=== PATIENT | male | born 1945 | race Caucasian/White ===

== ENCOUNTER → 2023-11-23 | Outpatient (CLI) | payer OTHER, SELFPAY ==
--- OUTSIDE RECORDS SUMMARY | 2023-11-23 06:41 | XMS RPT_ITS | CCD ---
Author Name Unknown Address [address] [place] [address] Organization [facility] Care Team Providers Care [employer] Name Role Phone Ronit Wall Primary Care Provider RONIT WALL Referring Unavailable RONIT WALL Primary Care Unavailable DAVID HARPER Attending Unavailable JUANIS SMALL Admitting Unavailable VACCARIELLO, EVELIN Consulting Unavailable JUANIS SMALL Primary Care Unavailable JUANIS SMALL Attending Unavailable PROVIDER, UNKNOWN Consulting Unavailable PROVIDER, UNKNOWN Consulting Unavailable PROVIDER, UNKNOWN Consulting Unavailable VACCARIELLO, EVELIN Consulting Unavailable RONIT WALL CNP Admitting Unavailable RONIT WALL CNP Primary Care Unavailable RONIT WALL CNP Attending Unavailable PROVIDER, UNKNOWN Consulting Unavailable PROVIDER, UNKNOWN Consulting Unavailable PROVIDER, UNKNOWN Consulting Unavailable RONIT WALL CNP Attending Unavailable VACCARIELLO, EVELIN Consulting Unavailable RONIT WALL CNP Admitting Unavailable RONIT WALL CNP Primary Care Unavailable PROVIDER, UNKNOWN Consulting Unavailable PROVIDER, UNKNOWN Consulting Unavailable PROVIDER, UNKNOWN Consulting Unavailable Allergies Allergy Classification Reported Allergen(s) Allergy Type Date of Onset Reaction(s) Facility (2 sources) atorvastatin; Translations: [ATORVASTATIN] Drug Allergy 05-11-2019 Unknown [facility] (2 sources) Omeprazole; Translations: [OMEPRAZOLE] Drug Allergy 05-11-2019 Unknown [facility] (2 sources) Simvastatin; Translations: [SIMVASTATIN] Drug Allergy 05-11-2019 Unknown [facility] (2 sources) tadalafil; Translations: [TADALAFIL] Drug Allergy 05-11-2019 Unknown [facility] Medications Completed/Discontinued Medications Medication Drug Class(es) Dates Sig (Normalized) Sig (Original) aspirin 81 mg delayed release oral tablet (1 source) Platelet Aggregation Inhibitor, Nonsteroidal Anti-inflammatory Drug take 1 tablet by mouth once daily aspirin, enteric coated (ASPIRIN, ENTERIC COATED) 81 mg EC tablet Take 81 mg by mouth once daily. 0 Active Problems Active Problems Problem Classification Problem Date Documented Da te Episodic/Chronic Aortic; peripheral; and visceral artery aneurysms (1 source) Aneurysm; Translations: [Aneurysm of unspecified site] Onset: 05-15-2019 05-15-2019 Chronic Headache; including migraine (2 sources) Chronic daily headache; Translations: [Chronic daily headache] Onset: 06-30-2023 06-30-2023 Episodic Other and unspecified benign neoplasm (1 source) Neoplasm of meninges; Translations: [Benign neoplasm of meninges, unspecified] Onset: 05-15-2019 05-15-2019 Chronic Other nervous system disorders (2 sources) History of meningioma; Translations: [Personal history of benign neoplasm of the brain] Onset: 06-30-2023 06-30-2023 Episodic Other screening for suspected conditions (not mental disorders or infectious disease) (1 source) Magnetic resonance imaging of brain abnormal; Translations: [Other abnormal findings on diagnostic imaging of central nervous system] 05-15-2019 Episodic Residual codes; unclassified (1 source) Sleep apnea; Translations: [Sleep apnea, unspecified] 05-15-2019 Chronic Past or Other Problems Problem Classification Problem Date Documented Da te Episodic/Chronic Retinal detachments; defects; vascular occlusion; and retinopathy (1 source) Detachment of retina of left eye; Translations: [Serous retinal detachment, left eye] Onset: 05-15-2019 05-15-2019 Episodic Results Test Name Value Interpretation Reference Range Facil ity Vital Signs Date Time Vital Sign Value Performing Clinician Kandice huizar 06-30-2023 09:29-0400 Body height 193 cm David elam MD Work Phone: [facility] 06-30-2023 09:29-0400 Body weight 88 kg David elam MD Work Phone: [facility] Encounters Encounter Date Encounter Type Care Provider Facility Start: 10-29-2023 ambulatory JUANIS SMALL [facility] Start: 06-30-2023 End: 06-30-2023 ambulatory RONIT WALL Facility:[facility] Start: 06-30-2023 End: 06-30-2023 Patient encounter procedure David Harper MD Work Phone: [facility] Neurology Plan of Treatment Date Care Activity Detail Author Start: 07-15-2023 Influenza vaccination INFLUENZA (#1) [facility] Start: 11-14-2022 ADVANCE DIRECTIVE DISCUSSION ADVANCE DIRECTIVE DISCUSSION [facility] Start: 11-14-2022 DEPRESSION ASSESSMENT DEPRESSION ASS ESSMENT [facility] Start: 12-08-2021 COVID-19 VACCINE (2 - Moderna series) COVID-19 VACCINE (2 - Moderna series) [facility] Start: 2008 PNEUMOCOCCAL: 65+ (1 - PCV) PNEUMOCOCCAL: 65+ (1 - PCV) [facility] Start: 1993 SHINGRIX VACCINE (1 of 2) FRANKLIN GRIX VACCINE (1 of 2) [facility] Start: 1988 DIABETES SCREEN DIABETES SCREEN [facility] Start: 1962 Urine microalbumin profile DTAP,TDAP ,TD (1 - Tdap) [facility] Payers Date Payer Category Payer Private Health Insurance [facility] [employer] [id number] 2021-[facility] [phone] [address] [place] [address] PPO [id number] 2021 Unknown [id number] 1945 Unknown [id number] 1945 Unknown [id number] 1945 Unknown [id number] Medicare [id number] Social History Date Type Detail Facility Start: 06-30-2023 Tobacco smoking stat us [facility] Ex-smoker [facility] History of tobacco use Current smoker [facility] Start: 06-30-2023 Tobacco use and exposure Smoke less tobacco non-user [facility] Start: 06-30-2023 Alcohol intake Ex-drinker (finding) [facility] Start: 05-15-2019 End: 06-30-2023 History of Social function [facility] Start: 05-15-2019 End: 06-30-2023 Tobacco use panel [facility] Adult Depression Scr eening Assessment 0 [facility] Start: 1945 Sex Assigned At Not on file [facility] Progress note 06-30-2023 Note Date & Type Note Facility 06-30-2023 Note HNO ID: [id number] Author: David Harper MD Service: ? Author Type: Physician Type: Progress Notes Filed: 06/30/2023 2:28 PM Note Text: Referring Provider: Ronit Wall CNP Date: June 30, 2023 Chief Complaint: Headaches and history of menangioma HISTORY OF PRESENT ILLNESS: Ariana Chacon is a 77 year old male who presents for Headaches. He is a right handed, man. Patient resides at home with just his . 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 He is independent in his personal care. Patient states that he started suffering with migraines in his twenties. His most recent was just last week but he states that with in the past month or two he will have a headache every day. He states that the headache will come and go daily lasting up to six hours daily. His pain is located in the center of his forehead. Prior to last month he would have up to 3 migraines a month. He denies this headache stopping him from doing anything. He states that he will get a dot of blurry vision in the distance which is an aura that he is going to have a migraine in about an hour. I, Tracy Lyn MA, transcribing for David Harper MD. ALLERGIES Allergen Reactions Cialis [Tadalafil] Unknown Lipitor [Atorvastat* Unknown Omeprazole Unknown Zocor [Simvastatin] Unknown PAST MEDICAL HISTORY: PAST MEDICAL HISTORY Diagnosis Date Abnormal brain MRI Amaurosis fugax BPH (benign prostatic hyperplasia) GERD (gastroesophageal reflux disease) Hyperlipidemia Retinal detachment Sleep apnea Type 2 diabetes (HCC) PAST SURGICAL HISTORY Procedure Laterality Date WRIST SURGERY HX Right FAMILY HISTORY Problem Relation Age of Onset Heart Mother Cancer Father SOCIAL HISTORY: Tobacco Use: Quit Alcohol Use: Not Currently Drug Use: Never Employer And Job Title: No employer specified ([employer]) Years Of Education Completed: Not specified Marital Status: MEDICATIONS: Current Outpatient Medications Medication Sig pantoprazole DR (PROTONIX) 40 mg tablet rosuvastatin (CRESTOR) 40 mg tablet Take 40 mg by mouth once daily. aspirin, enteric coated (ASPIRIN, ENTERIC COATED) 81 mg EC tablet Take 81 mg by mouth once daily. multivitamin/iron/folic acid (CENTRUM COMPLETE ORAL) Take by mouth. lansoprazole (PREVACID) 30 mg capsule Take 30 mg by mouth once daily. No current facility-administered medications for this visit. I have personally reviewed the patients past medical history including social, family, surgical, diagnostics, and medications./AB Review of Systems Constitutional: Negative for chills, fever and unexpected weight change. HENT: Negative for congestion, facial swelling, trouble swallowing and voice change. Eyes: Negative for visual disturbance. Respiratory: Negative for shortness of breath. Cardiovascular: Negative for chest pain. Gastrointestinal: Negative for diarrhea, nausea and vomiting. Musculoskeletal: Negative for gait problem and myalgias. Allergic/Immunologic: Negative. Negative for immunocompromised state. Neurological: Positive for headaches. Negative for dizziness, syncope and light-headedness. Psychiatric/Behavioral: Negative. Negative for hallucinations and self-injury. Vitals: Ht 193 cm (6' 4 ) Wt 88 kg (194 lb) BMI 23.61 kg/m? PHYSICAL EXAM:: The physical exam findings are as follows: General General Appearance - Well groomed Orientation: Oriented to time, oriented to place, and oriented to person. Higher Cortical Function: Awake and alert. Language functions are intact. Patient names well and repeats well, spontaneous speech as well as comprehension is normal and fund of knowledge is intact for the patient level of education. Attention span and concentration are normal and as expected for patient's age. Neurologic CRANIAL NERVES: ll - Makes and sustains eye contact. Visual gan are full to confrontation testing. lll, lV, Vl - Pupils are 2 -3 mm in size and reactive. External ocular movements are full and there is no nystagmus. V - Facial sensation to light touch and pin prick, normal. Vll - No facial asymmetry Vlll - Normal hearing. lX - Palatal movements, normal. Xl - Good and equal shoulder shrugs. Xll - Tongue protrusion, midline. Motor Exam Bulk/Size: Normal Strength Exam: Upper Extremity Right Left Deltoid 5 5 Biceps 5 5 Triceps 5 5 Wrist Extensor 5 5 Wrist Flexor 5 5 APB 5 5 FDI 5 5 Lower Extremity Right Left Flexor hip joint 5 5 Extensor hip joint 5 5 Extensor knee joint 5 5 Flexor knee joint 5 5 Dorsi flexor ankle joint 5 5 Plantar flexor ankle joint 5 5 Tone: Normal Abnormal movements: None Sensory: Right Left Light Touch Normal Normal Pin Prick Not checked Not checked Vibration Not checked Not checked Temperature Not checked Not checked Distal/Proximal exam normal Sensory level: None Reflex Right Left (more content not included)... [facility] Instructions 06-30-2023 Patient Instructions Note Date & Type Note Facility 06-30-2023 Instructions Tracy Lyn MA - 06/30/2023 9:54 AM EDT ASSESSMENT/PLAN: Chronic daily headache - ICD9: 784.0, ICD10: R51.9 (primary diagnosis) Most likely caused by muscle tension. 1.) Reviewed MRI which shows no new findings. 2.) You can take an over the counter pain reliever for these type headaches. 3.) Follow up as needed. History of meningioma of the brain - ICD9: V12.41, ICD10: Z86.011 Stable, per recent MRI there has been no change documented in this encounter [facility] History of Present illness Narrative 06-30-2023 David Harper MD - 06/30/2023 9:29 AM EDT Note Date & Type Note Facility 06-30-2023 History of Presen t illness Narrative Referring Provider: Ronit Wall CNP Date: June 30, 2023 Chief Complaint: Headaches and history of menangioma HISTORY OF PRESENT ILLNESS: Ariana Chacon is a 77 year old male who presents for Headaches. He is a right handed, man. Patient resides at home with just his . 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 He is independent in his personal care. Patient states that he started suffering with migraines in his twenties. His most recent was just last week but he states that with in the past month or two he will have a headache every day. He states that the headache will come and go daily lasting up to six hours daily. His pain is located in the center of his forehead. Prior to last month he would have up to 3 migraines a month. He denies this headache stopping him from doing anything. He states that he will get a dot of blurry vision in the distance which is an aura that he is going to have a migraine in about an hour. I, Tracy Lyn MA, transcribing for David Harper MD. ALLERGIES Allergen Reactions Cialis [Tadalafil] Unknown Lipitor [Atorvastat* Unknown Omeprazole Unknown Zocor [Simvastatin] Unknown PAST MEDICAL HISTORY: PAST MEDICAL HISTORY Diagnosis Date Abnormal brain MRI Amaurosis fugax BPH (benign prostatic hyperplasia) GERD (gastroesophageal reflux disease) Hyperlipidemia Retinal detachment Sleep apnea Type 2 diabetes (HCC) PAST SURGICAL HISTORY Procedure Laterality Date WRIST SURGERY HX Right FAMILY HISTORY Problem Relation Age of Onset Heart Mother Cancer Father SOCIAL HISTORY: Tobacco Use: Quit Alcohol Use: Not Currently Drug Use: Never Employer And Job Title: No employer specified ([employer]) Years Of Education Completed: Not specified Marital Status: MEDICATIONS: Current Outpatient Medications Medication Sig pantoprazole DR (PROTONIX) 40 mg tablet rosuvastatin (CRESTOR) 40 mg tablet Take 40 mg by mouth once daily. aspirin, enteric coated (ASPIRIN, ENTERIC COATED) 81 mg EC tablet Take 81 mg by mouth once daily. multivitamin/iron/folic acid (CENTRUM COMPLETE ORAL) Take by mouth. lansoprazole (PREVACID) 30 mg capsule Take 30 mg by mouth once daily. No current facility-administered medications for this visit. I have personally reviewed the patients past medical history including social, family, surgical, diagnostics, and medications./AB Review of Systems Constitutional: Negative for chills, fever and unexpected weight change. HENT: Negative for congestion, facial swelling, trouble swallowing and voice change. Eyes: Negative for visual disturbance. Respiratory: Negative for shortness of breath. Cardiovascular: Negative for chest pain. Gastrointestinal: Negative for diarrhea, nausea and vomiting. Musculoskeletal: Negative for gait problem and myalgias. Allergic/Immunologic: Negative. Negative for immunocompromised state. Neurological: Positive for headaches. Negative for dizziness, syncope and light-headedness. Psychiatric/Behavioral: Negative. Negative for hallucinations and self-injury. Vitals: Ht 193 cm (6' 4 ) Wt 88 kg (194 lb) BMI 23.61 kg/m PHYSICAL EXAM:: The physical exam findings are as follows: General General Appearance - Well groomed Orientation: Oriented to time, oriented to place, and oriented to person. Higher Cortical Function: Awake and alert. Language functions are intact. Patient names well and repeats well, spontaneous speech as well as comprehension is normal and fund of knowledge is intact for the patient level of education. Attention span and concentration are normal and as expected for patient's age. Neurologic CRANIAL NERVES: ll - Makes and sustains eye contact. Visual gan are full to confrontation testing. lll, lV, Vl - Pupils are 2 -3 mm in size and reactive. External ocular movements are full and there is no nystagmus. V - Facial sensation to light touch and pin prick, normal. Vll - No facial asymmetry Vlll - Normal hearing. lX - Palatal movements, normal. Xl - Good and equal shoulder shrugs. Xll - Tongue protrusion, midline. Motor Exam Bulk/Size: Normal Strength Exam: Upper Extremity Right Left Deltoid 5 5 Biceps 5 5 Triceps 5 5 Wrist Extensor 5 5 Wrist Flexor 5 5 APB 5 5 FDI 5 5 Lower Extremity Right Left Flexor hip joint 5 5 Extensor hip joint 5 5 Extensor knee joint 5 5 Flexor knee joint 5 5 Dorsi flexor ankle joint 5 5 Plantar flexor ankle joint 5 5 Tone: Normal Abnormal movements: None Sensory: Right Left Light Touch Normal Normal Pin Prick Not checked Not checked Vibration Not checked Not checked Temperature Not checked Not checked Distal/Proximal exam normal Sensory level: None Reflex Right Left Biceps 2+ 2+ Triceps 2+ 2+ Wrist 2+ 2+ Knee 2+ 2+ Ankle 1+ 1+ Plantar Not checked Not checked Cerebellar Exam: Normal Gait and Stance: Normal, able to stand unassisted Tandem walk: Not checked Romberg's: Not checked The following documents and testing were reviewed and discussed with the patient. CT Head 05/2019- Unremarkable CTA of the head. No visible aneurysms. Left anterior falx lesion consistent with a meningioma. CT Neck 05/2019- Highly vascular lesion in the notch between the left ICA and ECA, differential diagnosis includes an aneurysm or pseudoaneurysm, vascular mass such as a carotid body or other tumor. MRI could further evaluate. No hemodynamically significant stenosis. Right thyroid incidental small nodule, no further imaging is recommended for this lesion. MRI Brain 06/10/2023- There is no evidence of acute intracranial abnormality. 18 mm left parasagittal lesion, consistent with history of meningioma. There has been no change. Partial opacification of the right mastoid. ASSESSMENT/PLAN: Chronic daily headache - ICD9: 784.0, ICD10: R51.9 (primary diagnosis) Most likely caused by muscle tension. 1.) Reviewed MRI which shows no new findings. 2.) You can take an over the counter pain reliever for these type headaches. 3.) Follow up as needed. History of meningioma of the brain - ICD9: V12.41, ICD10: Z86.011 Stable, per recent MRI there has been no change The old record was reviewed and new history from past medical history was obtained and recorded. I have discussed the recommended treatment, alternative treatments and other treatment options in detail. I have discussed the risks, benefits and side effect of the recommended treatment in detail as well. I have attempted to answer all their questions to their satisfaction and understanding of the explanation has been voiced. With approval we will pursue the recommended treatment. I, David Harper, have reviewed and agree with the information in the medical record transcribed by Tracy Lyn MA. David Harper MD documented in this encounter [facility] Evaluation note Note Date & Type Note Facility documented in this encounter [facility] Summary Purpose Family History No Family History Records FoundNo Family History Records FoundNo Family History Records FoundNo Family History Records Found Advance Directives No Advanced Directives Records FoundNo Advanced Directives Records FoundNo Advanced Directives Records FoundNo Advanced Directives Records Found Additional Source Comments (unrecognized sect ion and content) No Status Records FoundNo Status Records FoundNo Status Records FoundNo Status Records Found INFORMATION SOURCE (unrecogn ized section and content) DATE CREATED AUTHOR AUTHOR'S ORGANIZ ATION 09/19/2020 [facility] DATE CREATED AUTHOR AUTHOR'S ORGANIZ ATION 07/01/2023 [facility] DATE CREATED AUTHOR AUTHOR'S ORGANIZ ATION 10/31/2023 [facility] Source Comments (unrecognize d section and content) In the event this informatio n is protected by the Federal Confidentiality of Alcohol and Drug Abuse Patient Records regulations: The Federal rules restrict any use of the information to criminally investigate or prosecute any alcohol or drug abuse patient.[facility] Reason for Visit (unrecogniz ed section and content) Care Teams (unrecognized sec tion and content) FOR RECORDS PERTAINING TO PATIENTS WHO ARE OR HAVE BEEN ENROLLED IN A CHEMICAL DEPENDENCY/SUBSTANCEABUSE PROGRAM, SOME INFORMATION MAY BE OMITTED. This clinical summary was aggregated from multiple sources. Caution should be exercised in using it in the provision of clinical care. This summary normalizes information from multiple sources, and as a consequence, information in this document may materially change the coding, format and clinical context of patient data. In addition, data may be omitted in some cases. CLINICAL DECISIONS SHOULD BE BASED ON THE PRIMARY CLINICAL RECORDS. [facility]. provides no warranty or guarantee of the accuracy or completeness of information in this document.
--- NOTE | 2023-11-23 13:02 | STRESSREP ---
Stress Test Report Pharmacologic myocardial perfusion stress test. 78-year-old male with a history of dyspnea Resting EKG demonstrates sinus bradycardia with a rate of 54 bpm. Resting blood pressure is 130/72 mmHg. 0.4 mg of regadenoson was infused per usual protocol followed by rapid intravenous saline flush injection. Continuous EKG monitoring was performed. The maximum heart rate was 82 bpm which was 58% of max impacted heart rate the maximum workload was 1 metabolic equivalent. At rest there were no ST or T wave changes noted to suggest ischemia and at peak infusion nonspecific ST changes were noted which did not meet the criteria for ischemia. No clinical angina is noted. The final blood pressure was 124/70 mmHg. Myocardial perfusion protocol. 13.9 mCi of technetium 99m sestamibi was injected at rest. 0.4 mg of regadenoson was infused per usual protocol. At peak infusion 44.3 mCi of technetium 99m sestamibi was injected stress images were obtained stress and rest images were reconstructed and compared in the short axis vertical long and horizontal long axis. Gated images were also obtained. Perfusion SPECT analysis: Review of the stress images demonstrate normal uptake of tracer noted in all areas of the myocardium. There is however a defect noted in the basal anteroseptal wall. The resting images similar demonstrated normal uptake of tracer noted in all areas of the myocardium with mild improvement noted in the basal anteroseptal wall suggesting a mild amount of ischemia. Previous infarct in this area cannot be excluded. Gated SPECT analysis: The gated ejection fraction is 72%. Conclusion: Mildly abnormal pharmacologic myocardial perfusion stress test. 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
== END | disposition home or self-care (01) ==
LOC: CVS 06:22
DX: R06.02 Shortness of breath (principal); R42 Dizziness and giddiness
CPT/HCPCS: 78452; 93017; A9500; A4216; J2785

== ENCOUNTER 2023-12-07 11:57 | Observation (INO) | payer OTHER, SELFPAY ==
[2023-12-07] VITALS (8 sets, daily range): BP systolic 117–141; BP diastolic 74–91; PULSE 50–76; RESP 10–18; TEMP 36.4–36.8; O2SAT 95–99; BMI 24.4; BMI 23.4
--- NOTE | 2023-12-07 12:02 | NURSING ---
NO OLD EKGS
--- NOTE | 2023-12-07 13:32 | NURSING ---
NO OLD EKGS
[2023-12-07 13:49] LABS: Absolute Lymphocyte Count 1.88 X10^3/uL (0.83-4.51); Absolute Neutrophil Count 3.2 X10^3/uL (2.0-7.7); Basophil# 0.07 X10^3/uL; Basophil% 1.2 % (0-1); Eosinophil# 0.27 X10^3/uL; Eosinophils% 4.5 % (0-5); Hematocrit 43.4 % (40-54); Hemoglobin 13.9 g/dL (13.0-16.5); Lymphocyte # 1.88 X10^3/ul (0.83-4.51); Lymphocyte % 31.1 % (19-41); Mean Corpuscular Hgb 29.5 pg (27.0-32.0); Mean Corpuscular Volume 92.1 fL (80-94); Mean Platelet Vol. 11.1 fl (6.2-12.0); Monocyte# 0.64 X10^3/uL; Monocyte% 10.6 % (0-10); NRBC Flagged by Analyzer 0 % (0-5); Neutrophil # 3.18 X10^3/uL (2.7-7.7); Neutrophil % 52.4 % (47-70); Platelet Count 182 K/mm3 (150-450); RBC Distribution Width CV 13.6 % (11.6-14.6); RBC Distribution Width SD 46.3 fl (35.1-43.9); Red Blood Count 4.71 M/mm3 (4.6-6.2); White Blood Count 6.1 K/mm3 (4.4-11.0)
--- NOTE | 2023-12-07 13:50 | RAD_ITS ---
STUDY: X-RAY CHEST REASON FOR EXAM: Male, 78 years old. Chest pain. Shortness of breath. TECHNIQUE: Single AP portable view of the chest. COMPARISON: None. FINDINGS: EKG electrodes are seen. There is hyperinflation of the lungs consistent with chronic obstructive lung disease (COPD). Mild increased linear markings at the left lung base suggestive of scarring. Normal size heart. Normal mediastinum and zka. Normal visualized pulmonary arteries. There is atherosclerotic calcification of the aortic arch with tortuosity. Normal visualized thoracic spine. Normal visualized ribs, clavicles, and shoulders. There is no demonstrated abnormality of the visualized soft tissue structures of the upper abdomen. RAD/Chest 1 View (Portable) IMPRESSION: Hyperinflation. Mild increased markings at the lung bases slightly worse on the left side suggestive of scarring. Electronically Signed: Dick Yepez MD at 14:23 EST ,
[2023-12-07] MEDS: Aspirin 81 MG TAB.CHEW 324 MG PO (13:59)
[2023-12-07 14:04] LABS: International Normalized Ratio 1.1; Prothrombin Time (Protime)PT. 14.5 SECONDS (11.7-14.9)
[2023-12-07 14:05] LABS: Partial Thromboplast Time 27.7 Seconds (24.1-36.2)
[2023-12-07 14:08] LABS: Anion Gap 4 (5-15); BUN 21 mg/dL (7-18); BUN/Creat Ratio 19.4 RATIO (10-20); Calcium,Total 9.4 mg/dL (8.5-10.1); Chloride 109 mmol/L (98-107); Creatinine, Serum 1.08 mg/dL (0.70-1.30); EST Glomerular Filtration Rate 70 mL/min (>60); Est Glom Filt Rate - Afr Amer 85 mL/min (>60); Estimated Creatinine Clearance 66.98 ml/min; Glucose 100 mg/dL (74-106); Potassium 4.1 mmol/L (3.5-5.1); Sodium Level 141 mmol/L (136-145); Troponin-I HS (w/2H Reflex) 12 pg/mL (3.0-78.0)
--- NOTE | 2023-12-07 14:17 | EX.ED.DYSGE1 ---
HPI History of Present Illness Chief Complaint: Shortness of Breath Informant: patient and spouse/S.O. Narrative Narrative: 78-year-old male presenting to the emergency department the chief complaint of lightheadedness and dyspnea. Patient states that he typically sees the [place] and [place]. He was there recently mentions some episodes of wooziness/lightheadedness accompanied by some shortness of breath. He states that he had a stress test 23 November here at the hospital. He states that he was told that if he had symptoms to call 911. This morning he developed the symptoms while at rest and notes that they lasted about 30 minutes. He did not have any diaphoresis. No particular chest pain. Patient and his drove to the hospital. Review of his stress test shows an area of potential ischemia. [facility] Medical History Benign tumor BPH (benign prostatic hyperplasia) GERD (gastroesophageal reflux disease) Hyperlipemia Home Medications aspirin 81 mg chewable tablet 81 mg PO DAILY 12/07/23 [History Last Taken Unknown] glucosamine-chondroitin 250 mg-200 mg tablet (Osteo Bi-Flex) 2 tab PO DAILY 12/07/23 [History Last Taken Unknown] pantoprazole 40 mg tablet,delayed release 40 mg PO DAILY 12/07/23 [History Last Taken Unknown] rosuvastatin 20 mg tablet 20 mg PO DAILY 12/07/23 [History Last Taken Unknown] tamsulosin 0.4 mg capsule 0.4 mg PO DAILY 12/07/23 [History Last Taken Unknown] Allergy/AdvReac Type Severity Reaction Status Date / Time No Known Allergies Allergy Verified 12/07/23 11:59 Family History no significant family his Surgical History H/O hernia repair History of mandibular surgery Social History household members: spouse housing: house Smoking Status: Never smoker ROS ROS ED Constitutional Constitutional ED: Denies chills, fever(s) or weight loss Eyes Eyes: Denies change in vision or diplopia ENT ENT ED: Denies ear pain, rhinorrhea or sore throat Cardiovascular Cardiovascular: Reports other Details: Lightheadedness ; Denies chest pain, orthopnea, palpitations or racing heartbeat Respiratory/Chest Respiratory/Chest: Reports dyspnea; Denies cough or orthopnea Gastrointestinal Gastrointestinal: Denies abdominal pain, diarrhea, nausea or vomiting Genitourinary Genitourinary ED: Denies dysuria, hematuria or urinary frequency Musculoskeletal Musculoskeletal: Denies arthralgias or myalgias Integumentary Denies abscess or rash Neurologic Neurologic: Denies headache(s) or weakness Psychiatric Psychiatric: Denies anxiety, depression, suicidal ideation or suicidal thoughts Endocrine Endocrinology: Denies polydipsia, polyphagia or polyuria Allergic/Immunologic Allergic/Immunologic ED: Denies mouth swelling, tongue swelling or urticaria EXAM Physical Exam Const Vital Signs: 12/07/23 11:58 12/07/23 13:16 12/07/23 13:23 Temperature 97.6 F L Temperature Source Temporal Pulse Rate 76 54 L Respiratory Rate 14 10 L Respiratory Effort Short of Breath Respiratory Pattern Normal Blood Pressure 117/88 H Blood Pressure Mean 97 Pulse Ox 99 98 Oxygen Delivery Method Room Air Room Air Room Air 12/07/23 14:01 Temperature Temperature Source Pulse Rate 50 L Respiratory Rate 10 L Respiratory Effort Respiratory Pattern Blood Pressure Blood Pressure Mean Pulse Ox 98 Oxygen Delivery Method Positive well nourished and well developed General Appearance ED: well developed HEENT Reports normocephalic, head/scalp atraumatic and moist mucous membranes Eyes PERRL and EOMs intact bilaterally Neck no lymphadenopathy, supple and no JVD Resp normal respiratory effort and clear to auscultation bilaterally Cardio regular rate and no murmurs Rate: bradycardia GI normal to inspection, nondistended, normoactive bowel sounds and non-tender Palpation: soft Back/Spine no CVA tenderness and normal ROM Extremity normal to inspection General Extremety ED: Negative for edema General Extremity: Negative for edema Neuro oriented x3 and CN's II-XII intact bilaterally Sensorium / Orientation: alert Motor Exam: strength 5/5 throughout Psych mental status grossly normal Mood & Affect: Negative for depressed or tearful Skin no rashes or lesions noted and no wounds MDM MDM MDM Narrative Medical decision making narrative: Basic blood work showed a hemoglobin 13.9. Troponin is 12 creatinine 1.08. He has been in a bradycardic rhythm on the monitor which raises concern for potential bradycardic rhythm that causes his intermittent symptoms. My independent rotation of his chest x-ray is no acute process. I spoke with Dr. Morales from cardiology. Plan will be to admit the patient on telemetry for monitoring of rhythm. He will assess the patient we will continue to cycle enzymes out of concern for possible ACS. History & Record Review Discussion w/independent historian: Patient and Family Additional record(s) reviewed:: Prior outpatient record Lab Data Attestation: I reviewed the patient's lab results. Labs: Laboratory Results - last 24 hr 12/07/23 13:42 WBC 6.1 RBC 4.71 Hgb 13.9 Hct 43.4 MCV 92.1 MCH 29.5 MCHC 32.0 RDW Std Deviation 46.3 H RDW Coeff of Katelin 13.6 Plt Count 182 MPV 11.1 Immature Gran % (Auto) 0.200 Neut % (Auto) 52.4 Lymph % (Auto) 31.1 [place] % (Auto) 10.6 H Eos % (Auto) 4.5 Baso % (Auto) 1.2 H Absolute Neuts (auto) 3.2 Absolute Lymphs (auto) 1.88 Nucleated RBC % 0 PT 14.5 INR 1.1 APTT 27.7 Sodium 141 Potassium 4.1 Chloride 109 H Carbon Dioxide 28.0 Anion Gap 4 L BUN 21 H Creatinine 1.08 Estim Creat Clear Calc 66.98 Est GFR (MDRD) Af Amer 85 Est GFR (MDRD) Non-Af 70 BUN/Creatinine Ratio 19.4 Glucose 100 Calcium 9.4 Troponin I High Sens 12 Radiography Diagnostic Testing: Clinical Impression(s) from Imaging Studies Chest X-Ray 12/07/23 13:50 IMPRESSION: Hyperinflation. Mild increased markings at the lung bases slightly worse on the left side suggestive of scarring. Electronically Signed: Dick Yepez MD at 14:23 EST , EKG Initial EKG: Attestation: I personally reviewed and interpreted this EKG as follows: Comments: Sinus bradycardia with ventricular rate of 55 bpm Management Discussion w/another healthcare provider: Hospitalist and Family Medicine Physician (Dr. Morales (cardiology)) Discharge Plan Dx/Rx/DC Orders Clinical Impression: Episodic lightheadedness, Acute dyspnea Disposition Disposition: Acute Care Hospital [facility] Discharge Date/Time: 12/07/23 15:31
--- NOTE | 2023-12-07 14:21 | PCM.HP.STD ---
HPI - General General Date of Admission: 12/07/23 Date of Service: 12/07/23 Chief Complaint: Episodic lightheadedness with dyspnea HPI Narrative ARIANA SIBLEY, is a 78 M who presented to [facility] ED on 12/07/2023 for with episodic lightheadedness with dyspnea. Patient seen at bedside in the ED, present. Patient was sitting up comfortably in bed, conversing normally, no acute distress. Patient states that beginning about 6 weeks ago, he has had intermittent episodes of episodic lightheadedness with dyspnea at rest. Notes that the symptoms do not seem to correlate with activity. Symptoms seem to start at rest and resolve on their own. Previous episodes seem to resolve within minutes, but today's episode seemed to last for a few hours. [facility] done on 11/23/2023 at [facility] that showed an anterior basilar defect at rest and with stress that partially reversed with rest that was suggestive of mild ischemia. Had not had outpatient follow-up after the stress test to this point. Patient currently denies any chest pain, shortness of breath. Denies any fevers or chills. Denies any other pain or discomfort. No other acute concerns this time. [facility] Medical History Benign tumor BPH (benign prostatic hyperplasia) CPAP (continuous positive airway pressure) dependence GERD (gastroesophageal reflux disease) Hyperlipemia Migraines Non-smoker Sleep apnea Home Medications aspirin 81 mg chewable tablet 81 mg PO DAILY 12/07/23 [History Last Taken Unknown] glucosamine-chondroitin 250 mg-200 mg tablet (Osteo Bi-Flex) 2 tab PO DAILY 12/07/23 [History Last Taken Unknown] pantoprazole 40 mg tablet,delayed release 40 mg PO DAILY 12/07/23 [History Last Taken Unknown] rosuvastatin 20 mg tablet 20 mg PO DAILY 12/07/23 [History Last Taken Unknown] tamsulosin 0.4 mg capsule 0.4 mg PO DAILY 12/07/23 [History Last Taken Unknown] Allergy/AdvReac Type Severity Reaction Status Date / Time No Known Allergies Allergy Verified 12/07/23 11:59 Family History no significant family his Surgical History H/O hernia repair History of mandibular surgery Social History household members: spouse housing: house Smoking Status: Never smoker ROS Constitutional Constitutional: Denies chills, fatigue, fever(s) or weakness Eyes Eyes: Denies change in vision Cardiovascular Cardiovascular: Reports lightheadedness; Denies chest pain, dyspnea on exertion, edema or rapid heart rate Respiratory/Chest Respiratory/Chest: Reports shortness of breath at rest; Denies cough, productive cough, shortness of breath with exertion or wheezing Gastrointestinal Gastrointestinal: Denies abdominal pain Genitourinary Genitourinary: Denies dysuria Musculoskeletal Musculoskeletal: Denies arthralgias or back pain Neurologic Neurologic: Denies dizziness, focal weakness or headache(s) Vital Signs Vital Signs Vital Signs: 12/07/23 11:58 12/07/23 13:16 12/07/23 13:23 Temperature 97.6 F L Temperature Source Temporal Pulse Rate 76 54 L Respiratory Rate 14 10 L Respiratory Effort Short of Breath Respiratory Pattern Normal Blood Pressure 117/88 H Blood Pressure Mean 97 Pulse Ox 99 98 Oxygen Delivery Method Room Air Room Air Room Air 12/07/23 14:01 Temperature Temperature Source Pulse Rate 50 L Respiratory Rate 10 L Respiratory Effort Respiratory Pattern Blood Pressure Blood Pressure Mean Pulse Ox 98 Oxygen Delivery Method Weight Weight: 90.917 kg Body Mass Index (BMI) 24.4 Physical Exam Const alert, oriented x3, no apparent distress, average body habitus, healthy appearing and well nourished Constitutional Narrative: Pleasant elderly male, sitting up comfortably in bed, conversing normally, no acute distress. General Appearance: cooperative, comfortable, well kempt and well developed HEENT normocephalic, head/scalp atraumatic, hearing grossly normal bilaterally, nasal mucous membranes and turbinates normal and moist oral mucous membranes Eyes PERRL, EOMs intact bilaterally and conjunctivae normal Neck full ROM, no lymphadenopathy and supple Lymph Lymphatic: no lymphadenopathy noted Chest inspection of chest normal Resp normal respiratory effort, normal air movement, no use of accessory muscles and clear to auscultation bilaterally Cardio regular rate, regular rhythm, no murmurs and peripheral pulses 2+ throughout GI normal to inspection, nondistended, normoactive bowel sounds, soft to palpation, non-tender and non-distended Back/Spine normal ROM Extremity normal to inspection, full ROM and no pedal edema Skin no rashes or lesions noted Neuro moves all extremities and no focal motor deficits Speech: speech normal Psych mental status grossly normal Results Lab / Micro Data 12/07/23 13:42 12/07/23 13:42 Labs: Laboratory Results - last 24 hr 12/07/23 13:42: WBC 6.1, RBC 4.71, Hgb 13.9, Hct 43.4, MCV 92.1, MCH 29.5, MCHC 32.0, RDW Std Deviation 46.3 H, RDW Coeff of Katelin 13.6, Plt Count 182, MPV 11.1, Immature Gran % (Auto) 0.200, Neut % (Auto) 52.4, Lymph % (Auto) 31.1, [place] % (Auto) 10.6 H, Eos % (Auto) 4.5, Baso % (Auto) 1.2 H, Absolute Neuts (auto) 3.2, Absolute Lymphs (auto) 1.88, Nucleated RBC % 0, PT 14.5, INR 1.1, APTT 27.7, Sodium 141, Potassium 4.1, Chloride 109 H, Carbon Dioxide 28.0, Anion Gap 4 L, BUN 21 H, Creatinine 1.08, Estim Creat Clear Calc 66.98, Est GFR (MDRD) Af Amer 85, Est GFR (MDRD) Non-Af 70, BUN/Creatinine Ratio 19.4, Glucose 100, Calcium 9.4, Troponin I High Sens 12 Assessment & Plan Assessment/Plan (1) Acute dyspnea: (2) Abnormal cardiovascular stress test: (3) Episodic lightheadedness: (4) Hyperlipemia: PLAN: Plan Patient is an 78-year-old male who presented to [facility] ED on 11/14/2023 with episodic lightheadedness and dyspnea. 1. Episodic lightheadedness with dyspnea, abnormal cardiovascular stress test Unclear etiology at this time. Does not have definitive anginal type symptoms. Chest x-ray on admit showed mild increased markings at lung bases suggestive of scarring, no other acute abnormalities. Most recent stress test with findings as noted in HPI. Troponin x 3 normal. EKG on admit showed sinus bradycardia, no ST changes, no evidence of block. Lab workup otherwise fairly benign. ? Admit under observation status to PCU. Cardiology consulted. Echocardiogram ordered. Will keep patient on telemetry to evaluate for arrhythmias. Follow-up a.m. labs. Chronic medical conditions: ? BPH with LUTS: Continue home Flomax. ? Hyperlipidemia: Continue home statin. ? GERD: Continue home PPI. DVT prophylaxis: Lovenox CODE STATUS: Full code, verified Expected disposition: Home, 1 to 2 days Total clinical time spent by myself addressing the patient's medical issues, reviewing all the data, and collaborating with patient's care team: 55 minutes. Charges/Coding Visit Charges Inpatient E&M: 99094 Init Hosp L2
--- OUTSIDE RECORDS SUMMARY | 2023-12-07 14:29 | XMS RPT_ITS | CCD ---
Author Name Unknown Address [address] [place] [address] Organization [facility] Care Team Providers Care Business English Instructor Name Role Phone Ronit Wall Primary Care [...] atorvastatin; Translations: [ATORVASTATIN] Drug Allergy 05-11-2019 Unknown [facility] (2 sources) Omeprazole; Translations: [OMEPRAZOLE] Drug Allergy 05-11-2019 Unknown [facility] (2 sources) Simvastatin; Translations: [SIMVASTATIN] Drug Allergy 05-11-2019 Unknown [facility] (2 sources) tadalafil; Translations: [TADALAFIL] Drug Allergy 05-11-2019 Unknown [facility] Medications Completed/Discontinued Medications Medication Drug Class(es) Dates [...] 193 cm David elam MD Work Phone: [facility] 06-30-2023 09:29-0400 Body weight 88 kg David elam MD Work Phone: [facility] Encounters Encounter Date Encounter Type Care Provider Facility Start: 10-29-2023 ambulatory JUANIS SMALL [facility] Start: 06-30-2023 End: 06-30-2023 ambulatory RONIT WALL Facility:[facility] Start: 06-30-2023 End: 06-30-2023 Patient encounter procedure David Harper MD Work Phone: [facility] Plan of Treatment Date Care Activity Detail Author Start: 07-15-2023 Influenza vaccination INFLUENZA (#1) [facility] Start: 11-14-2022 ADVANCE DIRECTIVE DISCUSSION ADVANCE DIRECTIVE DISCUSSION [facility] Start: 11-14-2022 DEPRESSION ASSESSMENT DEPRESSION ASS ESSMENT [facility] Start: 12-08-2021 COVID-19 VACCINE (2 - Moderna series) COVID-19 VACCINE (2 - Moderna series) [facility] Start: 2008 PNEUMOCOCCAL: 65+ (1 - PCV) PNEUMOCOCCAL: 65+ (1 - PCV) [facility] Start: 1993 SHINGRIX VACCINE (1 of 2) FRANKLIN GRIX VACCINE (1 of 2) [facility] Start: 1988 DIABETES SCREEN DIABETES SCREEN [facility] Start: 1962 Urine microalbumin profile DTAP,TDAP ,TD (1 - Tdap) [facility] Payers Date Payer Category Payer Private Health Insurance [facility] OPTUM [id number] 2021-[facility] [phone] [address] [place] [address] PPO [id number] 2021 Unknown [id number] 1943 Unknown [id number] 1943 Unknown [id number] 1943 Unknown [id number] Medicare [id number] Social History Date Type Detail Facility Start: 06-30-2023 Tobacco smoking stat us NHIS Ex-smoker [facility] History of tobacco use Current smoker [facility] Start: 06-30-2023 Tobacco use and exposure Smoke less tobacco non-user [facility] Start: 06-30-2023 Alcohol intake Ex-drinker (finding) [facility] Start: 05-15-2019 End: 06-30-2023 History of Social function [facility] Start: 05-15-2019 End: 06-30-2023 Tobacco use panel [facility] Adult Depression Scr eening Assessment 0 [facility] Start: 1945 Sex Assigned At Not on file C [facility] Progress note 06-30-2023 Note Date & Type Note Facility 06-30-2023 Note HNO ID: [id number] Author: David Harper MD Service: ? 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 He is independent in [...] Employer And Job Title: No employer specified ([employer]) Years Of Education Completed: Not specified Marital [...] Reflex Right Left (more content not included)... 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 He is independent in [...] Employer And Job Title: No employer specified ([employer]) Years Of Education Completed: Not specified Marital [...] David Harper MD documented in this encounter [facility] Evaluation note Note Date & Type Note Facility documented in this encounter [facility] Summary Purpose Family History No Family History [...] DATE CREATED AUTHOR AUTHOR'S ORGANIZ ATION 09/19/2020 [facility] DATE CREATED AUTHOR AUTHOR'S ORGANIZ ATION 07/01/2023 [facility] DATE CREATED AUTHOR AUTHOR'S ORGANIZ ATION 10/31/2023 [facility] Source Comments (unrecognize d section and content) In the event this informatio n is protected by the Federal Confidentiality of Alcohol and Drug Abuse Patient Records regulations: The Federal rules restrict any use of the information to criminally investigate or prosecute any alcohol or drug abuse patient.[facility] Reason for Visit (unrecogniz ed section and [...] BE BASED ON THE PRIMARY CLINICAL RECORDS. [facility]. provides no warranty or guarantee of the accuracy or completeness of information in this document.
[2023-12-07 15:47] LABS: Reflex Troponin-HS? (from REC) Y
--- OUTSIDE RECORDS SUMMARY | 2023-12-07 16:22 | XMS RPT_ITS | CCD ---
Author Name Unknown Address [address] [place] [address] Organization [facility] Care Team Providers Care Smog Technician Name Role Phone Ronit Wall Primary Care Provider [phone] RONIT WALL Referring Unavailable RONIT WALL Primary [...] atorvastatin; Translations: [ATORVASTATIN] Drug Allergy 05-11-2019 Unknown [facility] (2 sources) Omeprazole; Translations: [OMEPRAZOLE] Drug Allergy 05-11-2019 Unknown [facility] (2 sources) Simvastatin; Translations: [SIMVASTATIN] Drug Allergy 05-11-2019 Unknown [facility] (2 sources) tadalafil; Translations: [TADALAFIL] Drug Allergy 05-11-2019 Unknown [facility] Medications Completed/Discontinued Medications Medication Drug Class(es) Dates [...] 193 cm David elam MD Work Phone: [facility] 06-30-2023 09:29-0400 Body weight 88 kg David elam MD Work Phone: [facility] Encounters Encounter Date Encounter Type Care Provider Facility Start: 10-29-2023 ambulatory JUANIS SMALL [facility] Start: 06-30-2023 End: 06-30-2023 ambulatory RONIT WALL Facility:[facility] Start: 06-30-2023 End: 06-30-2023 Patient encounter procedure David Harper MD Work Phone: [facility] Plan of Treatment Date Care Activity Detail Author Start: 07-15-2023 Influenza vaccination INFLUENZA (#1) [facility] Start: 11-14-2022 ADVANCE DIRECTIVE DISCUSSION ADVANCE DIRECTIVE DISCUSSION [facility] Start: 11-14-2022 DEPRESSION ASSESSMENT DEPRESSION ASS ESSMENT [facility] Start: 12-08-2021 COVID-19 VACCINE (2 - Moderna series) COVID-19 VACCINE (2 - Moderna series) [facility] Start: 2008 PNEUMOCOCCAL: 65+ (1 - PCV) PNEUMOCOCCAL: 65+ (1 - PCV) [facility] Start: 1993 SHINGRIX VACCINE (1 of 2) FRANKLIN GRIX VACCINE (1 of 2) [facility] Start: 1988 DIABETES SCREEN DIABETES SCREEN [facility] Start: 1962 Urine microalbumin profile DTAP,TDAP ,TD (1 - Tdap) [facility] Payers Date Payer Category Payer Private Health Insurance [facility] OPTUM [id number] 2021-[facility] [phone] [address] [place] [address] PPO [id number] 2021 Unknown [id number] 1943 Unknown [id number] 1943 Unknown [id number] 1945 Unknown [id number] Medicare [id number] Social History Date Type Detail Facility Start: 06-30-2023 Tobacco smoking stat us NHIS Ex-smoker [facility] History of tobacco use Current smoker [facility] Start: 06-30-2023 Tobacco use and exposure Smoke less tobacco non-user [facility] Start: 06-30-2023 Alcohol intake Ex-drinker (finding) [facility] Start: 05-15-2019 End: 06-30-2023 History of Social function [facility] Start: 05-15-2019 End: 06-30-2023 Tobacco use panel [facility] Adult Depression Scr eening Assessment 0 [facility] Start: 1945 Sex Assigned At Not on file C [facility] Progress note 06-30-2023 Note Date & Type Note Facility 06-30-2023 Note HNO ID: [id number] Author: David Harper MD Service: ? 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 He is independent in [...] Employer And Job Title: No employer specified ([employer]) Years Of Education Completed: Not specified Marital [...] Reflex Right Left (more content not included)... 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 He is independent in [...] Employer And Job Title: No employer specified ([employer]) Years Of Education Completed: Not specified Marital [...] David Harper MD documented in this encounter [facility] Evaluation note Note Date & Type Note Facility documented in this encounter [facility] Summary Purpose Family History No Family History [...] DATE CREATED AUTHOR AUTHOR'S ORGANIZ ATION 09/19/2020 [facility] DATE CREATED AUTHOR AUTHOR'S ORGANIZ ATION 07/01/2023 [facility] DATE CREATED AUTHOR AUTHOR'S ORGANIZ ATION 10/31/2023 [facility] Source Comments (unrecognize d section and content) In the event this informatio n is protected by the Federal Confidentiality of Alcohol and Drug Abuse Patient Records regulations: The Federal rules restrict any use of the information to criminally investigate or prosecute any alcohol or drug abuse patient.[facility] Reason for Visit (unrecogniz ed section and [...] BE BASED ON THE PRIMARY CLINICAL RECORDS. [employer] [facility]. provides no warranty or guarantee of the accuracy or completeness of information in this document.
--- NOTE | 2023-12-07 16:24 | ECHOD_ITS ---
Reason For Study: Abn EKG Procedure This was a 2D Doppler, Color Flow transthoracic echocardiogram. The study was technically difficult. Exam performed portable in patient room. Left Ventricle Normal LV size. Left ventricular systolic function is normal. The estimated ejection fraction is 60 %. Stage 1 diastolic dysfunction. No regional wall motion abnormalities noted. Right Ventricle Normal RV size. Normal systolic function. Atria Normal left atrium. Normal right atrium. Mitral Valve Normal mitral valve. Tricuspid Valve Normal tricuspid valve. Aortic Valve The aortic valve is not well visualized. Pulmonic Valve Normal pulmonic valve. Great Vessels Normal aortic root. Pericardium/Pleural No pericardial effusion. Medication Diluted definity 4ml given slow IV push to enhance endocardial definition. MMode/2D Measurements & Calculations LVIDd: 4.5 cm IVSd: 0.91 cm Ao root diam: 3.5 cm LVIDs: 2.4 cm LVPWd: 1.1 cm RVDd: 4.1 cm FS: 46.8 % LAV(MOD-bp): 44.9 ml LVAd ap4: 31.0 cm2 LVAd ap2: 22.9 cm2 LAV(MOD-bp) Indexed: 20.6 ml/m2 LVLd ap4: 8.0 cm LVLd ap2: 7.2 cm LAV(MOD-sp2): 42.2 ml EDV(MOD-sp4): 99.3 ml EDV(MOD-sp2): 61.6 ml LAV(MOD-sp4): 43.9 ml EDV(sp4-el): 102.5 ml EDV(sp2-el): 62.1 ml LVAs ap4: 19.9 cm2 LVAs ap2: 13.3 cm2 LVLs ap4: 7.4 cm LVLs ap2: 6.1 cm ESV(MOD-sp4): 45.1 ml ESV(MOD-sp2): 24.1 ml ESV(sp4-el): 45.7 ml ESV(sp2-el): 24.7 ml EF(MOD-sp4): 54.6 % EF(MOD-sp2): 61.0 % EF(sp4-el): 55.4 % SV(MOD-sp4): 54.2 ml SV(MOD-sp2): 37.6 ml SV(sp4-el): 56.7 ml LA A4 area: 17.4 cm2 LA dimension(2D): 4.0 cm RA A4 area: 17.2 cm2 TAPSE: 2.3 cm Doppler Measurements & Calculations MV E max michael: 73.1 cm/sec Lat Peak E' Michael: 12.0 cm/sec Med Peak E' Michael: 8.3 cm/sec MV A max michael: 78.8 cm/sec E/E' lat: 6.1 E/E' med: 8.8 MV E/A: 0.93 Ao V2 max: 131.1 cm/sec LV V1 max: 118.6 cm/sec PA V2 max: 73.1 cm/sec Ao max P.9 mmHg LV V1 max P.6 mmHg PA V2 mean: 44.0 cm/sec Ao V2 mean: 87.5 cm/sec LV V1 mean P.7 mmHg Ao mean P.6 mmHg LV V1 mean: 74.9 cm/sec Ao V2 VTI: 33.5 cm LV V1 VTI: 28.1 cm AV (velocity ratio): 0.84 ECHO/Echo Complete W/ Contrast Interpretation Summary Normal LV size. Left ventricular systolic function is normal. The estimated ejection fraction is 60 %. No regional wall motion abnormalities noted. Stage 1 diastolic dysfunction. Contrast injection was performed. Ordering Physician: Jatinder Morales Performed By: Itzel Young, JESSI, RVT
--- NOTE | 2023-12-07 16:26 | PCM.CONS.C ---
Assessment & Plan Assessment/Plan (1) Acute dyspnea: PLAN: The patient reports that he has had these episodes of dyspnea for some time. [facility] and subsequently was referred for pharmacologic nuclear stress test. The patient does not have a history of coronary disease or congestive heart failure. He is a non-smoker. There was some scarring noted on his left lung field in the chest x-ray but his lungs sound clear to auscultation. Will evaluate this further with an echocardiogram. (2) Abnormal cardiovascular stress test: PLAN: Stress test done November 23, 2023 showed an anterior basilar defect at rest and at stress that partially reversed with rest. This was suggestive of mild ischemia. The patient does not have any definitive anginal type symptoms. The dyspnea and wooziness that he describes occurs at rest and not with exertion. (3) Episodic lightheadedness: PLAN: The patient describes this as a dizziness/wooziness. It occurs at rest and the worst episode occurred earlier today when he was playing solitaire sitting on the couch. We will evaluate him with a 2D echocardiogram to evaluate his LV function given the abnormality on the stress test and keep him on telemetry to rule out any type of significant arrhythmias the etiology of the symptoms. The patient was instructed to notify the nurse should he develop any of the symptoms so that we can correlate that with his rhythm. (4) Hyperlipemia: QUALIFIERS: Hyperlipidemia type: mixed hyperlipidemia Qualified Code(s): E78.2 - Mixed hyperlipidemia PLAN: The patient can be continued on his rosuvastatin and followed up through his primary service. PLAN: Plan 1. Repeat a second troponin high-sensitivity. If positive would consider invasive evaluation with left heart catheterization. 2. Obtain a 2D echocardiogram to evaluate his LV function and potential valvular heart disease as an explanation of this dyspnea and dizziness. 3. Monitor telemetry for any arrhythmias that may explain the symptoms. 4. Keep the patient n.p.o. after a light breakfast. 5. If the patient's troponin remains negative his EKG telemetry does not show any arrhythmia to explain his symptoms and the echo was consistent with normal LV function and no significant valvular heart disease, we will have to evaluate alternative etiologies of the symptoms. HPI Consult Data Date of Consult: 12/07/23 HPI Narrative Reason for Consultation: Abnormal stress test with MONTERO and light headiness HPI Narrative: ARIANA SIBLEY, is a 78 M who presents with a history of dizziness, he describes a woozy feeling that occurs suddenly is associated from some slight difficulty in breathing. He denies any chest tightness or squeezing denies any chelo syncope. He has noted an occasional issue with his balance. He was seen in the [facility] and a pharmacologic nuclear stress test was ordered. As stress test was completed November 23, 2023. This showed an inferior basilar defect on the stress images which is partially reversed consistent with mild ischemia on the rest images. The patient did not have any symptoms with the stress test. The patient is fairly active in his home environment and is just noted these woozy dizzy spells occur episodically. He denies any facial droop denies any loss of bowel or bladder control he denies any nausea and vomiting. He denies any speech impediment or change in visual acuity. The patient also specifically denies denies any chest tightness or squeezing or pain. There is no family history of early coronary disease and the patient is 78 years old. His mother did in her early 70s of a presumed cardiac event. There is no other family history of coronary artery disease. The patient denies any symptoms of claudication. His EKG shows a sinus bradycardia with a nonspecific minor T wave change. I do not have an old EKG for comparison. The patient reports he is borderline diabetic but really has no other cardiac risk factors. [facility] Medical History Benign tumor BPH (benign prostatic hyperplasia) CPAP (continuous positive airway pressure) dependence GERD (gastroesophageal reflux disease) Hyperlipemia Migraines Non-smoker Sleep apnea Home Medications aspirin 81 mg chewable tablet 81 mg PO DAILY 12/07/23 [History Last Taken Unknown] glucosamine-chondroitin 250 mg-200 mg tablet (Osteo Bi-Flex) 2 tab PO DAILY 12/07/23 [History Last Taken Unknown] pantoprazole 40 mg tablet,delayed release 40 mg PO DAILY 12/07/23 [History Last Taken Unknown] rosuvastatin 20 mg tablet 20 mg PO DAILY 12/07/23 [History Last Taken Unknown] tamsulosin 0.4 mg capsule 0.4 mg PO DAILY 12/07/23 [History Last Taken Unknown] Allergy/AdvReac Type Severity Reaction Status Date / Time No Known Allergies Allergy Verified 12/07/23 11:59 Family History no significant family his other (Father of cancer. Mother in her early 70s of a presumed cardiac event. There is no history of coronary disease in his immediate siblings.) Surgical History H/O hernia repair History of mandibular surgery Social History household members: spouse housing: house Smoking Status: Never smoker ROS Constitutional Constitutional: Reports as per HPI Eyes Eyes: Reports systems reviewed and no addt'l complaints, except as documented ENT HEENT: Reports systems reviewed and no addt'l complaints, except as documented Cardiovascular Cardiovascular: Reports systems reviewed and no addt'l complaints, except as documented and as per HPI Respiratory/Chest Respiratory/Chest: Reports systems reviewed and no addt'l complaints, except as documented and as per HPI Gastrointestinal Gastrointestinal: Reports systems reviewed and no addt'l complaints, except as documented Genitourinary Genitourinary: Reports systems reviewed and no addt'l complaints, except as documented Musculoskeletal Musculoskeletal: Reports systems reviewed and no addt'l complaints, except as documented Integumentary Integumentary: Reports systems reviewed and no addt'l complaints, except as documented Neurologic Neurologic: Reports systems reviewed and no addt'l complaints, except as documented and as per HPI Psychiatric Psychiatric: Reports systems reviewed and no addt'l complaints, except as documented Endocrine Endocrinology: Reports systems reviewed and no addt'l complaints, except as documented and as per HPI Allergic/Immunologic Allergic/Immunologic: Reports systems reviewed and no addt'l complaints, except as documented Physical Exam Const oriented x3 HEENT normocephalic Eyes EOMs intact bilaterally Neck no JVD and no carotid bruits Chest inspection of chest normal Resp normal respiratory effort Auscultation: Negative for crackles, rales, rhonchi or wheezes Cardio regular rhythm, S1 normal heart sound, S2 normal heart sound, no murmurs, no rub and no gallops Rate: bradycardia Bruits: Negative for carotid bruit or femoral bruit Peripheral Pulses: pulses 2+ throughout GI soft to palpation and non-tender Extremity normal to inspection and no pedal edema Skin no rashes or lesions noted Psych mental status grossly normal Risk Stratification Risk Stratification Applicable: Yes Age >/= 65: Yes >/= 3 CAD Risk Factors (HTN, HLD, DM, family hx of CAD, or current smoker): No Aspirin Use in the Past 7 Days: Yes Severe Angina (>/= episodes in 24 hours): No EKG ST Changes >/= 0.5mm: No Positive Cardiac Marker: No JAM Risk Stratification Score: 2 JAM % Risk: 8% Risk Charges/Coding Visit Charges Inpatient E&M: 73599 Init Hosp L3 Objective Data Vital Signs: Vital Signs Temp Pulse Resp BP Pulse Ox O2 Del Method 97.6 F L 51 L 10 L 130/76 H 97 Room Air 12/07/23 11:58 12/07/23 15:31 12/07/23 15:31 12/07/23 15:31 12/07/23 15:31 12/07/23 13:23 Oxygen Delivery Method Room Air Weight: 192 lb 10.944 oz Body Mass Index (BMI) 23.4 Lab / Micro Data Attestation: I reviewed the patient's lab results. 12/07/23 13:42 12/07/23 13:42 Labs: Laboratory Results - last 24 hr 12/07/23 13:42: WBC 6.1, RBC 4.71, Hgb 13.9, Hct 43.4, MCV 92.1, MCH 29.5, MCHC 32.0, RDW Std Deviation 46.3 H, RDW Coeff of Katelin 13.6, Plt Count 182, MPV 11.1, Immature Gran % (Auto) 0.200, Neut % (Auto) 52.4, Lymph % (Auto) 31.1, Cowley % (Auto) 10.6 H, Eos % (Auto) 4.5, Baso % (Auto) 1.2 H, Absolute Neuts (auto) 3.2, Absolute Lymphs (auto) 1.88, Nucleated RBC % 0, PT 14.5, INR 1.1, APTT 27.7, Sodium 141, Potassium 4.1, Chloride 109 H, Carbon Dioxide 28.0, Anion Gap 4 L, BUN 21 H, Creatinine 1.08, Estim Creat Clear Calc 66.98, Est GFR (MDRD) Af Amer 85, Est GFR (MDRD) Non-Af 70, BUN/Creatinine Ratio 19.4, Glucose 100, Calcium 9.4, Troponin I High Sens 12 Rhythm Strip Rhythm Strip: Sinus Rhythm Rate: 55 Cardiology Labs/Tests 12/07/23 13:42: WBC 6.1, RBC 4.71, Hgb 13.9, Hct 43.4, MCV 92.1, MCH 29.5, MCHC 32.0, Plt Count 182, MPV 11.1, Immature Gran % (Auto) 0.200, Neut % (Auto) 52.4, Lymph % (Auto) 31.1, Cowley % (Auto) 10.6 H, Eos % (Auto) 4.5, Baso % (Auto) 1.2 H, Absolute Neuts (auto) 3.2, Nucleated RBC % 0, PT 14.5, INR 1.1, APTT 27.7, Sodium 141, Potassium 4.1, Chloride 109 H, Carbon Dioxide 28.0, Anion Gap 4 L, BUN 21 H, Creatinine 1.08, Est GFR (MDRD) Af Amer 85, Est GFR (MDRD) Non-Af 70, BUN/Creatinine Ratio 19.4, Glucose 100, Calcium 9.4 Rhythm: EKG: See HPI ECHO: Stress Test: Cardiac Cath: PCI: CT Surgery: Holter monitor: EPS: PPM: CXR: Chest CT Scan: Radiography Diagnostic Testing: Radiology Impression Chest X-Ray 12/07/23 13:50 IMPRESSION: Hyperinflation. Mild increased markings at the lung bases slightly worse on the left side suggestive of scarring. Electronically Signed: Dick Yepez MD at 14:23 EST Reading Location ID and State: [facility] / [place] , Service support , EKG See HPI: Attestation: I personally reviewed and interpreted this EKG as follows:
[2023-12-07 16:35] LABS: Hemoglobin A1c 5.9 % (3.8-5.6)
[2023-12-07 16:58] LABS: Troponin-I HS 11 pg/mL (3.0-78.0)
[2023-12-07 21:33] LABS: Troponin-I HS 12 pg/mL (3.0-78.0)
[2023-12-07] MEDS: Atorvastatin Calcium 40 MG Tablet PO (21:33)
[2023-12-08 04:00] VITALS: BP 106/59; PULSE 56; RESP 16; TEMP 36.7; O2SAT 94
[2023-12-08 07:10] LABS: Hematocrit 42.9 % (40-54); Hemoglobin 13.7 g/dL (13.0-16.5); Mean Corp Hgb Conc 31.9 g/dL (32-36); Mean Corpuscular Hgb 29.2 pg (27.0-32.0); Mean Corpuscular Volume 91.5 fL (80-94); Mean Platelet Vol. 11.8 fl (6.2-12.0); Platelet Count 178 K/mm3 (150-450); RBC Distribution Width CV 13.6 % (11.6-14.6); RBC Distribution Width SD 45.9 fl (35.1-43.9); Red Blood Count 4.69 M/mm3 (4.6-6.2); White Blood Count 5.3 K/mm3 (4.4-11.0)
[2023-12-08 07:50] LABS: Anion Gap 3 (5-15); BUN 21 mg/dL (7-18); BUN/Creat Ratio 22.5 RATIO (10-20); Calcium,Total 8.7 mg/dL (8.5-10.1); Chloride 109 mmol/L (98-107); Creatinine, Serum 0.94 mg/dL (0.70-1.30); EST Glomerular Filtration Rate 83 mL/min (>60); Est Glom Filt Rate - Afr Amer 100 mL/min (>60); Estimated Creatinine Clearance 76.95 ml/min; Glucose 97 mg/dL (74-106); Potassium 4.1 mmol/L (3.5-5.1); Sodium Level 138 mmol/L (136-145)
[2023-12-08 07:56] VITALS: BP 132/77; PULSE 55; RESP 16; TEMP 36.9; O2SAT 100
[2023-12-08] MEDS: Aspirin 81 MG TAB.CHEW PO (08:02)
[2023-12-08] MEDS: Pantoprazole Sodium 40 MG Tablet PO (08:02)
[2023-12-08] MEDS: Enoxaparin 40 MG/0.4 ML Syringe SC (08:02)
--- NOTE | 2023-12-08 08:12 | PN.CARD_ITS ---
Subjective Subjective The patient reports he an episode of his woozy/dizzy spell this morning. During that spell while he was still having the symptoms his blood pressure was documented at 132/77 his heart rate was 55 and observed to be sinus bradycardia on the preschool program director. The patient's cardiac enzymes are negative x 3 sets. His heart rate did drop down in the 40 beats per per minute range overnight. The echocardiogram is pending. The patient denies any chest pain shortness of breath or dyspnea. The symptoms continue to occur at rest. Objective Data Vital Signs: Vital Signs Temp Pulse Resp BP Pulse Ox O2 Del Method 98.4 F 55 L 16 132/77 H 100 Room Air 12/08/23 07:56 12/08/23 07:56 12/08/23 07:56 12/08/23 07:56 12/08/23 07:56 12/08/23 07:56 Oxygen Delivery Method Room Air Weight: 192 lb 10.944 oz Body Mass Index (BMI) 23.4 Intake & Output: Intake and Output for Last 24 Hours 12/06/23 12/07/23 12/08/23 23:59 23:59 23:59 Intake Total 400 / 400 Balance 400 / 400 Lab / Micro Data Attestation: I reviewed the patient's lab results. 12/08/23 06:00 12/08/23 06:00 Labs: Laboratory Results - last 24 hr 12/07/23 13:42: WBC 6.1, RBC 4.71, Hgb 13.9, Hct 43.4, MCV 92.1, MCH 29.5, MCHC 32.0, RDW Std Deviation 46.3 H, RDW Coeff of Katelin 13.6, Plt Count 182, MPV 11.1, Immature Gran % (Auto) 0.200, Neut % (Auto) 52.4, Lymph % (Auto) 31.1, Butts % (Auto) 10.6 H, Eos % (Auto) 4.5, Baso % (Auto) 1.2 H, Absolute Neuts (auto) 3.2, Absolute Lymphs (auto) 1.88, Nucleated RBC % 0, PT 14.5, INR 1.1, APTT 27.7, Sodium 141, Potassium 4.1, Chloride 109 H, Carbon Dioxide 28.0, Anion Gap 4 L, BUN 21 H, Creatinine 1.08, Estim Creat Clear Calc 66.98, Est GFR (MDRD) Af Amer 85, Est GFR (MDRD) Non-Af 70, BUN/Creatinine Ratio 19.4, Glucose 100, Hemoglobin A1c 5.9 H, Calcium 9.4, Troponin I High Sens 12 12/07/23 16:10: Troponin I High Sens 11 12/07/23 21:07: Troponin I High Sens 12 12/08/23 06:00: WBC 5.3, RBC 4.69, Hgb 13.7, Hct 42.9, MCV 91.5, MCH 29.2, MCHC 31.9 L, RDW Std Deviation 45.9 H, RDW Coeff of Katelin 13.6, Plt Count 178, MPV 11.8, Sodium 138, Potassium 4.1, Chloride 109 H, Carbon Dioxide 26.0, Anion Gap 3 L, BUN 21 H, Creatinine 0.94, Estim Creat Clear Calc 76.95, Est GFR (MDRD) Af Amer 100, Est GFR (MDRD) Non-Af 83, BUN/Creatinine Ratio 22.5 H, Glucose 97, Calcium 8.7 Rhythm Strip Rhythm Strip: Sinus Rhythm Rate: 55 Cardiology Labs/Tests 12/07/23 13:42: WBC 6.1, RBC 4.71, Hgb 13.9, Hct 43.4, MCV 92.1, MCH 29.5, MCHC 32.0, Plt Count 182, MPV 11.1, Immature Gran % (Auto) 0.200, Neut % (Auto) 52.4, Lymph % (Auto) 31.1, Butts % (Auto) 10.6 H, Eos % (Auto) 4.5, Baso % (Auto) 1.2 H , Absolute Neuts (auto) 3.2, Nucleated RBC % 0, PT 14.5, INR 1.1, APTT 27.7, Sodium 141, Potassium 4.1, Chloride 109 H, Carbon Dioxide 28.0, Anion Gap 4 L, BUN 21 H, Creatinine 1.08, Est GFR (MDRD) Af Amer 85, Est GFR (MDRD) Non-Af 70, BUN/Creatinine Ratio 19.4, Glucose 100, Hemoglobin A1c 5.9 H, Calcium 9.4 12/08/23 06:00: WBC 5.3, RBC 4.69, Hgb 13.7, Hct 42.9, MCV 91.5, MCH 29.2, MCHC 31.9 L, Plt Count 178, MPV 11.8, Sodium 138, Potassium 4.1, Chloride 109 H, Carbon Dioxide 26.0, Anion Gap 3 L, BUN 21 H, Creatinine 0.94, Est GFR (MDRD) Af Amer 100, Est GFR (MDRD) Non-Af 83, BUN/Creatinine Ratio 22.5 H, Glucose 97, Calcium 8.7 Rhythm: EKG: ECHO: Stress Test: Cardiac Cath: PCI: CT Surgery: Holter monitor: EPS: PPM: CXR: Chest CT Scan: Radiography Diagnostic Testing: Radiology Impression Chest X-Ray 12/07/23 13:50 IMPRESSION: Hyperinflation. Mild increased markings at the lung bases slightly worse on the left side suggestive of scarring. Electronically Signed: Dick Yepez MD at 14:23 EST , Physical Exam Const oriented x3 HEENT normocephalic Neck no JVD Chest inspection of chest normal Resp normal respiratory effort Cardio regular rhythm, S1 normal heart sound, S2 normal heart sound, no murmurs, no rub and no gallops Rate: bradycardia GI soft to palpation Extremity normal to inspection Skin no rashes or lesions noted Psych mental status grossly normal Assessment & Plan Assessment/Plan (1) Episodic lightheadedness: PLAN: The patient had an episode this morning and was documented during the episode to have blood pressure 132/77 his heart rate was 55 and sinus bradycardia on telemetry. I do not feel this is the etiology of his episodic lightheadedness associated with the dyspnea. The patient does have an echocardiogram pending to definitively rule out any significant valvular heart disease or LV dysfunction. The patient describes an neurologic MRI that he had at some point in time in the past [facility] he believes. He says he reportedly had some type of growth or tumor diagnosed at that time but he was not certain about what this was. I do feel that the symptoms sound neurologic in etiology and should be further evaluated as indicated. (2) Abnormal cardiovascular stress test: PLAN: The echocardiogram is pending to evaluate the defect noted in the small area in the anterior basilar segment of his LV. His high-sensitivity troponins are negative x 3 sets and I do not feel that any further invasive evaluation is indicated for coronary artery disease. Charges/Coding Visit Charges Inpatient E&M: 65380 Subs Hosp L3
[2023-12-08] MEDS: Tamsulosin HCl 0.4 MG Capsule 0.400000000000000022 MG PO (09:45)
--- NOTE | 2023-12-08 11:34 | CT_ITS ---
STUDY: CTA BRAIN WITH AND WITHOUT CONTRAST REASON FOR EXAM: Male, 78 years old. Brain mass RADIATION DOSAGE (If Supplied By Facility): CTDIvol = ( 47.06 ) mGy, DLP = ( 2882.73 ) mGycm TECHNIQUE: Transaxial CT imaging of the brain was performed pre and post contrast administration. The examination was performed with intravenous administration of IV 50mL Isovue-370. Individualized dose optimization techniques were used for this CT. COMPARISON: None. FINDINGS: Normal soft tissue structures. Normal calvarium. There is mild cerebral atrophy with widening of the extra-axial spaces and ventricular dilatation. There is a 1.4 cm x 0.7 cm x 1.6 cm partially enhancing mass along the anterior aspect of the cerebral falx on the left side of the midline suggestive of a meningioma. Calcifications are seen along its posterior aspect. No significant mass effect or edema is seen. Normal basal ganglia and thalami. Normal brainstem. Normal cerebellum. There is no intracranial hemorrhage. There are no findings of an acute ischemic infarction. Normal visualized paranasal sinuses. CT/Brain/Head W/WO Contrast IMPRESSION: Chronic involutional changes of the brain. Findings suggestive of a 1.4 cm x 0.7 cm x 1.6 cm partially enhancing calcified mass along the anterior aspect of the cerebral falx on the left side. This is suggestive of a meningioma. Electronically Signed: Dick Yepez MD at 12:45 EST ,
--- NOTE | 2023-12-08 13:34 | PN_ITS ---
Subjective Subjective Patient seen and examined. He had no active complaints. He was admitted with a complaint of dizziness and presyncopal episodes. CC to home from overnight. Review of systems otherwise negative. He has remained hemodynamically stable. Objective Data Objective Data Vital Signs: Vital Signs Temp Pulse Resp BP Pulse Ox O2 Del Method 98.4 F 55 L 16 132/77 H 100 Room Air 12/08/23 07:56 12/08/23 07:56 12/08/23 07:56 12/08/23 07:56 12/08/23 07:56 12/08/23 07:56 Oxygen Delivery Method Room Air Weight: 192 lb 10.944 oz Body Mass Index (BMI) 23.4 Intake & Output: Intake and Output for Last 24 Hours 12/06/23 12/07/23 12/08/23 23:59 23:59 23:59 Intake Total 400 / 400 400 / 400 Balance 400 / 400 400 / 400 Lab / Micro Data 12/08/23 06:00 12/08/23 06:00 Labs: Laboratory Results - last 24 hr 12/07/23 13:42: WBC 6.1, RBC 4.71, Hgb 13.9, Hct 43.4, MCV 92.1, MCH 29.5, MCHC 32.0, RDW Std Deviation 46.3 H, RDW Coeff of [place] 13.6, Plt Count 182, MPV 11.1, Immature Gran % (Auto) 0.200, Neut % (Auto) 52.4, Lymph % (Auto) 31.1, [place] % (Auto) 10.6 H, Eos % (Auto) 4.5, Baso % (Auto) 1.2 H, Absolute Neuts (auto) 3.2, Absolute Lymphs (auto) 1.88, Nucleated RBC % 0, PT 14.5, INR 1.1, APTT 27.7, Sodium 141, Potassium 4.1, Chloride 109 H, Carbon Dioxide 28.0, Anion Gap 4 L, BUN 21 H, Creatinine 1.08, Estim Creat Clear Calc 66.98, Est GFR (MDRD) Af Amer 85, Est GFR (MDRD) Non-Af 70, BUN/Creatinine Ratio 19.4, Glucose 100, Hemoglobin A1c 5.9 H, Calcium 9.4, Troponin I High Sens 12 12/07/23 16:10: Troponin I High Sens 11 12/07/23 21:07: Troponin I High Sens 12 12/08/23 06:00: WBC 5.3, RBC 4.69, Hgb 13.7, Hct 42.9, MCV 91.5, MCH 29.2, MCHC 31.9 L, RDW Std Deviation 45.9 H, RDW Coeff of [place] 13.6, Plt Count 178, MPV 11.8, Sodium 138, Potassium 4.1, Chloride 109 H, Carbon Dioxide 26.0, Anion Gap 3 L, BUN 21 H, Creatinine 0.94, Estim Creat Clear Calc 76.95, Est GFR (MDRD) Af Amer 100, Est GFR (MDRD) Non-Af 83, BUN/Creatinine Ratio 22.5 H, Glucose 97, Calcium 8.7 Radiography Diagnostic Testing: Radiology Impression Chest X-Ray 12/07/23 13:50 IMPRESSION: Hyperinflation. Mild increased markings at the lung bases slightly worse on the left side suggestive of scarring. Electronically Signed: Dick Yepez MD at 14:23 EST , Brain CT 12/08/23 11:34 IMPRESSION: Chronic involutional changes of the brain. Findings suggestive of a 1.4 cm x 0.7 cm x 1.6 cm partially enhancing calcified mass along the anterior aspect of the cerebral falx on the left side. This is suggestive of a meningioma. Electronically Signed: Dick Yepez MD at 12:45 EST , Rhythm Strip Rhythm Strip: Sinus Rhythm Rate: 55 Physical Exam Const alert, oriented x3 and no apparent distress General Appearance: cooperative HEENT normocephalic, head/scalp atraumatic, moist oral mucous membranes and oropharynx normal Eyes PERRL and EOMs intact bilaterally Neck no lymphadenopathy, supple and no JVD Lymph Lymphatic: no lymphadenopathy noted and no lymphedema noted Resp normal respiratory effort, normal air movement and clear to auscultation bilaterally Cardio regular rate, regular rhythm, S1 normal heart sound, S2 normal heart sound and no murmurs GI normal to inspection, nondistended, normoactive bowel sounds, soft to palpation, non-tender and non-distended Extremity normal capillary refill, no clubbing, cyanosis or edema and no calf tenderness General Extremity: no tenderness to palpation of joints or extremities Skin General Skin Exam: no breakdown Neuro CN's II-XII intact bilaterally, no focal motor deficits, no sensory deficits noted and deep tendon reflexes 2+ bilaterally Motor Exam: strength 5/5 throughout and general weakness Psych thought process normal, cooperative and affect normal Appearance: appropriate Assessment & Plan Assessment/Plan (1) Episodic lightheadedness: PLAN: Plan #Near syncope * Patient feels better. Was admitted with a complaint of episode of lightheadedness with shortness of breath. * Had a recent outpatient stress test on 11/23/2023 which showed anterior to be slight defect which was partially reversible suggestive of mild ischemia. * Cardiology reviewed him and does not think that his symptoms are related to this. He also has mild bradycardia but cardiology witnessed one of the presyncopal episodes and it did not seem to be related to any bradycardia as he was not bradycardic at that time. * Patient states he has a history of a brain lesion which was diagnosed by brain imaging about 6 to 7 years ago. He states he followed up with a neurologist at [facility]. * CT of the brain ordered today showed a 1.4 cm x 0.7 cm x 1.6 cm possible e nhancing calcified mass along the anterior aspect of the cerebral falx on the left side suggestive of meningioma. * Will consult neurology * Request patient's previous records namely brain imaging and neurology reports * 2D echo showed normal left ventricular size and systolic function with EF of 60% and no regional wall motion abnormalities noted. He did have stage I diastolic dysfunction. * #Bradycardia: Bradycardia is mild. Heart rate in the 50s. Per cardiology not related to his symptoms. Monitor. #Abnormal stress test: * Recently had an abnormal stress test which showed mild reversible ischemia as above. * Cardiology does not think this is related to his current symptoms. Per cardiology no cardiac cath during this admission. * Follow-up with cardiology on outpatient basis. * #Hyperlipidemia: On statin #BPH: On Flomax DVT prophylaxis: Lovenox Charges/Coding Visit Charges Inpatient E&M: 36724 Subs Hosp L2
--- NOTE | 2023-12-08 14:19 | CASEMGMT ---
Social Work Pt reported to nursing that he has advance directives and his is his HCPOA. Pt agreed that he can bring a copy for his record when able. Zina Locke [employer], [employer]
[2023-12-08 15:38] VITALS: BP 123/78; PULSE 63; RESP 16; TEMP 37; O2SAT 98
[2023-12-08] MEDS: Calcium Carbonate 500 MG Tablet PO (20:37)
[2023-12-08 21:45] VITALS: BP 119/69; PULSE 62; RESP 18; TEMP 36.7; O2SAT 97
[2023-12-08] MEDS: Atorvastatin Calcium 40 MG Tablet PO (22:01)
[2023-12-09 03:45] VITALS: BP 127/71; PULSE 53; RESP 18; TEMP 36.7; O2SAT 99
[2023-12-09 05:24] LABS: Absolute Lymphocyte Count 2.32 X10^3/uL (0.83-4.51); Absolute Neutrophil Count 2.8 X10^3/uL (2.0-7.7); Basophil# 0.06 X10^3/uL; Eosinophil# 0.35 X10^3/uL; Eosinophils% 5.6 % (0-5); Hematocrit 46.6 % (40-54); Hemoglobin 14.6 g/dL (13.0-16.5); Lymphocyte # 2.32 X10^3/ul (0.83-4.51); Lymphocyte % 37.4 % (19-41); Mean Corp Hgb Conc 31.3 g/dL (32-36); Mean Corpuscular Hgb 28.9 pg (27.0-32.0); Mean Corpuscular Volume 92.1 fL (80-94); Mean Platelet Vol. 11.1 fl (6.2-12.0); Monocyte# 0.64 X10^3/uL; Monocyte% 10.3 % (0-10); NRBC Flagged by Analyzer 0 % (0-5); Neutrophil # 2.82 X10^3/uL (2.7-7.7); Neutrophil % 45.5 % (47-70); Platelet Count 201 K/mm3 (150-450); RBC Distribution Width CV 13.7 % (11.6-14.6); RBC Distribution Width SD 46.6 fl (35.1-43.9); Red Blood Count 5.06 M/mm3 (4.6-6.2); White Blood Count 6.2 K/mm3 (4.4-11.0)
[2023-12-09 05:43] LABS: Anion Gap 2 (5-15); BUN 20 mg/dL (7-18); BUN/Creat Ratio 18.2 RATIO (10-20); Calcium,Total 9.2 mg/dL (8.5-10.1); Chloride 108 mmol/L (98-107); EST Glomerular Filtration Rate 68 mL/min (>60); Est Glom Filt Rate - Afr Amer 83 mL/min (>60); Estimated Creatinine Clearance 65.76 ml/min; Glucose 94 mg/dL (74-106); Potassium 4.1 mmol/L (3.5-5.1); Sodium Level 141 mmol/L (136-145)
[2023-12-09 08:25] VITALS: BP 125/87; PULSE 50; RESP 16; TEMP 36.6; O2SAT 97
[2023-12-09] MEDS: Aspirin 81 MG TAB.CHEW PO (08:28)
[2023-12-09] MEDS: Pantoprazole Sodium 40 MG Tablet PO (08:28)
[2023-12-09] MEDS: Tamsulosin HCl 0.4 MG Capsule 0.400000000000000022 MG PO (08:28)
[2023-12-09] MEDS: Enoxaparin 40 MG/0.4 ML Syringe SC (08:28)
--- NOTE | 2023-12-09 09:46 | NEURO.CONS ---
Assessment and Plan: Neuro Assessment/Plan ARIANA SIBLEY is a 78 M with a past medical history of hyperlipidema, being evaluated by Teleneurology for CT scan findings. Came in to the hospital for lightheadedness and dyspnea. Denies vertiginous symptoms ,double vision or slurred speech. Suspected cariogenic in nature. In regards to CT findings, this appears to meningioma which is an incidental benign findings and not contributing to patient's current presentation. Diagnosis: Meningioma Plan: MRI brain w/w/out contrast Orthostatic vitals ECHO Event monitor for a month CT angio head and neck Transfer to [facility] for the following reasons: none I personally attended this patient and spent a total time of 60 minutes evaluating this patient including clinical assessment, review of chart, medical history imaging, and determining appropriate treatment and workup. Jen Neely MD [facility] Neurology Department HPI Consult Data Date of Consult: 12/09/23 HPI Narrative HPI Narrative: ARIANA SIBLEY, is a 78 M who presents with lightheadedness and dyspnea. Neurology has been consulted because of CT head findings concerning for meningioma. He is experiencing episodes of lightheadedness with no positional component .Denies prodromal symptoms or warning signs. Denies focal weakness,vertiginous symptoms, numbness,slurred speech or souble vision. [facility] Medical History Benign tumor BPH (benign prostatic hyperplasia) CPAP (continuous positive airway pressure) dependence GERD (gastroesophageal reflux disease) Hyperlipemia Migraines Non-smoker Sleep apnea Home Medications aspirin 81 mg chewable tablet 81 mg PO DAILY 12/07/23 [History Last Taken Unknown] glucosamine-chondroitin 250 mg-200 mg tablet (Osteo Bi-Flex) 2 tab PO DAILY 12/07/23 [History Last Taken Unknown] pantoprazole 40 mg tablet,delayed release 40 mg PO DAILY 12/07/23 [History Last Taken Unknown] rosuvastatin 20 mg tablet 20 mg PO DAILY 12/07/23 [History Last Taken Unknown] tamsulosin 0.4 mg capsule 0.4 mg PO DAILY 12/07/23 [History Last Taken Unknown] Allergy/AdvReac Type Severity Reaction Status Date / Time No Known Allergies Allergy Verified 12/07/23 11:59 Family History no significant family his Surgical History H/O hernia repair History of mandibular surgery Social History household members: spouse housing: house Smoking Status: Never smoker Vital Signs Vital Signs Vital Signs: 12/08/23 15:38 12/08/23 22:00 12/08/23 22:00 Temperature 98.6 F Temperature Source Oral Pulse Rate 63 Pulse Strength Weak (1+) Respiratory Rate 16 Respiratory Effort Normal Non-Labored Respiratory Depth Normal Respiratory Pattern Normal Blood Pressure Blood Pressure [BP] 123/78 H Blood Pressure Mean Blood Pressure Mean [BP] 93 Blood Pressure Source Blood Pressure Source [BP] Monitor Blood Pressure Position Blood Pressure Position [BP] Semi-Fowlers Blood Pressure Location Blood Pressure Location [BP] Left Arm Pulse Ox 98 Oxygen Delivery Method Room Air Room Air 12/08/23 21:45 12/09/23 03:45 12/09/23 04:55 Temperature 98.0 F 98.0 F Temperature Source Temporal Temporal Pulse Rate 62 53 L Pulse Strength Respiratory Rate 18 18 Respiratory Effort Normal Non-Labored Respiratory Depth Normal Respiratory Pattern Normal Blood Pressure 119/69 127/71 H Blood Pressure [BP] Blood Pressure Mean 85 89 Blood Pressure Mean [BP] Blood Pressure Source Monitor Monitor Blood Pressure Source [BP] Blood Pressure Position Semi-Fowlers Sitting Blood Pressure Position [BP] Blood Pressure Location Right Arm Right Arm Blood Pressure Location [BP] Pulse Ox 97 99 Oxygen Delivery Method Room Air Room Air Room Air 12/09/23 08:25 Temperature 97.9 F Temperature Source Oral Pulse Rate 50 L Pulse Strength Respiratory Rate 16 Respiratory Effort Respiratory Depth Respiratory Pattern Blood Pressure 125/87 H Blood Pressure [BP] Blood Pressure Mean 99 Blood Pressure Mean [BP] Blood Pressure Source Monitor Blood Pressure Source [BP] Blood Pressure Position Semi-Fowlers Blood Pressure Position [BP] Blood Pressure Location Right Arm Blood Pressure Location [BP] Pulse Ox 97 Oxygen Delivery Method Room Air Weight Weight: 87.4 kg Body Mass Index (BMI) 23.4 EEG Results Procedure Details EEG Procedure Details: ARIANA SIBLEY is a 78 year old M with a past medical history of , who presents for evaluation of Electroencephalogram on DATE at TIME Physical Exam Neuro Neuro Narrative: -? General: Laying comfortably in bed; in no acute distress. -? HENT: Normal oropharynx and mucosa. Normal external appearance of ears and nose. Exophthalmos. -? Neck: Supple, no pain or tenderness -? CV:? No peripheral edema. -? Pulmonary:? Normal respiratory effort. -? Ext: No cyanosis, edema, or deformity -? Skin: No rash. Normal palpation of skin.? -? Musculoskeletal: full range of motion; no joint tenderness. Normal digits and nails by inspection. No clubbing. -? NEURO: -? Mental Status: The patient was alert and oriented to time, place, and person. Normal recent/remote memory, concentration, and general fund of knowledge. -? Language: speech is fluent? Naming, repetition, fluency, and comprehension intact. -? Cranial Nerves: PERRL 3mm/brisk. EOMI, visual gan full, no facial asymmetry, facial sensation intact, hearing intact, tongue midline, no evidence of atrophy or fibrillations. As performed by the nurse/KATHLEEN Sternocleidomastoid and trapezius were equally strong. Soft palate raises equally, no uvular deviations -? Motor: normal bulk, tone, and strength throughout. No pronator drift or satelliting. Upper and lower extremities equal bilaterally. -?? R L i -? Tone: is normal and bulk is normal -? Sensation- Intact to light touch bilaterally -? Coordination: No dysmetria on [id number], finger follow finger or [id number]. -? Gait- Gait initiation was normal. Narrow base with good heel strike and stride length was observed during ambulation. Turns were in stride. Patient was able to walk normally in tandem. Romberg was normal. Lab / Micro Data 12/09/23 05:15 12/09/23 05:15 Labs: Laboratory Results - last 24 hr 12/09/23 05:15: WBC 6.2, RBC 5.06, Hgb 14.6, Hct 46.6, MCV 92.1, MCH 28.9, MCHC 31.3 L, RDW Std Deviation 46.6 H, RDW Coeff of [place] 13.7, Plt Count 201, MPV 11.1, Immature Gran % (Auto) 0.200, Neut % (Auto) 45.5 L, Lymph % (Auto) 37.4, [place] % (Auto) 10.3 H, Eos % (Auto) 5.6 H, Baso % (Auto) 1.0, Absolute Neuts (auto) 2.8, Absolute Lymphs (auto) 2.32, Nucleated RBC % 0, Sodium 141, Potassium 4.1, Chloride 108 H, Carbon Dioxide 31.0, Anion Gap 2 L, BUN 20 H, Creatinine 1.10, Estim Creat Clear Calc 65.76, Est GFR (MDRD) Af Amer 83, Est GFR (MDRD) Non-Af 68, BUN/Creatinine Ratio 18.2, Glucose 94, Calcium 9.2 Rhythm Strip Rhythm Strip: Sinus Rhythm Rate: 55 Imagaing Radiology Impression Brain CT 12/08/23 11:34 IMPRESSION: Chronic involutional changes of the brain. Findings suggestive of a 1.4 cm x 0.7 cm x 1.6 cm partially enhancing calcified mass along the anterior aspect of the cerebral falx on the left side. This is suggestive of a meningioma. Electronically Signed: Dick Yepez MD at 12:45 EST , Active Medications Active Medications Active Medications: Current Medications Generic Name Dose Route Start Last Admin Trade Name Freq PRN Reason Stop Dose Admin Acetaminophen 650 mg 12/07/23 15:37 Acetaminophen 325 Mg Tablet PO Q6H PRN PRN Pain 1-10 Or Fever>100.7 Aspirin 81 mg 12/08/23 08:00 12/09/23 08:28 Aspirin 81 Mg Tab.Chew PO 81 mg DAILYCM FREDERICK Administration Atorvastatin Calcium 40 mg 12/07/23 22:00 12/08/23 22:01 Atorvastatin Calcium 40 Mg Tablet PO 40 mg QHS FREDERICK Administration Calcium Carbonate 500 - 1,000 mg 12/08/23 20:03 12/08/23 20:37 Calcium Carbonate 500 Mg Tablet PO 1,000 mg Q6H PRN PRN Administration DYSPEPSIA/INDIGESTION Enoxaparin Sodium 40 mg 12/08/23 10:00 12/09/23 08:28 Enoxaparin 40 Mg/0.4 Ml Syringe SC 40 mg DAILY FREDERICK Administration Sodium Chloride 500 mls @ 15 mls/hr 12/07/23 15:39 IV PRN PRN Blood Transfusion Sodium Chloride 250 mls @ 15 mls/hr 12/07/23 15:39 IV .[id number] PRN Additional IVPB Infusion Sodium Chloride 250 mls @ 15 mls/hr 12/07/23 15:39 IV .[id number] PRN Saline Flush Melatonin 3 mg 12/07/23 15:37 Melatonin 3 Mg Tablet PO QHS PRN PRN INSOMNIA Ondansetron HCl 4 mg 12/07/23 15:37 Ondansetron 4 Mg/2 Ml Vial IV Q8H PRN PRN NAUSEA/VOMITING Pantoprazole Sodium 40 mg 12/08/23 10:00 12/09/23 08:28 Pantoprazole Sodium 40 Mg Tablet PO 40 mg DAILY FREDERICK Administration Sodium Chloride 10 - 40 ml 12/07/23 15:39 0.9% Saline Lock 10 Ml Syringe IV UD PRN SALINE FLUSH Sodium Chloride 2 - 6 ml 12/07/23 15:39 0.9% Saline Lock 10 Ml Syringe IV UD PRN Pediatric Saline Flush Tamsulosin HCl 0.4 mg 12/08/23 08:30 12/09/23 08:28 Tamsulosin Hcl 0.4 Mg Capsule PO 0.4 mg DAILY@0830 FREDERICK Administration
[2023-12-09 12:18] VITALS: BP 128/72; BP 98/68; BP 99/77; PULSE 55; PULSE 60; PULSE 85
[2023-12-09] MEDS: 0.9% Normal Saline (1000mL) 1,000 ML 999 ML IV (12:51)
--- NOTE | 2023-12-09 15:11 | MRI_ITS ---
STUDY: MRI BRAIN WITHOUT CONTRAST REASON FOR EXAM: Male, 78 years old. stroke like symptoms, WORSENING DIZZINESS X 1 YEAR TECHNIQUE: Standardized multiplanar fat and water weighted pulse sequences were obtained. COMPARISON: None. FINDINGS: Normal size of the ventricles and extra-axial spaces for the patient''s age. Normal white matter tracts of the supratentorial brain. Normal bilateral basal ganglia. Normal thalami. There is no extra-axial fluid accumulation. Normal flow voids within the major intracranial circulation suggesting patency by spin echo criteria. Normal sella turcica, pituitary gland, infundibular stalk, optic chiasm and hypothalamus. Normal tectal plate and pineal gland. There is a small dural-based parasagittal nodule in the left frontal lobe measuring 1.5 x 1 cm without mass effect likely meningioma. Normal midbrain, benny and medulla. Normal cerebellum. Normal basal cisterns. Normal bilateral temporal bones. Normal bilateral internal auditory canals. Postsurgical changes of the orbits. Minor mucosal thickening of left maxillary sinus. Normal calvarium and skull base. Normal visualized soft tissue structures. Normal visualized upper cervical spine. No significant change since prior exam based on report dated October 22, 2021 MRI/Brain without Contrast IMPRESSION: No significant white matter disease or evidence for acute infarct. Incidental finding of small left frontal meningioma. Electronically Signed: Cuco Richter MD at 18:45 EST ,
--- NOTE | 2023-12-09 15:11 | CT_ITS ---
We are attempting to reach an attending provider to discuss findings. An addendum with communication details will be sent when the communication is complete. STUDY: CTA HEAD AND NECK WITH CONTRAST REASON FOR EXAM: Male, 78 years old. dizziness RADIATION DOSAGE (If Supplied By Facility): CTDIvol = ( 33.05 ) mGy, DLP = ( 1498.82 ) mGycm TECHNIQUE: CT angiography was performed with a multi-detector CT scanner. Data acquisition was obtained from the skull base through the vertex following intravenous administration of IV 100mL [id number]-370. MIP images were reconstructed from the axial data set. Post-processing of the angiographic images was performed, with multiplanar reformation and 3D reconstruction. Individualized dose optimization techniques were used for this CT. COMPARISON: No relevant priors. FINDINGS: Normal bilateral petrous carotid arteries. Normal right cavernous carotid artery with a normal supraclinoid bifurcation. Normal left cavernous carotid artery with a normal supraclinoid bifurcation. Normal right A1 segments of the anterior cerebral artery. Normal left A1 segments of the anterior cerebral artery. Anterior communicating artery not visualized consistent with normal variant). Normal bilateral A2 segments of the anterior cerebral arteries. Normal right M1 and M2 segments of the middle cerebral arteries, with a normal M1 bifurcation. Normal left M1 and M2 segments of the middle cerebral arteries, with a normal M1 bifurcation. Posterior communicating arteries are not visualized consistent with normal variant Normal bilateral vertebral arteries. Normal basilar artery with a normal basilar bifurcation. The visualized bilateral superior cerebellar (SCA) arteries are normal. Normal bilateral P1, P2 and visualized P3 segments of the posterior cerebral arteries. There is no demonstrated aneurysm of the [place]. Incidental finding of small left frontal meningioma AORTIC ARCH: Normal visualized aortic arch. Normal origins of the brachiocephalic, left common carotid, and left subclavian arteries. RIGHT CAROTID ARTERIES: Normal right common carotid artery (CCA). Normal right common carotid bulb. Normal origin of the right internal carotid (ICA) artery without a hemodynamically significant stenosis. Normal visualized cervical portion of the right internal carotid artery. Normal origin of the right external carotid artery (ECA). LEFT CAROTID ARTERIES: Normal left common carotid artery (CCA). Minor calcific plaquing of the left common carotid bulb. There is mild calcific plaquing of the origin of the left internal carotid (ICA) artery without a hemodynamically significant stenosis. There is a very small focal segmental dissection or alternatively prominent ulcerative plaque in the proximal cervical portion of the left internal carotid artery. Normal origin of the left external carotid artery (ECA). VERTEBRAL ARTERIES: Dominant right vertebral which is normal caliber. There is diffusely narrowed left vertebral terminating in PICA consistent with normal variant. CT/CTA Head AND Neck W/ Contrast IMPRESSION: No significant atherosclerotic changes in the brain. Atherosclerotic disease in the neck more pronounced on the left. Possible small focal segmental dissection versus ulcerative plaque in the proximal left internal carotid Electronically Signed: Cuco Richter MD at 17:05 EST ,
--- NOTE | 2023-12-09 15:44 | PN_ITS ---
Subjective Subjective Patient seen and examined. He felt well and had no complaints. He had an uneventful night. Review of symptoms otherwise negative. Orthostatics were positive today. He was hydrated with IV fluids. Objective Data Objective Data Vital Signs: Vital Signs Temp Pulse Resp BP Pulse Ox O2 Del Method 97.9 F 55 L 16 128/72 H 97 Room Air 12/09/23 08:25 12/09/23 12:18 12/09/23 08:25 12/09/23 12:18 12/09/23 08:25 12/09/23 08:25 Oxygen Delivery Method Room Air Weight: 192 lb 10.944 oz Body Mass Index (BMI) 23.4 Intake & Output: Intake and Output for Last 24 Hours 12/07/23 12/08/23 12/09/23 23:59 23:59 23:59 Intake Total 400 / 400 800 / 800 1400 / 1400 Balance 400 / 400 800 / 800 1400 / 1400 Lab / Micro Data 12/09/23 05:15 12/09/23 05:15 Labs: Laboratory Results - last 24 hr 12/09/23 05:15: WBC 6.2, RBC 5.06, Hgb 14.6, Hct 46.6, MCV 92.1, MCH 28.9, MCHC 31.3 L, RDW Std Deviation 46.6 H, RDW Coeff of Katelin 13.7, Plt Count 201, MPV 11.1, Immature Gran % (Auto) 0.200, Neut % (Auto) 45.5 L, Lymph % (Auto) 37.4, [place] % (Auto) 10.3 H, Eos % (Auto) 5.6 H, Baso % (Auto) 1.0, Absolute Neuts (auto) 2.8, Absolute Lymphs (auto) 2.32, Nucleated RBC % 0, Sodium 141, Potassium 4.1, Chloride 108 H, Carbon Dioxide 31.0, Anion Gap 2 L, BUN 20 H, Creatinine 1.10, Estim Creat Clear Calc 65.76, Est GFR (MDRD) Af Amer 83, Est GFR (MDRD) Non-Af 68, BUN/Creatinine Ratio 18.2, Glucose 94, Calcium 9.2 Rhythm Strip Rhythm Strip: Sinus Rhythm Rate: 55 Physical Exam Const alert, oriented x3, no apparent distress, average body habitus, healthy appearing and well nourished General Appearance: cooperative, comfortable, well kempt and well developed HEENT normocephalic, head/scalp atraumatic, hearing grossly normal bilaterally, nasal mucous membranes and turbinates normal, moist oral mucous membranes and oropharynx normal Eyes PERRL, EOMs intact bilaterally and conjunctivae normal Neck full ROM, no lymphadenopathy, supple and no JVD Lymph Lymphatic: no lymphadenopathy noted and no lymphedema noted Chest inspection of chest normal Resp normal respiratory effort, normal air movement, no use of accessory muscles and clear to auscultation bilaterally Cardio regular rate, regular rhythm, S1 normal heart sound, S2 normal heart sound, no murmurs and peripheral pulses 2+ throughout GI normal to inspection, nondistended, normoactive bowel sounds, soft to palpation, non-tender and non-distended Back/Spine normal ROM Extremity normal to inspection, full ROM, normal capillary refill, no clubbing, cyanosis or edema, no calf tenderness and no pedal edema General Extremity: no tenderness to palpation of joints or extremities Skin no rashes or lesions noted General Skin Exam: no breakdown Neuro CN's II-XII intact bilaterally, moves all extremities, no focal motor deficits, no sensory deficits noted and deep tendon reflexes 2+ bilaterally Speech: speech normal Motor Exam: strength 5/5 throughout and general weakness Psych mental status grossly normal, thought process normal, cooperative and affect normal Appearance: appropriate Assessment & Plan Assessment/Plan (1) Episodic lightheadedness: PLAN: Plan #Near syncope * Patient feels better. Was admitted with a complaint of episode of lightheadedness with shortness of breath. * Had a recent outpatient stress test on 11/23/2023 which showed anterior to be slight defect which was partially reversible suggestive of mild ischemia. * Cardiology reviewed him and does not think that his symptoms are related to this. He also has mild bradycardia but cardiology witnessed one of the presyncopal episodes and it did not seem to be related to any bradycardia as he was not bradycardic at that time. * Patient states he has a history of a brain lesion which was diagnosed by brain imaging about 6 to 7 years ago. He states he followed up with a neurologist at [facility]. * CT of the brain ordered today showed a 1.4 cm x 0.7 cm x 1.6 cm possible enhancing calcified mass along the anterior aspect of the cerebral falx on the left side suggestive of meningioma. * Neurology reviewed patient's and does not think his symptoms are due to the meningioma. Neurology recommending CTA head and neck and MRI of the brain. These have been ordered. * 2D echo showed normal left ventricular size and systolic function with EF of 60% and no regional wall motion abnormalities noted. He did have stage I diastolic dysfunction. * #Bradycardia: Bradycardia is mild. Heart rate in the 50s. Per cardiology not r elated to his symptoms. Monitor. #Abnormal stress test: * Recently had an abnormal stress test which showed mild reversible ischemia as above. * Cardiology does not think this is related to his current symptoms. Per cardiology no cardiac cath during this admission. * Follow-up with cardiology on outpatient basis. * #Hyperlipidemia: On statin #BPH: On Flomax DVT prophylaxis: Lovenox Disposition: DC likely tomorrow once CTA head and neck and MRI brain have been reviewed. Charges/Coding Visit Charges Inpatient E&M: 89444 Subs Hosp L2
[2023-12-09 16:32] VITALS: BP 117/71; BP 118/69; BP 134/67
[2023-12-09] MEDS: Atorvastatin Calcium 40 MG Tablet PO (21:09)
[2023-12-09 22:00] VITALS: BP 117/61; PULSE 52; RESP 18; TEMP 36.7; O2SAT 97
[2023-12-10 05:00] VITALS: BP 131/77; PULSE 52; RESP 18; TEMP 36.7; O2SAT 97
[2023-12-10 07:25] VITALS: O2SAT 95
[2023-12-10] MEDS: 0.9% Saline Lock 10 ML Syringe IV (08:36)
[2023-12-10] MEDS: Aspirin 81 MG TAB.CHEW PO (08:36)
[2023-12-10] MEDS: Pantoprazole Sodium 40 MG Tablet PO (08:36)
[2023-12-10] MEDS: Enoxaparin 40 MG/0.4 ML Syringe SC (08:36)
[2023-12-10] MEDS: Tamsulosin HCl 0.4 MG Capsule 0.400000000000000022 MG PO (08:36)
[2023-12-10 10:00] VITALS: BP 126/71; PULSE 53; RESP 16; TEMP 36.2; O2SAT 96
--- NOTE | 2023-12-10 11:44 | DS.PCM_ITS ---
Providers Date of Admission: 12/07/23 Date of Discharge: 12/10/23 Primary Care Physician: [facility] Consultations 12/07/23 15:37 Consult: Cardiology Routine Consulting Provider: Jatinder Morales Reason for Consult: Presyncopal episode with bradycardia EMERGENT Consult: No Notified: Yes Date Notified: 12/07/23 Time Notified: 14:34 Method of Notification: Verbal 12/08/23 13:31 Neurology [Consult: Tele-Neurology] Routine Consulting Provider: [facility] Reason for Consult: dizziness and presyncope EMERGENT Consult: No Notified: Yes Date Notified: 12/08/23 Time Notified: 13:31 Method of Notification: Answering Service Comments:: CT brain showed 1.4 x 0.7 x .6cm meningioma Nursing Unit Staff Notify [facility] of Tele-Neurology Consult: Yes Reason For Visit: PRESYNCOPAL EPISODES WITH SHORTNESS OF BREATH Diagnosis Discharge Diagnosis (1) Episodic lightheadedness: Status: Acute Code(s): R42 - Dizziness and giddiness Plan #Near syncope * Patient feels better. Was admitted with a complaint of episode of lightheadedness with shortness of breath. * Had a recent outpatient stress test on 11/23/2023 which showed anterior to be slight defect which was partially reversible suggestive of mild ischemia. * Cardiology reviewed him and does not think that his symptoms are related to this. He also has mild bradycardia but cardiology witnessed one of the presyncopal episodes and it did not seem to be related to any bradycardia as he was not bradycardic at that time. * Patient states he has a history of a brain lesion which was diagnosed by brain imaging about 6 to 7 years ago. He states he followed up with a neurologist at [facility]. * CT of the brain ordered today showed a 1.4 cm x 0.7 cm x 1.6 cm possible enhancing calcified mass along the anterior aspect of the cerebral falx on the left side suggestive of meningioma. * Neurology reviewed patient's and does not think his symptoms are due to the meningioma. Neurology recommending CTA head and neck and MRI of the brain. These have been ordered. * 2D echo showed normal left ventricular size and systolic function with EF of 60% and no regional wall motion abnormalities noted. He did have stage I diastolic dysfunction. * #Bradycardia: Bradycardia is mild. Heart rate in the 50s. Per cardiology not related to his symptoms. Monitor. #Abnormal stress test: * Recently had an abnormal stress test which showed mild reversible ischemia as above. * Cardiology does not think this is related to his current symptoms. Per cardiology no cardiac cath during this admission. * Follow-up with cardiology on outpatient basis. * #Hyperlipidemia: On statin #BPH: On Flomax DVT prophylaxis: Lovenox Disposition: DC likely tomorrow once CTA head and neck and MRI brain have been reviewed. Medications at Discharge Home Medications aspirin 81 mg chewable tablet 81 mg PO DAILY heart health 12/07/23 glucosamine-chondroitin 250 mg-200 mg tablet (Osteo Bi-Flex) 2 tab PO DAILY supplement 12/07/23 pantoprazole 40 mg tablet,delayed release 40 mg PO DAILY reflux 12/07/23 rosuvastatin 20 mg tablet 20 mg PO DAILY cholesterol 12/07/23 tamsulosin 0.4 mg capsule 0.4 mg PO DAILY prostate 12/07/23 Hospital Course Operations None Procedures 2-D Echocardiogram Summary of Care Provided Minutes Spent on Discharge: 55 Hospital Course: Patient is an 78-year-old male with past medical history as outlined was admitted through the ED on 12/07/2023 with a complaint of lightheadedness and shortness of breath. His symptoms have started about 6 weeks prior to admission with intermittent lightheadedness with shortness of breath at rest. He had had a stress test done on outpatient basis and it has shown reversible anterior basilar defects. He had not yet followed up with cardiology. His current symptoms of episodic lightheadedness recurred and persisted so he came into the ED. Troponins x 3 were negative and EKG showed mild sinus bradycardia. Cardiology was consulted in light of his recent abnormal stress test. Cardiology reviewed him and witness one of the near syncopal episodes and he was not bradycardic at that time. Therefore though he had not bradycardia, cardiology did not think this was the cause of his symptoms. 2D echo showed normal left ventricular size and systolic function with EF of 60% and no regional wall motion abnormalities noted and he did have stage I diastolic dysfunction. Patient admitted to a history of a brain lesion which turned out to be a meningioma. He had a CT of the brain which showed the meningioma. Neurology was consulted and recommended patient getting an MRI and MRA of the head and neck. He did have the MRI which confirmed the meningioma but did not show any evidence of a stroke. CT of the head and neck showed no significant atherosclerotic changes in the brain and showed atherosclerotic disease in the neck more pronounced on the left with possible small focal segmental dissection versus ulcerated plaque in the proximal left internal carotid artery. This was discussed with vascular surgeon Dr. Pretty on phone. He stated that patient could be discharged home on an antiplatelet and high intensity statins. Patient is already on aspirin and rosuvastatin 20 mg daily and was continued on these. He was discharged home on 12/10/2023 and is to follow-up with his primary care doctor. He was also referred to vascular surgery on outpatient basis, to follow -up within 1 week. Discharge summary been copied to vascular surgery also. Patient seen and examined prior to discharge. He felt well and had no complaints. He had an uneventful night. Review of systems otherwise negative. Labs and vitals reviewed. Home medication reviewed and reconciled. Physical Exam Const alert, oriented x3, no apparent distress, average body habitus, no limitations, healthy appearing and well nourished General Appearance: cooperative, comfortable, well kempt and well developed HEENT normocephalic, head/scalp atraumatic, hearing grossly normal bilaterally, nasal mucous membranes and turbinates normal, moist oral mucous membranes and oropharynx normal Eyes PERRL, EOMs intact bilaterally and conjunctivae normal Neck full ROM, no lymphadenopathy, supple and no JVD Lymph Lymphatic: no lymphadenopathy noted and no lymphedema noted Chest inspection of chest normal Resp normal respiratory effort, normal air movement, no use of accessory muscles and clear to auscultation bilaterally Cardio regular rate, regular rhythm, S1 normal heart sound, S2 normal heart sound, no murmurs and peripheral pulses 2+ throughout GI normal to inspection, nondistended, normoactive bowel sounds, soft to palpation, non-tender and non-distended Back/Spine normal ROM Extremity normal to inspection, full ROM, normal capillary refill, no clubbing, cyanosis or edema, no calf tenderness and no pedal edema General Extremity: no tenderness to palpation of joints or extremities Skin no rashes or lesions noted General Skin Exam: no breakdown Neuro CN's II-XII intact bilaterally, moves all extremities, no focal motor deficits, no sensory deficits noted and deep tendon reflexes 2+ bilaterally Speech: speech normal Motor Exam: strength 5/5 throughout and general weakness Psych mental status grossly normal, thought process normal, cooperative and affect normal Appearance: appropriate Weight / BMI Weight Weight: 192 lb 10.944 oz Body Mass Index (BMI) 23.4 ABG / Lab / Microbiology Data 12/09/23 05:15 12/09/23 05:15 Radiography Diagnostic Testing: Radiology Impression Brain MRI 12/09/23 15:11 IMPRESSION: No significant white matter disease or evidence for acute infarct. Incidental finding of small left frontal meningioma. Electronically Signed: Cuco Richter MD at 18:45 EST Reading Location ID and State: [address] [place] [address] Tel [phone], Service support , Head/Neck CTA 12/09/23 15:11 IMPRESSION: No significant atherosclerotic changes in the brain. Atherosclerotic disease in the neck more pronounced on the left. Possible small focal segmental dissection versus ulcerative plaque in the proximal left internal carotid Electronically Signed: Cuco Richter MD at 17:05 EST Reading Location ID and State: [address] [place] [address] Tel [phone], Service support , ADDENDUM: 12/09/23 1813 IMPRESSION: No significant atherosclerotic changes in the brain. Atherosclerotic disease in the neck more pronounced on the left. Possible small focal segmental dissection versus ulcerative plaque in the proximal left internal carotid N.B. : The above Results were Read Back by Cuco Richter MD to HALLIE WHITING MD, and understanding confirmed on 12/09/2023 18:06:59 (ET). Electronically Signed: Cuco Richter MD at 17:05 EST Reading Location ID and State: [facility] / [place] Tel [phone], Service support , D/C Instructions Discharge Diet: Low fat / Low cholesterol Discharge Activity: Return to Normal Activity Weight Bearing Status: Weight bearing as tolerated Call your doctor if you observe: Fever of 101 or Higher, Shortness of breath, Dizziness, Swelling in the ankles and Chest pain Meaningful Use Info Meaningful Use Diagnoses (Choose all that apply): None applicable Discharge Plan Admission Admit Date/Time: 12/07/23 14:32 Primary Reason for Your Visit: orthostatic hypotension, dizziness Attending Provider: Hallie Whiting Primary Care Provider: [facility] Consulting Providers: Jatinder Morales; Luis Granados; Tyson Gaviria; Manohar Quiros; Allison Schmidt; Candice Griggs; Iva Mitchell; Nicholas Henderson; Leonora Almeida; Jonah Woodward; Kelvin Chao; Leatha Mayberry; Marciano De La Cruz; Jen Neely; Christoph Faith; Blade Gray; Javad Zamarripa; Nicole Stevens; Nam Keller; Julieta Gay; Blanche Chandler Instructions Patient Instructions: Dizziness Fainting Ch Discharge Orders/Prescriptions Prescriptions: Continued pantoprazole 40 mg tablet,delayed release (DR/EC) 40 mg PO DAILY Patient Comments: TAKE 1 TABLET BY MOUTH ONCE DAILY IN AFTERNOON ONE HOUR BEFORE DINNER tamsulosin 0.4 mg capsule 0.4 mg PO DAILY rosuvastatin 20 mg tablet 20 mg PO DAILY aspirin 81 mg tablet,chewable 81 mg PO DAILY glucosamine-chondroitin [Osteo Bi-Flex] 250-200 mg tablet 2 tab PO DAILY Rx Instructions: give after food/meal Referrals / Follow Up: Owen Pretty MD [Med Staff - Active Staff] - Within 1 Week [facility],[place] [Primary Care Provider] - Within 1 Week Disposition Disposition (needs filled in before D/C Order can be placed): Home, Self Care Charges/Coding Visit Charges Inpatient E&M: 07605 Disch Hosp >30min
--- NOTE | 2023-12-10 11:44 | DCINST_ITS ---
Discharge Instructions Diet Discharge Diet: Low fat / Low cholesterol Activity Discharge Activity: Return to Normal Activity Weight Bearing Status: Weight bearing as tolerated Dressing / Incision Call your doctor if you observe: Fever of 101 or Higher, Shortness of breath, Dizziness, Swelling in the ankles and Chest pain Follow Up Care Test Results: Test results from this visit will be discussed in further detail at your follow- up appointment, if applicable. Discharge Plan Admission Admit Date/Time: 12/07/23 14:32 Primary Reason for Your Visit: orthostatic hypotension, dizziness Attending Provider: Virginia Ayala Primary Care Provider: [facility],[place] Consulting Providers: Jatinder Morales; Luis Granados; Tyson Gaviria; Manohar Quiros; Allison Schmidt; Candice Griggs; Iva Mitchell; Nicholas Henderson; Leonora Almeida; Jonah Woodward; Kelvin Chao; Leatha Mayberry; Marciano De La Cruz; Jen Neely; Christoph Faith; Blade Gray; Javad Zamarripa; Nicole Stevens; Nam Keller; Julieta Gay; Blanche Chandler Instructions Patient Instructions: Dizziness Fainting Ch Discharge Orders/Prescriptions Prescriptions: Continued pantoprazole 40 mg tablet,delayed release (DR/EC) 40 mg PO DAILY Patient Comments: TAKE 1 TABLET BY MOUTH ONCE DAILY IN AFTERNOON ONE HOUR BEFORE DINNER tamsulosin 0.4 mg capsule 0.4 mg PO DAILY rosuvastatin 20 mg tablet 20 mg PO DAILY aspirin 81 mg tablet,chewable 81 mg PO DAILY glucosamine-chondroitin [Osteo Bi-Flex] 250-200 mg tablet 2 tab PO DAILY Rx Instructions: give after food/meal Referrals / Follow Up: Owen Pretty MD [Med Staff - Active Staff] - Within 1 Week [facility],[place] [Primary Care Provider] - Within 1 Week Disposition Disposition (needs filled in before D/C Order can be placed): Home, Self Care
[2023-12-10 14:00] VITALS: BP 119/70; PULSE 55; RESP 16; TEMP 36.6; O2SAT 97
== END 2023-12-10 11:44 | disposition home or self-care (01) ==
LOC: ED 14:53 → PCU 15:01
PROVIDERS: Family Medicine; Internal Medicine Cardiovascular Disease; Admitting Provider Hospitalist; Emergency Provider Emergency Medicine; Visit Provider Student in an Organized Health Care Education/Training Program
DX: R55 Syncope and collapse (principal); R00.1 Bradycardia, unspecified; Z79.82 Long term (current) use of aspirin; E78.5 Hyperlipidemia, unspecified; R94.39 Abnormal result of other cardiovascular function study; N40.0 Benign prostatic hyperplasia without lower urinary tract symptoms; Z79.899 Other long term (current) drug therapy; R06.02 Shortness of breath; N40.1 Benign prostatic hyperplasia with lower urinary tract symptoms; K21.9 Gastro-esophageal reflux disease without esophagitis
CPT/HCPCS: 36415; 70470; 70496; 70498; 70551; 71045; 80048; 83036; 84484; 85025; 85027; 85610; 85730; 93005; 93306; 96360; 96372; 97802; 99221; 99285; J7030; Q9957; Q9967; A4216; C8929; G0378

== ENCOUNTER → 2024-04-27 | Outpatient (CLI) | payer OTHER, SELFPAY ==
--- NOTE | 2024-04-27 14:48 | CT_ITS ---
INDICATION: Abnormal findings on diagnostic imaging of other specified body s EXAMINATION: CT NECK WITH CONTRAST - CT Soft Tissue Neck W/ Contrast Injection TECHNIQUE: Helically acquired images were obtained of the neck following IV contrast. The protocol utilizes one or more of the following dose reduction techniques: automated exposure control, adjustment of mA and/or kV according to patient size,and/or use of iterative reconstruction technique. IV Contrast dosage and agent: 75 mL of Isovue-370 RADIATION DOSAGE (If Supplied By Facility): CTDIvol = ( 13.90 ) mGy, DLP = ( 433.98 ) mGycm COMPARISON: Prior study dated: 12/09/2023 FINDINGS: NASOPHARYNX: Unremarkable. SUPRAHYOID NECK: Unremarkable oropharynx, oral cavity, parapharyngeal space, and retropharyngeal space. Multiple radiopaque foreign bodies are seen in the right lateral superficial soft tissues. INFRAHYOID NECK: Unremarkable larynx, hypopharynx, and supraglottis. THYROID: No focal lesions. SALIVARY GLANDS: The submandibular glands are unremarkable. Normal appearance of the left parotid gland. The right parotid gland appears to be partially absent with multiple radiopaque foreign bodies present in this region. This is unchanged from prior. LYMPH NODES: No cervical or supraclavicular lymphadenopathy. VASCULAR STRUCTURES: Unremarkable. VISUALIZED PORTIONS OF THE ORBITS, PARANASAL SINUSES, MASTOID AIR CELLS AND SKULL BASE: Partially opacified ethmoid air cells and bilateral frontal sinuses. The mastoid air cells are well-aerated. Partial visualization of the extra-axial mass along the left parafalcine region. BONES: Mild degenerative changes of the spine. THORACIC INLET: Clear lung apices. CT/Soft Tissue Neck WITH Contrast IMPRESSION: No acute abnormality. Radiopaque foreign bodies along the right neck are again noted. No lymphadenopathy. Electronically Signed: Kirill Schaffer MD at 1:02 EDT ,
[2024-04-27 15:07] LABS: CREATININE FINGERSTICK < 1.0 mg/dL (0.70-1.30); EGFR FINGERSTICK > 60.0000 mL/min (>60)
== END | disposition home or self-care (01) ==
LOC: CT 14:27
DX: Z01.812 Encounter for preprocedural laboratory examination (principal); R93.89 Abnormal findings on diagnostic imaging of other specified body structures
CPT/HCPCS: 70491; Q9967

== ENCOUNTER → 2024-09-18 | Outpatient (CLI) | payer OTHER, SELFPAY ==
--- NOTE | 2024-09-18 11:49 | CT_ITS ---
STUDY: CT ABDOMEN AND PELVIS WITH AND WITHOUT CONTRAST REASON FOR EXAM: Male, 79 years old. HEMATURIA RADIATION DOSAGE (If Supplied By Facility): CTDIvol = ( 19.24 ) mGy, DLP = ( 3264.03 ) mGycm TECHNIQUE: Transaxial images were obtained from the dome of the diaphragm to the symphysis pubis without oral contrast. ISVOUE 300 100 ML was administered. Sagittal and coronal images were reconstructed. Individualized dose optimization techniques were used for this CT. COMPARISON: None. FINDINGS: The visualized lung bases are unremarkable. Coronary artery calcification. Hepatic cysts seen in both lobes of the liver. The largest in the left lobe measures 2.4 cm x 2.4 cm. The largest in the right lobe measures 1.5 cm. Normal gallbladder and extrahepatic biliary system. Normal spleen. Normal pancreas. Normal bilateral adrenal glands. 1.3 cm cyst in the lower pole of the left kidney. There is a 1.4 cm cyst in the anterior medial superior pole of the left kidney. Normal visualized stomach. Normal small intestine. There are multiple colonic diverticula consistent with diverticulosis. The appendix is visualized and appears normal. There is scattered atherosclerotic calcification of the abdominal aorta, without a demonstrated aneurysm. Normal inferior vena cava. Normal retroperitoneum. Normal urinary bladder. Normal abdominal wall. Normal osseous structures. CT/CT Abd/Pelvis W/WO Contrast IMPRESSION: Hepatic cysts. Small bilateral renal cysts. Electronically Signed: Dick Yepez MD at 14:36 EST ,
== END | disposition home or self-care (01) ==
DX: R31.9 Hematuria, unspecified (principal)
CPT/HCPCS: 74178; Q9967

== ENCOUNTER → 2025-01-15 | Outpatient (CLI) | payer OTHER, SELFPAY | END | disposition home or self-care (01) | LOC: LAB 11:43 | DX: Z00.00 Encounter for general adult medical examination without abnormal findings (principal) ==

== ENCOUNTER 2025-03-28 13:11 | Emergency (ER) | payer OTHER, SELFPAY ==
[2025-03-28 13:12] VITALS: BP 136/72; PULSE 63; RESP 18; TEMP 36.9; O2SAT 98; BMI 23.6
== END 2025-03-28 15:49 | disposition left against medical advice (07) ==
LOC: ED 16:11
DX: Z53.21 Procedure and treatment not carried out due to patient leaving prior to being seen by health care provider (principal)

== ENCOUNTER 2025-03-29 13:20 | Emergency (ER) | payer OTHER, SELFPAY ==
[2025-03-29 13:22] VITALS: BP 118/93; PULSE 59; RESP 16; TEMP 36.6; O2SAT 96; BMI 23.7
--- NOTE | 2025-03-29 13:43 | CT_ITS ---
PROCEDURE: BRAIN/HEAD WITHOUT CONTRAST 03/29/2025 REASON FOR EXAM: HEADACHE History of migraines. TECHNIQUE: Head CT without intravenous contrast. Coronal and Sagittal reconstruction series were provided. One or more dose reduction techniques were used (e.g., Automated exposure control, adjustment of the mA and/or kV according to patient size, use of iterative reconstruction technique. RADIATION DOSE SUMMARY: CTDlvol: 44.99 mGy DLP: 880.47 mGycm COMPARISON: None FINDINGS: Brain: Low density in the periventricular white matter suggests mild chronic small vessel ischemic changes. CSF Spaces: Mild generalized cerebral atrophy Sinuses/Mastoids: Clear at visualized levels Bones: CT/Brain/Head without Contrast IMPRESSION: CHRONIC CHANGES. NO ACUTE FINDINGS. Reading Location: [id number]
--- NOTE | 2025-03-29 13:51 | EX.ED.VIS.HA ---
HPI <BENJAMIN Theodore - Last Filed: 03/29/25 15:04> History of Present Illness Chief Complaint: Headache Narrative Narrative: 79-year-old male presents with increasing frequency of migraines. He states has had migraines for decades that usually occurred about once a month. Over the last few months they have increased in frequency to weekly to now daily. He states he either has a migraine or migraine hangover every day. 2 days ago he had a migraine with bilateral blurry vision. This morning he had a gradual onset migraine with difficulty speaking around 10 AM lasting about 10 minutes. He states he has had both blurry vision and difficulty speaking with migraines in the past but this was years ago. He took his prescribed migraine medication but does not know the name of it and states his headache is starting to dissipate. He denies fever or chills. No nausea or vomiting. No motor or sensory changes in his extremities. No incoordination. Patient states a couple years ago he had a scan of his brain showing a benign brain tumor that is monitored at the [facility]. [facility] <BENJAMIN Theodore - Last Filed: 03/29/25 15:04> [facility] Medical History (Updated 03/29/25 @ 14:[address] Armando Lang MD) Wears glasses Arthritis Syncope History of echocardiogram History of stress test Cardiology follow-up encounter Hx of fracture of finger Non-smoker CPAP (continuous positive airway pressure) dependence Migraines GERD (gastroesophageal reflux disease) BPH (benign prostatic hyperplasia) Hyperlipemia Home Medications ?Medication ?Instructions ?Recorded ?Last Taken ?Type aspirin 81 mg chewable tablet 81 mg PO DAILY heart health 12/07/23 Unknown History glucosamine-chondroitin 250 mg-200 2 tab PO DAILY supplement 12/07/23 Unknown History mg tablet (Osteo Bi-Flex) pantoprazole 40 mg tablet,delayed 40 mg PO QHS reflux 12/07/23 Unknown History release rosuvastatin 20 mg tablet 20 mg PO DAILY cholesterol 12/07/23 Unknown History tamsulosin 0.4 mg capsule 0.4 mg PO QHS 03/22/25 Unknown History Allergy/AdvReac Type Severity Reaction Status Date / Time No Known Allergies Allergy Verified 03/29/25 13:22 Family History Father Cancer Mother Heart disease Brother Cancer Surgical History Hx of colonoscopy Hx of right cataract extraction Hx of left cataract extraction H/O hernia repair History of mandibular surgery Social History household members: spouse housing: house Smoking Status: Never smoker ROS <BENJAMIN Theodore - Last Filed: 03/29/25 15:04> ROS ED ROS Narrative Constitutional: Negative for fever, chills, malaise. CVS: Negative for chest pain. Respiratory: Negative for shortness of breath. GI: Negative for nausea, vomiting. Neuro: Positive for headache, negative for motor/sensory dysfunction. EXAM <BENJAMIN Theodore - Last Filed: 03/29/25 15:04> Physical Exam Narrative Exam Narrative: CONST: Patient sitting in no acute distress. EYES: Normal inspection. PERRL, EOMI. NECK: Normal inspection. RESP: No respiratory distress, CTAB. CVS: Regular rate and rhythm, no murmur, no gallop. SKIN: Color normal, no rash, warm, dry, intact. EXTREMITIES: Normal appearance, no pedal edema. NEURO: Alert and answering questions appropriately. PERRL, EOMI, no visual field deficits. 5/5 upper and extremity strength, normal finger-nose and [id number], normal gait. No aphasia or dysarthria. No distention. NIH is 0. PSYCH: Normal affect. Const Vital Signs: 03/29/25 13:22 03/29/25 14:40 Temperature 97.8 F 97.8 F Temperature Source Oral Pulse Rate 59 L 60 Respiratory Rate 16 18 Blood Pressure 118/93 H 115/78 Blood Pressure Mean 101 90 Pulse Ox 96 99 Oxygen Delivery Method Room Air <Dr. Armando Lang MD - Last Filed: 03/29/25 14:33> Physical Exam Const Vital Signs: 03/29/25 13:22 03/29/25 14:40 Temperature 97.8 F 97.8 F Temperature Source Oral Pulse Rate 59 L 60 Respiratory Rate 16 18 Blood Pressure 118/93 H 115/78 Blood Pressure Mean 101 90 Pulse Ox 96 99 Oxygen Delivery Method Room Air MDM <BENJAMIN Theodore - Last Filed: 03/29/25 15:04> MDM MDM Narrative Medical decision making narrative: External records reviewed: MRI brain 12/09/2023 No significant findings. Incidental small left frontal meningioma. Radiography Diagnostic Testing: Clinical Impression(s) from Imaging Studies Brain CT 03/29/25 13:43 IMPRESSION: CHRONIC CHANGES. NO ACUTE FINDINGS. Reading Location: [id number] Treatment and Re-Evaluation Narrative: History gathered from: Patient and spouse Differential includes complex migraine, TIA, CVA, intracranial hemorrhage Patient has history of migraines with increasing frequency over the last several months. He had a typical migraine this morning with a short episode of expressive aphasia which is now resolved. He appears well and nontoxic. Vital stable. He has a completely normal neurological exam with NIH of 0. CT imaging is negative. There is a stable right frontal meningioma. He is aware of this finding and states [facility] He reports having both visual and speech changes with migraines in the past. I suspect the symptoms are related to his underlying migraine disorder but I discussed possibility of TIA/CVA and he states he would like [facility]. Return precautions were discussed and he was discharged in stable condition. I have personally performed a face to face assessment of the patient and have reviewed the KATHLEEN Note. I performed a substantive portion of the visit including all aspects of the following. My tafoya findings include: History is history of migraines chronically, becoming more frequent over the last year or so, had 1 that he woke up with this morning, and about a 10-minute episode of an expressive aphasia. After taking one of his prescription migraine pills identity unknown, he is feeling much better with regards to the headache as well. No neurologic symptoms currently. Stopped his aspirin 6 days ago for urologic procedure that is occurring after this coming weekend. Exam is normal neurologic exam NIHSS 0, normal speech. Medical Decison Making I reviewed the CT imaging and the results which I agree with except he did not mention meningioma which I discussed with the radiologist, negative for hemorrhage or any other thing acute. Blood pressure 118/93. This is inconsistent with a recent TIA. I advised the patient and that I am not able to do testing to rule in or rule out the possibility of migraine versus TIA and less he had an MRI that was abnormal which may or may not be the case even now when his symptoms are gone. Offered admission, he declines and [facility] which I am okay with I think migraine is much more likely of a scenario here given his history. Advised to continue staying off of his aspirin, the lack of NSAID probably contributed to the development of this migraine. Other additions or changes: [None] <Dr. Armando Lang MD - Last Filed: 03/29/25 14:33> MDM Radiography Diagnostic Testing: Clinical Impression(s) from Imaging Studies Brain CT 03/29/25 13:43 IMPRESSION: CHRONIC CHANGES. NO ACUTE FINDINGS. Reading Location: [id number] Management Discussion w/another healthcare provider: Radiologist Treatment and Re-Evaluation Narrative: I have personally performed a face to face assessment of the patient and have reviewed the KATHLEEN Note. I performed a substantive portion of the visit including all aspects of the following. My tafoya findings include: History is history of migraines chronically, becoming more frequent over the last year or so, had 1 that he woke up with this morning, and about a 10-minute episode of an expressive aphasia. After taking one of his prescription migraine pills identity unknown, he is feeling much better with regards to the headache as well. No neurologic symptoms currently. Stopped his aspirin 6 days ago for urologic procedure that is occurring after this coming weekend. Exam is normal neurologic exam NIHSS 0, normal speech. Medical Decison Making I reviewed the CT imaging and the results which I agree with except he did not mention meningioma which I discussed with the radiologist, negative for hemorrhage or any other thing acute. Blood pressure 118/93. This is inconsistent with a recent TIA. I advised the patient and that I am not able to do testing to rule in or rule out the possibility of migraine versus TIA and less he had an MRI that was abnormal which may or may not be the case even now when his symptoms are gone. Offered admission, he declines and [facility] which I am okay with I think migraine is much more likely of a scenario here given his history. Advised to continue staying off of his aspirin, the lack of NSAID probably contributed to the development of this migraine. Other additions or changes: [None] Discharge Plan Triage Chief Complaint: Headache ED Midlevel Provider: Shalini Hercules ED Provider: Armando Lang Dx/Rx/DC Orders Clinical Impression: Migraines, Expressive aphasia Instructions: ED, Migraine (Classical) Prescriptions: No Action pantoprazole 40 mg tablet,delayed release (DR/EC) 40 mg PO QHS Patient Comments: TAKE 1 TABLET BY MOUTH ONCE DAILY IN AFTERNOON ONE HOUR BEFORE DINNER rosuvastatin 20 mg tablet 20 mg PO DAILY aspirin 81 mg tablet,chewable 81 mg PO DAILY glucosamine-chondroitin [Osteo Bi-Flex] 250-200 mg tablet 2 tab PO DAILY Rx Instructions: give after food/meal tamsulosin 0.4 mg capsule 0.4 mg PO QHS [facility] Provider[facility] [Primary Care Provider] - Activity Restrictions/Additional Instructions: Your CT scan looks similar to previous. Since your migraines are worsening you need further evaluation with the [facility] and may need to see a neurologist and get a repeat MRI scan. Print Language: Kyrgyz Disposition Disposition: Home, Self Care Discharge Date/Time: 03/29/25 15:01
[2025-03-29 14:40] VITALS: BP 115/78; PULSE 60; RESP 18; TEMP 36.6; O2SAT 99
== END 2025-03-29 15:01 | disposition home or self-care (01) ==
PROVIDERS: Emergency Provider Emergency Medicine; Visit Provider Emergency Medicine
DX: G43.909 Migraine, unspecified, not intractable, without status migrainosus (principal); D32.9 Benign neoplasm of meninges, unspecified; R47.01 Aphasia; K21.9 Gastro-esophageal reflux disease without esophagitis; E78.5 Hyperlipidemia, unspecified; N40.0 Benign prostatic hyperplasia without lower urinary tract symptoms; Z79.82 Long term (current) use of aspirin; Z79.899 Other long term (current) drug therapy
CPT/HCPCS: 70450; 99282

== ENCOUNTER 2025-04-03 13:34 | Inpatient (IN) | payer OTHER, SELFPAY ==
[2025-03-29 12:46] LABS: Hematocrit 45.4 % (40-54); Hemoglobin 14.9 g/dL (13.0-16.5); Mean Corp Hgb Conc 32.8 g/dL (32-36); Mean Corpuscular Hgb 30.7 pg (27.0-32.0); Mean Corpuscular Volume 93.4 fL (80-94); Mean Platelet Vol. 11.1 fl (6.2-12.0); Platelet Count 189 K/mm3 (150-450); RBC Distribution Width CV 13.9 % (11.6-14.6); Red Blood Count 4.86 M/mm3 (4.6-6.2); White Blood Count 7.4 K/mm3 (4.4-11.0)
[2025-03-29 13:24] LABS: Anion Gap 9 (5-15); BUN 17 mg/dL (4-19); BUN/Creat Ratio 19.2 RATIO (10-20); Calcium,Total 9.4 mg/dL (7.6-11.0); Carbon Dioxide 26.6 mmol/L (21.0-32.0); Chloride 104 mmol/L (98-108); EST Glomerular Filtration Rate 86 (>60); Glucose 97 mg/dL (70-99); Potassium 4.4 mmol/L (3.3-5.1); Sodium Level 139 mmol/L (133-145)
--- NOTE | 2025-04-01 09:17 | PAT.ANE_ITS ---
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 When Was Last Pacemaker Check QUESTION #4 FULL TEXT: You/Your Family Experience fever (hyperthermia) with Anesthesia Last Oral Intake Last Oral intake: Last Oral Intake NPO since Meds taken in AM with sips of water? Meds patient instructed to take am of surgery PONV PONV - boiler maker: PONV - boiler maker Female No 03/22/25 14:09 HX of Motion Sickness No 03/22/25 14:09 HX of N/V After Surgery No 03/22/25 14:09 Non-Smoker Yes 03/22/25 14:09 Duration of Surgery greater Yes 03/22/25 14:09 than 60 minutes Number of Risk Factors 2 03/22/25 14:09 PONV Score Moderate Risk 03/22/25 14:09 Height & Weight Height & Weight: Anesthesia: Height & Weight Height 6 ft 4 in 07/10/24 13:21 Respiratory Assessment Respiratory Assessment - boiler maker: Respiratory Tract Infection Hx - boiler maker Hx Respiratory Tract Infection No 03/22/25 14:09 STOP Sleep Apnea STOP Sleep Apnea - boiler maker: STOP Sleep Apnea - boiler maker Hx Hypertension No 03/22/25 14:09 Hx Sleep Apnea Yes 03/22/25 14:09 CPAP Yes 03/22/25 14:09 BIPAP No 03/22/25 14:09 Do you snore loudly (louder than talking or can be heard Do you often feel tired/ fatigued/ sleepy during daytime? Has anyone observed you stop breathing during sleep? STOP Results Positive 03/22/25 14:09 QUESTION #5 FULL TEXT : Do you snore loudly (louder than talking or can be heard through closed doors)? Tobacco Use History Tobacco Use History - boiler maker: Tobacco Use History - boiler maker Tobacco Use Smoking Status Never smoker 03/22/25 14:09 Hx Tobacco Use No 03/22/25 14:09 Years Smoking Packs Smoked per Day Smoking Cessation Date was within the last 15 years Hx Smoking Cessation Date Hx Smoking Cessation Counseling Hematologic Medial History Hematologic Hx - boiler maker: Hematologic Medical Hx - financial rep Hx of Blood Transfusion No 03/22/25 14:09 Hx of Transfusion in last 3 No 03/22/25 14:09 Months Date of Last Transfusion (if within last 3 months) Ever experience any problems No 03/22/25 14:09 with transfusion(s)? Specify any problems Hx of Preganancy in last 3 N/A 03/22/25 14:09 Months Nurse Filling Out Transfusion DSCHRIBER 03/22/25 14:09 & Questions: Date: 03/22/25 03/22/25 14:09 Time: 14:10 03/22/25 14:09 Patient unable to answer at this time (ie. confused, unrespo /Reproduction History /Reproductive History - boiler maker: /Reproductive Hx- boiler maker Hx Now No 03/22/25 14:09 Gestational Age (in weeks): EDC: Hx Hx Para Hx Section SAB No 03/22/25 14:09 [facility] Medical History (Updated 03/29/25 @ 14:[address] Armando Lang MD) Wears glasses Arthritis Syncope History of echocardiogram History of stress test Cardiology follow-up encounter Hx of fracture of finger Non-smoker CPAP (continuous positive airway pressure) dependence Migraines GERD (gastroesophageal reflux disease) BPH (benign prostatic hyperplasia) Hyperlipemia Home Medications ?Medication ?Instructions ?Recorded ?Last Taken ?Type aspirin 81 mg chewable tablet 81 mg PO DAILY heart hea lth 12/07/23 Unknown History glucosamine-chondroitin 250 mg-200 2 tab PO DAILY supp lement 12/07/23 Unknown History mg tablet (Osteo Bi-Flex) pantoprazole 40 mg tablet,delayed 40 mg PO QHS reflux 12/07/23 Unknown History release rosuvastatin 20 mg tablet 20 mg PO DAILY cholesterol 0 12/07/23 Unknown History tamsulosin 0.4 mg capsule 0.4 mg PO QHS 03/22/25 Unkno wn History Allergy/AdvReac Type Severity Reaction Status Date / Time No Known Allergies Allergy Verified 03/29/25 13:22 Family History Father Cancer Mother Heart disease Brother Cancer Surgical History Hx of colonoscopy Hx of right cataract extraction Hx of left cataract extraction H/O hernia repair History of mandibular surgery Social History household members: spouse housing: house Smoking Status: Never smoker Audit: Pertinent Findings Pertinent Findings EKG Perinent findings: December 07, 2023. Sinus bradycardia 55 bpm. Nonspecific T wave abnormality. Echo (EF%) pertinent findings: 12/07/2023. Normal size function. EF 60%. Consult pertinent findings: Cardiology 07/10/2024. Assessment for dizziness. Will consider changing medications. Abnormal cardiovascular stress test. November 23, 2023. 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 [place] to be not clinically significant. Recommendation Anesthesia Recommendation Anesthesia recommendation: OPTIMIZED for anesthesia
[2025-04-03] VITALS (12 sets, daily range): BP systolic 101–155; BP diastolic 50–86; PULSE 54–68; RESP 15–16; TEMP 36–36.6; O2SAT 92–97; BMI 23.6
--- NOTE | 2025-04-03 09:38 | PRE.ANES_ITS ---
ASA Classification* ASA Classification ASA Classification: 3 Assessment & Plan Anesthesia* Anesthesia Assessment Anesthesia Assessment: Discussed sedation and/or anesthesia options, risks, benefits, and alternatives with patient/parents/legal guardian/POA. Questions invited. The patient/parents/legal guardian/POA seems to understand and agrees to proceed with anesthesia plan. Reviewed the physical assessment, medical history, allergy history and patient home medications list prior to surgery/procedure/anesthetic and documented any changes. Performed airway and anesthesia risk assessments. Anesthesia Type Anesthesia Type: General Anesthesia Focused Assessment* Airway Assessment Mouth opens: >3 cm Mallampati Score: II Focused Labs Anesthesia Preop lab: CBC WBC 7.4 K/mm3 (4.4-11.0) 03/29/25 12:15 03/29/25 RBC 4.86 M/mm3 (4.6-6.2) 03/29/25 12:15 03/29/25 Hgb 14.9 g/dL (13.0-16.5) 03/29/25 12:15 03/29/25 Hct 45.4 % (40-54) 03/29/25 12:15 03/29/25 Plt Count 189 K/mm3 (150-450) 03/29/25 12:15 03/29/25 CHEMISTRY Potassium 4.4 mmol/L (3.3-5.1) 03/29/25 12:15 03/29/25 Sodium 139 mmol/L (133-145) 03/29/25 12:15 03/29/25 BUN 17 mg/dL (4-19) 03/29/25 12:15 03/29/25 Creatinine 0.90 mg/dL (0.70-1.20) 03/29/25 12:15 03/29/25 Glucose 97 mg/dL (70-99) 03/29/25 12:15 03/29/25 COAG PT 14.5 SECONDS (11.7-14.9) 12/07/23 13:42 Pre-Assessment Diagnosis/Proposed Procedure Planned Operative Procedure(s): CYSTO DVIU Anesthesia History 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 When Was Last Pacemaker Check QUESTION #4 FULL TEXT: You/Your Family Experience fever (hyperthermia) with Anesthesia Last Oral Intake Last Oral intake: Last Oral Intake NPO since Meds taken in AM with sips of water? Meds patient instructed to take am of surgery PONV PONV - records management assistant: PONV - records management assistant Female No 03/22/25 14:09 HX of Motion Sickness No 03/22/25 14:09 HX of N/V After Surgery No 03/22/25 14:09 Non-Smoker Yes 03/22/25 14:09 Duration of Surgery greater Yes 03/22/25 14:09 than 60 minutes Number of Risk Factors 2 03/22/25 14:09 PONV Score Moderate Risk 03/22/25 14:09 Height & Weight Height & Weight: Anesthesia: Height & Weight Height 6 ft 4 in 03/29/25 13:22 Respiratory Assessment Respiratory Assessment - records management assistant: Respiratory Tract Infection Hx - records management assistant Hx Respiratory Tract Infection No 03/22/25 14:09 STOP Sleep Apnea STOP Sleep Apnea - records management assistant: STOP Sleep Apnea - records management assistant Hx Hypertension No 03/22/25 14:09 Hx Sleep Apnea Yes 03/22/25 14:09 CPAP Yes 03/22/25 14:09 BIPAP No 03/22/25 14:09 Do you snore loudly (louder than talking or can be heard Do you often feel tired/ fatigued/ sleepy during daytime? Has anyone observed you stop breathing during sleep? STOP Results Positive 03/22/25 14:09 QUESTION #5 FULL TEXT : Do you snore loudly (louder than talking or can be heard through closed doors)? Tobacco Use History Tobacco Use History - records management assistant: Tobacco Use History - records management assistant Tobacco Use Smoking Status Never smoker 03/29/25 14:26 Hx Tobacco Use No 03/22/25 14:09 Years Smoking Packs Smoked per Day Smoking Cessation Date was within the last 15 years Hx Smoking Cessation Date Hx Smoking Cessation Counseling Hematologic Medial History Hematologic Hx - records management assistant: Hematologic Medical Hx - creative services coordinator Hx of Blood Transfusion No 03/22/25 14:09 Hx of Transfusion in last 3 No 03/22/25 14:09 Months Date of Last Transfusion (if within last 3 months) Ever experience any problems No 03/22/25 14:09 with transfusion(s)? Specify any problems Hx of Preganancy in last 3 N/A 03/22/25 14:09 Months Nurse Filling Out Transfusion DSCHRIBER 03/22/25 14:09 & Questions: Date: 03/22/25 03/22/25 14:09 Time: 14:10 03/22/25 14:09 Patient unable to answer at this time (ie. confused, unrespo /Reproduction History /Reproductive History - records management assistant: /Reproductive Hx- records management assistant Hx Now No 03/22/25 14:09 Gestational Age (in weeks): EDC: Hx Hx Para Hx Section SAB No 03/22/25 14:09 Active Medications Active Medications: Current Medications Generic Name Dose Route Start Last Admin Trade Name Freq PRN Reason Stop Dose Admin Cefazolin Sodium 2 gm/ Sodium 110 mls @ 150 mls/hr 04/03/25 11:10 Chloride IV 04/03/25 11:53 INTRAOP ONE Lactated Ringer's 1,000 mls @ 15 mls/hr 04/03/25 09:15 IV .Q48H [facility]SH Medical History Wears glasses Arthritis Syncope History of echocardiogram History of stress test Cardiology follow-up encounter Hx of fracture of finger Non-smoker CPAP (continuous positive airway pressure) dependence Migraines GERD (gastroesophageal reflux disease) BPH (benign prostatic hyperplasia) Hyperlipemia Home Medications ?Medication ?Instructions ?Recorded ?Last Taken ?Type aspirin 81 mg chewable tablet 81 mg PO DAILY heart hea lth 12/07/23 Unknown History glucosamine-chondroitin 250 mg-200 2 tab PO DAILY supp lement 12/07/23 Unknown History mg tablet (Osteo Bi-Flex) pantoprazole 40 mg tablet,delayed 40 mg PO QHS reflux 12/07/23 Unknown History release rosuvastatin 20 mg tablet 20 mg PO DAILY cholesterol 0 12/07/23 Unknown History tamsulosin 0.4 mg capsule 0.4 mg PO QHS 03/22/25 Unkno wn History Allergy/AdvReac Type Severity Reaction Status Date / Time No Known Allergies Allergy Verified 04/03/25 09:31 Family History Father Cancer Mother Heart disease Brother Cancer Surgical History Hx of colonoscopy Hx of right cataract extraction Hx of left cataract extraction H/O hernia repair History of mandibular surgery Social History household members: spouse housing: house Smoking Status: Never smoker Review of Systems (Anesthesia) ROS Narrative System reviewed and no additional complaints, except as documented.
--- NOTE | 2025-04-03 11:03 | PCM.HP.STD ---
HPI - General General Date of Service: 04/03/25 Chief Complaint: Urethral stricture HPI Narrative ARIANA SIBLEY, is a 79 M who presents transurethral with direct vision internal urethrotomy of urethral stricture he understands the main complication is that the stricture can come back. [facility] Medical History Wears glasses Arthritis Syncope History of echocardiogram History of stress test Cardiology follow-up encounter Hx of fracture of finger Non-smoker CPAP (continuous positive airway pressure) dependence Migraines GERD (gastroesophageal reflux disease) BPH (benign prostatic hyperplasia) Hyperlipemia Home Medications ?Medication ?Instructions ?Recorded ?Last Taken ?Type aspirin 81 mg chewable tablet 81 mg PO DAILY heart health 12/07/23 03/24/25 History Held on 04/03/25. Instructions: Resume on 04/17/25. glucosamine-chondroitin 250 mg-200 2 tab PO DAILY supplement 12/07/23 04/02/25 History mg tablet (Osteo Bi-Flex) pantoprazole 40 mg tablet,delayed 40 mg PO QHS reflux 12/07/23 04/02/25 History release rosuvastatin 20 mg tablet 20 mg PO DAILY cholesterol 12/07/23 04/02/25 History tamsulosin 0.4 mg capsule 0.4 mg PO QHS 03/22/25 04/02/25 History acetaminophen 500 mg capsule 500 mg PO Q4H PRN pain #20 caps 04/03/25 Unknown Rx ibuprofen 600 mg tablet 600 mg PO Q6H PRN pain #20 tabs 04/03/25 Unknown Rx Allergy/AdvReac Type Severity Reaction Status Date / Time No Known Allergies Allergy Verified 04/03/25 09:39 Family History Father Cancer Mother Heart disease Brother Cancer Surgical History Hx of colonoscopy Hx of right cataract extraction Hx of left cataract extraction H/O hernia repair History of mandibular surgery Social History household members: spouse housing: house Smoking Status: Never smoker Vital Signs Vital Signs Vital Signs: 04/03/25 09:32 04/03/25 09:32 Temperature 97.6 F L Temperature Source Temporal Pulse Rate 58 L Respiratory Rate 16 Respiratory Pattern Normal Blood Pressure 130/66 H Blood Pressure Mean 87 Blood Pressure Source Monitor Blood Pressure Position Sitting Blood Pressure Location Left Arm Pulse Ox 96 Oxygen Delivery Method Room Air Weight Weight: 88 kg Body Mass Index (BMI) 23.6 Results Lab / Micro Data 03/29/25 12:15 03/29/25 12:15
--- NOTE | 2025-04-03 11:04 | DCINST_ITS ---
Discharge Instructions Diet Discharge Diet: No restrictions DC O2, CPAP, BIPAP needs Home O2 Discharge instructions: No Dressing / Incision Discharge Activity: Return to Normal Activity and May Not Drive (while taking narcotic pain medications.) Dressing / Incision Call your doctor if you observe: Fever of 101 or Higher Catheter: Osorio to leg bag and Osorio to large bag Drain: [place] Follow Up Care Please Follow Up With: Marlon Pittman MD When: Call [phone] for an appointment Test Results: Test results from this visit will be discussed in further detail at your follow- up appointment, if applicable. Discharge Plan Admission Primary Reason for Your Visit: DVIU Attending Provider: Marlon Pittman Primary Care Provider: [facility],[place] Consulting Providers: Dean Baez Instructions Print Language: Luxembourgish Discharge Orders/Prescriptions Prescriptions: New ibuprofen 600 mg tablet 600 mg PO Q6H PRN (Reason: pain) Qty: 20 0RF acetaminophen 500 mg capsule 500 mg PO Q4H PRN (Reason: pain) Qty: 20 0RF Continued pantoprazole 40 mg tablet,delayed release (DR/EC) 40 mg PO QHS Patient Comments: TAKE 1 TABLET BY MOUTH ONCE DAILY IN AFTERNOON ONE HOUR BEFORE DINNER rosuvastatin 20 mg tablet 20 mg PO DAILY glucosamine-chondroitin [Osteo Bi-Flex] 250-200 mg tablet 2 tab PO DAILY Rx Instructions: give after food/meal tamsulosin 0.4 mg capsule 0.4 mg PO QHS Held aspirin 81 mg tablet,chewable 81 mg PO DAILY Hold Instructions: Resume on 04/17/25. Referrals / Follow Up: Marlon Pittman MD [Med Staff - Active Staff] - [facility] [Primary Care Provider] - Disposition Disposition (needs filled in before D/C Order can be placed): Home, Self Care
[2025-04-03] MEDS: Cefazolin 2 GM in 0.9% Normal Saline (100mL Bag) 100 ML IV (11:35)
[2025-04-03] MEDS: Bupivacaine Mpf 0.5% 30 ML VIAL (13:03)
--- NOTE | 2025-04-03 13:04 | PCM.OPRPT ---
Operative Report (Standard) Operative Information Date of Procedure: 04/03/25 Pre-Operative Diagnosis: Severe urethral stricture mills stricture disease Post-Operative Diagnosis: The same Surgery/Procedure Performed: Cystoscopy attempted placement of wire through the stricture, direct vision urethrotomy, open cystotomy, antegrade placement of Osorio catheter, and suprapubic catheter placement chip applying machine tender: No Type of Anesthesia: General RN Documented Start/Stop Times: Operation Date: 04/03/25 11:10 Case Time Into Pre-Op 04/03/25 09:09 Procedure Start Time: 11:43 Procedure Stop Time: 13:06 Select all DRAINS/GRAFTS/IMPLANTS that apply: Drains Drain details: Suprapubic catheter, Osorio catheter Estimated Blood Loss: 10cc Specimen collected: No Description of surgery: Indication this is a an 79-year-old male is a new patient to me he was seeing a prior urologist who retired, he was coming in complaining of very difficult time with urination he did relate having very traumatic Osorio catheter placement in the past. In the office I did a cystoscopy and immediately in the mid urethra encountered a pinpoint stricture at that point I did not attempt to dilate the stricture anything, taken of the surgery today to attempt a direct vision internal urethrotomy and placement of a Osorio catheter for severe stricture understands that this is a temporizing solution the restriction rate after this is extremely high apparently has had other DVIU's in the past. Patient was taken back to the operating room after smooth induction of anesthesia the penis and testicles were prepped and draped in usual fashion I have saw pinpoint urethra in the mid urethra with the cystoscope try to get a wire through that I was able to get through that but then I could not get the wire past any further we then called down fluoroscopy and attempted the guided under fluoroscopy with then unsuccessful so then I did use the cold knife Collinson strike cutting on the stricture hoping that this would hope and open up the channel but I was as I was cutting the stricture open then immediately recommends that was just creating a false passage and was not in the correct channel so this was immediately aborted because of the extravasation of normal saline his scrotum did become swollen and the large with normal saline. I then went and spoke to the and family members and let him know that was not able to do a an incision of the urethra not able to get into the bladder so recommended we do an anterior approach with his open cystotomy and see if we can place a Osorio catheter anterior grade and also suprapubic catheter. I then came back to the operative room he was reprepped and draped supine on the table, he was prepped and draped in sterile fashion for a lumbar suprapubic incision site made a Pfannenstiel incision across the lower abdomen dissected the fat until I got the anterior fascia opened up the fascia identified the midline and the rectus muscle and the piriformis muscles this was split and opened up I then identified the fat over the bladder the bladder was completely distended this appears to be chronically distended since I was not able to get into the bladder with the cystoscope I then opened up the bladder with a small cystotomy placed a stay stitch on each side of the cystotomy and then went in with a flexible cystoscope through the cystotomy was aided with then a 5 the prostate went into the prostate and then antegrade fashion I was then able to go through the prostate put a wire in an antegrade and then with a wire antegrade then this came out the penis and then over the wire we placed a 20 Syrian grand traverse tip catheter through that wire into the bladder following over the wire and then put 10 cc in the balloon and then pulled that catheter back and then this was left in place through the penis. I then put a suprapubic catheter through the small cystotomy in the bladder and then we closed the cystotomy in 2 layers using 3-0 Vicryl and 2-0 Vicryl. I then reapproximated the piriformis muscles in the midline I then closed the fascia in the midline with 0 Vicryl stitches and then we closed subcuticular stitches and then we closed the skin in the midline to leave the suprapubic catheter in the middle so the end he had a suprapubic catheter into the bladder as a safety valve and that we also have a regular catheter through the prostate through the stricture he has severe mills stricture disease. Will keep overnight for observation. Complication was that we had to open up the bladder in order to place the catheter since he had severe stricture disease and he had mills stricture disease was not able to get into the bladder retrograde fashion so at the place an antegrade catheter. Will discuss the options with the patient he could either be managed with a suprapubic catheter I am afraid that the stricture and mills stricture disease will likely fail and scarred down again or we could consider referral to reconstructive specialist to see if they can do a reconstruction of the urethra. For now we will keep him overnight and he will go home with both catheters and will see in the office discussed the options. Surgical Findings: Severe mills stricture disease unable to get the wire into bladder attempted direct vision internal urethrotomy of stricture unsuccessful Open cystotomy of the bladder antegrade placement of the wire and Osorio placement, suprapubic catheter placement Complications Complications: No Admit VTE Documentation VTE Present on Admission: No VTE Mechan Device Prophylaxis: SCD's VTE Pharm Prophylaxis ordered?: No
--- NOTE | 2025-04-03 13:25 | PCM.POST.ANE ---
Anesthesia: Postop Eval I Current Vital Signs Temperature: 96.8 F Pulse Rate: 65 Blood Pressure: 155/74 Respiratory Rate: 16 Pulse Ox: 95 Assessment Airway patent: Yes Spontaneous unlabored respirations: Yes nausea: No Vomiting: No Anesthesia Complication: No Fluid Hydration Crystalloid volume administer (ml): 900 Total IV fluid infused: 900 Progress Note Anesthesia document: Postop Eval 1 completed: Yes
--- NOTE | 2025-04-03 13:33 | POSTOPAN2_ITS ---
Anesthesia Postop Eval I Sum Postop Eval Completion status Anesthesia document: Postop Eval 1 completed: Yes Anesthesia Postop Eval I Summary Anesthesia Postop Eval I Summary: Anesthesia Postop Eval I: Assessment Summary Airway patent Yes 04/03/25 13:25 EXTRACTIVE [email or web address].[email or web address] Spontaneous unlabored Yes 04/03/25 13:25 EXTRACTIVE METALLURGIST.TNES respirations Mental status nausea No 04/03/25 13:25 EXTRACTIVE [email or web address].TNES Vomiting No 04/03/25 13:25 EXTRACTIVE [email or web address].TNES Anesthesia Postop Eval I: Fluid Summary Crystalloid volume administer 900 04/03/25 13:25 EXTRACTIVE [email or web address].TNES (ml) Colloids volume administered ( ml) Blood Product volume administered (ml) Total IV fluid infused 900 04/03/25 13:25 EXTRACTIVE [email or web address].TNES Anesthesia Postop Eval I: Summary Notes Anesthesia Complication No 04/03/25 13:25 EXTRACTIVE [email or web address].[email or web address] Anesthesia Complication Comment: Post-operative progress note Anesthesia: Postop Eval II Evaluation Mental status: Awake Pain Level: 2 nausea: No Vomiting: No
--- NOTE | 2025-04-03 13:33 | PCM.POSTANE2 ---
Anesthesia Postop Eval I Sum Postop Eval Completion status Anesthesia document: Postop Eval 1 completed: Yes Anesthesia Postop Eval I Summary Anesthesia Postop Eval I Summary: Anesthesia Postop Eval I: Assessment Summary Airway patent Yes 04/03/25 13:25 OIL REFINERY PROCESS [email or web address] Spontaneous unlabored Yes 04/03/25 13:25 OIL REFINERY PROCESS [email or web address].[email or web address] respirations Mental status nausea No 04/03/25 13:25 OIL REFINERY PROCESS [email or web address].[email or web address] Vomiting No 04/03/25 13:25 OIL REFINERY PROCESS [email or web address].[email or web address] Anesthesia Postop Eval I: Fluid Summary Crystalloid volume administer 900 04/03/25 13:25 OIL REFINERY PROCESS [email or web address].TNES (ml) Colloids volume administered ( ml) Blood Product volume administered (ml) Total IV fluid infused 900 04/03/25 13:25 OIL REFINERY PROCESS [email or web address].TNES Anesthesia Postop Eval I: Summary Notes Anesthesia Complication No 04/03/25 13:25 OIL REFINERY PROCESS [email or web address].TNES Anesthesia Complication Comment: Post-operative progress note Anesthesia: Postop Eval II Evaluation Mental status: Awake Pain Level: 2 nausea: No Vomiting: No
[2025-04-03] MEDS: 0.9% Normal Saline (1000mL) 1,000 ML 75 ML IV (14:21)
[2025-04-03] MEDS: Ketorolac 15 MG/ML Vial IV ×2 (18:05→23:33)
[2025-04-03] MEDS: 0.9% Saline Lock 10 ML Syringe IV (18:05)
[2025-04-03] MEDS: Tolterodine Tartrate 4 MG CAP.SA PO (18:05)
[2025-04-03] MEDS: Cefazolin 1 GM/50 ML BAG IV (18:06)
[2025-04-03] MEDS: Atorvastatin Calcium 40 MG Tablet PO (20:31)
[2025-04-03] MEDS: Docusate Sodium 100 MG Capsule 200 MG PO (20:31)
[2025-04-03] MEDS: Pantoprazole Sodium 40 MG Tablet PO (20:31)
[2025-04-03] MEDS: Tamsulosin HCl 0.4 MG Capsule PO (20:31)
[2025-04-04] MEDS: 0.9% Normal Saline (1000mL) 1,000 ML 75 ML IV ×2 (03:30→16:54)
[2025-04-04] MEDS: Cefazolin 1 GM/50 ML BAG IV (03:30)
[2025-04-04 03:37] VITALS: BP 110/64; PULSE 54; RESP 16; TEMP 36.4; O2SAT 99
[2025-04-04] MEDS: Ketorolac 15 MG/ML Vial IV ×3 (05:06→16:57)
[2025-04-04 06:37] LABS: Absolute Neutrophil Count 11.9 X10^3/uL (2.0-7.7); Basophil# 0.01 X10^3/uL; Basophil% 0.1 % (0-1); Hematocrit 40.1 % (40-54); Lymphocyte % 9.1 % (19-41); Mean Corp Hgb Conc 32.4 g/dL (32-36); Mean Corpuscular Hgb 30.6 pg (27.0-32.0); Mean Corpuscular Volume 94.4 fL (80-94); Mean Platelet Vol. 11.6 fl (6.2-12.0); Monocyte# 0.99 X10^3/uL; Monocyte% 6.9 % (0-10); NRBC Flagged by Analyzer 0 % (0-5); Neutrophil % 83.5 % (47-70); Platelet Count 167 K/mm3 (150-450); RBC Distribution Width CV 13.9 % (11.6-14.6); RBC Distribution Width SD 48.2 fl (35.1-43.9); Red Blood Count 4.25 M/mm3 (4.6-6.2); White Blood Count 14.3 K/mm3 (4.4-11.0)
--- NOTE | 2025-04-04 06:52 | PCM.PN.GU ---
Subjective Subjective Postoperative day #1 status post conversion to an open cystotomy placement of a ureteral urethral catheter antegrade and suprapubic catheter this was done because of severe mills stricture disease in the urethra unable to cut my way back to the bladder. Both the Osorio catheters are in place if she is SP tube and urine catheter are nice and clear no more bleeding. Scrotum is slightly swollen but going down. Regular diet. Probably discharge home tomorrow Objective Data Objective Data Vital Signs: Vital Signs Temp Pulse Resp BP Pulse Ox O2 Del Method 97.6 F L 54 L 16 110/64 99 CPAP 04/04/25 03:37 04/04/25 03:37 04/04/25 03:37 04/04/25 03:37 04/04/25 03:37 04/04/25 03:37 Oxygen Delivery Method CPAP Weight: 88 kg Body Mass Index (BMI) 23.6 Intake & Output: Intake and Output for Last 24 Hours 04/02/25 04/03/25 04/04/25 23:59 23:59 23:59 Intake Total 1850 / 1850 1147.50 / 1147.50 Output Total 555 / 555 200 / 200 Balance 1295 / 1295 947.50 / 947.50 Lab / Micro Data 04/04/25 05:39 03/29/25 12:15 Labs: Laboratory Results - last 24 hr 04/04/25 05:39: WBC 14.3 H, RBC 4.25 L, Hgb 13.0, Hct 40.1, MCV 94.4 H, MCH 30.6, MCHC 32.4, RDW Std Deviation 48.2 H, RDW Coeff of Katelin 13.9, Plt Count 167, MPV 11.6, Immature Gran % (Auto) 0.400, Neut % (Auto) 83.5 H, Lymph % (Auto) 9.1 L, [place] % (Auto) 6.9, Eos % (Auto) 0.0, Baso % (Auto) 0.1, Absolute Neuts (auto) 11.9 H, Absolute Lymphs (auto) 1.30, Nucleated RBC % 0
[2025-04-04 06:56] LABS: Anion Gap 9 (5-15); BUN 21 mg/dL (4-19); BUN/Creat Ratio 19.5 RATIO (10-20); Calcium,Total 8.1 mg/dL (7.6-11.0); Carbon Dioxide 22.7 mmol/L (21.0-32.0); Chloride 107 mmol/L (98-108); Creatinine, Serum 1.06 mg/dL (0.70-1.20); EST Glomerular Filtration Rate 71 (>60); Glucose 119 mg/dL (70-99); Potassium 4.5 mmol/L (3.3-5.1); Sodium Level 139 mmol/L (133-145)
[2025-04-04 09:30] VITALS: BP 105/57; PULSE 55; RESP 16; TEMP 36.4; O2SAT 95
[2025-04-04] MEDS: Enoxaparin 40 MG/0.4 ML Syringe SC (10:04)
[2025-04-04] MEDS: Docusate Sodium 100 MG Capsule 200 MG PO ×2 (10:04→20:16)
--- NOTE | 2025-04-04 11:10 | CASEMGMT ---
RN?CM?SUPERVISORY CBP OFFICER?CM?to room to meet with patient for initial transition planning/care coordination?assessment.?RN?CM?introduced self and role at [facility].? Pt voices understanding and consents to?assessment?at this time.? Pt sitting up in chair in room in no distress at this time.? Pt is A/O at this time and answers all questions appropriately.?? Care providers, pharmacy, and demographics verified/updated at this time. Strata: 1 PCP: Heber Rod, [place] Specialists: none. Pt to f/u with Dr Pittman @ [place] Appt has not been scheduled yet, as will need to verify when Dr Pittman would like to see pt in the office and also will need to verify if pt has other insurance besides [facility]. MS3 RN MAREK, Nela, made aware. Preferred Pharmacy: [facility] [place]: [place]. Pt does not think he has [facility], but not sure. He states his would know. Prescription Benefit:?Pt thinks he only has [facility] Rx benefits. Pt made aware [place] for cost of Rx's unless prescribed by a [facility] physician, so any new meds prescribed @ discharge from [facility] would be self-pay, unless he has other Rx benefits. He states he was not aware of this. He was made aware a robles-check can be done on any new Rx's @ discharge. He voices appreciation. LNOK: , Olivia Living Arrangements: Lives w/ in one-story home w/basement and one step to enter. Denies difficulty w/stairs. He is independent w/ADL's and IADL's. He is very active and does long bike rides on trails in the summer, sometimes 25-30 miles long. Transportation:?Pt states drives self and states no transportation concerns at this time.? also drives. DME: Pt has a CPAP @ home. HHC/SNF: No hx of either. No needs identified. Pt wishes to return home and states has no concerns with going home at time of discharge.? Pt states he is comfortable with being taught how to manage urinary catheters and would like his present during education as well. CM?to follow for any further discharge planning/needs.? Pt voices no further concerns/needs at this time.? Advised pt to ask for?CM?if any further questions/concerns/needs arise.? Voices understanding. PLAN:??Home w/SP and F/C and support of . Follow for cost of any new Rx's @ dc. Darlene UPTONN?RN?CM
--- NOTE | 2025-04-04 14:30 | CASEMGMT ---
Addendum entered by Nela Tijerina 04/04/25 14:44: GWYN JARA into pt room as noted on dc instructions currently only acetaminophen and ibuprofen are ordered. Pt states they have those at home. Pt stated she did make the f/u appt and it is April 15 at 11:15am. Placed on dc instructions. Original Note: GWYN JARA into pt room, pt present. Pt states pt does have [employer] insurance. She states that she plans to call Dr. Pittman's office to schedule pt appt as he was called this morning but did not schedule it. Provided her with the phone number. She will check her calendar and call. Pt would like to go for a walk. Requested from PAINTER SUPERVISOR. Pt states he has a walker at home should he need it but does not feel this will be necessary. Pt and deny further needs at this time.
[2025-04-04 20:10] VITALS: BP 118/70; PULSE 56; RESP 16; TEMP 36.6; O2SAT 96
[2025-04-04] MEDS: Tamsulosin HCl 0.4 MG Capsule PO (20:16)
[2025-04-04] MEDS: Atorvastatin Calcium 40 MG Tablet PO (20:16)
[2025-04-04] MEDS: Pantoprazole Sodium 40 MG Tablet PO (20:16)
[2025-04-04] MEDS: Mag Hydrox/Al Hydrox/Simeth 30 ML UDC PO (20:18)
[2025-04-05 02:03] VITALS: BP 116/65; PULSE 58; RESP 16; TEMP 36.6; O2SAT 95
[2025-04-05] MEDS: 0.9% Normal Saline (1000mL) 1,000 ML 75 ML IV (06:04)
[2025-04-05] MEDS: Ketorolac 15 MG/ML Vial IV (06:04)
[2025-04-05 06:39] LABS: Absolute Neutrophil Count 6.5 X10^3/uL (2.0-7.7); Basophil# 0.04 X10^3/uL; Basophil% 0.4 % (0-1); Eosinophil# 0.08 X10^3/uL; Eosinophils% 0.9 % (0-5); Hematocrit 37.4 % (40-54); Hemoglobin 12.2 g/dL (13.0-16.5); Lymphocyte % 18.3 % (19-41); Mean Corp Hgb Conc 32.6 g/dL (32-36); Mean Corpuscular Hgb 30.7 pg (27.0-32.0); Mean Corpuscular Volume 94.2 fL (80-94); Mean Platelet Vol. 11.3 fl (6.2-12.0); Monocyte% 9.7 % (0-10); NRBC Flagged by Analyzer 0 % (0-5); Neutrophil # 6.54 X10^3/uL (2.7-7.7); Neutrophil % 70.2 % (47-70); Platelet Count 153 K/mm3 (150-450); RBC Distribution Width CV 14.1 % (11.6-14.6); RBC Distribution Width SD 48.2 fl (35.1-43.9); Red Blood Count 3.97 M/mm3 (4.6-6.2); White Blood Count 9.3 K/mm3 (4.4-11.0)
--- NOTE | 2025-04-05 07:07 | PCM.DC.SUM ---
Providers Date of Admission: 04/03/25 Date of Discharge: 04/05/25 Primary Care Physician: [facility] Reason For Visit: There was a stricture Diagnosis Discharge Diagnosis (1) Urethral stricture: Status: Acute Code(s): N35.919 - Unspecified urethral stricture, male, unspecified site Medications at Discharge Home Medications aspirin 81 mg chewable tablet 81 mg PO DAILY heart health 12/07/23 Held on 04/03/25. Instructions: Resume on 04/17/25. glucosamine-chondroitin 250 mg-200 mg tablet (Osteo Bi-Flex) 2 tab PO DAILY supplement 12/07/23 pantoprazole 40 mg tablet,delayed release 40 mg PO QHS reflux 12/07/23 rosuvastatin 20 mg tablet 20 mg PO DAILY cholesterol 12/07/23 tamsulosin 0.4 mg capsule 0.4 mg PO QHS 03/22/25 acetaminophen 500 mg capsule 500 mg PO Q4H PRN pain #20 caps 04/03/25 ibuprofen 600 mg tablet 600 mg PO Q6H PRN pain #20 tabs 04/03/25 Hospital Course Operations - (Open placement of a suprapubic catheter antegrade Osorio placement to urethra due to mills stricture disease) Summary of Care Provided Minutes Spent on Discharge: 30 Hospital Course: Is an 79-year-old male who is new to me he had prior procedures by another urologist [id number] came in because he had difficulty with urination very slow stream on office cystoscopy was found to have a pinpoint stricture in the mid urethra. The initial plan was to take him to surgery to do a dilation and direct vision internal urethrotomy of the stricture but during the procedure I was not able to get the wire into the bladder while the wire kept coiling in the urethra once I was unsuccessful to get access into the bladder prided cut through the stricture without a wire but ended up getting a false passage posteriorly did not find a way into the bladder so had to convert to an open cystotomy made a lower Pfannenstiel incision and use the flexible cystoscope in antegrade fashion is able to get a wire through the prostate through the urethra and then placed a Osorio catheter over the wire. And then placed a suprapubic catheter. Patient then stayed in the hospital for 2 days to recover he will go home with a Osorio catheter draining suprapubic catheter will be plugged although only has an emergency valve he will come back to see me in the office for further management. Physical Exam Const alert and oriented x3 General Appearance: cooperative HEENT normocephalic and head/scalp atraumatic Eyes PERRL and EOMs intact bilaterally Neck supple, no JVD and no carotid bruits Resp normal respiratory effort, normal air movement and clear to auscultation bilaterally Cardio regular rate and no murmurs GI normal to inspection, nondistended, normoactive bowel sounds and soft to palpation Extremity normal capillary refill General Extremity: no tenderness to palpation of joints or extremities; Negative for edema Skin no rashes or lesions noted and no wounds General Skin Exam: no breakdown Neuro CN's II-XII intact bilaterally Psych affect normal Appearance: appropriate Weight / BMI Weight Weight: 88 kg Body Mass Index (BMI) 23.6 ABG / Lab / Microbiology Data 04/05/25 06:23 04/04/25 05:39 Laboratory: Laboratory Results - last 24 hr 04/05/25 06:23: WBC 9.3, RBC 3.97 L, Hgb 12.2 L, Hct 37.4 L, MCV 94.2 H, MCH 30.7, MCHC 32.6, RDW Std Deviation 48.2 H, RDW Coeff of Katelin 14.1, Plt Count 153, MPV 11.3, Immature Gran % (Auto) 0.500, Neut % (Auto) 70.2 H, Lymph % (Auto) 18.3 L, [place] % (Auto) 9.7, Eos % (Auto) 0.9, Baso % (Auto) 0.4, Absolute Neuts (auto) 6.5, Absolute Lymphs (auto) 1.70, Nucleated RBC % 0 D/C Instructions Discharge Diet: No restrictions Call your doctor if you observe: Fever of 101 or Higher Catheter: Osorio to leg bag and Osorio to large bag Drain: [place] DC O2, CPAP, BIPAP Needs Home O2 Discharge instructions: No DC home with Oxygen: No Please Follow Up With: Marlon Pittman MD When: Call [phone] for an appointment Meaningful Use Info Meaningful Use Meaningful Use Diagnoses (Choose all that apply): None applicable Ischemic Stroke Statin Dosing Therapy Reference: STATIN DOSE THERAPY REFERENCE: * Patients > 75 years receive moderate or high dose statin therapy. * Patients 75 years or YOUNGER should receive HIGH intensity statin dose unless contraindicated. You will be required to document reason for non-treatment if statin daily dose does not meet guidelines. HIGH DOSE STATIN THERAPY DAILY Atorvastatin > than or = to 40 mg Rosuvastatin > than or = to 20 mg Amlodipine + Atorvastatin > than or = to 2.5/40 mg Ezetimibe + Simvastatin 10/80 mg Simvastatin 80mg Discharge Plan Admission Admit Date/Time: 04/03/25 13:34 Primary Reason for Your Visit: DVIU Attending Provider: Marlon Pittman Primary Care Provider: [facility],[place] Consulting Providers: Dean Baez Discharge Orders/Prescriptions Prescriptions: New ibuprofen 600 mg tablet 600 mg PO Q6H PRN (Reason: pain) Qty: 20 0RF acetaminophen 500 mg capsule 500 mg PO Q4H PRN (Reason: pain) Qty: 20 0RF Continued pantoprazole 40 mg tablet,delayed release (DR/EC) 40 mg PO QHS Patient Comments: TAKE 1 TABLET BY MOUTH ONCE DAILY IN AFTERNOON ONE HOUR BEFORE DINNER rosuvastatin 20 mg tablet 20 mg PO DAILY glucosamine-chondroitin [Osteo Bi-Flex] 250-200 mg tablet 2 tab PO DAILY Rx Instructions: give after food/meal tamsulosin 0.4 mg capsule 0.4 mg PO QHS Held aspirin 81 mg tablet,chewable 81 mg PO DAILY Hold Instructions: Resume on 04/17/25. Referrals / Follow Up: Marlon Pittman MD [Med Staff - Active Staff] - 04/15/25 11:15 am [facility],[place] [Primary Care Provider] - Disposition Discharge Orders: Discharge Patient (Routine); Ordered 04/05/25 Ordered By: Dr. Marlon Pittman
[2025-04-05 07:17] VITALS: O2SAT 96
[2025-04-05 07:59] LABS: Anion Gap 8 (5-15); BUN 20 mg/dL (4-19); BUN/Creat Ratio 20.1 RATIO (10-20); Calcium,Total 8.1 mg/dL (7.6-11.0); Carbon Dioxide 23.3 mmol/L (21.0-32.0); Chloride 109 mmol/L (98-108); Creatinine, Serum 0.99 mg/dL (0.70-1.20); EST Glomerular Filtration Rate 76 (>60); Estimated Creatinine Clearance 71.85 ml/min (50-250); Glucose 98 mg/dL (70-99); Potassium 3.6 mmol/L (3.3-5.1); Sodium Level 140 mmol/L (133-145)
[2025-04-05 08:01] VITALS: BP 113/61; PULSE 50; PULSE 60; RESP 18; TEMP 36.7; O2SAT 85
[2025-04-05] MEDS: Enoxaparin 40 MG/0.4 ML Syringe SC (08:09)
[2025-04-05] MEDS: Docusate Sodium 100 MG Capsule 200 MG PO (08:10)
--- NOTE | 2025-04-05 10:48 | PHA.DC.MC.R ---
Pharmacy [facility] Counseling Pharmacy Service has performed discharge medication reconciliation and counseling for this patient. 1. ACETAMINOPHEN 500MG PO Q4H PRN PAIN 2. IBUPROFEN 600MG PO Q6H PRN PAIN 3. HOLD ASPIRIN UNTIL 04/17 The patient's discharge medication list was reviewed for discrepancies and discrepancies were resolved. The patient was counseled on the following discharge medications and changes in medications for homegoing were reviewed. The Reason for Use, instructions for use, and potential side effects were reviewed for all new medications. The patient's questions regarding all of their medications were answered. The patient was able to verbally demonstrate an understanding of their discharge medications. Medications at Discharge Home Medications aspirin 81 mg chewable tablet 81 mg PO DAILY [facility] 12/07/23 Held on 04/03/25. Instructions: Resume on 04/17/25. glucosamine-chondroitin 250 mg-200 mg tablet (Osteo Bi-Flex) 2 tab PO DAILY supplement 12/07/23 pantoprazole 40 mg tablet,delayed release 40 mg PO QHS reflux 12/07/23 rosuvastatin 20 mg tablet 20 mg PO DAILY cholesterol 12/07/23 tamsulosin 0.4 mg capsule 0.4 mg PO QHS 03/22/25 acetaminophen 500 mg capsule 500 mg PO Q4H PRN pain #20 caps 04/03/25 ibuprofen 600 mg tablet 600 mg PO Q6H PRN pain #20 tabs 04/03/25
== END 2025-04-05 11:09 | disposition home or self-care (01) | DRG 983 ==
LOC: SDC 14:08 → MS3 14:08
PROVIDERS: Anesthesiology; Admitting Provider Urology; Referring Provider Urology; Visit Provider Urology
PROC: 0T7D8ZZ Dilation of Urethra, Via Natural or Artificial Opening Endoscopic (ICD-10-PCS; CPT 52276; principal; 2025-04-03 11:00)
DX: N35.919 Unspecified urethral stricture, male, unspecified site (principal); E78.5 Hyperlipidemia, unspecified; K21.9 Gastro-esophageal reflux disease without esophagitis; M19.90 Unspecified osteoarthritis, unspecified site; G43.909 Migraine, unspecified, not intractable, without status migrainosus; N42.9 Disorder of prostate, unspecified; N50.89 Other specified disorders of the male genital organs; Z79.82 Long term (current) use of aspirin; Z79.02 Long term (current) use of antithrombotics/antiplatelets; Z79.899 Other long term (current) drug therapy; Z79.1 Long term (current) use of non-steroidal anti-inflammatories (NSAID); N40.1 Benign prostatic hyperplasia with lower urinary tract symptoms; Z90.49 Acquired absence of other specified parts of digestive tract; Z98.890 Other specified postprocedural states
CPT/HCPCS: 36415; 76000; 80048; 85025; 85027; 93005; A4216; C1769; J2405

== ENCOUNTER → 2025-04-22 | Outpatient (CLI) | payer OTHER, SELFPAY | END | disposition home or self-care (01) | LOC: LAB 13:34 | PROVIDERS: Referring Provider Urology; Visit Provider Urology | DX: N39.0 Urinary tract infection, site not specified (principal) | CPT/HCPCS: 87077; 87086; 87088; 87186 ==

== ENCOUNTER → 2025-06-18 | Outpatient (CLI) | payer OTHER, SELFPAY ==
--- NOTE | 2025-06-18 11:12 | MRI_ITS ---
PROCEDURE: MR BRAIN WITHOUT CONTRAST 06/18/2025 REASON FOR EXAM: MENIGIOMA , LAURA TECHNIQUE: Multiplanar and multisequential MRI of the brain was performed without contrast. COMPARISON: Brain MRI 12/09/2023. CT head/angiography 03/29/2025, 12/09/2023. FINDINGS: No regions of abnormal parenchymal restricted diffusion to indicate recent infarct. No evidence of intracranial hemorrhage, extra-axial collection, hydrocephalus, or other significant abnormality. Mild age-appropriate generalized brain parenchymal volume loss. Minimal scattered punctate foci of leukoaraiosis in the supratentorial white matter. Preserved major vascular flow voids. Redemonstrated extra-axial anterior left parafalcine dural-based mass, most likely a noncalcified meningioma. Currently measures 16 x 16 x 10 mm (AP, CC, TV), slightly increased in size from 12/09/2023 where it measured 16 x 14 x 8 mm. There is minimal mass-effect on the adjacent anterior paramedian left frontal lobe, with no parenchymal edema. No additional intracranial mass lesion identified, although sensitivity for small lesions is limited due to lack of IV contrast. Absent [place] ocular lenses. Mild mucosal thickening in right frontal sinus/frontoethmoidal recess, right maxillary sinus, and small amount of mucoid debris in left sphenoid sinus. No mastoid effusion. MRI/Brain without Contrast IMPRESSION: No acute intracranial abnormality. Subtle 1-2 mm increased size of the anterior left parafalcine presumed meningio ma since 12/09/2023. No significant mass-effect, or parenchymal edema. Mild sinus disease involving the right ostiomeatal unit. Reading Location: [id number]
--- OUTSIDE RECORDS SUMMARY | 2025-06-18 18:08 | XMS RPT_ITS | CCD ---
Author Organization [facility] Care Team Providers Care Loan Review Officer Name Role Phone Karlo Wall Primary Care Provider KARLO WALL Referring Provider [phone] KARLO WALL Other Provider [place] Primary Care Provider Dr. Emigdio Lugo Attending Provider Dr. Cleveland Canas Emergency Provider Dr. Luis Granados Admit Provider [phone] Luis Granados Other Provider [phone] Thelma Morales Attending Provider Dr. Thelma Morales Other Provider Dr. Hallie Whiting Other Provider Dr. Hallie Whiting Attending Provider MD Tyson Gaviria Other Provider Unavailable Dr. Manohar Quiros Other Provider MD Allison Schmidt Other Provider Unavailable Dr. Candice Griggs Other Provider Dr. Iva Mitchell Other Provider Dr. Nicholas Henderson Other Provider Dr. Leonora Almeida Other Provider Dr. Jonah Woodward Other Provider Dr. Kelvin Chao Other Provider MD Leatha Mayberry Other Provider Dr. Marciano De La Cruz Other Provider [phone] Jen Neely Other Provider Dr. Christoph Faith Other Provider Dr. Blade Gray Other Provider Dr. Javad Zamarripa Other Provider [phone] Nicole Stevens Other Provider Dr. Nam Keller Other Provider Dr. Julieta Gay Other Provider Unavailable MD Blanche Chandler Other Provider Unavailable Lyndon BUTCHER, Ramo Burton Unavailable [phone] Flora BUTCHER, Dr. Lugo Unavailable [phone] Dr. Parag Laguna MD Unavailable [phone] Brandee BUTCHER, Dr. Roberto Burton Unavailable Linwood COAL HANDLER, Hui Unavailable Prasanna KOROMAN, Mireya Unavailable Unavailable Gurinder JONES, Karissa Bhardwaj Unavailable [phone] Jossy Perla Unavailable Unavailable Maggie PASCAL, Karissa Burton Unavailable Unavaila yobani Barrientos PA-C, Sybil Goodwin Unavailable Unavailable Unavailable TYSON SHANE MD Attending Unavailable TYSNO SHANE MD Primary Care Unavailable TYSON SHANE MD Admitting Unavailable KARLO WALL CNP Referring Unavailable KARLO WALL CNP Consulting Unavailable PROVIDER, UNKNOWN Consulting Unavailable KARLO WALL Attending Provider [place] Primary Care Provider Unavailabl e Provider, Ed Physician Emergency Provider Dr. Armando Walton MD Emergency Provider Provider, Ed Physician Attending Provider Dr. Armando Watlon MD Attending Provider [place] Primary Care Provider Unavailabl e Winifred BUTCHER, Dr. Beal Attending Provider [phone] Zain BUTCHER, Dr. Marlon Sheehan Referring Provider Zain BUTCHER, Dr. Marlon Sheehan Admit Provider [phone] Zain BUTCHER, Dr. Marlon Sheehan Attending Provider [phone] Dean Dallas [facility] [place] [facility] [place] [facility] Unavailable CLEVELAND GAY Referring Unavailable CLEVELAND GAY Attending Unavailable Provider, Ed Physician Attending Unavailab [facility], [place] Primary Care Unavailable Dean Baez Consulting Unavailable Marlon Pittman Referring Unavailable Marlon Pittman Attending Unavailable Marlon Pittman Admitting [facility] [place] [facility] [place] [facility] Un[facility] [place] GAY Attending Unavailable Marlon Pittman Referring Unavailable Emigdio Vitale Attending [facility] [place] [facility] [place] [facility] Un[facility] Thelma Morales Att[place] [facility] [place] Referring [facility] [facility] Primary [place] Unavailable Armando Lang Attending Unavailable CLEVELAND GAY Referring Unavailable C[place]AND AGY Attending Unavailable [facility] [place] [facility] [place] Unavailable Marlon Pittman Referring Unavailable Marlon Pittman Attending Unavailable [facility] [place] Primary [place] Unavailable Allergies Allergy Classification Reported Allergen(s) Allergy Type Date of Onset Reaction(s) Facility (1 source) atorvastatin Drug Allergy 05-11-2019 Unknown [facility] (1 source) Omeprazole Drug Allergy 05-11-2019 Unknown [facility] (1 source) Simvastatin Drug Allergy 05-11-2019 Unknown [facility] (1 source) tadalafil Drug Allergy 05-11-2019 Unknown [facility] Medications Current Medications Medication Drug Class(es) Dates Sig (Normalized) Sig (Original) acetaminophen 500 mg oral capsule (1 source) Start: 04-03-2025 take 1 capsule by mouth every four hours as needed for pain Acetaminophen 500 mg capsule Active 500 mg PO Q4H as needed for pain April 03, 2025 12:00am aspirin 81 mg chewable tablet (7 sources) Platelet Aggregation Inhibitor, Nonsteroidal Anti-inflammatory Drug Start: 12-07-2023 take 1 tablet by mouth once daily Aspirin 81 mg tablet,chewable Active 81 mg PO DAILY December 07, 2023 1:00am On Hold: Resume on 04/17/25. take 1 tablet by mouth once sherry y aspirin, enteric coated (ASPIRIN, ENTERIC COATED) 81 mg EC tablet Take 81 mg by mouth once daily. 0 Active Comment on above: Take 81 mg by mouth once daily. Chondroitin Sulfates / Glucosamine (6 sources) Start: 12-07-2023 Glucosamine-Chondroit in (Osteo Bi-Flex) 250-200 mg tablet Active 2 {tbl} PO DAILY December 07, 2023 1:00am give after food/meal Start: 12-07-2023 Glucosamine-Ch ondroitin (Osteo Bi-Flex) 250-200 mg tablet Active 2 {tbl} PO DAILY December 07, 2023 1:00am give after food/meal ibuprofen 600 mg oral tablet (1 source) Nonsteroidal Anti-inflammatory Drug Start: 04-03-2025 take 1 tablet by mouth every six hours as needed for pain Ibuprofen 600 mg tablet Active 600 mg PO EVERY 6 HOURS as needed for pain April 03, 2025 12:00am lansoprazole 30 mg delayed release oral capsule (2 sources) Proton Pump Inhibitor PREVACID, 30MG (Oral Capsule Delayed Release) ; (30 MG) Comments: from [place] Comment on above: Take 30 mg by mouth once daily. from [place] pantoprazole 40 mg delayed release oral tablet (8 sources) Proton Pump Inhibitor Start: 04-10-2019 take 1 tablet by mouth at bedtime Pantoprazole 40 mg tablet,delayed release (DR/EC) Active 40 mg PO AT BEDTIME December 07, 2023 1:00am rosuvastatin calcium 20 mg oral tablet (8 sources) HMG-CoA Reductase Inhibitor Start: 12-07-2023 take 1 tablet by mouth once daily Rosuvastatin 20 mg tablet Active 20 mg PO DAILY December 07, 2023 1:00am take 1 tablet by mouth at bedtim e CRESTOR, 10MG (Oral Tablet) ; 1 at bedtime (10 MG) Comments: from [place] take 1 tablet by mouth once sherry y rosuvastatin (CRESTOR) 40 mg tablet Take 40 mg by mouth once daily. 0 Active Comment on above: Take 40 mg by mouth once daily. from [place] tamsulosin hydrochloride 0.4 mg oral capsule (10 sources) alpha-Adrenergic Judson Start: 03-22-2025 take 1 capsule by mouth at bedtime Tamsulosin 0.4 mg capsule Active 0.4 mg PO AT BEDTIME March 22, 2025 12:00am Start: 12-07-2023 End: 07-10-2024 take 1 capsule by mouth once daily Tamsulosin 0.4 mg capsule Discontinued 0.4 mg PO DAILY December 07, 2023 1:00am July 10, 2024 1:24pm Start: 02-25-2014 End: 09-28-2017 take 1 capsule by mouth once daily Flomax 0.4 MG Oral Capsule ; 1 (one) Capsule Capsule daily for 0 days Quantity: 30 {Capsule} Refills: 1 Ordered: 28-Sep-2017 STEVE Palumbo Start: 25-Feb-2014 End: 28-Sep-2017 Status: Inactive Completed/Discontinued Medications Medication Drug Class(es) Dates Sig (Normalized) Sig (Original) [id number] 200 actuat albuterol 0.09 mg/actuat metered dose inhaler (1 source) beta2-Adrenergic Agonist Start: 01-22-2013 End: 02-25-2014 take 2 puff(s) by inhalation every four to six hours as needed VENTOLIN HFA, 108 (90 Base)MCG/ACT (Inhalation Aerosol Solution) ; 2 (two) puff(s) every 4-6hrs prn for 0 days Quantity: 1 {Inhaler(s)} Refills: 0 Ordered: 25-Feb-2014 STEVE Palumbo Start: 22-Jan-2013 End: 25-Feb-2014 Status: Inactive azithromycin 250 mg oral tablet (1 source) Macrolide Antimicrobial Start: 01-22-2013 End: 02-25-2014 ZITHROMAX Z-ALIZE, 250MG (Oral Tablet) ; 2 (two) Tabs day one, then one daily for 4 days for 0 days Quantity: 1 {Z-pack} Refills: 0 Ordered: 25-Feb-2014 STEVE Palumbo Start: 22-Jan-2013 End: 25-Feb-2014 Status: Inactive fluticasone propionate 0.05 mg/actuat metered dose nasal spray (1 source) Corticosteroid Start: 10-21-2010 End: 02-25-2014 take 2 spray(s) nasal route once daily FLONASE, 50MCG/ACT (Nasal Suspension) ; 2 (two) sprays each nostril daily for 0 days Quantity: 16 {gm} Refills: 3 Ordered: 25-Feb-2014 STEVE Palumbola Start: 21-Oct-2010 End: 25-Feb-2014 Status: Inactive hydrocortisone 10 mg/ml / neomycin 3.5 mg/ml / polymyxin b [id number] unt/ml otic solution (1 source) Aminoglycoside Antibacterial, Polymyxin-class Antibacterial, Corticosteroid Start: 10-20-2015 End: 09-28-2017 Cortisporin [id number] Otic Solution ; 2 (two) drops qid for 0 days Quantity: 5 {Milliliter} Refills: 0 Ordered: 28-Sep-2017 STEVE Palumbo Start: 20-Oct-2015 End: 28-Sep-2017 Status: Inactive LORazepam 0.5 mg oral tablet (1 source) Benzodiazepine Start: 10-18-2014 End: 09-28-2017 take 1 tablet by mouth every eight hours as needed LORazepam 0.5 MG Oral Tablet ; 1 (one) Tablet q8hrs, prn for 0 days Quantity: 30 {Tablet} Refills: 1 Ordered: 28-Sep-2017 STEVE Palumbo Start: 18-Oct-2014 End: 28-Sep-2017 Status: Inactive multivitamin/iron/fo lic acid (CENTRUM COMPLETE ORAL) (1 source) multivitamin/iro n/folic acid (CENTRUM COMPLETE ORAL) Take by mouth. 0 Active Comment on above: Take by mouth. sildenafil 100 mg oral tablet (1 source) Phosphodiesterase 5 Inhibitor take 1 tablet by mouth once VIAGRA, 100MG (Oral Tablet) ; 1 1 hour prior to intercourse (100 MG) Status: Inactive zolpidem tartrate 5 mg oral tablet (1 source) gamma-Aminobutyric Acid-ergic Agonist Start: 09-28-2017 End: 05-19-2020 take 1 tablet by mouth once daily at bedtime Zolpidem Tartrate 5 MG Oral Tablet ; 1 (one) Tablet qhs for 0 days Quantity: 21 {Tablet} Refills: 0 Ordered: 19-May-2020 STEVE Palumbo Start: 28-Sep-2017 End: 19-May-2020 Status: Inactive Problems Active Problems Problem Classification Problem Date Documented Da te Episodic/Chronic Acute bronchitis (1 source) Acute bronchitis 01-22-2013 Episodic Anxiety disorders (3 sources) Anxiety; Translations: [Anxiety disorder, unspecified] 05-07-2021 Chronic Aortic; peripheral; and visceral artery aneurysms (1 source) Aneurysm; Translations: [Aneurysm of unspecified site] Onset: 9 05-15-2019 Chronic Conditions associated with dizziness or vertigo (17 sources) Lightheadedness; Translations: [Dizziness and giddiness] 12-07-2023 Episodic Disorders of lipid metabolism (13 sources) Hyperlipidemia; Translations: [Hyperlipidemia, unspecified] 12-07-2023 Chronic Comment on above: ON MED Esophageal disorders (3 sources) Gastroesophageal reflux disease; Translations: [Gastro-esophageal reflux disease without esophagitis] 05-07-2021 Chronic Headache; including migraine (3 sources) Migraine; Translations: [Migraine, unspecified, not intractable, without status migrainosus] Onset: 5 03-29-2025 Chronic Headache; including migraine (3 sources) Chronic daily headache; Translations: [Chronic daily headache] Onset: 3 06-30-2023 Episodic Headache; including migraine (1 source) Headache; including migraine; Translations: [Headache, unspecified] Onset: Hemorrhoids (2 sources) External hemorrhoids; Translations: [Residual hemorrhoidal skin tags] 05-07-2021 Episodic Hyperplasia of prostate (4 sources) Benign prostatic hyperplasia; Translations: [Benign prostatic hyperplasia without lower urinary tract symptoms] 05-07-2021 Chronic Mood disorders (2 sources) Mild depression; Translations: [Depressive disorder, not elsewhere classified] 05-07-2021 Chronic Comment on above: based on 09/28/2017 PHQ-9 score of 5 Other aftercare (2 sources) H/O: high risk medication; Translations: [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 therapy] 05-07-2021 Episodic Other and unspecified benign neoplasm (1 source) Neoplasm of meninges; Translations: [Benign neoplasm of meninges, unspecified] Onset: 9 05-15-2019 Chronic Other diseases of bladder and urethra (2 sources) Urethral stricture; Translations: [Unspecified urethral stricture, male, unspecified site] 04-05-2025 Episodic Other diseases of bladder and urethra (1 source) Unspecified urethral stricture, male, unspecified site; Translations: [Unspecified urethral stricture, male, unspecified site] Onset: 5 Episodic Other ear and sense organ disorders (1 source) Otitis externa; Translations: [Unspecified otitis externa, right ear] 10-20-2015 Chronic Other ear and sense organ disorders (1 source) Impacted cerumen of bilateral ears; Translations: [Impacted cerumen, bilateral] 10-20-2015 Episodic Other eye disorders (1 source) H/O: L cataract extraction; Translations: [Cataract extraction status, left eye] 05-07-2021 Episodic Other gastrointestinal disorders (3 sources) Chronic constipation; Translations: [Other constipation] 05-07-2021 Episodic Other gastrointestinal disorders (1 source) Groin mass; Translations: [Other intra-abdominal and pelvic swelling, mass and lump] 05-15-2014 Episodic Other injuries and conditions due to external causes (1 source) Fracture of unspecified bone, closed 05-03-2013 Episodic Other injuries and conditions due to external causes (1 source) Injury of finger; Translations: [Unspecified injury of unspecified wrist, hand and finger(s), initial encounter] 05-03-2013 Episodic Other liver diseases (3 sources) Elevated liver enzymes level; Translations: [Abnormal levels of other serum enzymes] 05-07-2021 Episodic Other lower respiratory disease (6 sources) Dyspnea; Translations: [Dyspnea, unspecified] 12-07-2023 Episodic Other lower respiratory disease (2 sources) Dyspnea, unspecified; Translations: [Other respiratory abnormalities] 12-07-2023 Episodic Other lower respiratory disease (2 sources) Cough; Translations: [Cough] 05-07-2021 Episodic Other male genital disorders (1 source) Impotence; Translations: [Male erectile dysfunction, unspecified] 05-07-2021 Chronic Other nervous system disorders (2 sources) Expressive dysphasia; Translations: [Aphasia] 03-29-2025 Chronic Other nervous system disorders (2 sources) History of meningioma; Translations: [Personal history of benign neoplasm of the brain] Onset: 3 06-30-2023 Episodic Other non-traumatic joint disorders (4 sources) Hip pain; Translations: [Pain in unspecified hip] 05-07-2021 Episodic Other screening for suspected conditions (not mental disorders or infectious disease) (20 sources) Magnetic resonance imaging of brain abnormal; Translations: [Other abnormal findings on diagnostic imaging of central nervous system] 05-15-2019 Episodic Other upper respiratory infections (1 source) Acute sinusitis, unspecified 10-28-2010 Episodic Residual codes; unclassified (1 source) Sleep apnea; Translations: [Sleep apnea, unspecified] 05-15-2019 Chronic Residual codes; unclassified (4 sources) Obstructive sleep apnea syndrome; Translations: [Obstructive sleep apnea (adult) (pediatric)] 05-07-2021 Chronic Comment on above: does not tolerate CP AP Residual codes; unclassified (2 sources) Influenza vaccination declined; Translations: [Immunization not carried out because of patient refusal] 09-28-2017 Episodic Residual codes; unclassified (2 sources) Persistent insomnia; Translations: [Insomnia, unspecified] 05-07-2021 Episodic Residual codes; unclassified (2 sources) Pneumococcal vaccination declined; Translations: [Immunization not carried out because of patient refusal] 05-07-2021 Episodic Residual codes; unclassified (1 source) Procedure and treatment not carried out due to patient leaving prior to being seen by health care provider; Translations: [Procedure and treatment not carried out due to patient leaving prior to being seen by health care provider] Onset: Episodic Screening and history of mental health and substance abuse codes (1 source) Ex-smoker; Translations: [Personal history of nicotine dependence] 05-07-2021 Episodic Septicemia (except in labor) (1 source) Sepsis; Translations: [Sepsis, unspecified organism] 05-22-2015 Episodic Unclassified (1 source) MCR Well Adult - In general the patient feels well with minor complaints, has good energy level and is sleeping well. The patient takes supplemental vitamins. The patient does not exercise and sleeps 6 hours per night. The patient denies having trouble with bathing, dressing/grooming, toileting, preparing meals and ambulating. The patient denies having trouble with grocery shopping, driving, use of telephone, housework, laundry, preparing/taking medications and finances. The patient has a Healthcare Power of Die [employer]r Tr[employer] Dies and a Living Will. Note for MCR Well Adult: -Usually goes to [place] for care and obtains rx's there. 09-28-2017 Unclassified (1 source) MCR well adult - In general the patient feels well with minor complaints, has good energy level and is sleeping poorly (wakes often). The patient exercises none (very active) and sleeps 6 hours per night. Over the past 2 weeks, the patient has not been feeling down, depressed, or hopeless or feeling little interest or pleasure in doing things. The patient denies having trouble with bathing, dressing/grooming, toileting, preparing meals and ambulating. The patient denies having trouble with grocery shopping, driving, use of telephone, housework, laundry, preparing/taking medications and finances. 02-25-2014 Urinary tract infections (1 source) Urinary tract infection, site not specified; Translations: [Urinary tract infection, site not specified] Onset: Episodic Past or Other Problems Problem Classification Problem Date Documented Date Episodic/Chronic Conditions associated with dizziness or vertigo (1 source) Conditions associated with dizziness or vertigo 10-18-2014 Genitourinary symptoms and ill-defined conditions (2 sources) Urinary outflow obstruction; Translations: [Obstructive and reflux uropathy, unspecified] Onset: 10-04-2024 02-25-2014 Episodic Retinal detachments; defects; vascular occlusion; and retinopathy (2 sources) Detachment of retina of left eye; Translations: [Serous retinal detachment, left eye] Onset: 12-29-2017 05-15-2019 Episodic Comment on above: 12/29/17, Dr brunilda corona, [facility], left eye Unclassified (1 source) Hip pain - The onset of the hip pain has been sudden and has been occurring for 6 weeks. Note for Hip pain: -no injury, states pain just started in right torso, right hip and shooting into right leg. It is persistent. 05-07-2021 Unclassified (1 source) [ADDITIONAL REASON] Cough - The onset of the cough has been gradual. Note for Cough: -tickly cough in throat and he does not know the cause. He has reflux and takes Prevacid. 05-07-2021 Unclassified (1 source) Breathing trouble - Note for Breathing trouble: -Several months of 8-10 second episodes of shortness of breath. Not associated with activity. 05-22-2020 Unclassified (1 source) Ear pain - The onset of the pain has been gradual and has been occurring in a persistent pattern for 1 week. The pain is described as a moderate dull aching, pressure and plugged. The pain is described as being located in the inner ear. The pain is felt in the right ear. The symptoms have been associated with decreased hearing. 10-20-2015 Unclassified (1 source) Follow up consultation - The patient is here to follow-up after hospitalization. Note for Consultation follow-up: -Treated for psudamonas sepsis. He had an episode of transient atrial fibrillation while hospitalized. he is on Cipro. He has scheduled f/u with cardiology and ID. He has an ultrasound tomorrow. 05-22-2015 Unclassified (1 source) [ADDITIONAL REASON] Transition into care - The patient is transitioning into care from a hospital and a summary of care was reviewed . 05-22-2015 Unclassified (1 source) groin pain - Left sided groin pain. wonders if he has a hernia. No noticable bulge.Considering move to [place]. 05-15-2014 Unclassified (1 source) Finger pain - The pain is located in the of the left middle finger and left ring finger. This occurred 2 hour(s) ago at home (tripped and fell backwards - tried to catch himself and in the process he hit his hand). The injury resulted from a fall. Symptoms include pain, swelling, decreased range of motion and finger bruising. The patient describes the pain as aching. The patient describes the pain as moderate in severity. Symptoms are exacerbated by moving the finger. The patient is not currently being treated for this problem. Note for Finger pain: Denies pain in the rest of then hand and arm. 05-03-2013 Unclassified (1 source) Cold Symptoms - Symptoms include nasal congestion, runny nose, non-purulent sputum, dry cough, productive cough, wheezing, general malaise, headache and facial pain, but do not include ear pain, ear fullness, sore throat or fever. The onset was sudden 1 week(s) ago. The symptoms occur constantly. The patient describes this as moderate in severity and worsening. Current treatment includes non-prescription cold medication. Risk factors do not include smoking. The patient has not been exposed to an individual with similar symptoms or an individual with strep. Patient denies history of seasonal allergies, recurrent sinusitis, recurrent strep pharyngitis, asthma, tonsillectomy or recurrent ear infections. 01-22-2013 Unclassified (1 source) funny feeling in his head - states when he swallows he feels a strange pressure sensation in his skull. 10-28-2010 Results Test Name Value Interpretation Reference Range Facility Urine Cultureon 05-12-2025 [facility] #1 SUSCEPTIBILITY TESTING PERFORMED AT [facility]. ORIGINAL REPORT ON FILE IN LAB CONTAINS ADDITIONAL TEST SITE INFORMATION. Urine Culture Urine Culture Pseudomonas fluorescens [place] Count 11,000-25,000 Staphylococcus epidermidis Staphylococcus epidermidis Pseudomonas fluorescens: REACTION Aztreonam Islt KB R Pseudomonas fluorescens: REACTION Amikacin Islt JOSÉ R Cefepime Islt JOSÉ Cefotaxime Islt JOSÉ R cefTRIAXone Islt JOSÉ R Ciprofloxacin Islt JOSÉ S Gentamicin Islt JOSÉ R levoFLOXacin Islt JOSÉ S Meropenem Islt JOSÉ R Pip+Tazo Islt JOSÉ S Tetracycline Islt JOSÉ R Tobramycin Islt JOSÉ R TMP SMX Islt JOSÉ S Staphylococcus epidermidis: REACTION cefOXitin Susc Islt POS Doxycycline Islt JOSÉ <=0.5 Clindamycin.induced Susc Islt NEG Gentamicin Islt JOSÉ <=0.5 S Linezolid Islt JOSÉ 1 S Nitrofurantoin Islt JOSÉ <=16 S Oxacillin Susc Islt >=4 R Tetracycline Islt JOSÉ <=1 S TMP SMX Islt JOSÉ <=10 S Vancomycin Islt JOSÉ 1 S Normal [facility] Comment on above: Performed By: #### L 500.2500, L100.0100 #### [facility] [address] [place], [address] Basic Metabolic Profile (BMP )on 04-06-2025 BUN Normal 4-[address] [facility] Comment on above: Result Comment: Canc elled via OM: Order cancelled - Patient discharged Performed By: #### L 500.2500, L100.0100 #### [facility] [address] [place], [address] BUN/CRE Normal 10-[address] [facility] Comment on above: Result Comment: Canc elled via OM: Order cancelled - Patient discharged Performed By: #### L 500.2500, L100.0100 #### [facility] [address] [place], [address] Calcium Normal 7.6-11.[address] [facility] Comment on above: Result Comment: Canc elled via OM: Order cancelled - Patient discharged Performed By: #### L 500.2500, L100.0100 #### [facility] [address] [place], [address] CL Normal 98-[address] [facility] Comment on above: Result Comment: Canc elled via OM: Order cancelled - Patient discharged Performed By: #### L 500.2500, L100.0100 #### [facility] [address] [place], [address] CO2 Normal 21.0-32.[address] [facility] Comment on above: Result Comment: Canc elled via OM: Order cancelled - Patient discharged Performed By: #### L 500.2500, L100.0100 #### [facility] [address] [place], [address] CREAT,SERUM Normal 0.70-1.[address] [facility] Comment on above: Result Comment: Canc elled via OM: Order cancelled - Patient discharged Performed By: #### L 500.2500, L100.0100 #### [facility] [address] [place], [address] eGFR Normal >[address] [facility] Comment on above: Result Comment: Canc elled via OM: Order cancelled - Patient discharged Performed By: #### L 500.2500, L100.0100 #### [facility] [address] [place], [address] GAP Normal 5-[address] [facility] Comment on above: Result Comment: Canc elled via OM: Order cancelled - Patient discharged Performed By: #### L 500.2500, L100.0100 #### [facility] [address] [place], [address] GLU Normal 70-[address] [facility] Comment on above: Result Comment: Canc elled via OM: Order cancelled - Patient discharged Performed By: #### L 500.2500, L100.0100 #### [facility] [address] [place], [address] Potassium Normal 3.3-5.[address] [facility] Comment on above: Result Comment: Canc elled via OM: Order cancelled - Patient discharged Performed By: #### L 500.2500, L100.0100 #### [facility] [address] [place], [address] Basic Metabolic Profile (BMP) Normal 133-[address] [facility] Comment on above: Result Comment: Canc elled via OM: Order cancelled - Patient discharged Performed By: #### L 500.2500, L100.0100 #### [facility] [address] [place], [address] CBC W/Diff, Automatedon 05-2 Absolute Neut Normal 2.0-7.[address] [facility] Comment on above: Result Comment: Canc elled via OM: Order cancelled - Patient discharged Performed By: #### L 500.2500, L100.0100 #### [facility] [address] [place], [address] HCT Normal 40-[address] [facility] Comment on above: Result Comment: Canc elled via OM: Order cancelled - Patient discharged Performed By: #### L 500.2500, L100.0100 #### [facility] [address] [place], [address] HGB Normal 13.0-16.[address] [facility] Comment on above: Result Comment: Canc elled via OM: Order cancelled - Patient discharged Performed By: #### L 500.2500, L100.0100 #### [facility] [address] [place], [address] MCH Normal 27.0-32.[address] [facility] Comment on above: Result Comment: Canc elled via OM: Order cancelled - Patient discharged Performed By: #### L 500.2500, L100.0100 #### [facility] [address] [place], [address] MCHC Normal 32-[address] [facility] Comment on above: Result Comment: Canc elled via OM: Order cancelled - Patient discharged Performed By: #### L 500.2500, L100.0100 #### [facility] [address] [place], [address] MCV Normal 80-[address] [facility] Comment on above: Result Comment: Canc elled via OM: Order cancelled - Patient discharged Performed By: #### L 500.2500, L100.0100 #### [facility] [address] [place], [address] NEUT% Normal 47-[address] [facility] Comment on above: Result Comment: Canc elled via OM: Order cancelled - Patient discharged Performed By: #### L 500.2500, L100.0100 #### [facility] [address] [place], [address] PLT Normal 150-[address] [facility] Comment on above: Result Comment: Canc elled via OM: Order cancelled - Patient discharged Performed By: #### L 500.2500, L100.0100 #### [facility] [address] [place], [address] RBC Normal 4.6-6.[address] [facility] Comment on above: Result Comment: Canc elled via OM: Order cancelled - Patient discharged Performed By: #### L 500.2500, L100.0100 #### [facility] [address] [place], [address] RDW CV Normal 11.6-14.[address] [facility] Comment on above: Result Comment: Canc elled via OM: Order cancelled - Patient discharged Performed By: #### L 500.2500, L100.0100 #### [facility] [address] [place], [address] RDW SD Normal 35.1-43.[address] [facility] Comment on above: Result Comment: Canc elled via OM: Order cancelled - Patient discharged Performed By: #### L 500.2500, L100.0100 #### [facility] [address] [place], [address] WBC Normal 4.4-11.[address] [facility] Comment on above: Result Comment: Canc elled via OM: Order cancelled - Patient discharged Performed By: #### L 500.2500, L100.0100 #### [facility] [address] [place], [address] Absolute lymphocyte countOrd ered By: Marlon Pittman on 04-05-2025 Lymphocytes Auto (Unsp spec) [#/Vol] 1.70 10*3/uL 0.83-4.[address] [facility] Absolute neutrophil countOrd ered By: Marlon Pittman on 04-05-2025 Neutrophils (Bld) [#/Vol] 6.5 10*3/uL 2.0-7.[address] [facility] Anion gap in Serum or Plasma Ordered By: Marlon Pittman on 04-05-2025 Anion gap [Moles/Vol] 8 mmol/L 5-15 [facility] Automated lymphocyte count a s percentage of total leukocytesOrdered By: Marlon Pittman on 04-05-2025 Lymphocytes/100 WBC Auto (Unsp spec) 18.3 % Low 19-[address] [facility] BUN/creatinine ratioOrdered By: Marlon Pittman on 04-05-2025 Urea nitrogen/Creatinine [Mass ratio] 20.1 mg/mg High 10- [facility] Basic Metabolic Profile (BMP )on 04-05-2025 BUN/CRE 20.1 RATIO High - [facility] Comment on above: Performed By: #### L 500.2500, L100.0100 #### [facility] [address] [place], [address] Calcium [Mass/Vol] 8.1 mg/dL Normal 7.6-11.0 [facility] Comment on above: Performed By: #### L 500.2500, L100.0100 #### [facility] [address] [place], [address] Chloride [Moles/Vol] 109 mmol/L High 98-108 [facility] Comment on above: Performed By: #### L 500.2500, L100.0100 #### [facility] [address] [place], [address] CO2 [Moles/Vol] 23.3 mmol/L Normal 21.0-32.[address] [facility] Comment on above: Performed By: #### L 500.2500, L100.0100 #### [facility] [address] [place], [address] Creatinine [Mass/Vol] 0.99 mg/dL Normal 0.70-1.20 [facility] Comment on above: Performed By: #### L 500.2500, L100.0100 #### [facility] [address] [place], [address] ECRCL 71.85 ml/min Normal 50-[address] [facility] Comment on above: Performed By: #### L 500.2500, L100.0100 #### [facility] [address] [place], [address] GAP 8 Normal 5-[address] [facility] Comment on above: Performed By: #### L 500.2500, L100.0100 #### [facility] [address] [place], [address] GFR/1.73 sq M.predicted among non-blacks MDRD (S/P/Bld) [Vol rate/Area] 76 mL/min/{1.73_m2} Normal >60 [facility] Comment on above: Result Comment: mL/m in/1.73m2 CKD-EPI Creatinine Equation (2020) Performed By: #### L 500.2500, L100.0100 #### [facility] [address] [place], [address] Glucose [Mass/Vol] 98 mg/dL Normal 70-99 [facility] Comment on above: Performed By: #### L 500.2500, L100.0100 #### [facility] [address] [place], [address] Potassium [Moles/Vol] 3.6 mmol/L Normal 3.3-5.1 [facility] Comment on above: Performed By: #### L 500.2500, L100.0100 #### [facility] [address] [place], [address] Sodium [Moles/Vol] 140 mmol/L Normal 133-145 [facility] Comment on above: Performed By: #### L 500.2500, L100.0100 #### [facility] [address] [place], [address] Urea nitrogen [Mass/Vol] 20 mg/dL High 4-[address] [facility] Comment on above: Performed By: #### L 500.2500, L100.0100 #### [facility] [address] [place], [address] Basophil percentageOrdered B y: Marlon Pittman on 04-05-2025 Basophils/100 WBC (Bld) 0.4 % 0-1 [facility] CBC W/Diff, Automatedon 03-15 Absolute Lymph 1.70 X10 3/uL Normal 0.83-4.[address] [facility] Comment on above: Performed By: #### L 500.2500, L100.0100 #### [facility] [address] [place], [address] Absolute Neut 6.5 X10 3/uL Normal 2.0-7.[address] [facility] Comment on above: Performed By: #### L 500.2500, L100.0100 #### [facility] [address] [place], [address] Basophils/100 WBC (Bld) 0.4 % Normal 0-1 [facility] Comment on above: Performed By: #### L 500.2500, L100.0100 #### [facility] [address] [place], [address] Eosinophils/100 WBC (Bld) 0.9 % Normal 0-[address] [facility] Comment on above: Performed By: #### L 500.2500, L100.0100 #### [facility] [address] [place], [address] Erythrocyte distribution width (RBC) [Ratio] 14.1 % Normal 11.6-14.[address] [facility] Comment on above: Performed By: #### L 500.2500, L100.0100 #### [facility] [address] [place], [address] Hematocrit (Bld) [Volume fraction] 37.4 % Low 40-[address] [facility] Comment on above: Performed By: #### L 500.2500, L100.0100 #### [facility] [address] [place], [address] Hemoglobin (Bld) [Mass/Vol] 12.2 g/dL Low 13.0-16.[address] [facility] Comment on above: Performed By: #### L 500.2500, L100.0100 #### [facility] [address] [place], [address] IG% 0.500 Normal 0.0-0.[address] [facility] Comment on above: Result Comment: IG% - Immature Granulocytes (promyelocytes, myelocytes and metamyelocytes) > 1% indicates that a LEFT SHIFT is Present. Performed By: #### L 500.2500, L100.0100 #### [facility] [address], [address] Lymphocytes/100 WBC (Bld) 18.3 % Low 19-[address] [facility] Comment on above: Performed By: #### L 500.2500, L100.0100 #### [facility] [address] [place], [address] MCH (RBC) [Entitic mass] 30.7 pg Normal 27.0-32.[address] [facility] Comment on above: Performed By: #### L 500.2500, L100.0100 #### [facility] [address] [place], [address] MCHC (RBC) [Mass/Vol] 32.6 g/dL Normal 32-36 [facility] Comment on above: Performed By: #### L 500.2500, L100.0100 #### [facility] [address] [place], [address] MCV (RBC) [Entitic vol] 94.2 fL High 80-94 [facility] Comment on above: Performed By: #### L 500.2500, L100.0100 #### [facility] [address] [place], [address] Monocytes/100 WBC (Bld) 9.7 % Normal 0-10 [facility] Comment on above: Performed By: #### L 500.2500, L100.0100 #### [facility] [address] [place], [address] Neutrophils/100 WBC (Bld) 70.2 % High 47-[address] [facility] Comment on above: Performed By: #### L 500.2500, L100.0100 #### [facility] [address] [place], [address] Nucleated RBC (Bld) [#/Vol] 0 10*3/uL Normal 0-[address] [facility] Comment on above: Performed By: #### L 500.2500, L100.0100 #### [facility] [address] [place], [address] Platelet mean volume (Bld) [Entitic vol] 11.3 fL Normal 6.2-12.[address] [facility] Comment on above: Performed By: #### L 500.2500, L100.0100 #### [facility] [address] [place], [address] Platelets (Bld) [#/Vol] 153 10*3/uL Normal 150-[address] [facility] Comment on above: Performed By: #### L 500.2500, L100.0100 #### [facility] [address] [place], [address] RBC (Bld) [#/Vol] 3.97 10*6/uL Low 4.6-6.2 [facility] Comment on above: Performed By: #### L 500.2500, L100.0100 #### [facility] [address] [place], [address] RDW SD 48.2 fl High 35.1-43.[address] [facility] Comment on above: Performed By: #### L 500.2500, L100.0100 #### [facility] [address] [place], [address] WBC (Bld) [#/Vol] 9.3 10*3/uL Normal 4.4-11.0 [facility] Comment on above: Performed By: #### L 500.2500, L100.0100 #### [facility] [address] [place], [address] Carbon dioxide, total [Moles /volume] in Central venous bloodOrdered By: Marlon Pittman on 04-05-2025 CO2 [Moles/Vol] 23.3 mmol/L 21.0-32.[address] [facility] Chloride assayOrdered By: Veronique Pittman on 04-05-2025 Chloride [Moles/Vol] 109 mmol/L High 98-108 [facility] Eosinophil percentageOrdered By: Marlon Pittman on 04-05-2025 Eosinophils/100 WBC (Bld) 0.9 % 0-[address] [facility] Erythrocyte distribution wid th ratioOrdered By: Marlon Pittman on 04-05-2025 Erythrocyte distribution width (RBC) [Ratio] 14.1 % 11.6-14.[address] [facility] Erythrocyte distribution wid th standard deviationOrdered By: Marlon Pittman on 04-05-2025 Erythrocyte distribution width (RBC) [Ratio] 48.2 fl High 35.1-43.[address] [facility] Glomerular filtration rate ( GFR) estimation/1.73 sq m using serum, plasma, or whole bOrdered By: Marlon Pittman on 04-05-2025 GFR/1.73 sq M.predicted among non-blacks MDRD (S/P/Bld) [Vol rate/Area] 76 mL/min/{1.73_m2} >60 [facility] Comment on above: mL/min/1.73m2 CKD-EP I Creatinine Equation (2020) Hematocrit Auto (Bld) [Volum e fraction]Ordered By: Marlon Pittman on 04-05-2025 Hematocrit (Bld) [Volume fraction] 37.4 % Low 40-[address] [facility] Hemoglobin measurementOrdere d By: Marlon Pittman on 04-05-2025 Hemoglobin (Bld) [Mass/Vol] 12.2 g/dL Low 13.0-16.[address] [facility] Immature granulocytes/100 WB C Auto (Bld)Ordered By: Marlon Pittman on 04-05-2025 Immature granulocytes/100 WBC (Bld) 0.500 % 0.0-0.[address] [facility] Comment on above: IG% - Immature Granu locytes (promyelocytes, myelocytes and metamyelocytes) > 1% indicates that a LEFT SHIFT is Present. MCV (mean corpuscular volume ) determinationOrdered By: Marlon Pittman on 04-05-2025 MCV (RBC) [Entitic vol] 94.2 fL High 80-94 [facility] Mean corpuscular hemoglobin (MCH) determinationOrdered By: Marlon Pittman on 04-05-2025 MCH (RBC) [Entitic mass] 30.7 pg 27.0-32.[address] [facility] Mean corpuscular hemoglobin concentration (MCHC) determinationOrdered By: Marlon Pittman on 04-05-2025 MCHC (RBC) [Mass/Vol] 32.6 g/dL 32-36 [facility] Mean platelet volume determi nationOrdered By: Marlon Pittman on 04-05-2025 Platelet mean volume (Bld) [Entitic vol] 11.3 fL 6.2-12.[address] [facility] Monocyte percentageOrdered B y: Marlon Pittman on 04-05-2025 Monocytes/100 WBC (Bld) 9.7 % 0-10 [facility] Neutrophil percentageOrdered By: Marlon Pittman on 04-05-2025 Neutrophils/100 WBC (Bld) 70.2 % High 47-[address] [facility] Nucleated red blood cell per centageOrdered By: Marlon Pittman on 04-05-2025 Nucleated RBC/100 WBC (Bld) [Ratio] 0 % 0-[address] [facility] Platelet countOrdered By: Veronique Pittman on 04-05-2025 Platelets (Bld) [#/Vol] 153 10*3/uL 150-[address] [facility] Potassium measurement (mass/ volume)Ordered By: Marlon Pittman on 04-05-2025 Potassium (Unsp spec) [Mass/Vol] 3.6 mmol/L 3.3-5.[address] [facility] RBC Auto (Bld) [#/Vol]Ordere d By: Marlon Pittman on 04-05-2025 RBC (Bld) [#/Vol] 3.97 10*6/uL Low 4.6-6.2 [facility] Serum creatinine measurement (mass/volume)Ordered By: Marlon Pittman on 04-05-2025 Creatinine [Mass/Vol] 0.99 mg/dL 0.70-1.20 [facility] Serum glucose measurement (m ass/volume)Ordered By: Marlon Pittman on 04-05-2025 Glucose [Mass/Vol] 98 mg/dL 70-99 [facility] Serum or plasma calcium gonsalo urement (mass/volume)Ordered By: Marlon Pittman on 04-05-2025 Calcium [Mass/Vol] 8.1 mg/dL 7.6-11.0 [facility] Serum or plasma urea nitroge n measurement (mass/volume)Ordered By: Marlon Pittman on 04-05-2025 Urea nitrogen [Mass/Vol] 20 mg/dL High 4-[address] [facility] Sodium levelOrdered By: Marlonshae Pittman on 04-05-2025 Sodium [Moles/Vol] 140 mmol/L 133-145 [facility] White blood cell (WBC) count Ordered By: Marlonshae Pittman on 04-05-2025 WBC (Bld) [#/Vol] 9.3 10*3/uL 4.4-11.0 [facility] Basic Metabolic Profile (BMP )on 04-04-2025 BUN/CRE 19.5 RATIO Normal 10-[address] [facility] Comment on above: Performed By: #### L 500.2500, L100.0100 #### [facility] [address] [place], [address] Calcium [Mass/Vol] 8.1 mg/dL Normal 7.6-11.0 [facility] Comment on above: Performed By: #### L 500.2500, L100.0100 #### [facility] [address] [place], [address] Chloride [Moles/Vol] 107 mmol/L Normal 98-108 [facility] Comment on above: Performed By: #### L 500.2500, L100.0100 #### [facility] [address] [place], [address] CO2 [Moles/Vol] 22.7 mmol/L Normal 21.0-32.[address] [facility] Comment on above: Performed By: #### L 500.2500, L100.0100 #### [facility] [address] [place], [address] Creatinine [Mass/Vol] 1.06 mg/dL Normal 0.70-1.20 [facility] Comment on above: Performed By: #### L 500.2500, L100.0100 #### [facility] [address] [place], [address] ECRCL 67.10 ml/min Normal 50-[address] [facility] Comment on above: Performed By: #### L 500.2500, L100.0100 #### [facility] [address] [place], [address] GAP 9 Normal 5-[address] [facility] Comment on above: Performed By: #### L 500.2500, L100.0100 #### [facility] [address] [place], [address] GFR/1.73 sq M.predicted among non-blacks MDRD (S/P/Bld) [Vol rate/Area] 71 mL/min/{1.73_m2} Normal >60 [facility] Comment on above: Result Comment: mL/m in/1.73m2 CKD-EPI Creatinine Equation (2020) Performed By: #### L 500.2500, L100.0100 #### [facility] [address] [place], [address] Glucose [Mass/Vol] 119 mg/dL High 70-99 [facility] Comment on above: Performed By: #### L 500.2500, L100.0100 #### [facility] [address] [place], [address] Potassium [Moles/Vol] 4.5 mmol/L Normal 3.3-5.1 [facility] Comment on above: Performed By: #### L 500.2500, L100.0100 #### [facility] [address] [place], [address] Sodium [Moles/Vol] 139 mmol/L Normal 133-145 [facility] Comment on above: Performed By: #### L 500.2500, L100.0100 #### [facility] [address] [place], [address] Urea nitrogen [Mass/Vol] 21 mg/dL High 4-[address] [facility] Comment on above: Performed By: #### L 500.2500, L100.0100 #### [facility] [address] [place], [address] CBC W/Diff, Automatedon 05-2 -2024 Absolute Lymph 1.30 X10 3/uL Normal 0.83-4.[address] [facility] Comment on above: Performed By: #### L 500.2500, L100.0100 #### [facility] [address] [place], [address] Absolute Neut 11.9 X10 3/uL High 2.0-7.[address] [facility] Comment on above: Performed By: #### L 500.2500, L100.0100 #### [facility] [address] [place], [address] Basophils/100 WBC (Bld) 0.1 % Normal 0-1 [facility] Comment on above: Performed By: #### L 500.2500, L100.0100 #### [facility] [address] [place], [address] Eosinophils/100 WBC (Bld) 0.0 % Normal 0-[address] [facility] Comment on above: Performed By: #### L 500.2500, L100.0100 #### [facility] [address] [place], [address] Erythrocyte distribution width (RBC) [Ratio] 13.9 % Normal 11.6-14.[address] [facility] Comment on above: Performed By: #### L 500.2500, L100.0100 #### [facility] [address] [place], [address] Hematocrit (Bld) [Volume fraction] 40.1 % Normal 40-[address] [facility] Comment on above: Performed By: #### L 500.2500, L100.0100 #### [facility] [address] [place], [address] Hemoglobin (Bld) [Mass/Vol] 13.0 g/dL Normal 13.0-16.[address] [facility] Comment on above: Performed By: #### L 500.2500, L100.0100 #### [facility] [address] [place], [address] IG% 0.400 Normal 0.0-0.[address] [facility] Comment on above: Result Comment: IG% - Immature Granulocytes (promyelocytes, myelocytes and metamyelocytes) > 1% indicates that a LEFT SHIFT is Present. Performed By: #### L 500.2500, L100.0100 #### [facility] [address] [place], [address] Lymphocytes/100 WBC (Bld) 9.1 % Low 19-[address] [facility] Comment on above: Performed By: #### L 500.2500, L100.0100 #### [facility] [address] [place], [address] MCH (RBC) [Entitic mass] 30.6 pg Normal 27.0-32.[address] [facility] Comment on above: Performed By: #### L 500.2500, L100.0100 #### [facility] [address] [place], [address] MCHC (RBC) [Mass/Vol] 32.4 g/dL Normal 32-36 [facility] Comment on above: Performed By: #### L 500.2500, L100.0100 #### [facility] [address] [place], [address] MCV (RBC) [Entitic vol] 94.4 fL High 80-94 [facility] Comment on above: Performed By: #### L 500.2500, L100.0100 #### [facility] [address] [place], [address] Monocytes/100 WBC (Bld) 6.9 % Normal 0-10 [facility] Comment on above: Performed By: #### L 500.2500, L100.0100 #### [facility] [address] [place], [address] Neutrophils/100 WBC (Bld) 83.5 % High 47-[address] [facility] Comment on above: Performed By: #### L 500.2500, L100.0100 #### [facility] [address] [place], [address] Nucleated RBC (Bld) [#/Vol] 0 10*3/uL Normal 0-[address] [facility] Comment on above: Performed By: #### L 500.2500, L100.0100 #### [facility] [address] [place], [address] Platelet mean volume (Bld) [Entitic vol] 11.6 fL Normal 6.2-12.[address] [facility] Comment on above: Performed By: #### L 500.2500, L100.0100 #### [facility] [address] [place], [address] Platelets (Bld) [#/Vol] 167 10*3/uL Normal 150-[address] [facility] Comment on above: Performed By: #### L 500.2500, L100.0100 #### [facility] [address] [place], [address] RBC (Bld) [#/Vol] 4.25 10*6/uL Low 4.6-6.2 [facility] Comment on above: Performed By: #### L 500.2500, L100.0100 #### [facility] [address] [place], [address] RDW SD 48.2 fl High 35.1-43.[address] [facility] Comment on above: Performed By: #### L 500.2500, L100.0100 #### [facility] [address] [place], [address] WBC (Bld) [#/Vol] 14.3 10*3/uL High 4.4-11.0 [facility] Comment on above: Performed By: #### L 500.2500, L100.0100 #### [facility] [address] [place], [address] Discharge Instructionon 03-15 Discharge Instruction [facility] Medical Records Department [address] [facility] [place] [address] Instructions for Home/Discharge Instructions 04/03/25 1104 MR#: [id number] Acct: [id number] Name: ARIANA SIBLEY Rep #: [id number] : 1945 79 From: Marlon Pittman MD [place]CP: [place] [facility] Status:REG SDC Discharge Instructions Diet Discharge Diet: No restrictions DC O2, CPAP, BIPAP needs Home O2 Discharge instructions: No Dressing / Incision Discharge Activity: Return to Normal Activity and May Not Drive (while taking narcotic pain medications.) Dressing / Incision Call your doctor if you observe: Fever of 101 or Higher Catheter: Osorio to leg bag and Osorio to large bag Drain: [place] Follow Up Care Please Follow Up With: Marlon Pittman MD When: Call [phone] for an appointment Test Results: Test results from this visit will be discussed in further detail at your follow-up appointment, if applicable. Discharge Plan Admission Primary Reason for Your Visit: DVIU Attending Provider: Marlon Pittman Primary Care Provider: [facility] Consulting Providers: Dean Baez Print Language: Niuean Discharge Orders/Prescription s Prescriptions: New ibuprofen 600 mg tablet 600 mg PO Q6H PRN (Reason: pain) Qty: 20 0RF acetaminophen 500 mg capsule 500 mg PO Q4H PRN (Reason: pain) Qty: 20 0RF Continued pantoprazole 40 mg tablet,delayed release (DR/EC) 40 mg PO QHS Patient Comments: TAKE 1 TABLET BY MOUTH ONCE DAILY IN AFTERNOON ONE HOUR BEFORE DINNER rosuvastatin 20 mg tablet 20 mg PO DAILY glucosamine-chondro itin [Osteo Bi-Flex] 250-200 mg tablet 2 tab PO DAILY Rx Instructions: give after food/meal tamsulosin 0.4 mg capsule 0.4 mg PO QHS Held aspirin 81 mg tablet,chewable 81 mg PO DAILY Hold Instructions: Resume on 04/17/25. Referrals / Follow Up: Marlon Pittman MD [Med Staff - Active Staff] - [facility] [Primary Care Provider] - Disposition Disposition (needs filled in before D/C Order can be placed): Home, Self Care 04/03/25 1104 Marlon Pittman MD CC: BENJAMIN Nolen; [facility] Signed [facility] MR/POSTOP.[facility] 04-03-2025 MR/POSTOP.[facility] Medical Records Department [address] [place] [address] Anesthesia Postop Eval I 04/03/25 1325 MR#: [id number] Acct: [id number] Name: ARIANA SIBLEY Rep #: [id number] : 1945 79 From: Vernon Smith CRNA [place]CP: [place] [facility] Status:REG SDC Y Race: C Location: [place] [address] Anesthesia: Postop Eval I Current Vital Signs Temperature: 96.8 F Pulse Rate: 65 Blood Pressure: 155/74 Respiratory Rate: 16 Pulse Ox: 95 Assessment Airway patent: Yes Spontaneous unlabored respirations: Yes nausea: No Vomiting: No Anesthesia Complication: No Fluid Hydration Crystalloid volume administer (ml): 900 Total IV fluid infused: 900 Progress Note Anesthesia document: Postop Eval 1 completed: Yes 04/03/25 1325 Date [employer] RE[employer]IGER[employer] MECHANIC Cosigner Signature: Date CC: Signed Normal [facility] MR/[id number] 04-03-2025 MR/POSTOPAN2 [facility] Medical Records Department [address] [facility] [place] [address] Anesthesia Postop Eval II 04/03/25 1333 MR#: [id number] Acct: [id number] Name: ARIANA SIBLEY Rep #: [id number] : 1945 79 From: Prasanna Quinones MD [place]: [place] [facility] Status:REG SDC Y Race: C Location: [address] Anesthesia Postop Eval I Sum Postop Eval Completion status Anesthesia document: Postop Eval 1 completed: Yes Anesthesia Postop Eval I Summary Anesthesia Postop Eval I Summary: Anesthesia Postop Eval I: Assessment Summary Airway patent Yes 04/03/25 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 Spontaneous unlabored Yes 04/03/25 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 respirations Mental status nausea No 04/03/25 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 Vomiting No 04/03/25 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 Anesthesia Postop Eval I: Fluid Summary Crystalloid volume administer 900 04/03/25 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 (ml) Colloids volume administered ( ml) Blood Product volume administered (ml) Total IV fluid infused 900 04/03/25 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 Anesthesia Postop Eval I: Summary Notes Anesthesia Complication No 04/03/25 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 Anesthesia Complication Comment: Post-operative progress note Anesthesia: Postop Eval II Evaluation Mental status: Awake Pain Level: 2 nausea: No Vomiting: No 04/03/251332 Date Prasanna Quinones MD Cosigner Signature: Date CC: Signed Normal 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 Post-Operative Diagnosis: The same Surgery/Procedure Performed: Cystoscopy attempted placement of wire through the stricture, direct vision urethrotomy, open cystotomy, antegrade placement of Osorio catheter, and suprapubic catheter placement outreach manager: No Type of Anesthesia: General RN Documented Start/Stop Times: Operation Date: 04/03/25 11:10 Case Time Into Pre-Op 04/03/25 09:09 Procedure Start Time: 11:43 Procedure Stop Time: 13:06 Select all DRAINS/GRAFTS/IMPLA NTS that apply: Drains Drain details: Suprapubic catheter, Osorio catheter Estimated Blood Loss: 10cc Specimen collected: No Description of surgery: Indication this is a an 79-year-old male is a new patient to me he was seeing a prior urologist who retired, he was coming in complaining of very difficult time with urination he did relate having very traumatic Osorio catheter placement in the past. In the office I did a cystoscopy and immediately in the mid urethra encountered a pinpoint stricture at that point I did not attempt to dilate the stricture anything, taken of the surgery today to attempt a direct vision internal urethrotomy and placement of a Osorio catheter for severe stricture understands that this is a temporizing solution the restriction rate after this is extremely high apparently has had other DVIU's in the past. Patient was taken back to the operating room after smooth induction of anesthesia the penis and testicles were prepped and draped in usual fashion I have saw pinpoint urethra in the mid urethra with the cystoscope try to get a wire through that I was able to get through that but then I could not get the wire past any further we then called down fluoroscopy and attempted the guided under fluoroscopy with then unsuccessful so then I did use the cold knife Collinson strike cutting on the stricture hoping that this would hope and open up the channel but I was as I was cutting the stricture open then immediately recommends that was just creating a false passage and was not in the correct channel so this was immediately aborted because of the extravasation of normal saline his scrotum did become swollen and the large with normal saline. I then went and spoke to the and family members and let him know that was not able to do a an incision of the urethra not able to get into the bladder so recommended we do an anterior approach with his open cystotomy and see if we can place a Osorio catheter anterior grade and also suprapubic catheter. I then came back to the operative room he was reprepped and draped supine on the table, he was prepped and draped in sterile fashion for a lumbar suprapubic incision site made a Pfannenstiel incision across the lower abdomen dissected the fat until I got the anterior fascia opened up the fascia identified the midline and the rectus muscle and the piriformis muscles this was split and opened up I then identified the fat over the bladder the bladder was completely distended this appears to be chronically distended since I was not able to get into the bladder with the cystoscope I then opened up the bladder with a small cystotomy placed a stay stitch on each side of the cystotomy and then went in with a flexible cystoscope through the cystotomy was aided with then a 5 the prostate went into the prostate and then antegrade fashion I was then able to go through the prostate put a wire in an antegrade and then with a wire antegrade then this came out the penis and then over the wire we placed a 20 Mexican sycuan tip catheter through that wire into the bladder following over the wire and then put 10 cc in the balloon and then pulled that catheter back and then this was left in place through the penis. I then put a suprapubic catheter through the small cystotomy in the bladder and then we closed the cystotomy in 2 layers using 3-0 Vicryl and 2-0 Vicryl. I then reapproximated the piriformis muscles in the midline I then closed the fascia in the midline with 0 Vicryl stitches and then we closed subcuticular stitches and then we closed the skin in the midline to leave the suprapubic catheter in the middle so the end he had a suprapubic catheter into the bladder as a safety valve and that we also have a regular catheter through the prostate through the stricture he has severe mills stricture disease. Will keep overnight for observation. Complication was that we had to open up the bladder (more content not included)... Normal [facility] MR/PAT.YUEon 04-01-2025 MR/PAT.ANE [facility] Medical Records Department [address] [place] [address] PAT - Anesthesia 04/01/25916 MR#: [id number] Acct: [id number] Name: ARIANA SIBLEY Rep #: [id number] : 1945 79 From: Prasanna Quinones MD PCP: [facility] Status:PRE SD Y Race: C Location: [facility] Pre-Assessment Diagnosis/Proposed Procedure Planned Operative Procedure(s): CYSTO DVIU Anesthesia History Anesthesia History - buttermaker continuous churn: Anesthesia History - buttermaker continuous churn Hx Hospitalization Yes: [facility] 03/22/25 14:09 Any Problems With Anesthesia No 03/22/25 14:09 Cholinesterase deficiency No 03/22/25 14:09 You/Your Family Experience No 03/22/25 14:09 fever (hyperthermia) with Relationship Recent Exposure to Contagious Disease Does patient have nerve No 03/22/25 14:09 stimulator Patient instructed to have device shut off --Does patient have Pacemaker or ICD? When Was Last Pacemaker Check QUESTION #4 FULL TEXT: You/Your Family Experience fever (hyperthermia) with Anesthesia Last Oral Intake Last Oral intake: Last Oral Intake NPO since Meds taken in AM with sips of water? Meds patient instructed to take am of surgery PONV PONV - buttermaker continuous churn: PONV - buttermaker continuous churn Female No 03/22/25 14:09 HX of Motion Sickness No 03/22/25 14:09 HX of N/V After Surgery No 03/22/25 14:09 Non-Smoker Yes 03/22/25 14:09 Duration of Surgery greater Yes 03/22/25 14:09 than 60 minutes Number of Risk Factors 2 03/22/25 14:09 PONV Score Moderate Risk 03/22/25 14:09 Height Weight Height Weight: Anesthesia: Height Weight Height 6 ft 4 in 07/10/24 13:21 Respiratory Assessment Respiratory Assessment - buttermaker continuous churn: Respiratory Tract Infection Hx - buttermaker continuous churn Hx Respiratory Tract Infection No 03/22/25 14:09 STOP Sleep Apnea STOP Sleep Apnea - buttermaker continuous churn: STOP Sleep Apnea - buttermaker continuous churn Hx Hypertension No 03/22/25 14:09 Hx Sleep Apnea Yes 03/22/25 14:09 CPAP Yes 03/22/25 14:09 BIPAP No 03/22/25 14:09 Do you snore loudly (louder than talking or can be heard Do you often feel tired/ fatigued/ sleepy during daytime? Has anyone observed you stop breathing during sleep? STOP Results Positive 03/22/25 14:09 QUESTION #5 FULL TEXT : Do you snore loudly (louder than talking or can be heard through closed doors)? 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 Specify any problems Hx of Preganancy in last 3 N/A 03/22/25 14:09 Months Nurse Filling Out Transfusion DSCHRIBER 03/22/25 14:09 Questions: Date: 03/22/25 03/22/25 14:09 Time: 14:10 03/22/25 14:09 Patient unable to answer at this time (ie. confused, unrespo /Reproduct ion History /Reproduct alonzo History - buttermaker continuous churn: /Reproduct alonzo Hx- buttermaker continuous churn Hx Now No 03/22/25 14:09 Gestational Age (in weeks): EDC: Hx Hx Para Hx Section SAB No 03/22/25 14:09 PFSH Medical History (Updated 03/29/25 @ 14:[address] Armando Lang MD) Wears glasses Arthritis Syncope History of echocardiogram History of stress test Cardiology follow-up encounter Hx of fracture of finger Non-smoker CPAP (continuous positive airway pressure) dependence Migraines GERD (gastroesophageal reflux disease) BPH (benign prostatic hyperplasia) Hyperlipemia Home Medications ???Medication ???Instructions ???Recorded ???Last Taken ???Type aspirin 81 mg chewable tablet 81 mg PO DAILY heart health Unknown History glucosamine-chondro itin 250 mg-200 2 tab PO DAILY supplement Unknown History mg tablet (Osteo Bi-Flex) pantoprazole 40 mg tablet,delayed 40 mg PO QHS reflux 12/07/23 Unkn own History release rosuvastatin 20 mg tablet 20 mg PO DAILY cholesterol 4 Unknown History tamsulosin 0.4 mg capsule 0.4 mg PO QHS 03/22/25 Unknown His tory Allergy/AdvReac Type Severity Reaction Status Date / Time No Known Allerg (more content not included)... Normal [facility] Basic Metabolic Profile (BMP )on 03-29-2025 BUN/CRE 19.2 RATIO Normal 10-[address] [facility] Comment on above: Performed By: #### L 100.0500, L500.2500 #### [facility] [address] [place], [address] Calcium [Mass/Vol] 9.4 mg/dL Normal 7.6-11.0 [facility] Comment on above: Performed By: #### L 100.0500, L500.2500 #### [facility] [address] [place], [address] Chloride [Moles/Vol] 104 mmol/L Normal 98-108 [facility] Comment on above: Performed By: #### L 100.0500, L500.2500 #### [facility] [address] [place], [address] CO2 [Moles/Vol] 26.6 mmol/L Normal 21.0-32.[address] [facility] Comment on above: Performed By: #### L 100.0500, L500.2500 #### [facility] [address] [place], [address] Creatinine [Mass/Vol] 0.90 mg/dL Normal 0.70-1.20 [facility] Comment on above: Performed By: #### L 100.0500, L500.2500 #### [facility] [address] [place], [address] GAP 9 Normal 5-[address] [facility] Comment on above: Performed By: #### L 100.0500, L500.2500 #### [facility] [address] [place], [address] GFR/1.73 sq M.predicted among non-blacks MDRD (S/P/Bld) [Vol rate/Area] 86 mL/min/{1.73_m2} Normal >60 [facility] Comment on above: Result Comment: mL/m in/1.73m2 CKD-EPI Creatinine Equation (2020) Performed By: #### L 100.0500, L500.2500 #### [facility] [address] [place], [address] Glucose [Mass/Vol] 97 mg/dL Normal 70-99 [facility] Comment on above: Performed By: #### L 100.0500, L500.2500 #### [facility] [address] [place], [address] Potassium [Moles/Vol] 4.4 mmol/L Normal 3.3-5.1 [facility] Comment on above: Performed By: #### L 100.0500, L500.2500 #### [facility] [address] [place], [address] Sodium [Moles/Vol] 139 mmol/L Normal 133-145 [facility] Comment on above: Performed By: #### L 100.0500, L500.2500 #### [facility] [address] [place], [address] Urea nitrogen [Mass/Vol] 17 mg/dL Normal 4-[address] [facility] Comment on above: Performed By: #### L 100.0500, L500.2500 #### [facility] [address] [place], [address] Brain/Head without Contrasto n 03-29-2025 Brain/Head without Contrast [facility] Imaging Services [address] [place], [place] [address] Brain/Head without Contrast MR#: [id number] Acct: [id number] Name: ARIANA SIBLEY Rep #: [id number] : 1945 M 79 From: Dick celeste MD PCP: [facility] Status: REG ER Study: Brain/Head without Contrast Date of Exam: 03/14 05/08 Exam# [id number] Ordering Dr: Shalini Hercules ADDENDUM by Dr. Dick Yepez MD on 03/29/25 at 1456 There is a 1.2 cm partially calcified meningioma in the anterior medial aspect of the left frontal lobe. [place] Location: [id number] 03/29/25 1456 Date cc: BENJAMIN Theodore; [facility] * Signed PROCEDURE: BRAIN/HEAD WITHOUT CONTRAST 03/29/2025 REASON FOR EXAM: HEADACHE History of migraines. TECHNIQUE: Head CT without intravenous contrast. Coronal and Sagittal reconstruction series were provided. One or more dose reduction techniques were used (e.g., Automated exposure control, adjustment of the mA and/or kV according to patient size, use of iterative reconstruction technique. RADIATION DOSE SUMMARY: CTDlvol: 44.99 mGy DLP: 880.47 mGycm COMPARISON: None FINDINGS: Brain: Low density in the periventricular white matter suggests mild chronic small vessel ischemic changes. CSF Spaces: Mild generalized cerebral atrophy Sinuses/Mastoids: Clear at visualized levels Bones: CT/Brain/Head without Contrast IMPRESSION: CHRONIC CHANGES. NO ACUTE FINDINGS. [place] Location: [id number] CC: BENJAMIN Theodore; [facility] Heat Treat Puller: Signed Normal [facility] CBC-Complete Blood Cnt No Di ffon 03-29-2025 Erythrocyte distribution width (RBC) [Ratio] 13.9 % Normal 11.6-14.[address] [facility] Comment on above: Performed By: #### L 100.0500, L500.2500 #### [facility] [address] [place], [address] Hematocrit (Bld) [Volume fraction] 45.4 % Normal 40-[address] [facility] Comment on above: Performed By: #### L 100.0500, L500.2500 #### [facility] [address] [place], [address] Hemoglobin (Bld) [Mass/Vol] 14.9 g/dL Normal 13.0-16.[address] [facility] Comment on above: Performed By: #### L 100.0500, L500.2500 #### [facility] [address] [place], [address] MCH (RBC) [Entitic mass] 30.7 pg Normal 27.0-32.[address] [facility] Comment on above: Performed By: #### L 100.0500, L500.2500 #### [facility] [address] [place], [address] MCHC (RBC) [Mass/Vol] 32.8 g/dL Normal 32-36 [facility] Comment on above: Performed By: #### L 100.0500, L500.2500 #### [facility] [address] [place], [address] MCV (RBC) [Entitic vol] 93.4 fL Normal 80-94 [facility] Comment on above: Performed By: #### L 100.0500, L500.2500 #### [facility] [address] [place], [address] Platelet mean volume (Bld) [Entitic vol] 11.1 fL Normal 6.2-12.[address] [facility] Comment on above: Performed By: #### L 100.0500, L500.2500 #### [facility] [address] [place], [address] Platelets (Bld) [#/Vol] 189 10*3/uL Normal 150-[address] [facility] Comment on above: Performed By: #### L 100.0500, L500.2500 #### [facility] [address] [place], [address] RBC (Bld) [#/Vol] 4.86 10*6/uL Normal 4.6-6.2 [facility] Comment on above: Performed By: #### L 100.0500, L500.2500 #### [facility] [address] [place], [address] RDW SD 48.0 fl High 35.1-43.[address] [facility] Comment on above: Performed By: #### L 100.0500, L500.2500 #### [facility] [address] [place], [address] WBC (Bld) [#/Vol] 7.4 10*3/uL Normal 4.4-11.0 [facility] Comment on above: Performed By: #### L 100.0500, L500.2500 #### [facility] [address] [place], [address] Emergency Department Summary on 03-29-2025 Emergency Department Summary [facility] Medical Records Department [address] [place] [address] Emergency Department Summary 03/29/25 MR#: [id number] Acct: [id number] Name: ARIANA SIBLEY Rep #: [id number] : 1945 79 From: Armando Lang MD PCP: [place] [facility] Status:DEP ER Location: ED HPI History of Present Illness Chief Complaint: Headache Narrative Narrative: 79-year-old male presents with increasing frequency of migraines. He states has had migraines for decades that usually occurred about once a month. Over the last few months they have increased in frequency to weekly to now daily. He states he either has a migraine or migraine hangover every day. 2 days ago he had a migraine with bilateral blurry vision. This morning he had a gradual onset migraine with difficulty speaking around 10 AM lasting about 10 minutes. He states he has had both blurry vision and difficulty speaking with migraines in the past but this was years ago. He took his prescribed migraine medication but does not know the name of it and states his headache is starting to dissipate. He denies fever or chills. No nausea or vomiting. No motor or sensory changes in his extremities. No incoordination. Patient states a couple years ago he had a scan of his brain showing a benign brain tumor that is monitored at the [place] Medical History (Updated 03/29/25 @ 14:[address] Armando Lang MD) Wears glasses Arthritis Syncope History of echocardiogram History of stress test Cardiology follow-up encounter Hx of fracture of finger Non-smoker CPAP (continuous positive airway pressure) dependence Migraines GERD (gastroesophageal reflux disease) BPH (benign prostatic hyperplasia) Hyperlipemia Home Medications ???Medication ???Instructions ???Recorded ???Last Taken ???Type aspirin 81 mg chewable tablet 81 mg PO DAILY heart health Unknown History glucosamine-chondro itin 250 mg-200 2 tab PO DAILY supplement Unknown History mg tablet (Osteo Bi-Flex) pantoprazole 40 mg tablet,delayed 40 mg PO QHS reflux 12/07/23 Unkn own History release rosuvastatin 20 mg tablet 20 mg PO DAILY cholesterol 4 Unknown History tamsulosin 0.4 mg capsule 0.4 mg PO QHS 03/22/25 Unknown His tory Allergy/AdvReac Type Severity Reaction Status Date / Time No Known Allergies Allergy Verified 03/29/25 13:22 Family History Father Cancer Mother Heart disease Brother Cancer Surgical History Hx of colonoscopy Hx of right cataract extraction Hx of left cataract extraction H/O hernia repair History of mandibular surgery Social History household members: spouse housing: house Smoking Status: Never smoker ROS ROS ED ROS Narrative Constitutional: Negative for fever, chills, malaise. CVS: Negative for chest pain. Respiratory: Negative for shortness of breath. GI: Negative for nausea, vomiting. Neuro: Positive for headache, negative for motor/sensory dysfunction. EXAM Physical Exam Narrative Exam Narrative: CONST: Patient sitting in no acute distress. EYES: Normal inspection. PERRL, EOMI. NECK: Normal inspection. RESP: No respiratory distress, CTAB. CVS: Regular rate and rhythm, no murmur, no gallop. SKIN: Color normal, no rash, warm, dry, intact. EXTREMITIES: Normal appearance, no pedal edema. NEURO: Alert and answering questions appropriately. PERRL, EOMI, no visual field deficits. 5/5 upper and extremity strength, normal finger-nose and xccs-ax-hefi, normal gait. No aphasia or dysarthria. No distention. NIH is 0. PSYCH: Normal affect. Const Vital Signs: 03/29/25 13:22 03/29/25 14:40 Temperature 97.8 F 97.8 F Temperature Source Oral Pulse Rate 59 L 60 Respiratory Rate 16 18 Blood Pressure 118/93 H 115/78 Blood Pressure Mean 101 90 Pulse Ox 96 99 Oxygen Delivery Method Room Air Physical Exam Const Vital Signs: 03/29/25 13:22 03/29/25 14:40 Temperature 97.8 F 97.8 F Temperature Source Oral Pulse Rate 59 L 60 Respiratory Rate 16 18 Blood Pressure 118/93 H 115/78 Blood Pressure Mean 101 90 Pulse Ox 96 99 Oxygen Delivery Method Room Air MDM MDM MDM Narrative Medical decision making narrative: External records reviewed: MRI brain 12/09/2023 No significant findings. Incidental small left frontal meningioma. Radiography Diagnostic Testing: Clinical Impression(s) from Imaging Studies Brain CT 03/29/25 13:43 IMPRESSION: CHRONIC CHANGES. NO ACUTE FINDINGS. Reading Location: [id number][id number]-T Tr (more content not included)... Normal [facility] URINE CULTURE [CCL]on 2024 Bacteria identified Cx Nom (U) URCUL See Results Below See Below CULTURE, URINE No growth (<1,000 CFU/ml) SOURCE: Urine (Nonspecific) [facility] [address] [place] [id number] Onesiom Waters III, M.D. [id number] SEND TO IC NO Normal [facility] Comment on above: Performed By: #### 2 [id number] #### [facility],[address] [place] [address] ED MED ADMINISTRATION DETAIL on 01-16-2025 ED MED ADMINISTRATION DETAIL Design Technician Medication Administration Record [address] [address] [id number] 01/15/2025 Patient: ARIANA SIBLEY Sex: Male : 1945 Age: 79y MEASUREMENTS: Wt: 88.5 kg, Ht/Jonh: 76.0 in, BMI: 23.74 ALLERGIES: No known drug allergies Medication Ordered Medication Administration Date/Time Bactrim DS PO 1 16:19 01/15 Bactrim DS PO 1 tab given. Allergies verified and Given tab (NOW x1) confirmed 5 rights. Information reviewed with patient including 16:19 01/15/2025 reason for taking this medication, signs of allergic reaction and Melissa Parr R.N. precautions. Verbalizes understanding. - 16:19 Quinn Pulido R.N. 1 of 1 Normal [facility] ED NURSES CLINICAL NOTEon ED NURSES CLINICAL NOTE Nurse Narrative Nurse Clinical Narrative [address] [address] [id number] 01/15/2025 Patient: ARIANA SIBLEY Sex: Male : 1945 Age: 79y Primary Insurance: [facility] [employer] Policy Number: [id number] Subscriber: Other Disposition: Discharge to Home Disposition Decision Time: 16:10 01/15/2025 Departure Time: 16:23 01/15/2025 TRIAGE Arrived by private vehicle. Historian: (patient). [facility] Triage time: 14:55 01/15/2025. Acuity: LEVEL 3. Chief Complaint: PAIN WITH URINATION and HEMATURIA. Onset. (1 weeks ago). SEPSIS SCREEN: NEGATIVE. SIRS criteria negative. Possible sources of infection. -- 15:07 01/15/25 COURTNEY Dunn R.N. 15:00 01/15/25. BP: 123/77 MAP: 92. HR: 72. RR: 16. O2 saturation: 95% Temperature: 97.4 F. Pain level now 5/10. -- 15:01/15/25 COURTNEY Dunn R.N. Measurements: 15:01/15/25 Wt: 88.5 kg, Ht/Jonh: 76.0 in, BMI: 23.74 -- 15:01/15/25 COURTNEY Dunn R.N. Medications: Osteo Bi-Flex (5-Loxin) 1,500 mg-400 unit-100 mg tablet: 1 tablet once a day. -- 15:18 01/15/25 COURTNEY Dunn R.N. rosuvastatin 40 mg tablet: 1 tablet once a day. -- 15:18 01/15/25 COURTNEY Dunn R.N. 1 of 3 Nurse Narrative pantoprazole 40 mg tablet,delayed release: 1 tablet once a day. -- 15:18 01/15/25 COURTNEY Dunn R.N. aspirin 81 mg capsule: 1 capsule once a day. -- 15:18 01/15/25 COURTNEY Dunn R.N. Allergies: no known drug allergies -- 14:56 01/15/25 COURTNEY Dunn R.N. Home Medications/Allergy Information Source: patient -- 14:56 01/15/25 COURTNEY Dunn R.N. Problems: Gastroesophageal Reflux Disease -- 14:57 01/15/25 COURTNEY Dunn R.N. Migraine Headache -- 14:57 01/15/25 COURTNEY Dunn R.N. ADDITIONAL SURGERIES: right leg -- 14:58 01/15/25 COURTNEY Dunn R.N. benign tumor of the face -- 14:58 01/15/25 COURTNEY Dunn R.N. right wrist -- 14:59 01/15/25 COURTNEY Dunn R.N. History 14:55 01/15/25. PAST MEDICAL HX: Other immunizations: up-to-date. SOCIAL HX: Never smoker. No alcohol use or drug use. The patient has not traveled outside the [place] Infectious disease exposure: No infectious disease exposure. ABUSE ASSESSMENT: The patient answered yes to the question(s) Do you feel safe in your home? and no to the question(s) Are you afraid to go home?. Abuse denied. No suspicion of abuse. SELF HARM ASSESSMENT: Self harm assessment was performed. The patient answered no to the question(s) Have you recently felt down, depressed, or hopeless? and Do you have thoughts of harming or killing yourself?. FALL RISK ASSESSMENT: Fall risk assessment completed. Risk factors identified include patient age greater 2 of 3 Nurse Narrative than 65 years. Fall interventions initiated. Patient identified as a fall risk by ID band. -- 15:07 01/15/25 COURTNEY Dunn R.N. Interventions 14:55 01/15/25. Advanced care plan discussed with patient. -- 15:07 01/15/25 COURTNEY Dunn R.N. PHYSICAL ASSESSMENT 15:23 01/15/25. GI / : Pain with urination. The patient has had frequency of urination. Normal genitalia. No genital lesions noted. -- 15:23 01/15/25 COURTNEY Parr R.N. NURSING PROGRESS NOTES 15:01/15/25. Assisted patient to bathroom; tolerated well. -- 15:09 01/15/25 COURTNEY Dunn R.N. 16:19 01/15/25. Bactrim DS PO 1 tab given. Allergies verified and confirmed 5 rights. Information reviewed with patient including reason for taking this medication, signs of allergic reaction and precautions. Verbalizes understanding. -- 16:19 01/15/25 COURTNEY Parr R.N. DISPOSITION / DISCHARGE 16:20 01/15/25. BP: 126/71 MAP: 89. HR: 69. RR: 16. O2 saturation: 94% Pain level now 0/10. -- 16:32 01/15/25 COURTNEY Parr R.N. Departure time: 16:23 01/15/2025. The patient was discharged by the physician. The patient was discharged home. The patient left ambulatory and via private vehicle. Patient driving. -- 16:32 01/15/25 EST Melissa Parr R.N. (Electronically signed by Monica Canseco R.N. 01/16/25 16:05:00 EST) Generated by [facility] 3 of 3 Normal [facility] ED ORDER SHEET (CPOE ONLY)on 01-16-2025 ED ORDER SHEET (CPOE ONLY) Order Sheet Order Sheet [address] [address] [id number] 01/15/2025 Patient: ARIANA SIBLEY Sex: Male : 1945 Age: 79y MEASUREMENTS: Wt: 88.5 kg, Ht/Jonh: 76.0 in, BMI: 23.74 ALLERGIES: No known drug allergies MEDICATION/IV/DRIP/ FLUID ORDERS Order Description Priority Entered Acknowledged Completed Bactrim DS PO1 tab (NOW x1) 16:02 01/15/2025 16:19 Tyson Shane M.D. 01/15/2025 Melissa Parr R.N. LAB ORDERS Order Description Priority Entered Acknowledged Collected Completed Urinalysis Stat Stat 15:16 01/15/2025 15:20 01/15/2025 Melissa Dorsey M.D. R.NJose Francisco Urine Culture [CCL] Stat Stat 15:16 01/15/2025 15:20 01/15/2025 Melissa Dorsey M.D. R.NJose Francisco DIAGNOSTIC STUDY ORDERS 1 of 2 Order Sheet Order Description Priority Entered Acknowledged Completed STAFF ORDERS Order Description Priority Entered Acknowledged Collected Completed [Electronically signed by Tyson Shane M.D. (01/15/2025 16:12 EST)] 2 of 2 Normal [facility] ED PHYSICIAN CLINICAL REPORT on 01-16-2025 ED PHYSICIAN CLINICAL REPORT Narrative Physician Clinical Narrative [address] [address] [id number] 01/15/2025 [id number] Sex: [facility] : 1945 Age: 79y Primary Insurance: [facility] [employer] Policy Number: [id number] Subscriber: Other Disposition: Discharge to Home Disposition Decision Time: 16:10 01/15/2025 Measurements Wt: 88.5 kg, Ht/Jonh: 76.0 in, BMI: 23.74 Initial Vital Sign Measured Time BP MAP HR RR O2Sat ETCO2 Temp Pain GCS RTS 15:00 01/15/2025 123/77 92 72 16 95% 97.4 F 5 Time Seen: 15:11 01/15/2025. HISTORY OF PRESENT ILLNESS Chief Complaint: DYSURIA and HEMATURIA. (patient presents with chief complaint of dysuria. He has never had a urinary tract infection before. Did have it for 4 days. [facility]. No fever, chills, nausea, vomiting, CVA tenderness. He has otherwise been in his baseline. Only has burning with urination. States there has been some blood. Took azo yesterday and has seen a change to orange color. No history of any pain with urination. Does not want any further laboratory studies or imaging as he [facility]. He is okay with urine testing at this time. Otherwise patient has no complaints). REVIEW OF SYSTEMS see HPI. 1 of 6 Narrative PAST HISTORY See nurses notes. 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 Osteo Bi-Flex (5-Loxin) 1,500 mg-400 unit-100 mg tablet: 1 tablet once a day. pantoprazole 40 mg tablet,delayed release: 1 tablet once a day. rosuvastatin 40 mg tablet: 1 tablet once a day. Allergies: no known drug allergies Home Medications/Allergy Information Source: patient - Alison Dunn R.N., 01/15/2025 14:56 EST ADDITIONAL NOTES The nursing notes have been reviewed. PHYSICAL EXAM Vital Signs: Have been reviewed. Appearance: Alert. Oriented X3. ENT: Normal external inspection. Pharynx normal. CVS: Heart sounds normal. Respiratory: No respiratory distress. Painless inspiration. Breath sounds normal. Abdomen: Soft and nontender. No organomegaly. No mass. Femoral pulses equal. Back: No CVA tenderness. 2 of 6 Narrative : (patient deferred. States no rash no changes from baseline. Denies any tender pain is. Denies any tender testicles. Denies any wounds.). Skin: Skin warm and dry. Normal skin color. No rash. Normal skin turgor. Extremities: Extremities exhibit normal ROM. No lower extremity edema. Neuro: Oriented X 3. Altered mental status. LABS, X-RAYS, AND EKG Laboratory Tests: URINALYSIS Final MARY: 01/15/2025 15:09:00 EST MsgRcvd: 01/15/2025 15:54 EST Lab Test Result Reference Status Received Comments 01/15/2025 15:54 URINALYSIS Final URINALYSIS EST 01/15/2025 15:54 Specimen Type R New Order EST NORMAL: 01/15/2025 15:54 Color JOHN Final YELLOW EST NORMAL: 01/15/2025 15:54 Clarity clear Final CLEAR EST NORMAL: 01/15/2025 15:54 ph 5 Final 5.0-8.0 EST 15 NORMAL: 01/15/2025 15:54 Protein Final Abnormal NEGATIVE EST NORMAL: 01/15/2025 15:54 Glucose NORM Final NORMAL EST NORMAL: 01/15/2025 15:54 Ketone NEG Final NEGATIVE EST 3 of 6 Narrative Lab Test Result Reference Status Received Comments 1 NORMAL: 01/15/2025 15:54 Bilirubin Final Abnormal NEGATIVE EST 50 NORMAL: 01/15/2025 15:54 Blood Final Abnormal NEGATIVE EST 1 NORMAL: 01/15/2025 15:54 Urobilinog Final Abnormal NORMAL EST NORMAL: 01/15/2025 15:54 Sp [place] 1.025 Final 1.010-1.030 EST NORMAL: 01/15/2025 15:54 Nitrite POS Final NEGATIVE EST NORMAL: 01/15/2025 15:54 Leukocytes NEG Final NEGATIVE EST 01/15/2025 15:54 Microscopic SEE BELOW Final MICROSCOPIC EST 01/15/2025 15:54 Wbc 1-5 0-5/hpf Final EST 01/15/2025 15:54 Rbc 5-10 0-3/hpf Final EST 01/15/2025 15:54 Casts NONE Final EST 01/15/2025 15:54 Crystals NONE Final EST 01/15/2025 15:54 Amorphous NONE Final EST 01/15/2025 15:54 Bacteria NONE Final EST 4 of 6 Narrative Lab Test Result Reference Status Received Comments 01/15/2025 15:54 Epi Cells FEW Final EST 01/15/2025 15:54 Mucous NONE Final EST 01/15/2025 15:54 Yeast NONE Final EST PROGRESS AND PROCEDURES MEDICAL DECISION MAKING: (Patient presents with dysuria and hematuria. No painless hematuria. Less likely this is a cancer diagnosis and likely urinary tract infection. No systemic signs of infection so do not need laboratory studies at this time. Also no indication for imaging. I did speak with the patient if urine is clear and there is no infection I would speak with him about further imaging to (more content not included)... Normal [facility] ED SUPER BILLon 01-16-[address] [address] [id number] 01/15/2025 Patient: ARIANA SIBLEY Sex: Male : 1945 Age: 79y Item Professional Category Description Facility Code Code Quantity Fee Total Nurse/E/M EMERGENCY 401554 1 $0.00 $0.00 DEPARTMENT VISIT MODERATE SEVERITY (91894) Grand Total $0.00 Providers Tyson Shane M.D. Chief Complaint DYSURIA and HEMATURIA. Principal Diagnosis Dysuria. 1 of 1 Normal [facility] ED VISIT SUMMARYon ED VISIT SUMMARY Visit Overview Visit Overview [address] [address] [id number] 01/15/2025 Patient: ARIANA SIBLEY Sex: Male : 1945 Age: 79y 01/16/2025 04:05 PM EST ED Arrival:14:49 01/15/2025 EST Status: Recent Travel:no Language:eng Adv Directive: Isolation Status: Ethnicity:N Fall Risk:risk Infectious Disease Exposure:no Measurements:6'4 / 193.0 Self-Harm Status:risk Sepsis Screen:negative cm 195.0 lb / 88.5 kg Chief Complaint:HEMATURIA , PAIN WITH URINATION, (1 weeks ago), and ([facility]) ALLERGIES No Known Drug Allergies HOME MEDICATIONS aspirin 81 mg capsule: 1 capsule once a day. Osteo Bi-Flex (5-Loxin) 1,500 mg-400 unit-100 mg tablet: 1 tablet once a day. pantoprazole 40 mg tablet,delayed release: 1 tablet once a day. rosuvastatin 40 mg tablet: 1 tablet once a day. 1 of 3 Visit Overview PAST MEDICAL HISTORY / PROBLEMS Gastroesophageal Reflux Disease Migraine Headache Other immunizations: up-to-date See nurses notes PAST SURGICAL HISTORY right leg SOCIAL HISTORY Smoking status: No Alcohol use: No Drug use: No ED COURSE MEDICATIONS GIVEN IN EMERGENCY DEPARTMENT 16:19 01/15/25 Bactrim DS PO 1 tab IV SITE INFORMATION INTAKE OUTPUT REASSESMENT (most recent) 15:23 01/15/25. GI / : Pain with urination. The patient has had frequency of urination. Normal genitalia. No genital lesions noted. VITAL SIGNS First Vitals Last Vitals Temp 15:00 01/15/25 97.4 F Temp 16:20 01/15/25 BP 15:00 01/15/25 123/77 BP 16:20 01/15/25 126/71 HR 15:00 01/15/25 72 HR 16:20 01/15/25 69 RR 15:00 01/15/25 16 RR 16:20 01/15/25 16 O2 Sat 15:00 01/15/25 95% O2 Sat 16:20 01/15/25 94% 2 of 3 Visit Overview First Vitals Last Vitals Pain 15:00 01/15/25 5 Pain 16:20 01/15/25 0 ETCO2 15:00 01/15/25 ETCO2 16:20 01/15/25 GCS 15:00 01/15/25 GCS 16:20 01/15/25 RTS 15:00 01/15/25 RTS 16:20 01/15/25 PROCEDURES NURSING INTERVENTIONS LABS / STUDIES LABS / STUDIES ORDERED Urinalysis Urine Culture [CCL] CLINICAL IMPRESSION 3 of 3 Normal [facility] ED VITALS FLOW SHEETon 01-16 ED VITALS FLOW SHEET Vitals Vital Sign Flow Sheet [place] [address] [place] [address] [id number] 01/15/2025 [id number] Sex: Male : 1945 Age: 79y Measurements Wt: 88.5 kg, Ht/Jonh: 76.0 in, BMI: 23.74 Measured Time BP MAP HR RR O2Sat ETCO2 Temp Pain GCS RTS 16:20 01/15/2025 126/71 89 69 16 94% 0 15:00 01/15/2025 123/77 92 72 16 95% 97.4 F 5 1 of 1 Normal [facility] Bacteria Ur Culton Bacteria identified Cx Nom (U) CULTURE, URINE: No growth (<1,000 CFU/ml) Normal [facility] Comment on above: Performed By: #### 6 30-4 #### [facility] CLIA [id number] [address] [place] [address] OF [facility] URINALYSISon 01-15-2025 Amorphous NONE Normal [facility] Comment on above: Performed By: #### 2 [id number] #### [facility],[address] [place] [address] Bacteria NONE Normal [facility] Comment on above: Performed By: #### 2 15036 #### [facility],[address] [place] [address] Bilirubin Ql (U) 1 Abnormal NORMAL: NEGATIVE [facility] Comment on above: Performed By: #### 2 56026 #### [facility],[address] [place] [address] Casts NONE Normal [facility] Comment on above: Performed By: #### 2 25843 #### [facility],[address] [place] [address] Clarity (U) clear Normal NORMAL: CLEAR [facility] Comment on above: Performed By: #### 2 26155 #### [facility],[address] [place] [address] Color (U) JOHN Normal NORMAL: YELLOW [facility] Comment on above: Performed By: #### 2 70617 #### [facility],[address] [place] [address] Crystals LM Nom (Urine sed) NONE Normal [facility] Comment on above: Performed By: #### 2 97947 #### [facility],[address] [place] [address] Epi Cells FEW Normal [facility] Comment on above: Performed By: #### 2 00856 #### [facility],[address] [place] [address] Glucose Ql (U) NORM Normal NORMAL: NORMAL [facility] Comment on above: Performed By: #### 2 49708 #### [facility],[address] [place] [address] Hemoglobin Ql (U) 50 Abnormal NORMAL: NEGATIVE [facility] Comment on above: Performed By: #### 2 16702 #### [facility],[address] [place] [address] Ketone Negative Normal NORMAL: NEGATIVE [facility] Comment on above: Performed By: #### 2 65403 #### [facility],[address] [place] [address] Leukocytes Negative Normal NORMAL: NEGATIVE [facility] Comment on above: Performed By: #### 2 69412 #### [facility],[address] [place] [address] Mucous NONE Normal [facility] Comment on above: Performed By: #### 2 78013 #### [facility],[address] [place] [address] Nitrite Ql (U) Positive Normal NORMAL: NEGATIVE [facility] Comment on above: Performed By: #### 2 41411 #### [facility],[address] [place] [address] pH (U) 5 [pH] Normal NORMAL: 5.0-8.0 [facility] Comment on above: Performed By: #### 2 37921 #### [facility],[address] [place] [address] Protein Ql (U) 15 Abnormal NORMAL: NEGATIVE [facility] Comment on above: Performed By: #### 2 29035 #### [facility],[address] [place] [address] Rbc 5-10 Normal 0-3/hpf [facility] Comment on above: Performed By: #### 2 26959 #### [facility],[address] [place] [address] Sp [place] 1.025 Normal NORMAL: 1.010-1.030 [facility] Comment on above: Performed By: #### 2 90313 #### [facility],[address] [place] [address] Specimen Type R Normal [facility] Comment on above: Performed By: #### 2 83674 #### [facility],[address] [place] [address] Urinalysis dipstick W Reflex Microscopic panel (U) SEE BELOW Normal [facility] Comment on above: Result Comment: MICR OSCOPIC Performed By: #### 2 12525 #### [facility],[address] [place] [address] Urobilinog 1 Abnormal NORMAL: NORMAL [facility] Comment on above: Performed By: #### 2 83361 #### [facility],[address] [place] [address] Wbc 1-5 Normal 0-5/hpf [facility] Comment on above: Performed By: #### 2 43288 #### [facility],[address] [place] [address] Yeast NONE Normal [facility] Comment on above: Performed By: #### 2 71756 #### [facility],[address] [place] [address] CT Abd/Pelvis W/WO Contrasto n 09-18-2024 CT Abd/Pelvis W/WO Contrast [facility] [address] [place] [address] CT Abd/Pelvis W/WO Contrast MR#: [id number] Acct: [id number] Name: ARIANA SIBLEY Rep #: [id number] : 1945 M 79 From: Dick celeste MD PCP: [facility] Status: REG CLI Study: CT Abd/Pelvis W/WO Contrast Date of Exam: 04/06 Exam# [id number] Ordering Dr: KARLO WALL -[id number] STUDY: CT ABDOMEN AND PELVIS WITH AND WITHOUT CONTRAST REASON FOR EXAM: Male, 79 years old. HEMATURIA RADIATION DOSAGE (If Supplied By Facility): CTDIvol = ( 19.24 ) mGy, DLP = ( 3264.03 ) mGycm TECHNIQUE: Transaxial images were obtained from the dome of the diaphragm to the symphysis pubis without oral contrast. ISVOUE 300 100 ML was administered. Sagittal and coronal images were reconstructed. Individualized dose optimization techniques were used for this CT. COMPARISON: None. FINDINGS: The visualized lung bases are unremarkable. Coronary artery calcification. Hepatic cysts seen in both lobes of the liver. The largest in the left lobe measures 2.4 cm x 2.4 cm. The largest in the right lobe measures 1.5 cm. Normal gallbladder and extrahepatic biliary system. Normal spleen. Normal pancreas. Normal bilateral adrenal glands. 1.3 cm cyst in the lower pole of the left kidney. There is a 1.4 cm cyst in the anterior medial superior pole of the left kidney. Normal visualized stomach. Normal small intestine. There are multiple colonic diverticula consistent with diverticulosis. The appendix is visualized and appears normal. There is scattered atherosclerotic calcification of the abdominal aorta, without a demonstrated aneurysm. Normal inferior vena cava. Normal retroperitoneum. Normal urinary bladder. Normal abdominal wall. Normal osseous structures. CT/CT Abd/Pelvis W/WO Contrast IMPRESSION: Hepatic cysts. Small bilateral renal cysts. Electronically Signed: Dick Yepez MD at 14:36 EST , CC: KARLO WALL; [facility] Heat Treat Puller: Signed Normal [facility] Cardiology Visit Reporton Cardiology Visit Report [facility] [address] [place], [place] [address] OFFICE VISIT Date of Service: 07/10/24 MR#: [id number] Acct: [id number] Name: ARIANA SIBLEY Rep #: [id number] : 1945 Provider: Dr. Thelma owen MD Age/Sex: 78/M Location: [facility] [place] Status: Signed HPI HPI History of Present Illness Details: This is an 78-year-old gentleman that presents here today for follow-up. Patient was hospitalized in November 2023 with lightheadedness. He had a stress test prior to his hospital stay on November 23, 2023 which demonstrated slight defect that was partially reversible suggestive of mild ischemia. Cardiology was consulted. He was noted to have mild bradycardia. Echocardiogram demonstrated an ejection fraction of 60% with no regional wall motion abnormalities, stage I diastolic dysfunction. Cardiology did not feel that patient needed to undergo a heart catheterization at time of admission and that this could be reevaluated on an outpatient basis. Patient did undergo a CT of his head and neck for his lightheadedness and dizziness. There is no significant arthrosclerotic changes in the brain, CT demonstrated arthrosclerotic disease in the neck more pronounced on the left with small focal segmental dissection versus ulcerated plaque in the proximal left internal carotid. Patient was to follow-up with vascular on an outpatient basis. He was discharged on an antiplatelet and high-dose statins. The CT also noticed a small left meningioma. The patient has a history of having this diagnosed at [facility] several years ago. The patient noticed that his lightheadedness has gotten much better off of his prostate medicines. He was trialed on a cuff or different prostate medications both of which made his dizziness much more prominent. He denies any syncope or near syncope and denies any falls. He reports he is getting around fairly well in his home environment his dizziness and lightheadedness is not quality of life limiting and resolved spontaneously very quickly. The patient was documented to be normotensive with normal sinus rhythm in the 60 bpm range with dizzy spells when he was hospitalized in November. There was some question of a focal left carotid dissection on CTA when he is hospitalized he was due to follow-up with vascular surgery. His echocardiogram done 12/08/2023 showed a left-ventricular ejection fraction of 60% with normal valves and no structural abnormalities. 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: No Accompanied by: Self Is patient in pain?: No Allergies No Known Allergies Allergy (Verified 07/10/24 13:22) Medications ???Medication ???Instructions ???Recorded ???Confirmed ???Type aspirin 81 mg chewable tablet 81 mg PO DAILY heart health 12/07/23 07/10/24 History glucosamine-chondro itin 250 mg-200 2 tab PO DAILY supplement 12/07/23 07/10/24 History mg tablet (Osteo Bi-Flex) pantoprazole 40 mg tablet,delayed 40 mg PO DAILY reflux 12/07/23 07/10/24 History release rosuvastatin 20 mg tablet 20 mg PO DAILY cholesterol 12/07/23 07/10/24 History Ejection fraction %: 60 Have you fallen in the past year?: No PFSH Medical History Abnormal cardiovascular stress test Non-smoker CPAP (continuous positive airway pressure) dependence Sleep apnea Migraines GERD (gastroesophageal reflux disease) BPH (benign prostatic hyperplasia) Hyperlipemia Benign tumor Surgical History H/O hernia repair History of mandibular surgery Family History Father Cancer Mother Heart disease Brother Cancer Social History household members: spouse housing: house Smoking Status: Never smoker ROS Const Const: Negative for fatigue or weakness ENT ENT: Positive for dizziness (a little bit per patient); Negative for balance problems Cardio Chest Pain: No Palpitations: No Edema: None Muscle aches with walking: None Resp Respiratory: Negative for SOB with activity, SOB at rest or SOB orthopnea SOB lying down GI GI: Negative nausea, vomiting or heartburn Musc Musc: Negative for muscle weakness or balance problems Neuro Neuro: Positive for dizziness (a little bit per patient); Negative for lightheadedness, (more content not included)... Normal [facility] Absolute lymphocyte countOrd ered By: Hallie Whiting on 12-09-2023 Lymphocytes Auto (Unsp spec) [#/Vol] 2.32 10*3/uL 0.83-4.[address] [facility] Automated lymphocyte count a s percentage of total leukocytesOrdered By: Hallie Benavidezlashae on 12-09-2023 Lymphocytes/100 WBC Auto (Unsp spec) 37.4 % 19-[address] [facility] Basophil percentageOrdered B y: Hallie Whiting on 12-09-2023 Basophils/100 WBC (Bld) 1.0 % 0-1 [facility] Chloride [Moles/Vol] 108 mmol/L 98-107 [facility] Eosinophils/100 WBC (Bld) 5.6 % 0-[address] [facility] Glucose [Mass/Vol] 94 mg/dL 74-106 [facility] Hemoglobin (Bld) [Mass/Vol] 14.6 g/dL 13.0-16.[address] [facility] Monocytes/100 WBC (Bld) 10.3 % 0-10 [facility] Neutrophils (Bld) [#/Vol] 2.8 10*3/uL 2.0-7.[address] [facility] Neutrophils/100 WBC (Bld) 45.5 % 47-[address] [facility] Potassium [Moles/Vol] 4.1 mmol/L 3.5-5.1 [facility] Sodium [Moles/Vol] 141 mmol/L 136-145 [facility] WBC (Bld) [#/Vol] 6.2 10*3/uL 4.4-11.0 [facility] Determination of erythrocyte mean corpuscular volume (MCV)Ordered By: Hallie Whiting on 12-09-2023 MCV (RBC) [Entitic vol] 92.1 fL 80-94 [facility] Erythrocyte distribution wid th ratioOrdered By: Hallie Whiting on 12-09-2023 Erythrocyte distribution width (RBC) [Ratio] 13.7 % 11.6-14.[address] [facility] Erythrocyte distribution wid th standard deviationOrdered By: Hallie Whiting on 12-09-2023 Erythrocyte distribution width (RBC) [Entitic vol] 46.6 fL 35.1-43.9 [facility] Hematocrit Auto (Bld) [Volum e fraction]Ordered By: Hallie Whiting on 12-09-2023 Hematocrit (Bld) [Volume fraction] 46.6 % 40-[address] [facility] Immature granulocytes/100 WB C Auto (Bld)Ordered By: Hallie Whiting on 12-09-2023 Immature granulocytes/100 WBC (Bld) 0.200 % 0.0-0.[address] [facility] Comment on above: IG% - Immature Granu locytes (promyelocytes, myelocytes and metamyelocytes) > 1% indicates that a LEFT SHIFT is Present. Laboratory - Chemistry and C hemistry - challengeOrdered By: Hallie Whiting on 12-09-2023 CO2 [Moles/Vol] 31.0 mmol/L 21.0-32.[address] [facility] Urea nitrogen/Creatinine [Mass ratio] 18.2 mg/mg 10-[address] [facility] Laboratory - Hematology and Cell countsOrdered By: Hallie Whiting on 12-09-2023 MCH (RBC) [Entitic mass] 28.9 pg 27.0-32.[address] [facility] MCHC (RBC) [Mass/Vol] 31.3 g/dL 32-36 [facility] Nucleated RBC/100 WBC (Bld) [Ratio] 0 % 0-[address] [facility] Platelets (Bld) [#/Vol] 201 10*3/uL 150-[address] [facility] No Panel InformationOrdered By: Hallie Whiting on 12-09-2023 Estimated Creatinine Clearance Calc 65.76 ml/min [facility] Estimated GFR (MDRD) Amer 83 mL/min >[address] [facility] Comment on above: GFR Calc Estimated GFR (MDRD) Non-Af Amer 68 mL/min >[address] [facility] Comment on above: Non- GFR Calc Platelet mean volume Chadd-Ec ker (Bld) [Entitic vol]Ordered By: Hallie Whiting on 12-09-2023 Platelet mean volume (Bld) [Entitic vol] 11.1 fL 6.2-12.[address] [facility] RBC Auto (Bld) [#/Vol]Ordere d By: Hallie Whiting on 12-09-2023 RBC (Bld) [#/Vol] 5.06 10*6/uL 4.6-6.2 [facility] Serum or plasma calcium gonsalo urement (mass/volume)Ordered By: Hallie Whiting on 12-09-2023 Calcium [Mass/Vol] 9.2 mg/dL 8.5-10.1 [facility] Serum or plasma creatinine m easurement (mass/volume)Ordered By: Hallie Whiting on 12-09-2023 Creatinine [Mass/Vol] 1.10 mg/dL 0.70-1.30 [facility] Comment on above: The validity of the calculated GFR & GFRAA in patients over 70 years has not been determined. Clinical correlation is essential. Serum or plasma urea nitroge n measurement (mass/volume)Ordered By: Hallie Whiting on 12-09-2023 Urea nitrogen [Mass/Vol] 20 mg/dL 7-[address] [facility] Thin prep Papanicolaou smear with manual screeningOrdered By: Hallie Whiting on 12-09-2023 Thin prep Papanicolaou smear with manual screening 2 5-[address] [facility] Absolute lymphocyte countOrd ered By: [place] Canas on 12-07-2023 Lymphocytes Auto (Unsp spec) [#/Vol] 1.88 10*3/uL 0.83-4.[address] [facility] Activated partial thrombopla stin time (aPTT) in platelet poor plasma by coagulation aOrdered By: Cleveland Canas on 12-07-2023 aPTT Coag (PPP) [Time] 27.7 s 24.1-36.2 [facility] Automated lymphocyte count a s percentage of total leukocytesOrdered By: Cleveland Canas on 12-07-2023 Lymphocytes/100 WBC Auto (Unsp spec) 31.1 % 19-[address] [facility] Basophil percentageOrdered B y: [place] Canas on 12-07-2023 Basophils/100 WBC (Bld) 1.2 % 0-1 [facility] Chloride [Moles/Vol] 109 mmol/L 98-107 [facility] Eosinophils/100 WBC (Bld) 4.5 % 0-[address] [facility] Glucose [Mass/Vol] 100 mg/dL 74-106 [facility] Comment on above: Fasting Glucose resu lt from 100 to 125 mg/dL suggests IMPAIRED HOMEOSTASIS per A.D.A. criteria. Hemoglobin (Bld) [Mass/Vol] 13.9 g/dL 13.0-16.[address] [facility] Monocytes/100 WBC (Bld) 10.6 % 0-10 [facility] Neutrophils (Bld) [#/Vol] 3.2 10*3/uL 2.0-7.[address] [facility] Neutrophils/100 WBC (Bld) 52.4 % 47-[address] [facility] Potassium [Moles/Vol] 4.1 mmol/L 3.5-5.1 [facility] Sodium [Moles/Vol] 141 mmol/L 136-145 [facility] WBC (Bld) [#/Vol] 6.1 10*3/uL 4.4-11.0 [facility] Determination of erythrocyte mean corpuscular volume (MCV)Ordered By: Cleveland Canas on 12-07-2023 MCV (RBC) [Entitic vol] 92.1 fL 80-94 [facility] Erythrocyte distribution wid th ratioOrdered By: Cleveland Canas on 12-07-2023 Erythrocyte distribution width (RBC) [Ratio] 13.6 % 11.6-14.[address] [facility] Erythrocyte distribution wid th standard deviationOrdered By: Cleveland Canas on 12-07-2023 Erythrocyte distribution width (RBC) [Entitic vol] 46.3 fL 35.1-43.9 [facility] Hematocrit Auto (Bld) [Volum e fraction]Ordered By: Cleveland Canas on 12-07-2023 Hematocrit (Bld) [Volume fraction] 43.4 % 40-[address] [facility] Immature granulocytes/100 WB C Auto (Bld)Ordered By: Cleveland Canas on 12-07-2023 Immature granulocytes/100 WBC (Bld) 0.200 % 0.0-0.[address] [facility] Comment on above: IG% - Immature Granu locytes (promyelocytes, myelocytes and metamyelocytes) > 1% indicates that a LEFT SHIFT is Present. International normalized rat io (INR) calculationOrdered By: Cleveland Canas on 12-07-2023 INR Coag (PPP) [Relative time] 1.1 {INR} [facility] Laboratory - Chemistry and C hemistry - challengeOrdered By: Cleveland Canas on 12-07-2023 CO2 [Moles/Vol] 28.0 mmol/L 21.0-32.[address] [facility] Urea nitrogen/Creatinine [Mass ratio] 19.4 mg/mg 10-[address] [facility] Laboratory - CoagulationOrde red By: Cleveland Canas on 12-07-2023 PT Coag (PPP) [Time] 14.5 s 11.7-14.9 [facility] Laboratory - Hematology and Cell countsOrdered By: Cleveland Canas on 12-07-2023 MCH (RBC) [Entitic mass] 29.5 pg 27.0-32.[address] [facility] MCHC (RBC) [Mass/Vol] 32.0 g/dL 32-36 [facility] Nucleated RBC/100 WBC (Bld) [Ratio] 0 % 0-[address] [facility] Platelets (Bld) [#/Vol] 182 10*3/uL 150-[address] [facility] No Panel InformationOrdered By: Christiana Donaldson on 12-07-2023 Troponin I High Sensitivity 12 pg/mL 3.0-78.[address] [facility] Comment on above: Please Note: New Loni t Units and Gender Specific Reference Ranges. For more information see Policy Stat Procedure [place] High Sensitivity Troponin (TNIH) and attachments. No Panel InformationOrdered By: Cleveland Canas on 12-07-2023 Estimated Creatinine Clearance Calc 66.98 ml/min [facility] Estimated GFR (MDRD) Amer 85 mL/min >[address] [facility] Comment on above: GFR Calc Estimated GFR (MDRD) Non-Af Amer 70 mL/min >[address] [facility] Comment on above: Non- GFR Calc Platelet mean volume Chadd-Ec ker (Bld) [Entitic vol]Ordered By: Cleveland Canas on 12-07-2023 Platelet mean volume (Bld) [Entitic vol] 11.1 fL 6.2-12.[address] [facility] RBC Auto (Bld) [#/Vol]Ordere d By: Cleveland Canas on 12-07-2023 RBC (Bld) [#/Vol] 4.71 10*6/uL 4.6-6.2 [facility] Serum or plasma calcium gonsalo urement (mass/volume)Ordered By: Cleveland Canas on 12-07-2023 Calcium [Mass/Vol] 9.4 mg/dL 8.5-10.1 [facility] Serum or plasma cardiac trop onin I panel by high sensitivity methodOrdered By: Cleveland Canas on 12-07-2023 Tropinin I.cardiac panel High sensitivity method 12 pg/mL 3.0-78.[address] [facility] Comment on above: Please Note: New Loni t Units and Gender Specific Reference Ranges. For more information see Policy Stat Procedure [place] High Sensitivity Troponin (TNIH) and attachments. Serum or plasma creatinine m easurement (mass/volume)Ordered By: Cleveland Canas on 12-07-2023 Creatinine [Mass/Vol] 1.08 mg/dL 0.70-1.30 [facility] Comment on above: The validity of the calculated GFR & GFRAA in patients over 70 years has not been determined. Clinical correlation is essential. Serum or plasma urea nitroge n measurement (mass/volume)Ordered By: Cleveland Canas on 12-07-2023 Urea nitrogen [Mass/Vol] 21 mg/dL 7-[address] [facility] Thin prep Papanicolaou smear with manual screeningOrdered By: Cleveland Canas on 12-07-2023 Thin prep Papanicolaou smear with manual screening 4 5-[address] [facility] Whole blood hemoglobin A1c/t otal hemoglobin ratio (mass fraction)Ordered By: Thelma Morales on 12-07-2023 HbA1c (Bld) [Mass fraction] 5.9 % 3.8-5.[address] [facility] Comment on above: Normal < 5.7 % Predi abetic 5.7 - 6.4 % Diabetic >or= 6.5 % Please note range changes. Coronavirus 2019on 0 COVID 19 Source [employer] Normal [facility] Comment on above: Result Comment: Naso pharyngeal Swab Called to and read back by: Reza Beavers Corrected on 09/19 AT 0153: Previously reported as [facility] 09/19/20 0147 Tam Lund Corrected on 09/19 AT 0153: Previously reported as NASAL SWAB COVID 19 Result [employer] Abnormal Negative for COVID19 (SARS CoV2) by PCR. [facility] Comment on above: Result Comment: Posi tive for This test was developed and its performance characteristics determined by [facility] [place]. This test has been authorized by FDA under an Emergency Use Authorization (EUA). This test has been validated in accordance with the FDA's Guidance Document Policy for Diagnostics Testing in Laboratories Certified to Perform High Complexity Testing under CLIA prior to Emergency use Authorization for Coronavirus Disease 2019 during the Public Health Emergency issued on January 12, 2020. COVID19 (SARS This test was developed and its performance characteristics determined by [facility] [place]. This test has been authorized by FDA under an Emergency Use Authorization (EUA). This test has been validated in accordance with the FDA's Guidance Document Policy for Diagnostics Testing in Laboratories Certified to Perform High Complexity Testing under CLIA prior to Emergency use Authorization for Coronavirus Disease 2019 during the Public Health Emergency issued on January 12, 2020. CoV2) by This test was developed and its performance characteristics determined by [facility] [place]. This test has been authorized by FDA under an Emergency Use Authorization (EUA). This test has been validated in accordance with the FDA's Guidance Document Policy for Diagnostics Testing in Laboratories Certified to Perform High Complexity Testing under CLIA prior to Emergency use Authorization for Coronavirus Disease 2019 during the Public Health Emergency issued on January 12, 2020. PCR.(*) This test was developed and its performance characteristics determined by [facility] [place]. This test has been authorized by FDA under an Emergency Use Authorization (EUA). This test has been validated in accordance with the FDA's Guidance Document Policy for Diagnostics Testing in Laboratories Certified to Perform High Complexity Testing under CLIA prior to Emergency use Authorization for Coronavirus Disease 2019 during the Public Health Emergency issued on January 12, 2020. CT ANGIO HEAD W/WO CONTRASTo n 05-24-2019 CT ANGIO HEAD W/WO CONTRAST [id number] [place], [place] [address] Name: ARIANA SIBLEY Phys: ADA VALERIO M.D. : [birth year] Age: 73 Sex: M Acct: [id number] Loc: [facility] CT Exam Date: 05/24/19 Status: REG CLI Radiology No.: [id number] Unit Number: [id number] Exam # Type/Exam [id number] CT / CT ANGIO HEAD W/WO CONTRAST CT ANGIO HEAD W/WO CONTRAST CLINICAL STATEMENT: Migraine headaches. Intermittent vision loss in the left eye. ANEURYSM TECHNIQUE:Nonionic intravenous contrast material was administered and images were obtained through the head per standard CTA protocol. Multiplanar reformatted and three dimensional volume rendered images were generated on an independent workstation. This exam was performed according to our departmental dose optimization program, and includes the following measures where applicable: automated exposure control, adjustment of the mAs and/or kVp according to patient size and/or exam, and an iterative reconstruction algorithm. COMPARISON: None. FINDINGS: The petrous, cavernous, and supraclinoid segments of the internal carotid arteries are normal. The ophthalmic artery origins are visualized and normal. The anterior and middle cerebral arteries are normal bilaterally. The anterior communicating artery is patent. The posterior communicating arteries are patent. Both posterior cerebral arteries are normal. The vertebral arteries are patent, the right vertebral artery is dominant. The basilar artery and origins of the posterior inferior cerebellar arteries, anterior inferior cerebellar arteries, and superior cerebellar arteries are normal. No saccular aneurysm, proximal arterial cutoff, intra-arterial clot, or hemodynamically significant intracranial arterial stenosis is demonstrated. While the study was optimized for arterial evaluation, the dural venous sinuses demonstrates no evidence of thrombosis. Matter white matter differentiation is normal. There is a dural-based, extra-axial, oval-shaped, 14 mm lesion along the midline falx on the left anteriorly. No intra or extra-axial fluid collection. IMPRESSION: Unremarkable CTA of the head. No visible aneurysms. Left anterior falx lesion consistent with a meningioma. Electronically signed by: Thelma Deal MD 05/24/2019 3:09 PM CDT < > Reported By: THELMA DEAL M.D. Signed In PowerScribe By: THELMA DEAL M.D. << Signature on File>> Reported By: THELMA DEAL M.D. Signed By: THELMA DEAL M.D. Tests performed at: [address] [address] Normal [facility] CT ANGIO NECK W/WO CONTRASTo n 05-24-2019 CT ANGIO NECK W/WO CONTRAST [address] [address] Name: ARIANA SIBLEY Phys: ADA VALERIO M.D. : [birth year] Age: 73 Sex: M Acct: [id number] Loc: [facility] CT Exam Date: 05/24/19 Status: REG CLI Radiology No.: [id number] Unit Number: [id number] Exam # Type/Exam [id number] CT / CT ANGIO NECK W/WO CONTRAST CT ANGIO NECK W/WO CONTRAST CLINICAL STATEMENT: Migraine headaches. ANERYSM intermittent left vision loss. TECHNIQUE: Nonionic intravenous contrast material was administered and axial images were obtained through the neck per standard CTA protocol. Multiplanar reformatted and shaded-surface display and three dimensional volume rendered images were generated. Where applicable, evaluation of ICA stenosis was performed using the site of greatest stenosis is compared to the diameter of the ICA distal to the stenosis at a point where the ICA shah become parallel. This exam was performed according to our departmental dose optimization program, and includes the following measures where applicable: automated exposure control, adjustment of the mAs and/or kVp according to patient size and/or exam, and an iterative reconstruction algorithm. COMPARISON: None. FINDINGS: The imaged aortic arch is normal. The origins of the innominate, bilateral common carotid, bilateral subclavian, and bilateral vertebral arteries demonstrate no significant stenosis. There is no significant ICA stenosis. The bilateral external carotid arteries are patent. There is a highly vascular lesion in the notch between the left internal and external carotid arteries measuring 9.5 x 7 x 11 mm in transverse by AP by craniocaudal dimensions. The cervical vertebral arteries are patent, the left vertebral artery is hypoplastic. There is no evidence of arterial dissection, occlusion, extravasation of contrast material, arteriovenous fistula, or pseudoaneurysm. There is a 13 x 10 mm right thyroid low-density nodule. IMPRESSION: Highly vascular lesion in the notch between the left ICA and ECA, differential diagnosis includes an aneurysm or pseudoaneurysm, vascular mass such as a carotid body or other tumor. MRI could further evaluate. No hemodynamically significant stenosis. Right thyroid incidental small nodule, no further imaging is recommended for this lesion. Electronically signed by: Thelma Deal MD 05/24/2019 3:28 PM CDT < > Reported By: THELMA DEAL M.D. Signed In PowerScribe By: THELMA DEAL M.D. << Signature on File>> Reported By: THELMA DEAL M.D. Signed By: THELMA DEAL M.D. Tests performed at: [place] [address] Normal [facility] Laboratory - Chemistry and C hemistry - challengeon 09-05-2017 Anion gap [Moles/Vol] 9 mmol/L Abnormal 10 - 2 0 mmol/L [facility], Inc.; [employer] Basic metabolic 2000 panel BMP with eGFR Normal [place] [employer], [facility].; [employer] Calcium [Mass/Vol] 9.3 mg/dL Normal 8.6 - 10. 2 mg/dL [employer], [facility].; [employer] Chloride [Moles/Vol] 104 mmol/L Normal 98 - 10 7 mmol/L [facility], [facility].; [employer] Cholesterol [Mass/Vol] 154 mg/dL Normal 0 - 200 mg/dL [employer], [employer], [employer]. Cholesterol in HDL [Mass or moles/Vol] 45 mg/dL Normal 40 - 60 mg/dL [facility], [facility].; [facility], [facility]. Cholesterol in LDL [Mass/Vol] 93 mg/dL Normal 0 - 129 mg/dL [facility], [facility].; [facility], [facility]. Cholesterol.total/Cholest joni in HDL [Mass ratio] 3.4 {ratio} Normal 0.0 - 5.0 [facility], [facility].; [facility], [facility]. CO2 [Moles/Vol] 31.9 mmol/L Abnormal 21.0 - 31.0 mmol/L [facility], [facility].; [facility], [facility]. Creatinine [Mass/Vol] 0.9 mg/dL Normal 0.7 - 1.3 mg/dL [facility], [facility].; [facility], [facility]. GFR/1.73 sq M.predicted among blacks MDRD (S/P/Bld) [Vol rate/Area] mL/min/{1.73_m2} Normal 60 - 999 {ML/MINUTE} [facility], [facility].; [facility], [facility]. GFR/1.73 sq M.predicted MDRD (S/P/Bld) [Vol rate/Area] mL/min/{1.73_m2} Normal 60 - 999 {ML/MINUTE} [facility], [facility].; [place] [employer] [facility], [facility] Glucose [Mass/Vol] 92 mg/dL Normal 74 - 106 mg/dL [facility], [facility].; [place] [employer], [facility]. Lipid 1996 panel LIPID PROFILE Normal [facility], [facility].; [facility] Potassium [Moles/Vol] 4.4 mmol/L Normal 3.5 - 5.1 mmol/L [facility], [facility].; [place] [employer] [facility], [facility]. Prostate specific Ag [Mass/Vol] 0.40 ng/mL Normal 0.00 - 4.00 ng/mL [facility], [facility].; [place] [employer] [facility], [facility]. Sodium [Moles/Vol] 140 mmol/L Normal 136 - 145 mmol/L [facility], [facility].; [place] [employer] Triglyceride [Mass/Vol] 78 mg/dL Normal 0 - 150 mg/d L [facility], [facility].; [place] [facility], [facility]. TSH Qn 5.72 m[IU]/L Abnormal 0.34 - 5.60 {uIU/ml} [facility]; [place] [employer] [facility] Urea nitrogen [Mass/Vol] 18 mg/dL Normal 6 - 20 mg/d L [facility].; [place] [employer] [facility] No Panel Informationon 09-05 AGE 72 {years} Normal [facility]; [place] [employer] [facility] Laboratory - Chemistry and C hemistry - challengeon 05-21-2015 Albumin [Mass/Vol] 4.2 g/dL Normal 3.4 - 4.8 g/dL [facility]; [place] [employer] [facility] ALP [Catalytic activity/Vol] 114 U/L Normal 38 - 126 U/L [facility]; [place] [employer], [employer] ALT No additional P-5'-P [Catalytic activity/Vol] 50 U/L Abnormal 10 - 40 U/L [facility].; [place] [employer] AST [Catalytic activity/Vol] 39 U/L Normal 13 - 39 U/L [facility]; [place] [employer] Bilirubin [Mass/Vol] 0.9 mg/dL Normal 0.0 - 1 .5 mg/dL [facility].; [place] [employer] [facility], [facility] Bilirubin.conjugated [Mass/Vol] 0.1 mg/dL Normal 0.0 - 0.1 mg/dL [facility].; [place] [employer] [facility] Hepatic function 2000 panel HEPATIC FUNCTION PANEL Normal [facility]; [place] [employer] [facility] Protein [Mass/Vol] 7.2 g/dL Normal 6.4 - 8.3 g/dL [facility].; [employer] Laboratory - Hematology and Cell countson 05-21-2015 Basophils (Bld) [#/Vol] 0.10 {3/UL} Normal 0.00 - 0.10 {3/UL} [facility].; [place] [employer], [employer] Basophils/100 WBC (Bld) 0.8 % Normal 0.0 - 2.0 % [facility].; [employer]. CBC W Auto Differential panel (Bld) CBC Normal [facility].; [facility], [facility]. Eosinophils (Bld) [#/Vol] 0.20 {3/UL} Normal 0. 00 - 0.50 {3/UL} [facility].; [place] [employer], [facility]. Eosinophils/100 WBC (Bld) 2.5 % Normal 0.0 - 7.0 % [facility].; [place] [employer], [facility]. Erythrocyte distribution width (RBC) [Ratio] 13.8 % Normal 12.0 - 15.6 % [facility].; [place] [employer], [facility]. Hematocrit (Bld) [Volume fraction] 45.4 % Normal 40.0 - 52.0 % [facility].; [facility], [facility]. Hemoglobin (Bld) [Mass/Vol] 14.7 g/dL Normal 13.0 - 17.5 g/dL [facility].; [place] [employer], [facility]. Lymphocytes (Bld) [#/Vol] 2.20 {3/UL} Normal 0. 80 - 2.80 {3/UL} [facility] [employer] [facility].; [place] [employer], [facility]. Lymphocytes/100 WBC (Bld) 25.7 % Normal 20.0 - 45. 0 % [facility].; [place] [employer], [facility]. MCH (RBC) [Entitic mass] 29 pg Normal 27 - 33 pg [place] [employer] [facility].; [place] [employer], [facility]. MCHC (RBC) [Mass/Vol] 32 {X10_3} Normal 32 - 3 6 {X10_3} [facility] [employer] [facility].; [employer] MCV (RBC) [Entitic vol] 90 fL Normal 81 - 98 fL [facility].; [place] [employer], [facility]. Monocytes (Bld) [#/Vol] 0.50 {3/UL} Normal 0.20 - 1.00 {3/UL} [place] [employer], [facility].; [place] [employer] Monocytes/100 WBC (Bld) 5.6 % Normal 0.0 - 10.0 % [facility] [employer] [facility].; [place] [employer] Morphology Lm (Bld) [Interp] N/A Normal [facility].; [facility] [employer], [employer]. Neutrophils (Bld) [#/Vol] 5.50 {3/UL} Normal 1. 50 - 7.10 {3/UL} [facility], [facility].; [place] [employer], [employer]. Neutrophils/100 WBC (Bld) 65.4 % Normal 46.0 - 76. 0 % [facility].; [place] [employer] Platelet mean volume (Bld) [Entitic vol] 9.2 fL Normal 6.4 - 10.[address] [facility] [address] [facility].; [place] [employer], [employer]. Platelets (Bld) [#/Vol] 300 {3/UL} Normal 150 - 450 {3/UL} [facility].; [place] [employer], [employer]. RBC (Bld) [#/Vol] 5.03 {6/UL} Normal 4.50 - 6.0 0 {6/UL} [facility], [facility].; [place] [employer], [employer]. WBC (Bld) [#/Vol] 8.4 {3/UL} Normal 4.5 - 10.8 {3/UL} [facility], [facility].; [place] [employer], [employer]. No Panel Informationon 05-21 MANUAL DIFF N/A Normal [facility].; [employer], [employer] Laboratory - Chemistry and C hemistry - challengeon 10-18-2014 Basic metabolic 2000 panel BMP with eGFR Normal [facility].; [place] [employer], [facility]. Calcium [Mass/Vol] 9.4 mg/dL Normal 8.6 - 10. 2 mg/dL [facility], [facility].; [employer] Chloride [Moles/Vol] 104 mmol/L Normal 98 - 10 7 mmol/L [facility], [facility].; [place] [employer], [employer]. CO2 [Moles/Vol] 31.0 mmol/L Abnormal 13.0 - 29.0 mmol/L [facility], [facility].; [place] [employer], [employer]. Creatinine [Mass/Vol] 1.0 mg/dL Normal 0.7 - 1.3 mg/dL [facility].; [place] [employer], [employer]. Free T4 [Mass/Vol] 0.77 ng/dL Normal 0.61 - 1. 12 ng/dL [facility].; [place] [employer] [facility]. GFR/1.73 sq M.predicted among blacks MDRD (S/P/Bld) [Vol rate/Area] mL/min/{1.73_m2} Normal 60 - 999 {ML/MINUTE} [facility].; [facility], [facility]. GFR/1.73 sq M.predicted MDRD (S/P/Bld) [Vol rate/Area] mL/min/{1.73_m2} Normal 60 - 999 {ML/MINUTE} [facility].; [place] [employer] [facility]. Glucose [Mass/Vol] 87 mg/dL Normal 74 - 106 mg/dL [facility].; [employer], [employer]. Potassium [Moles/Vol] 4.3 mmol/L Normal 3.5 - 5.1 mmol/L [facility].; [place] [employer], [employer]. Sodium [Moles/Vol] 139 mmol/L Normal 136 - 145 mmol/L [facility].; [employer], [employer]. TSH Qn 3.94 m[IU]/L Normal 0.34 - 5.60 {uIU/ml} [facility].; [employer], [employer]. Urea nitrogen [Mass/Vol] 18 mg/dL Normal 6 - 20 mg/d L [facility].; [employer]. No Panel Informationon 10-18 AGE 69 {years} Normal [place] [employer].; [employer]. Laboratory - Chemistry and C hemistry - challengeon 02-25-2014 Bilirubin Ql (U) Negative Normal [facility].; [employer] Hemoglobin.gastrointestin al Ql (Stl) Negative Normal [employer].; [employer], [employer]. Ketones Ql (U) Negative Normal [facility], [employer].; [employer], [employer]. pH (U) 5.5 [pH] Normal [place] [employer].; [employer], [employer]. Prostate specific Ag [Mass/Vol] 0.3 ng/mL Normal 0.0 - 4.0 ng/mL [employer].; [employer]. Specific gravity (U) [Rel density] 1.010 Normal [employer].; [employer]. Urobilinogen Qn (U) 0.2 mg/dL [facility] [employer].; [employer]. Laboratory - Hematology and Cell countson 02-25-2014 Hemoglobin Ql (U) Negative Normal [employer].; [employer]. Laboratory - Specimen inform ationon 02-25-2014 Appearance (U) clear Normal [employer].; [employer]. Color (U) yellow Normal [employer]; [employer]. Laboratory - Urinalysison Glucose Test strip (U) [Mass/Vol] Negative Normal [employer].; [employer]. Leukocyte esterase Test strip Ql (U) Negative Normal [employer].; [employer]. Nitrite Ql (U) Negative Normal [employer] [facility].; [employer]. Protein Ql (U) Negative Normal [employer] [facility] [employer].; [employer]. Vital Signs Date Time Vital Sign Value Performing Clinician Facility 04-05-2025 08:01-0400 Body temperature 98 [degF] [facility] 04-05-2025 08:01-0400 Diastolic blood pressure 61 mm[Hg] [facility] 04-05-2025 08:01-0400 Heart rate 50 /min [facility] 04-05-2025 08:01-0400 Respiratory rate 18 /min [facility] 04-05-2025 08:01-0400 SaO2% (BldA) [Mass fraction] 85 % [facility] 04-05-2025 08:01-0400 Systolic blood pressure 113 mm[Hg] [facility] 04-03-2025 14:35-0400 Body height 193.04 cm [facility] 04-03-2025 14:35-0400 Body mass index (BMI) [Ratio] 23.6 kg/m2 [facility] 04-03-2025 14:35-0400 Body weight 88 kg [facility] 03-29-2025 14:40-0400 Body temperature 97.8 [degF] [facility] 03-29-2025 14:40-0400 Diastolic blood pressure 78 mm[Hg] [facility] 03-29-2025 14:40-0400 Heart rate 60 /min [facility] 03-29-2025 14:40-0400 Respiratory rate 18 /min [facility] 03-29-2025 14:40-0400 SaO2% (BldA) [Mass fraction] 99 % [facility] 03-29-2025 14:40-0400 Systolic blood pressure 115 mm[Hg] [facility] 03-29-2025 13:22-0400 Body height 193.04 cm [facility] 03-29-2025 13:22-0400 Body mass index (BMI) [Ratio] 23.7 kg/m2 [facility] 03-29-2025 13:22-0400 Body weight 88.45 kg [facility] 03-28-2025 13:12-0400 Body height 193.04 cm [facility] 03-28-2025 13:12-0400 Body mass index (BMI) [Ratio] 23.6 kg/m2 [facility] 03-28-2025 13:12-0400 Body temperature 98.4 [degF] [facility] 03-28-2025 13:12-0400 Body weight 88.22 kg [facility] 03-28-2025 13:12-0400 Diastolic blood pressure 72 mm[Hg] [facility] 03-28-2025 13:12-0400 Heart rate 63 /min [facility] 03-28-2025 13:12-0400 Respiratory rate 18 /min [facility] 03-28-2025 13:12-0400 SaO2% (BldA) [Mass fraction] 98 % [facility] 03-28-2025 13:12-0400 Systolic blood pressure 136 mm[Hg] [facility] 12-10-2023 10:00-0500 Body temperature 97.2 [degF] KARLO OJEDAKINS Work Phone: [facility] 12-10-2023 10:00-0500 Diastolic blood pressure 71 mm[Hg] KARLO OJEDAKINS Work Phone: [facility] 12-10-2023 10:00-0500 Heart rate 53 /min KARLO OJEDAKINS Work Phone: [facility] 12-10-2023 10:00-0500 Respiratory rate 16 /min KARLO OJEDAKINS Work Phone: [facility] 12-10-2023 10:00-0500 SaO2% (BldA) [Mass fraction] 96 % KARLO WALL Work Phone: [facility] 12-10-2023 10:00-0500 Systolic blood pressure 126 mm[Hg] KARLO OJEDAKINS Work Phone: [facility] 12-08-2023 10:43-0500 Body height 193.04 cm KARLO WALL Work Phone: [facility] 12-08-2023 10:43-0500 Body weight 87.4 kg KARLO WALL Work Phone: [facility] 12-07-2023 15:43-0500 Body mass index (BMI) [Ratio] 23.4 kg/m2 KARLO WALL Work Phone: [facility] 12-07-2023 15:31-0500 Diastolic blood pressure 76 mm[Hg] KARLO WALL Work Phone: [facility] 12-07-2023 15:31-0500 Heart rate 51 /min KARLO WALL Work Phone: [facility] 12-07-2023 15:31-0500 Respiratory rate 10 /min KARLO WALL Work Phone: [facility] 12-07-2023 15:31-0500 SaO2% (BldA) [Mass fraction] 97 % KARLO WALL Work Phone: [facility] 12-07-2023 15:31-0500 Systolic blood pressure 130 mm[Hg] KARLO WALL Work Phone: [facility] 12-07-2023 11:58-0500 Body height 193.04 cm KARLO WALL Work Phone: [facility] 12-07-2023 11:58-0500 Body mass index (BMI) [Ratio] 24.4 kg/m2 KARLO WALL Work Phone: [facility] 12-07-2023 11:58-0500 Body temperature 97.6 [degF] KARLO WALL Work Phone: [facility] 12-07-2023 11:58-0500 Body weight 90.91 kg KARLO WALL Work Phone: [facility] 06-30-2023 09:29-0400 Body height 193 cm Ada Valerio MD Work Phone: [facility] 06-30-2023 09:29-0400 Body weight 88 kg Ada Valerio MD Work Phone: [facility] 05-07-2021 16:07-0400 Body height 190.5 cm Hui Palumbo LPN Work Phone: [facility].; [facility]. 05-07-2021 16:07-0400 Body mass index (BMI) [Ratio] 24.12 kg/m2 Hui Palumbo LPN Work Phone: [employer] [facility].; [facility] 05-07-2021 16:07-0400 Body surface area Derived from formula 2.16 m2 Hui Palumbo LPN Work Phone: [employer].; [employer]. 05-07-2021 16:07-0400 Body weight 87.54 kg Hui Linwood [employer] Work Phone: [place] [employer]. 05-07-2021 16:07-0400 Diastolic blood pressure 73 mm[Hg] Hui Linwood [employer] Work Phone: [employer].; [employer]. Comment on above: Patient Position: Sitting; Cuff Location : Left Arm; Cuff Size: Standard 05-07-2021 16:07-0400 Heart rate 61 /min Hui Linwood [employer] Work Phone: [employer].; [employer]. Comment on above: Pattern: Regular 05-07-2021 16:07-0400 Systolic blood pressure 135 mm[Hg] Hui Linwood [employer] Work Phone: [place] [employer].; [employer]. Comment on above: Patient Position: Sitting; Cuff Location : Left Arm; Cuff Size: Standard 05-21-2020 15:32-0400 Body height 190.5 cm Hui Linwood [employer] Work Phone: [employer].; [employer]. 05-21-2020 15:32-0400 Body mass index (BMI) [Ratio] 23.75 kg/m2 Hui Linwood [employer] Work Phone: [employer].; [employer]. 05-21-2020 15:32-0400 Body surface area Derived from formula 2.15 m2 Hui Linwood [employer] Work Phone: [employer].; [employer]. 05-21-2020 15:32-0400 Body weight 86.18 kg Hui Linwood [employer] Work Phone: [employer].; [employer]. 05-21-2020 15:32-0400 Diastolic blood pressure 84 mm[Hg] Hui Linwood [employer] Work Phone: [employer].; [employer]. Comment on above: Patient Position: Sitting; Cuff Location : Left Arm; Cuff Size: Standard 05-21-2020 15:32-0400 Heart rate 60 /min Hui Palumbo [employer] Work Phone: [employer].; [employer]. Comment on above: Pattern: Regular 05-21-2020 15:32-0400 Systolic blood pressure 135 mm[Hg] Hui Aliceay [employer] Work Phone: [employer].; [employer]. Comment on above: Patient Position: Sitting; Cuff Location : Left Arm; Cuff Size: Standard 09-28-2017 13:49-0500 Body height 190.5 cm Hui Palumbo [employer] Work Phone: [employer].; [employer]. 09-28-2017 13:49-0500 Body mass index (BMI) [Ratio] 24 kg/m2 Hui Palumbo [employer] Work Phone: [employer]; [employer]. 09-28-2017 13:49-0500 Body surface area Derived from formula 2.16 m2 Hui Palumbo LPN Work Phone: [employer].; [employer]. 09-28-2017 13:49-0500 Body weight 87.09 kg Hui Palumbo LPN Work Phone: [employer].; [employer]. 09-28-2017 13:49-0500 Diastolic blood pressure 81 mm[Hg] Hui Aliceay [employer] Work Phone: [employer].; [employer]. Comment on above: Patient Position: Sitting; Cuff Location : Left Arm; Cuff Size: Standard 09-28-2017 13:49-0500 Heart rate 63 /min Hiu Aliceay [employer] Work Phone: [employer]; [employer]. Comment on above: Pattern: Regular 09-28-2017 13:49-0500 Systolic blood pressure 111 mm[Hg] Hui Linwood [employer] Work Phone: [employer].; [employer]. Comment on above: Patient Position: Sitting; Cuff Location : Left Arm; Cuff Size: Standard 10-20-2015 11:56-0500 Body height 190.5 cm Hui Linwodo [employer] Work Phone: [employer].; [employer]. 10-20-2015 11:56-0500 Body mass index (BMI) [Ratio] 23.37 kg/m2 Hui Linwood [employer] Work Phone: [employer].; [employer]. 10-20-2015 11:56-0500 Body surface area Derived from formula 2.13 m2 Hui Aliceay [employer] Work Phone: [employer].; [employer]. 10-20-2015 11:56-0500 Body weight 84.82 kg Hui Aliceay [employer] Work Phone: [employer].; [employer]. 10-20-2015 11:56-0500 Diastolic blood pressure 79 mm[Hg] Hui Linwood [employer] Work Phone: [employer].; [employer]. Comment on above: Patient Position: Sitting; Cuff Location : Left Arm; Cuff Size: Standard 10-20-2015 11:56-0500 Heart rate 80 /min Hui Linwood [employer] Work Phone: [employer].; [employer]. Comment on above: Pattern: Regular 10-20-2015 11:56-0500 Systolic blood pressure 118 mm[Hg] Hui Linwood [employer] Work Phone: [employer].; [employer]. Comment on above: Patient Position: Sitting; Cuff Location : Left Arm; Cuff Size: Standard 05-21-2015 11:37-0400 Body height 190.5 cm Hui Linwood [employer] Work Phone: [employer]; [employer]. 05-21-2015 11:37-0400 Body mass index (BMI) [Ratio] 23.37 kg/m2 Hui Linwood [employer] Work Phone: [employer].; [employer]. 05-21-2015 11:37-0400 Body surface area Derived from formula 2.13 m2 Huiricardo Aliceay [employer] Work Phone: [employer]; [employer]. 05-21-2015 11:37-0400 Body temperature 96.8 [degF] Hui Aliceay [employer] Work Phone: [employer]; [employer]. Comment on above: Method: Tympanic 05-21-2015 11:37-0400 Body weight 84.82 kg Huiricardo Aliceay [employer] Work Phone: [employer]; [employer]. 05-21-2015 11:37-0400 Diastolic blood pressure 76 mm[Hg] Huiricardo Aliceay [employer] Work Phone: [employer]; [employer]. Comment on above: Patient Position: Sitting; Cuff Location : Left Arm; Cuff Size: Standard 05-21-2015 11:37-0400 Heart rate 77 /min Hui Aliceay [employer] Work Phone: [employer]; [employer]. Comment on above: Pattern: Regular 05-21-2015 11:37-0400 Systolic blood pressure 124 mm[Hg] Hui Linwood [employer] Work Phone: [employer]; [employer]. Comment on above: Patient Position: Sitting; Cuff Location : Left Arm; Cuff Size: Standard 10-18-2014 14:37-0500 Body weight 86.18 kg Uhi Linwood [employer] Work Phone: [employer] [employer] 10-18-2014 14:37-0500 Diastolic blood pressure 80 mm[Hg] Hui Linwood [employer] Work Phone: [employer] [employer]. Comment on above: Patient Position: Sitting; Cuff Location : Left Arm; Cuff Size: Standard 10-18-2014 14:37-0500 Heart rate 64 /min Hui Aliceay [employer] Work Phone: [employer]. Comment on above: Pattern: Regular 10-18-2014 14:37-0500 Systolic blood pressure 128 mm[Hg] Hui Aliceay [employer] Work Phone: [employer]. Comment on above: Patient Position: Sitting; Cuff Location : Left Arm; Cuff Size: Standard 05-15-2014 11:20-0400 Body height 190.5 cm Hui Aliceay [employer] HAND[employer] Work Phone: [employer].; [employer] 05-15-2014 11:20-0400 Body mass index (BMI) [Ratio] 23.62 kg/m2 Hui Linwood [employer] Work Phone: [employer].; [employer] 05-15-2014 11:20-0400 Body surface area Derived from formula 2.14 m2 Hui Aliceay [employer] HAND[employer] Work Phone: [employer].; [employer] 05-15-2014 11:20-0400 Body weight 85.73 kg Hui Palumbo [employer] HAND[employer]ER Work Phone: [employer].; [employer] 05-15-2014 11:20-0400 Diastolic blood pressure 84 mm[Hg] Hui Aliceay [employer] HAND[employer]ER Work Phone: [employer] [employer] Comment on above: Patient Position: Sitting; Cuff Location : Left Arm; Cuff Size: Standard 05-15-2014 11:20-0400 Heart rate 62 /min Hui Aliceay [employer] Work Phone: [employer]. Comment on above: Pattern: Regular 05-15-2014 11:20-0400 Systolic blood pressure 137 mm[Hg] Hui Linwood COAL HAND[employer]ER Work Phone: [employer]. Comment on above: Patient Position: Sitting; Cuff Location : Left Arm; Cuff Size: Standard 02-25-2014 09:55-0400 Body height 190.5 cm Hui Palumbo [employer] HAND[employer] Work Phone: [employer]. 02-25-2014 09:55-0400 Body mass index (BMI) [Ratio] 24 kg/m2 Hui Aliceay COAL HAND[employer]ER Work Phone: [employer]. 02-25-2014 09:55-0400 Body surface area Derived from formula 2.16 m2 Hui Aliceay [employer]AL HAND[employer]ER Work Phone: [employer].; [employer]. 02-25-2014 09:55-0400 Body weight 87.09 kg Hui Aliceay [employer] HAND[employer]ER Work Phone: [employer].; [employer]. 02-25-2014 09:55-0400 Diastolic blood pressure 79 mm[Hg] Hui Aliceay COAL HAND[employer]ER Work Phone: [employer].; [employer]. Comment on above: Patient Position: Sitting; Cuff Location : Left Arm; Cuff Size: Standard 02-25-2014 09:55-0400 Heart rate 65 /min Hui Linwood [employer] HAND[employer] Work Phone: [employer] Comment on above: Pattern: Regular 02-25-2014 09:55-0400 Systolic blood pressure 129 mm[Hg] Hui Linwood [employer] HAND[employer] Work Phone: [employer] [employer]. Comment on above: Patient Position: Sitting; Cuff Location : Left Arm; Cuff Size: Standard 05-03-2013 14:02-0400 Body height 187.96 cm Ramo Haney MD Work Phone: [employer]; [employer] 05-03-2013 14:02-0400 Body mass index (BMI) [Ratio] 24.2 kg/m2 Ramo Haney MD Work Phone: [employer]; [employer]. 05-03-2013 14:02-0400 Body surface area Derived from formula 2.12 m2 Ramo Haney MD Work Phone: [employer]; [employer] 05-03-2013 14:02-0400 Body weight 85.5 kg Ramo Haney MD Work Phone: [employer]; [employer] 05-03-2013 14:02-0400 Diastolic blood pressure 81 mm[Hg] Ramo Haney MD Work Phone: [employer]; [employer]. Comment on above: Patient Position: Sitting; Cuff Location : Left Arm; Cuff Size: Standard 05-03-2013 14:02-0400 Heart rate 75 /min Ramo Haney MD Work Phone: [employer]; [employer] Comment on above: Pattern: Regular 05-03-2013 14:02-0400 Systolic blood pressure 115 mm[Hg] Ramo Haney MD Work Phone: [employer]; [employer] Comment on above: Patient Position: Sitting; Cuff Location : Left Arm; Cuff Size: Standard 01-22-2013 09:31-0400 Body temperature 97 [degF] Ramo Haney MD Work Phone: [employer]; [employer] Comment on above: Method: Tympanic 01-22-2013 09:31-0400 Body weight 87.54 kg Ramo Haney MD Work Phone: [employer]; [employer] 01-22-2013 09:31-0400 Diastolic blood pressure 75 mm[Hg] Ramo Haney MD Work Phone: [employer] [facility] [employer]. Comment on above: Patient Position: Sitting; Cuff Location : Left Arm; Cuff Size: Standard 01-22-2013 09:31-0400 Heart rate 59 /min Ramo Haney MD Work Phone: [facility].; [employer]. Comment on above: Pattern: Regular 01-22-2013 09:31-0400 Inhaled oxygen concentration 20 % Ramo Haney MD Work Phone: [employer]. Comment on above: Room air 01-22-2013 09:31-0400 SaO2% (BldA) [Mass fraction] 98 % Ramo Haney MD Work Phone: [employer]. 01-22-2013 09:31-0400 Systolic blood pressure 127 mm[Hg] Ramo Haney MD Work Phone: [employer]. Comment on above: Patient Position: Sitting; Cuff Location : Left Arm; Cuff Size: Standard 10-21-2010 16:29-0500 Body height 187.96 cm [facility] Work Phone: [employer]. 10-21-2010 16:29-0500 Body mass index (BMI) [Ratio] 24.27 kg/m2 [facility] Work Phone: [employer] 10-21-2010 16:29-0500 Body surface area Derived from formula 2.12 m2 [facility] Work Phone: [employer] 10-21-2010 16:29-0500 Body weight 85.73 kg [facility] Work Phone: [facility]; [employer]. 10-21-2010 16:29-0500 Diastolic blood pressure 80 mm[Hg] Hui Palumbo COAL HANDLER Work Phone: [employer] [facility] [employer].; [employer] [facility] Comment on above: Patient Position: Sitting; Cuff Location : Left Arm; Cuff Size: Standard 10-21-2010 16:29-0500 Heart rate 81 /min Hui Palumbo COAL HANDLER Work Phone: [facility]; [employer] Comment on above: Pattern: Regular 10-21-2010 16:29-0500 Systolic blood pressure 115 mm[Hg] Hui Palumbo COAL HANDLER Work Phone: [employer] [facility]; [employer] [facility] Comment on above: Patient Position: Sitting; Cuff Location : Left Arm; Cuff Size: Standard Encounters Encounter Date Encounter Type Care Provider Facility Start: 06-18-2025 [facility] Facility:[facility] Start: 04-22-2025 End: 04-22-2025 ambulatory [facility] Work Phone: Start: 04-22-2025 End: 04-22-[address] Marlon Pittman MD -Laboratory Work Phone: Start: 04-22-2025 End: 04-22-2025 ambulatory Musa Proano Facility:[facility] Start: 04-03-2025 End: 04-05-2025 Evaluation and management of inpatient Dr. Marlon Pittman MD -Medical Surgical 3 Work Phone: Start: 04-01-2025 End: 04-01-2025 ambulatory Marlon Pittman Facility:[facility] Start: 04-01-2025 End: 04-01-2025 Non-patient / Non-visit Dr. Emigdio Vitale MD -[facility] Work Phone: Start: 03-29-2025 End: 03-29-2025 [facility] Start: 03-28-2025 End: 03-28-2025 [facility] Work Phone: Start: 01-25-2025 Encounter for genera l adult medical examination without abnormal findings C[place] RAMIN [facility] Start: 01-15-2025 End: 01-15-2025 Emergency department patient visit TYSON BUTCHER ABBY [facility] Start: 01-15-2025 End: 01-15-2025 ambulatory [facility] Work Phone: Start: 01-15-2025 End: 01-15-2025 Patient encounter procedure [facility] -Laboratory Work Phone: Start: 01-15-2025 End: 01-15-2025 ambulatory [facility] Facility:[facility] Start: 09-18-2024 End: 09-18-2024 [facility] Facility:[facility] Start: 07-10-2024 End: 07-10-2024 ambulatory [facility] Facility:[facility] Start: 12-10-2023 Non-patient / Non-visit JOAQUIN WALL Work Phone: [facility] Work Phone: Start: 12-09-2023 Non-patient / Non-visit JOAQUIN OJEDAKINS Work Phone: [facility] Work Phone: Start: 12-08-2023 Non-patient / Non-visit JOAQUIN OJEDAKINS Work Phone: [facility] Work Phone: Start: 12-08-2023 Non-patient / Non-visit TIFFAN Y WALL Work Phone: [facility] Start: 12-08-2023 Non-patient / Non-visit JOAQUIN OJEDAKINS Work Phone: [facility] Start: 12-07-2023 Non-patient / Non-visit TIFFAN Imer OJEDAWALL Work Phone: [facility] Start: 12-07-2023 End: 12-10-2023 Evaluation and management of inpatient KARLO WALL Work Phone: [facility]-Progressive Care Unit Work Phone: Start: 12-07-2023 End: 12-10-2023 observation encounter KARLO WALL Work Phone: [facility] Work Phone: Start: 11-23-2023 Non-patient / Non-visit JOAQUIN WALL Work Phone: [facility] Start: 11-23-2023 End: 11-23-2023 ambulatory KARLO WALL Work Phone: [facility] Work Phone: Start: 11-23-2023 End: 11-23-2023 Patient encounter procedure KARLO WALL Work Phone: [facility]-Cardiovascula r Services Work Phone: Start: 06-30-2023 End: 06-30-2023 Patient encounter procedure Ada Valerio MD Work Phone: [facility] Comment on above: Chronic daily headac he (Primary Dx); History of meningioma of the brain Start: 06-18-2022 End: 06-18-2022 Telephone follow-up Ramo Haney MD Work Phone: [employer] Start: 05-07-2021 End: 05-07-2021 Patient encounter procedure Ramo Haney MD Work Phone: [employer] Start: 05-21-2020 End: 05-22-2020 Office outpatient visit 15 minutes Ramo Haney MD Work Phone: [employer] Start: 01-22-2020 End: 01-22-2020 Orders Ramo Haney MD Work Phone: [employer] Start: 02-09-2019 End: 02-09-2019 Telephone follow-up Ramo Haney MD Work Phone: [employer] Start: 03-28-2018 End: 03-28-2018 Telephone follow-up Ramo Haney MD Work Phone: [employer] Start: 01-08-2018 End: 01-08-2018 Historical Summary Ramo Haney MD Work Phone: [employer] Start: 10-05-2017 End: 10-05-2017 Historical Summary Ramo Haney MD Work Phone: [employer] Start: 10-04-2017 End: 10-04-2017 Historical Summary Ramo Haney MD Work Phone: [employer] Start: 09-28-2017 End: 09-28-2017 Patient encounter procedure Hui Palumbo STEVE Work Phone: [employer] Start: 09-05-2017 End: 09-05-2017 Orders Ramo Haney MD Work Phone: [employer] Start: 08-17-2017 End: 08-18-2017 Orders Ramo Haney MD Work Phone: [employer] Start: 10-20-2015 End: 10-20-2015 Patient encounter procedure Ramo Haney MD Work Phone: [employer] Start: 06-30-2015 End: 06-30-2015 Orders Ramo Haney MD Work Phone: [employer]. Start: 05-21-2015 End: 05-22-2015 Patient encounter procedure Ramo Haney MD Work Phone: [employer] Start: 10-21-2014 End: 10-21-2014 Historical Summary Ramo Haney MD Work Phone: [employer] Start: 10-18-2014 End: 10-18-2014 Patient encounter procedure Ramo Haney MD Work Phone: [employer] Start: 09-27-2014 End: 09-27-2014 Orders Ramo Haney MD Work Phone: [employer] Start: 05-15-2014 End: 05-15-2014 Patient encounter procedure Ramo Haney MD Work Phone: [employer] Start: 02-25-2014 End: 02-25-2014 Patient encounter procedure Ramo Haney MD Work Phone: [employer] Start: 05-03-2013 End: 05-03-2013 Historical Summary Ramo Haney MD Work Phone: [employer] Start: 05-03-2013 End: 05-03-2013 Patient encounter procedure Ramo Haney MD Work Phone: [employer] Start: 01-22-2013 End: 01-22-2013 Patient encounter procedure Ramo Haney MD Work Phone: [employer] Start: 10-21-2010 End: 10-28-2010 Patient encounter procedure Ramo Haney MD Work Phone: [employer] Procedures Date Procedure Procedure Detail Performing Clinician Start: 04-05-2025 Estimated creatinine clearance [facility] Start: 04-03-2025 Fluoroscopic guidance [facility] Start: 04-03-2025 Optical urethrotomy [facility] Start: 03-29-2025 CT of head without contrast [facility] Start: 01-15-2025 Urinalysis TYSON Jerome Comment on above: Result Comment: URIN ALYSIS Performed By: #### [id number] #### [facility],[address] [place] [address] Start: 12-09-2023 CT angiography of he ad and neck KARLO WALL Work Phone: Start: 12-09-2023 MRI of brain without contrast KARLO WALL Work Phone: Start: 12-08-2023 CT of head without contrast KARLO WALL Work Phone: Start: 12-07-2023 Plain chest X-ray TARAN WALL Work Phone: Start: 11-23-2023 Cardiovascular stres s test using pharmacologic stress agent KARLO WALL Work Phone: Start: 05-21-2022 End: 05-21-2022 Screening colonoscopy Ramo Bhardwaj Work Phone: Comment on above: Dr Laguna. Normal Start: 10-04-2017 End: 10-04-2017 Bone density scan Hui Palumbo LPN Work Phone: Comment on above: 10/04/17 osteopenia of the hips, vert normal Start: 10-03-2017 End: 10-03-2017 Doppler studies Ramo Bhardwaj Work Phone: Comment on above: 10/03/17 carotids ne g bilat Start: 09-28-2017 End: 10-05-2017 Dxa bone density study 1/> sites axial skel Ramo Haney MD Work Phone: Start: 09-28-2017 End: 10-04-2017 Duplex scan extracranial art compl bi study Ramo Haney MD Work Phone: Start: 09-28-2017 End: 09-28-2017 Current tobacco non-user cad cap copd pv dm Ramo Haney MD Work Phone: Start: 09-28-2017 End: 09-28-2017 Docrev cur meds by elig trino Haney MD Work Phone: Start: 09-28-2017 End: 09-28-2017 Flu imm no admin doc josette Ramo garcia MD Work Phone: Start: 09-28-2017 End: 09-28-2017 Most recent diastolic blood pressure 80-89 mm hg Ramo Haney MD Work Phone: Start: 09-28-2017 End: 09-28-2017 Most recent systolic blood pressure <130 mm hg Ramo Haney MD Work Phone: Start: 09-28-2017 End: 09-28-2017 Pos clin depres scrn f/u doc Ramo Haney MD Work Phone: Start: 09-28-2017 End: 09-28-2017 PPPS, subseq visit Ramo Bhardwaj Work Phone: Start: 09-28-2017 End: 09-28-2017 Pt falls assess docd w/o fall/injury past year Ramo Haney MD Work Phone: Start: 09-28-2017 End: 09-28-2017 Falls risk assessment documented Ramo Haney MD Work Phone: Start: 09-28-2017 End: 09-28-2017 Depression screen annual Ramo garcia MD Work Phone: Start: 09-05-2017 End: 09-05-2017 Lipid panel Hui Palumbo LPN Work Phone: Start: 09-05-2017 End: 09-05-2017 Prostate specific antigen measurement Hui Palumbo LPN Work Phone: Start: 05-14-2017 End: 05-14-2017 Extraction of cataract Hui Palumbo LPN Work Phone: Comment on above: [facility] Start: 10-20-2015 End: 10-20-2015 Removal impacted cerumen instrumentation unilat Ramo Haney MD Work Phone: Start: 06-30-2015 End: 05-25-2019 Polysom 6/>yrs sleep w/cpap 4/> addl kassidy attnd Ramo Haney MD Work Phone: Start: 06-14-2015 End: 06-14-2015 sleep study Hui Palumbo LPN Work Phone: Comment on above: [place] Start: 05-21-2015 End: 06-30-2015 Polysom 6/>yrs sleep 4/> addl kassidy attnd Ramo Haney MD Work Phone: Start: 10-18-2014 End: 01-16-2015 Ct head/brain w/o & w/contrast material Ramo Haney MD Work Phone: Start: 10-14-2014 End: 10-14-[address] Hui Palumbo [employer] Work Phone: Comment on above: CT brain NL 10/2014 Start: 02-25-2014 End: 02-25-2014 PPPS, initial visit Hui Palumbo LPN Work Phone: Start: 05-03-2013 End: 05-03-2013 Radex 1 plne body section oth/thn w/urograpy Sybil Barrientos PA-C Work Phone: Comment on above: Fell onto 3rd and 4t h digits. Pain, swelling, and bruising of PIP and DIP joints. 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 Work Phone: Vaccine refused by patient Vaccine refused by patient (Renamed from Immunization not carried out because of patient decision) Ramo Haney MD Work Phone: Plan of Treatment Date Care Activity Detail Author Start: 04-22-2025 Urine culture Urine Culture [facility] Start: 04-22-[address] [facility] Start: 04-05-2025 Patient discharge [facility] Start: 04-04-2025 Measuring intake and output [facility] Start: 04-03-2025 Application of intermittent pneumatic compression device [facility] Start: 04-03-[address] [facility] Start: 04-03-2025 Following clinical pathway protocol [facility] Start: 04-03-2025 Admission procedure [facility] Start: 04-03-2025 Measuring intake and output [facility] Start: 04-03-2025 Deep breathing and coughing exercises [facility] Start: 04-03-2025 Oxygen therapy [facility] Start: 04-03-2025 Ambulation therapy management [facility] Start: 04-03-2025 Assessment of risk of venous thromboembolism [facility] Start: 04-03-2025 Following clinical pathway protocol [facility] Start: 04-03-2025 End: 04-03-2025 Provision of activity privileges [facility] Start: 04-03-2025 Taking patient vital signs [facility] Start: 04-03-2025 Vital signs measurements [facility] Start: 04-03-2025 End: 04-03-[address] [facility] Start: 04-03-2025 Ambulation without limitation [facility] Start: 04-03-2025 Medication education [facility] Start: 04-03-2025 Taking patient vital signs [facility] Start: 04-03-[address] [facility] Start: 03-29-2025 End: 03-29-[address] [facility] Start: 12-10-2023 Patient discharge [facility] Start: 12-08-2023 Chart related administrative procedure [facility] Start: 12-08-2023 Telemedicine consultation with patient [facility] Start: 12-07-2023 Following clinical pathway protocol [facility] Start: 12-07-2023 Transfusion of blood product [facility] Start: 12-07-2023 Ambulation without limitation [facility] Start: 12-07-2023 Assessment of risk of venous thromboembolism [facility] Start: 12-07-2023 Insertion of catheter into peripheral vein [facility] Start: 12-07-2023 Oxygen therapy [facility] Start: 12-07-2023 Providing care according to standard 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 Start: 12-07-2023 Hospital admission, emergency, from emergency room, medical nature [facility] Start: 12-07-2023 Verification routine [facility] Start: 12-07-2023 Admission procedure [facility] Start: 12-07-20[address] Blood chemistry [facility] Start: 12-07-[address] [facility] Start: 12-07-2023 Patient referral to dietitian [facility] Start: 07-15-2023 Influenza vaccination INFLUENZA (#1) [facility] Start: 11-14-2022 ADVANCE DIRECTIVE DISCUSSION ADVANCE DIRECTIVE DISCUSSION [facility] Start: 11-14-2022 DEPRESSION ASSESSMENT DEPRESSION ASSESSMENT [facility] Start: 12-08-2021 COVID-19 VACCINE (2 - Moderna series) COVID-19 VACCINE (2 - Moderna series) [facility] Start: 2008 PNEUMOCOCCAL: 65+ (1 - PCV) PNEUMOCOCCAL: 65+ (1 - PCV) [facility] Start: 1993 SHINGRIX VACCINE (1 of 2) SHINGRIX VACCINE (1 of 2) [facility] Start: 1988 DIABETES SCREEN DIABETES SCREEN [facility] Start: 1962 Urine microalbumin profile DTAP,TDAP,TD (1 - Tdap) [facility] Patient Education [facility] Work Phone: Patient referral [facility] Work Phone: Immunizations Immunization Date Immunization Notes Care Provider Miranda more NEGATED: Highlighted row has not occurred! influenza, injectable, quadrivalent, contains preservative Ramo Haney MD Work Phone: [facility]; [facility] NEGATED: Highlighted row has not occurred! pneumococcal conjugate vaccine, 13 valent Ramo Haney MD Work Phone: [facility]; [facility] NEGATED: Highlighted row has not occurred! pneumococcal polysaccharide vaccine, 23 valent Ramo Haney MD Work Phone: [facility]; [facility]. NEGATED: Highlighted row has not occurred! zoster vaccine, live Ramo Hanye MD Work Phone: [facility]; [facility] Payers Date Payer Category Payer Unknown [id number] 2024 Self-pay 2024 Unknown [id number] 2021 Private Health Insurance [facility] [employer] [id number] 2021-Present [phone] [address] [place] [address] O [id number] 1945 Unknown [id number] Unknown [employer] - PRIMETIME Unknown [employer] H [employer] [facility] [id number] Unknown [id number] Unknown [id number] Unknown [id number] Unknown [id number] Unknown [id number] Unknown [id number] Unknown [id number] Unknown [id number] Unknown [id number] Social History Date Type Detail Facility Start: 06-30-2023 [facility] History of tobacco use Current smoker [facility] Start: 06-30-2023 Tobacco use and exposure Smokeless tobacco non-user [facility] Start: 06-30-2023 Alcohol intake Ex-drinker (finding) [facility] Start: 05-15-2019 End: 06-30-2023 History of Social function [facility] Start: 05-15-2019 End: 06-30-2023 Tobacco use panel [facility] Adult Depression Screening Assessment 0 [facility] Start: 1945 Sex Assigned At Not on file [facility] Start: 1945 Sex Assigned At Male [facility] Start: 12-07-2023 End: 12-07-2023 Tobacco smoking status NHIS Unknown if ever smoked [facility] Tobacco Use: Tobacco Use: ; F ormer smoker. [facility] Start: 12-07-2023 End: 03-29-2025 Never smoked tobacco [facility] Start: 01-25-2025 Sex Male (finding) [facility] Goals Date Patient Goal Desired Activity /State Functional Status Date Assessment Result Facility 04-05-2025 Functional status Ambulates [facility] Work Phone: 12-10-2023 Functional status Ambulates;Up a d aakash;Chair;Bathroom Privilege;Active Range of Motion [facility] Work Phone: Mental Status Date Assessment Result Facility 04-05-2025 Cognitive function Voice/Name [facility] Work Phone: 03-29-2025 Cognitive function Level Of Cons ciousness Awake;Alert;Appropriate;Follow s Commands [facility] Work Phone: 12-10-2023 Cognitive function Voice/Name [facility] Work Phone: Clinical Notes 06-30-2023 to 04-05-2025 Note Date & Type Note Facility 04-05-2025 Note [facility] Medical Records Department [address] [place] [address] Discharge Summary 04/05/25 0707 MR#: [id number] Acct: [id number] Name: ARIANA SIBLEY Rep #: [id number] : 1945 79 From: Marlon Pittman MD PCP: [facility] Status:ADM IN Location: [facility] [id number] Providers Date of Admission: 04/03/25 Date of Discharge: 04/05/25 Primary Care Physician: [facility] Reason For Visit: There was a stricture Diagnosis Discharge Diagnosis (1) Urethral stricture: Status: Acute Code(s): N35.919 - Unspecified urethral stricture, male, unspecified site Medications at Discharge Home Medications aspirin 81 mg chewable tablet 81 mg PO DAILY heart health 12/07/23 Held on 04/03/25. Instructions: Resume on 04/17/25. glucosamine-chondroitin 250 mg-200 mg tablet (Osteo Bi-Flex) 2 tab PO DAILY supplement 12/07/23 pantoprazole 40 mg tablet,delayed release 40 mg PO QHS reflux 12/07/23 rosuvastatin 20 mg tablet 20 mg PO DAILY cholesterol 12/07/23 tamsulosin 0.4 mg capsule 0.4 mg PO QHS 03/22/25 acetaminophen 500 mg capsule 500 mg PO Q4H PRN pain #20 caps 04/03/25 ibuprofen 600 mg tablet 600 mg PO Q6H PRN pain #20 tabs 04/03/25 Hospital Course Operations - (Open placement of a suprapubic catheter antegrade Osorio placement to urethra due to mills stricture disease) Summary of Care Provided Minutes Spent on Discharge: 30 Hospital Course: Is an 79-year-old male who is new to me he had prior procedures by another urologist [id number] came in because he had difficulty with urination very slow stream on office cystoscopy was found to have a pinpoint stricture in the mid urethra. The initial plan was to take him to surgery to do a dilation and direct vision internal urethrotomy of the stricture but during the procedure I was not able to get the wire into the bladder while the wire kept coiling in the urethra once I was unsuccessful to get access into the bladder prided cut through the stricture without a wire but ended up getting a false passage posteriorly did not find a way into the bladder so had to convert to an open cystotomy made a lower Pfannenstiel incision and use the flexible cystoscope in antegrade fashion is able to get a wire through the prostate through the urethra and then placed a Osorio catheter over the wire. And then placed a suprapubic catheter. Patient then stayed in the hospital for 2 days to recover he will go home with a Osorio catheter draining suprapubic catheter will be plugged although only has an emergency valve he will come back to see me in the office for further management. Physical Exam Const alert and oriented x3 General Appearance: cooperative HEENT normocephalic and head/scalp atraumatic Eyes PERRL and EOMs intact bilaterally Neck supple, no JVD and no carotid bruits Resp normal respiratory effort, normal air movement and clear to auscultation bilaterally Cardio regular rate and no murmurs GI normal to inspection, nondistended, normoactive bowel sounds and soft to palpation Extremity normal capillary refill General Extremity: no tenderness to palpation of joints or extremities; Negative for edema Skin no rashes or lesions noted and no wounds General Skin Exam: no breakdown Neuro CN's II-XII intact bilaterally Psych affect normal Appearance: appropriate Weight / BMI Weight Weight: 88 kg Body Mass Index (BMI) 23.6 ABG / Lab / Microbiology Data 04/05/25 06:23 04/04/25 05:39 Laboratory: Laboratory Results - last 24 hr 04/05/25 06:23: WBC 9.3, RBC 3.97 L, Hgb 12.2 L, Hct 37.4 L, MCV 94.2 H, MCH 30.7, MCHC 32.6, RDW Std Deviation 48.2 H, RDW Coeff of Katelin 14.1, Plt Count 153, MPV 11.3, Immature Gran % (Auto) 0.500, Neut % (Auto) 70.2 H, Lymph % (Auto) 18.3 L, Warrick % (Auto) 9.7, Eos % (Auto) 0.9, Baso % (Auto) 0.4, Absolute Neuts (auto) 6.5, Absolute Lymphs (auto) 1.70, Nucleated RBC % 0 D/C Instructions Discharge Diet: No restrictions Call your doctor if you observe: Fever of 101 or Higher Catheter: Osorio to leg bag and Osorio to large bag Drain: [place] DC O2, CPAP, BIPAP Needs Home O2 Discharge instructions: No DC home with Oxygen: No Please Follow Up With: Marlon Pittman MD When: Call [phone] for an appointment Meaningful Use Info Meaningful Use Meaningful Use Diagnoses (Choose all that apply): None applicable Ischemic Stroke Statin Dosing Therapy Reference: STATIN DOSE THERAPY REFERENCE: * Patients > 75 years receive moderate or high dose statin therapy. * Patients 75 years or YOUNGER should receive HIGH intensity statin dose unless contraindicated. You will be required to document reason for non-treatment if statin daily dose does not meet guidelines. HIGH DOSE STATIN THERAPY DAILY Atorvastatin > than or = to 40 mg Rosuvastatin > than or = (more content not included)... [facility] 04-03-2025 Evaluation note Diagnosis Onset Date Resolution Urethral stricture acute April 032024 1:34pm [facility] Work Phone: 1(888) 618-480405-21-2025 [facility] Medical Records Department [address] [place] [address] History Physical Exam 04/03/25 1103 MR#: [id number] Acct: [id number] Name: ARIANA SIBLEY Rep #: [id number] : 1945 79 From: Marlon Pittman MD PCP: [facility] Status:[facility] Location: [place] [address] HPI - General General Date of Service: 04/03/25 Chief Complaint: Urethral stricture HPI Narrative ARIANA SIBLEY, is a 79 M who presents transurethral with direct vision internal urethrotomy of urethral stricture he understands the main complication is that the stricture can come back. COUNTS INCLUDE 234 BEDS AT THE [facility] Medical History Wears glasses Arthritis Syncope History of echocardiogram History of stress test Cardiology follow-up encounter Hx of fracture of finger Non-smoker CPAP (continuous positive airway pressure) dependence Migraines GERD (gastroesophageal reflux disease) BPH (benign prostatic hyperplasia) Hyperlipemia Home Medications ???Medication ???Instructions ???Recorded ???Last Taken ???Type aspirin 81 mg chewable tablet 81 mg PO DAILY heart health 03/24/25 History Held on 04/03/25. Instructions: Resume on 04/17/25. glucosamine-chondroitin 250 mg-200 2 tab PO DAILY supplement 04/02/25 History mg tablet (Osteo Bi-Flex) pantoprazole 40 mg tablet,delayed 40 mg PO QHS reflux 12/07/2303/15 History release rosuvastatin 20 mg tablet 20 mg PO DAILY cholesterol 4 04/02/25 History tamsulosin 0.4 mg capsule 0.4 mg PO QHS 03/22/25 04/02/25 Hi story acetaminophen 500 mg capsule 500 mg PO Q4H PRN pain #20 caps Unknown Rx ibuprofen 600 mg tablet 600 mg PO Q6H PRN pain #20 tabs Unknown Rx Allergy/AdvReac Type Severity Reaction Status Date / Time No Known Allergies Allergy Verified 04/03/25 09:39 Family History Father Cancer Mother Heart disease Brother Cancer Surgical History Hx of colonoscopy Hx of right cataract extraction Hx of left cataract extraction H/O hernia repair History of mandibular surgery Social History household members: spouse housing: house Smoking Status: Never smoker Vital Signs Vital Signs Vital Signs: 04/03/25 09:32 04/03/25 09:32 Temperature 97.6 F L Temperature Source Temporal Pulse Rate 58 L Respiratory Rate 16 Respiratory Pattern Normal Blood Pressure 130/66 H Blood Pressure Mean 87 Blood Pressure Source Monitor Blood Pressure Position Sitting Blood Pressure Location Left Arm Pulse Ox 96 Oxygen Delivery Method Room Air Weight Weight: 88 kg Body Mass Index (BMI) 23.6 Results Lab / Micro Data 03/29/25 12:15 03/29/25 12:15 04/03/25 1104 Cosigner Signature (if applicable): CC: Dr. Marlon Pittman MD; [facility] Radiology Diagnostic study note [facility] Imaging Services [address] [place], [place] [address] Brain/Head without Contrast MR#: [id number] Acct: [id number] Name: ARIANA SIBLEY Rep #: [id number] : 1945 M 79 From: Maximino Yepez MD PCP: [facility] Status: REG ER Study:Brain/Head without Contrast Date of Exa m: 03/29/25 Exam# [id number] Ordering Dr: Shalini Bonilla ADDENDUM by Dr. Dick Yepez MD on 03/29/25 at 1456 There is a 1.2 cm partially calcified meningioma in the anterior medial aspect of the left frontal lobe. Reading Location: [facility] 03/29/25 1456 Date cc: BENJAMIN Theodore; [facility] ~* Signed PROCEDURE: BRAIN/HEAD WITHOUT CONTRAST 03/29/2025 REASON FOR EXAM: HEADACHE History of migraines. TECHNIQUE: Head CT without intravenous contrast. Coronal and Sagittal reconstruction serieswere provided. One or more dose reduction techniques were used (e.g., Automated exposure control, adjustment of the mA and/or kV according to patient size, use of iterative reconstruction technique. RADIATION DOSE SUMMARY: CTDlvol: 44.99 mGy DLP: 880.47 mGycm COMPARISON: None FINDINGS: Brain: Low density in the periventricular white matter suggests mild chronic small vessel ischemic changes. CSF Spaces: Mild generalized cerebral atrophy Sinuses/Mastoids: Clear at visualized levels Bones: CT/Brain/Head without Contrast IMPRESSION: CHRONIC CHANGES. NO ACUTE FINDINGS. Reading Location: [id number] CC: BENJAMIN Theodore; [facility] ~ Heat Treat Puller: Signed [facility]03-05-2025 NoteDischarge Instructions Discharge Summary [address] [place] [address] [id number] 01/15/2025 Patient: ARIANA SIBLEY Sex: Male : 1945 Age: 79y Thank you for visiting [facility]. You have been evaluated today by Tyson Shane M.D. for the following condition(s): Principal Diagnosis Dysuria. INSTRUCTIONS (please take medications as instructed. He have any worsening symptoms or develop any fever, chills, nausea, vomiting or any signs of infection while on antibiotics she needs to return. Please call here at the emergency department in 2 days for your culture results. ER #[id number]. let the primary care you have through the [place] no your symptoms and your culture results. Fever feeling worse before the culture results come back please return to the emergency department. it is important that she follow up for hematuria or blood in the urineif that is which were having. This could be 1 of the 1st signs of cancer. You would need further laboratory study workups and CT imaging at that time.). 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 [address] [id number] 01/15/2025 Patient: ARIANA SIBLEY Sex: Male : 1945 Age: 79y Thank you for visiting [facility]. You have been evaluated today by Tyson Shane M.D. for the following condition(s): Principal Diagnosis Dysuria. INSTRUCTIONS (please take medications as instructed. He have any worsening symptoms or develop any fever, chills, nausea, vomiting or any signs of infection while on antibiotics she needs to return. Please call here at the emergency department in 2 days for your culture results. ER #[id number]. let the primary care you have through the [place] no your symptoms and your culture results. Fever feeling worse before the culture results come back please return to the emergency department. it is important that she follow up for hematuria or blood in the urineif that is which were having. This could be 1 of the 1st signs of cancer. You would need further laboratory study workups and CT imaging at that time.). [address] [place], [place] [id number] Discharge summary Author Hallie [facility] December 10, 2023 1:36pm Note Date/Time December 10, 2023 1 1:[address] [place] [address] [facility] System Medical Records Department [address] [place] [address] Discharge Summary 12/10/23 1144 MR#: [id number] Acct: [id number] Name: RAIANA SIBLEY Rep #:[id number] : 1945 78 From: Hallie Whiting MD PCP: [facility] Status:ADM [place] Location: [address] 1 Providers Date of Admission: 12/07/23 Date of Discharge: 12/10/23 Primary Care Physician: [place] [facility] Consultations 12/07/23 15:37 Consult: Cardiology Routine Consulting Provider: Thelma Morales Reason for Consult: Presyncopal episode with bradycardia EMERGENT Consult: No MD Notified: Yes Date Notified: 12/07/23 Time Notified: 14:34 Method of Notification: Verbal 12/08/23 13:31 Neurology [Consult: Tele-Neurology] Routine Consulting Provider: [facility] Reason for Consult: dizziness and presyncope EMERGENT Consult: No MD Notified: Yes Date Notified: 12/08/23 Time Notified: 13:31 Method of Notification: Answering Service Comments:: CT brain showed 1.4 x 0.7 x .6cm meningioma Nursing Unit Staff Notify [facility] of Tele-Neurology Consult: Yes Reason For Visit: PRESYNCOPAL EPISODES WITH SHORTNESS OF BREATH Diagnosis Discharge Diagnosis (1) Episodic lightheadedness: Status: Acute Code(s): R42 - Dizziness and giddiness Plan #Near syncope * Patient feels better. Was admitted with a complaint of episode of lightheadedness with shortness of breath. * Had a recent outpatient stress test on 11/23/2023 which showed anterior to be slight defect which was partially reversible suggestive of mild ischemia. * Cardiology reviewed him and does not think that his symptoms are related to this. He also has mild bradycardia but cardiology witnessed one of the presyncopal episodes and it did not seem to be related to any bradycardia as he was not bradycardic at that time. * Patient states he has a history of a brain lesion which was diagnosed by brain imaging about 6 to 7 years ago. He states he followed up with a neurologist at [facility]. * CT of the brain ordered today showed a 1.4 cm x 0.7 cm x 1.6 cm possible enhancing calcified mass along the anterior aspect of the cerebral falx on the left side suggestive of meningioma. * Neurology reviewed patient's and does not think his symptoms are due to the meningioma. Neurology recommending CTA head and neck and MRI of the brain. These have been ordered. * 2D echo showed normal left ventricular size and systolic function with EF of 60% and no regional wall motion abnormalities noted. He did have stage I diastolic dysfunction. * #Bradycardia: Bradycardia is mild. Heart rate in the 50s. Per cardiology not related to his symptoms. Monitor. #Abnormal stress test: * Recently had an abnormal stress test which showed mild reversible ischemia as above. * Cardiology does not think this is related to his current symptoms. Per cardiology no cardiac cath during this admission. * Follow-up with cardiology on outpatient basis. * #Hyperlipidemia: On statin #BPH: On Flomax DVT prophylaxis: Lovenox Disposition: DC likely tomorrow once CTA head and neck and MRI brain have been reviewed. Medications at Discharge Home Medications aspirin 81 mg chewable tablet 81 mg PO DAILY [facility] 12/07/23 glucosamine-chondroitin 250 mg-200 mg tablet (Osteo Bi-Flex) 2 tab PO DAILY supplement 12/07/23 pantoprazole 40 mg tablet,delayed release 40 mg PO DAILY reflux 12/07/23 rosuvastatin 20 mg tablet 20 mg PO DAILY cholesterol 12/07/23 tamsulosin 0.4 mg capsule 0.4 mg PO DAILY prostate 12/07/23 Hospital Course Operations None Procedures 2-D Echocardiogram Summary of Care Provided Minutes Spent on Discharge: 55 Hospital Course: Patient is an 78-year-old male with past medical history as outlined was admitted through the ED on 12/07/2023 with a complaint of lightheadedness and shortness of breath. His symptoms have started about 6 weeks prior to admissionwith intermittent lightheadedness with shortness of breath at rest. He had had a stress test done on outpatient basis and it has shown reversible anterior basilar defects. He had not yet followed up with cardiology. His current symptoms of episodic lightheadedness recurred and persisted so he came into the ED. Troponins x 3 were negative and EKG showed mild sinus bradycardia. Cardiology was consulted in light of his recent abnormal stress test. Cardiology reviewed him and witness one of the near syncopal episodes and he wasnot bradycardic at that time. Therefore though he had not bradycardia, cardiology did not think this was the cause of his symptoms. 2D echo showed normal left ventricular size and systolic function with EF of 60% and no regional wall motion abnormalities noted and he did have stage I diastolic dysfunction. Patient admitted to a history of a brain lesion which turned out to be a meningioma. He had a CT of the brain which showed the meningioma. Neurology was consulted and recommended patient getting an MRI and MRA of the head and neck. He did have the MRI which confirmed the meningioma but did not show any evidence of a stroke. CT of the head and neck showed no significant atherosclerotic changes in the brain and showed atherosclerotic disease in the neck more pronounced on the left with possible small focal segmental dissection versus ulcerated plaque in the proximal left internal carotid artery. This was discussed with vascular surgeon Dr. Pretty on phone. He stated that patient could be discharged home on an antiplatelet and high intensity statins. Patientis already on aspirin and rosuvastatin 20 mg daily and was continued on these. He was discharged home on 12/10/2023 and is to follow-up with his primary care doctor. He was also referred to vascular surgery on outpatient basis, to follow-up within 1 week. Discharge summary been copied to vascular surgery also. Patient seen and examined prior to discharge. He felt well and had no complaints. He had an uneventful night. Review of systems otherwise negative. Labs and vitals reviewed. Home medication reviewed and reconciled. Physical Exam Const alert, oriented x3, no apparent distress, average body habitus, no limitations, healthy appearing and well nourished General Appearance: cooperative, comfortable, well kempt and well developed HEENT normocephalic, head/scalp atraumatic, hearing grossly normal bilaterally, nasal mucous membranes and turbinates normal, moist oral mucous membranes and oropharynx normal Eyes PERRL, EOMs intact bilaterally and conjunctivae normal Neck full ROM, no lymphadenopathy, supple and no JVD Lymph Lymphatic: no lymphadenopathy noted and no lymphedema noted Chest inspection of chest normal Resp normal respiratory effort, normal air movement, no use of accessory muscles and clear to auscultation bilaterally Cardio regular rate, regular rhythm, S1 normal heart sound, S2 normal heart sound, no murmurs and peripheral pulses 2+ throughout GI normal to inspection, nondistended, normoactive bowel sounds, soft to palpation,non-tender and non-distended Back/Spine normal ROM Extremity normal to inspection, full ROM, normal capillary refill, no clubbing, cyanosis or edema, no calf tenderness and no pedal edema General Extremity: no tenderness to palpation of joints or extremities Skin no rashes or lesions noted General Skin Exam: no breakdown Neuro CN's II-XII intact bilaterally, moves all extremities, no focal motor deficits, no sensory deficits noted and deep tendon reflexes 2+ bilaterally Speech: speech normal Motor Exam: strength 5/5 throughout and general weakness Psych mental status grossly normal, thought process normal, cooperative and affect normal Appearance: appropriate Weight / BMI Weight Weight: 192 lb 10.944 oz Body Mass Index (BMI) 23.4 ABG / Lab / Microbiology Data 12/09/23 05:15 12/09/23 05:15 Radiography Diagnostic Testing: Radiology Impression Brain MRI 12/09/23 15:11 IMPRESSION: No significant white matter disease or evidence for acute infarct. Incidental finding of small left frontal meningioma. Electronically Signed: Cuco Richter MD at 18:45 EST Reading Location ID and State: [facility] / [place] Tel [phone], Service support , Head/Neck CTA 12/09/23 15:11 IMPRESSION: No significant atherosclerotic changes in the brain. Atherosclerotic disease in the neck more pronounced on the left. Possible small focal segmental dissection versus ulcerative plaque in the proximal left internal carotid Electronically Signed: Cuco Richter MD at 17:05 EST Reading Location ID and State: [address] [place] [address] Tel [phone], Service support , ADDENDUM: 12/09/23 1813 IMPRESSION: No significant atherosclerotic changes in the brain. Atherosclerotic disease in the neck more pronounced on the left. Possible small focal segmental dissection versus ulcerative plaque in the proximal left internal carotid N.B. : The above Results were Read Back by Cuco Richter MD to HALLIE WHITING MD, and understanding confirmed on 12/09/2023 18:06:59 (ET). Electronically Signed: Cuco Richter MD at 17:05 EST Reading Location ID and State: [address] [place] [address] Tel [phone], Service support , D/C Instructions Discharge Diet: Low fat / Low cholesterol Discharge Activity: Return to Normal Activity Weight Bearing Status: Weight bearing as tolerated Call your doctor if you observe: Fever of 101 or Higher, Shortness of breath, Dizziness, Swelling in the ankles and Chest pain Meaningful Use Info Meaningful Use Diagnoses (Choose all that apply): None applicable Discharge Plan Admission Admit Date/Time: 12/07/23 14:32 Primary Reason for Your Visit: orthostatic hypotension, dizziness Attending Provider: Hallie Whiting Primary Care Provider: [place], [place] Consulting Providers: Thelma Morales; Luis Granados; Tyson Gaviria; Manohar Quiros; Allison Schmidt; Candice Griggs; Iva Mitchell; Nicholas Henderson; Leonora Almeida; Jonah Woodward; Kelvin Chao; Leatha Mayberry; Marciano De La Cruz; Jen Neely; Christoph Faith; Blade Gray; Javad Zamarripa; Nicole Stevens; Nam Keller; Julieta Gay; Blanche Chandler Instructions Patient Instructions: Dizziness Fainting Ch Discharge Orders/Prescriptions Prescriptions: Continued pantoprazole 40 mg tablet,delayed release (DR/EC) 40 mg PO DAILY Patient Comments: TAKE 1 TABLET BY MOUTH ONCE DAILY IN AFTERNOON ONE HOUR BEFORE DINNER tamsulosin 0.4 mg capsule 0.4 mg PO DAILY rosuvastatin 20 mg tablet 20 mg PO DAILY aspirin 81 mg tablet,chewable 81 mg PO DAILY glucosamine-chondroitin [Osteo Bi-Flex] 250-200 mg tablet 2 tab PO DAILY Rx Instructions: give after food/meal Referrals / Follow Up: Owen Pretty MD [Med Staff - Active Staff] - Within 1 Week [facility] [Primary Care Provider] - Within 1 Week Disposition Disposition (needs filled in before D/C Order can be placed): Home, Self Care Charges/Coding Visit Charges Inpatient E&M: 89963 Disch Hosp >30min 12/10/23 1336 <Electronically signed by Hallie Whiting MD> Cosigner Signature (if applicable): CC: Dr. Owen Pretty MD; Dr. Hallie Whiting MD; [place] [facility]~ Signed [facility] Work Phone: 1(203) 113-769401-27-2024 Discharge summary Author Hallie [facility] December 10, 2023 11:44am Note Date/Time December 10, 2023 1 1:45am [facility] Medical Records Department [address] [place] [address] Instructions for Home/Discharge Instructions 12/10/23 1144 MR#: [id number] Acct: [id number] Name: ARIANA SIBLEY Rep #:[id number] : 1945 78 From: Hallie Whiting MD PCP: [facility] Status:ADM CANDIDO Discharge Instructions Diet Discharge Diet: Low fat / Low cholesterol Activity Discharge Activity: Return to Normal Activity Weight Bearing Status: Weight bearing as tolerated Dressing / Incision Call your doctor if you observe: Fever of 101 or Higher, Shortness of breath, Dizziness, Swelling in the ankles and Chest pain Follow Up Care Test Results: Test results from this visit will be discussed in further detail at your follow- up appointment, if applicable. Discharge Plan Admission Admit Date/Time: 12/07/23 14:32 Primary Reason for Your Visit: orthostatic hypotension, dizziness Attending Provider: Hallie Whiting Primary Care Provider: [facility],[place] Consulting Providers: Thelma Morales; Luis Granados; Tyson Gaviria; Manohar Quiros; Allison Schmidt; Candice Griggs; Iva Mitchell; Nicholas Henderson; Leonora Almeida; Jonah Woodward; Kelvin Chao; Leatha Mayberry; Marciano De La Cruz; Jen Neely; Christoph Faith; Blade Gray; Javad Zamarripa; Nicole Stevens; Nam Keller; Julieta Gay; Blanche Chandler Instructions Patient Instructions: Dizziness Fainting Ch Discharge Orders/Prescriptions Prescriptions: Continued pantoprazole 40 mg tablet,delayed release (DR/EC) 40 mg PO DAILY Patient Comments: TAKE 1 TABLET BY MOUTH ONCE DAILY IN AFTERNOON ONE HOUR BEFORE DINNER tamsulosin 0.4 mg capsule 0.4 mg PO DAILY rosuvastatin 20 mg tablet 20 mg PO DAILY aspirin 81 mg tablet,chewable 81 mg PO DAILY glucosamine-chondroitin [Osteo Bi-Flex] 250-200 mg tablet 2 tab PO DAILY Rx Instructions: give after food/meal Referrals / Follow Up: Owen Pretty MD [Med Staff - Active Staff] - Within 1 Week [facility] [Primary Care Provider] - Within 1 Week Disposition Disposition (needs filled in before D/C Order can be placed): Home, Self Care 12/10/23 6084<Electronically signed by Hallie Whiting MD>Hallie Whiting MD CC: Candice Griggs; Manohar Quiros; Jen Neely; Javad Mccracken; Iva Mitchell MD;Allison Schmidt MD; Tyson Gaviria MD; Dr. Luis Granados DO; Dr. Nicholas Henderson MD; Dr. Leonora Almeida MD; Dr. Kelvin Chao MD; Dr. Jonah Woodward MD; Dr. Marciano De La Cruz DO; Dr. Blade Gray MD; Dr. Thelma Morales MD; Dr. Christoph Faith MD; Dr. Nicole Stevens MD; Dr. Nam Keller MD; Dr. Julieta Gay MD; Leatha Mayberry DO; [facility]; Blanche Chandler MD ~ Signed [facility] Work Phone: 1(105) 585-564901-26-2024 Progress note Author Hallie [facility] December 09, 2023 3:50pm Note Date/Time December 09, 2023 3 :47pm [facility] Medical Records Department [address] [place] [address] Progress Note 12/09/23 1544 MR#: [id number] Acct: [id number] Name: ARIANA SIBLEY Rep #:[id number] : 1945 78 From: Hallie Whiting MD PCP: [facility] Status:ADM CANDIDO Location: [place] [address] Subjective Subjective Patient seen and examined. He felt well and had no complaints. He had an uneventful night. Review of symptoms otherwise negative. Orthostatics were positive today. He was hydrated with IV fluids. Objective Data Objective Data Vital Signs: Vital Signs Temp Pulse Resp BP Pulse Ox O2 Del Method 97.9 F 55 L 16 128/72 H 97 Room Air 12/09/23 08:25 12/09/23 12:18 12/09/23 08:25 12/09/23 12:18 12/09/23 08:25 12/09/23 08:25 Oxygen Delivery Method Room Air Weight: 192 lb 10.944 oz Body Mass Index (BMI) 23.4 Intake & Output: Intake and Output for Last 24 Hours 12/07/23 12/08/23 12/09/23 23:59 23:59 23:59 Intake Total 400 / 400 800 / 800 1400 / 1400 Balance 400 / 400 800 / 800 1400 / 1400 Lab / Micro Data 12/09/23 05:15 12/09/23 05:15 Labs: Laboratory Results - last 24 hr 12/09/23 05:15: WBC 6.2, RBC 5.06, Hgb 14.6, Hct 46.6, MCV 92.1, MCH 28.9, MCHC 31.3 L, RDW Std Deviation 46.6 H, RDW Coeff of Katelin 13.7, Plt Count 201, MPV 11.1, Immature Gran % (Auto) 0.200, Neut % (Auto) 45.5 L, Lymph % (Auto) 37.4, Warrick % (Auto) 10.3 H, Eos % (Auto) 5.6 H, Baso % (Auto) 1.0, Absolute Neuts (auto) 2.8, Absolute Lymphs (auto) 2.32, Nucleated RBC % 0, Sodium 141, Potassium 4.1, Chloride 108 H, Carbon Dioxide 31.0, Anion Gap 2 L, BUN 20 H, Creatinine 1.10, Estim Creat Clear Calc 65.76, Est GFR (MDRD) Af Amer 83, Est GFR (MDRD) Non-Af 68, BUN/Creatinine Ratio 18.2, Glucose 94, Calcium 9.2 Rhythm Strip Rhythm Strip: Sinus Rhythm Rate: 55 Physical Exam Const alert, oriented x3, no apparent distress, average body habitus, healthy appearing and well nourished General Appearance: cooperative, comfortable, well kempt and well developed HEENT normocephalic, head/scalp atraumatic, hearing grossly normal bilaterally, nasal mucous membranes and turbinates normal, moist oral mucous membranes and oropharynx normal Eyes PERRL, EOMs intact bilaterally and conjunctivae normal Neck full ROM, no lymphadenopathy, supple and no JVD Lymph Lymphatic: no lymphadenopathy noted and no lymphedema noted Chest inspection of chest normal Resp normal respiratory effort, normal air movement, no use of accessory muscles and clear to auscultation bilaterally Cardio regular rate, regular rhythm, S1 normal heart sound, S2 normal heart sound, no murmurs and peripheral pulses 2+ throughout GI normal to inspection, nondistended, normoactive bowel sounds, soft to palpation,non-tender and non-distended Back/Spine normal ROM Extremity normal to inspection, full ROM, normal capillary refill, no clubbing, cyanosis or edema, no calf tenderness and no pedal edema General Extremity: no tenderness to palpation of joints or extremities Skin no rashes or lesions noted General Skin Exam: no breakdown Neuro CN's II-XII intact bilaterally, moves all extremities, no focal motor deficits, no sensory deficits noted and deep tendon reflexes 2+ bilaterally Speech: speech normal Motor Exam: strength 5/5 throughout and general weakness Psych mental status grossly normal, thought process normal, cooperative and affect normal Appearance: appropriate Assessment & Plan Assessment/Plan (1) Episodic lightheadedness: PLAN: Plan #Near syncope * Patient feels better. Was admitted with a complaint of episode of lightheadedness with shortness of breath. * Had a recent outpatient stress test on 11/23/2023 which showed anterior to be slight defect which was partially reversible suggestive of mild ischemia. * Cardiology reviewed him and does not think that his symptoms are related to this. He also has mild bradycardia but cardiology witnessed one of the presyncopal episodes and it did not seem to be related to any bradycardia as he was not bradycardic at that time. * Patient states he has a history of a brain lesion which was diagnosed by brain imaging about 6 to 7 years ago. He states he followed up with a neurologist at [facility]. * CT of the brain ordered today showed a 1.4 cm x 0.7 cm x 1.6 cm possible enhancing calcified mass along the anterior aspect of the cerebral falx on the left side suggestive of meningioma. * Neurology reviewed patient's and does not think his symptoms are due to the meningioma. Neurology recommending CTA head and neck and MRI of the brain. These have been ordered. * 2D echo showed normal left ventricular size and systolic function with EF of 60% and no regional wall motion abnormalities noted. He did have stage I diastolic dysfunction. * #Bradycardia: Bradycardia is mild. Heart rate in the 50s. Per cardiology not related to his symptoms. Monitor. #Abnormal stress test: * Recently had an abnormal stress test which showed mild reversible ischemia as above. * Cardiology does not think this is related to his current symptoms. Per cardiology no cardiac cath during this admission. * Follow-up with cardiology on outpatient basis. * #Hyperlipidemia: On statin #BPH: On Flomax DVT prophylaxis: Lovenox Disposition: DC likely tomorrow once CTA head and neck and MRI brain have been reviewed. Charges/Coding Visit Charges Inpatient E&M: 17906 Subs Hosp L2 12/09/23 8268 <Electronically signed by Hallie Whiting MD> Hallie Whiting MD Cosigner Signature (if applicable): CC: ~ Signed [facility] Work Phone: 1(638) 118-128401-26-2024 Consult note Author Jen Neely [facility] December 09, 2023 10:29am Note Date/Time December 09, 2023 9 :48am [facility] Medical Records Department [address] [place] [address] Consultation - Neurology 12/09/23 0946 MR#: [id number] Acct: [id number] Name: ARIANA SIBLEY Rep #:[id number] : 1945 78 From: Jen Neely MD PCP: [facility],[place] Status:ADM CANDIDO Location: [place] [address] Assessment and Plan: Neuro Assessment/Plan ARIANA SIBLEY is a 78 M with a past medical history of hyperlipidema, being evaluated by Teleneurology for CT scan findings. Came in to the hospital for lightheadedness and dyspnea. Denies vertiginous symptoms ,double vision or slurred speech. Suspected cariogenic in nature. In regards to CT findings, this appears to meningioma which is an incidental benign findings and not contributing to patient's current presentation. Diagnosis: Meningioma Plan: MRI brain w/w/out contrast Orthostatic vitals ECHO Event monitor for a month CT angio head and neck Transfer to [facility] for the following reasons: none I personally attended this patient and spent a total time of 60 minutes evaluating this patient including clinical assessment, review of chart, medical history imaging, and determining appropriate treatment and workup. Jen Neely MD [facility] Neurology Department HPI Consult Data Date of Consult: 12/09/23 HPI Narrative HPI Narrative: ARIANA SIBLEY, is a 78 M who presents with lightheadedness and dyspnea. Neurology has been consulted because of CT head findings concerning for meningioma. He is experiencing episodes of lightheadedness with no positional component .Denies prodromal symptoms or warning signs. Denies focal weakness,vertiginous symptoms, numbness,slurred speech or souble vision. COUNTS INCLUDE 234 BEDS AT THE [facility] Medical History Benign tumor BPH (benign prostatic hyperplasia) CPAP (continuous positive airway pressure) dependence GERD (gastroesophageal reflux disease) Hyperlipemia Migraines Non-smoker Sleep apnea Home Medications aspirin 81 mg chewable tablet 81 mg PO DAILY 12/07/23 [History Last Taken Unknown] glucosamine-chondroitin 250 mg-200 mg tablet (Osteo Bi-Flex) 2 tab PO DAILY 12/07/23 [History Last Taken Unknown] pantoprazole 40 mg tablet,delayed release 40 mg PO DAILY 12/07/23 [History Last Taken Unknown] rosuvastatin 20 mg tablet 20 mg PO DAILY 12/07/23 [History Last Taken Unknown] tamsulosin 0.4 mg capsule 0.4 mg PO DAILY 12/07/23 [History Last Taken Unknown] Allergy/AdvReac Type Severity Reaction Status Date / Time No Known Allergies Allergy Verified 12/07/23 11:59 Family History no significant family his Surgical History H/O hernia repair History of mandibular surgery Social History household members: spouse housing: house Smoking Status: Never smoker Vital Signs Vital Signs Vital Signs: 12/08/23 15:38 12/08/23 22:00 12/08/23 22:00 Temperature 98.6 F Temperature Source Oral Pulse Rate 63 Pulse Strength Weak (1+) Respiratory Rate 16 Respiratory Effort Normal Non-Labored Respiratory Depth Normal Respiratory Pattern Normal Blood Pressure Blood Pressure [BP] 123/78 H Blood Pressure Mean Blood Pressure Mean [BP] 93 Blood Pressure Source Blood Pressure Source [BP] Monitor Blood Pressure Position Blood Pressure Position [BP] Semi-Fowlers Blood Pressure Location Blood Pressure Location [BP] Left Arm Pulse Ox 98 Oxygen Delivery Method Room Air Room Air 12/08/23 21:45 12/09/23 03:45 12/09/23 04:55 Temperature 98.0 F 98.0 F Temperature Source Temporal Temporal Pulse Rate 62 53 L Pulse Strength Respiratory Rate 18 18 Respiratory Effort Normal Non-Labored Respiratory Depth Normal Respiratory Pattern Normal Blood Pressure 119/69 127/71 H Blood Pressure [BP] Blood Pressure Mean 85 89 Blood Pressure Mean [BP] Blood Pressure Source Monitor Monitor Blood Pressure Source [BP] Blood Pressure Position Semi-Fowlers Sitting Blood Pressure Position [BP] Blood Pressure Location Right Arm Right Arm Blood Pressure Location [BP] Pulse Ox 97 99 Oxygen Delivery Method Room Air Room Air Room Air 12/09/23 08:25 Temperature 97.9 F Temperature Source Oral Pulse Rate 50 L Pulse Strength Respiratory Rate 16 Respiratory Effort Respiratory Depth Respiratory Pattern Blood Pressure 125/87 H Blood Pressure [BP] Blood Pressure Mean 99 Blood Pressure Mean [BP] Blood Pressure Source Monitor Blood Pressure Source [BP] Blood Pressure Position Semi-Fowlers Blood Pressure Position [BP] Blood Pressure Location Right Arm Blood Pressure Location [BP] Pulse Ox 97 Oxygen Delivery Method Room Air Weight Weight: 87.4 kg Body Mass Index (BMI) 23.4 EEG Results Procedure Details EEG Procedure Details: ARIANA SIBLEY is a 78 year old M with a past medical history of , who presents for evaluation of Electroencephalogram on DATE at TIME Physical Exam Neuro Neuro Narrative: -? General: Laying comfortably in bed; in no acute distress. -? HENT: Normal oropharynx and mucosa. Normal external appearance of ears and nose. Exophthalmos. -? Neck: Supple, no pain or tenderness -? CV:? No peripheral edema. -? Pulmonary:? Normal respiratory effort. -? Ext: No cyanosis, edema, or deformity -? Skin: No rash. Normal palpation of skin.? -? Musculoskeletal: full range of motion; no joint tenderness. Normal digits and nails by inspection. No clubbing. -? NEURO: -? Mental Status: The patient was alert and oriented to time, place, and person. Normal recent/remote memory, concentration, and general fund of knowledge. -? Language: speech is fluent? Naming, repetition, fluency, and comprehension intact. -? Cranial Nerves: PERRL 3mm/brisk. EOMI, visual gan full, no facial asymmetry, facial sensation intact, hearing intact, tongue midline, no evidence of atrophy or fibrillations. As performed by the nurse/KATHLEEN Sternocleidomastoid and trapezius were equally strong. Soft palate raises equally, no uvular deviations -? Motor: normal bulk, tone, and strength throughout. No pronator drift or satelliting. Upper and lower extremities equal bilaterally. -?? R L i -? Tone: is normal and bulk is normal -? Sensation- Intact to light touch bilaterally -? Coordination: No dysmetria on [id number], finger follow finger or [id number]. -? Gait- Gait initiation was normal. Narrow base with good heel strike and stride length was observed during ambulation. Turns were in stride. Patient was able to walk normally in tandem. Romberg was normal. Lab / Micro Data 12/09/23 05:15 12/09/23 05:15 Labs: Laboratory Results - last 24 hr 12/09/23 05:15: WBC 6.2, RBC 5.06, Hgb 14.6, Hct 46.6, MCV 92.1, MCH 28.9, MCHC 31.3 L, RDW Std Deviation 46.6 H, RDW Coeff of Katelin 13.7, Plt Count 201, MPV 11.1, Immature Gran % (Auto) 0.200, Neut % (Auto) 45.5 L, Lymph % (Auto) 37.4, Warrick % (Auto) 10.3 H, Eos % (Auto) 5.6 H, Baso % (Auto) 1.0, Absolute Neuts (auto) 2.8, Absolute Lymphs (auto) 2.32, Nucleated RBC % 0, Sodium 141, Potassium 4.1, Chloride 108 H, Carbon Dioxide 31.0, Anion Gap 2 L, BUN 20 H, Creatinine 1.10, Estim Creat Clear Calc 65.76, Est GFR (MDRD) Af Amer 83, Est GFR (MDRD) Non-Af 68, BUN/Creatinine Ratio 18.2, Glucose 94, Calcium 9.2 Rhythm Strip Rhythm Strip: Sinus Rhythm Rate: 55 Imagaing Radiology Impression Brain CT 12/08/23 11:34 IMPRESSION: Chronic involutional changes of the brain. Findings suggestive of a 1.4 cm x 0.7 cm x 1.6 cm partially enhancing calcified mass along the anterior aspect of the cerebral falx on the left side. This is suggestive of a meningioma. Electronically Signed: Dick Yepez MD at 12:45 EST , Active Medications Active Medications Active Medications: Current Medications Generic Name Dose Route Start Last Admin Trade Name Freq PRN Reason Stop Dose Admin Acetaminophen 650 mg 12/07/23 15:37 Acetaminophen 325 Mg Tablet PO Q6H PRN PRN Pain 1-10 Or Fever>100.7 Aspirin 81 mg 12/08/23 08:00 12/09/23 08:28 Aspirin 81 Mg Tab.Chew PO 81 mg DAILYCM FREDERICK Administration Atorvastatin Calcium 40 mg 12/07/23 22:00 12/08/23 22:01 Atorvastatin Calcium 40 Mg Tablet PO 40 mg QHS FREDERICK Administration Calcium Carbonate 500 - 1,000 mg 12/08/23 20:03 12/08/23 20:37 Calcium Carbonate 500 Mg Tablet PO 1,000 mg Q6H PRN PRN Administration DYSPEPSIA/INDIGESTION Enoxaparin Sodium 40 mg 12/08/23 10:00 12/09/23 08:28 Enoxaparin 40 Mg/0.4 Ml Syringe SC 40 mg DAILY FREDERICK Administration Sodium Chloride 500 mls @ 15 mls/hr 12/07/23 15:39 IV PRN PRN Blood Transfusion Sodium Chloride 250 mls @ 15 mls/hr 12/07/23 15:39 IV .[id number] PRN Additional IVPB Infusion Sodium Chloride 250 mls @ 15 mls/hr 12/07/23 15:39 IV .[id number] PRN Saline Flush Melatonin 3 mg 12/07/23 15:37 Melatonin 3 Mg Tablet PO QHS PRN PRN INSOMNIA Ondansetron HCl 4 mg 12/07/23 15:37 Ondansetron 4 Mg/2 Ml Vial IV Q8H PRN PRN NAUSEA/VOMITING Pantoprazole Sodium 40 mg 12/08/23 10:00 12/09/23 08:28 Pantoprazole Sodium 40 Mg Tablet PO 40 mg DAILY FREDERICK Administration Sodium Chloride 10 - 40 ml 12/07/23 15:39 0.9% Saline Lock 10 Ml Syringe IV UD PRN SALINE FLUSH Sodium Chloride 2 - 6 ml 12/07/23 15:39 0.9% Saline Lock 10 Ml Syringe IV UD PRN Pediatric Saline Flush Tamsulosin HCl 0.4 mg 12/08/23 08:30 12/09/23 08:28 Tamsulosin Hcl 0.4 Mg Capsule PO 0.4 mg DAILY@0830 FREDERICK Administration 12/09/23 1029 <Electronically signed by Jen Neely MD> Cosigner Signature (if applicable): CC: Candice Griggs; Manohar Quiros; Jen Neely; Javad Mccracken; Iva Mitchell MD; Allison Schmidt MD; Tyson Gaviria MD; Dr. Luis Granados DO; Dr. Nicholas Henderson MD; Dr. Leonora Almeida MD; Dr. Kelvin Chao MD; Dr. Jonah Woodward MD; Dr. Marciano De La Cruz DO; Dr. Blade Gray MD; Dr. Thelma Morales MD; Dr. Christoph Faith MD; Dr. Nicole Stevens MD; Dr. Nam Keller MD; Dr. Julieta Gay MD; Leatha Mayberry DO; [facility]; Blanche Chandler MD~ Signed [facility] Work Phone: 1(312) 108-710901-25-2024 Progress note Author [facility] December 08, 2023 4:24pm Note Date/Time December 08, 2023 1 :38pm [facility] Medical Records Department [address] [place] [id number] Progress Note 12/08/23 1334 MR#: [id number] Acct: [id number] Name: ARIANA SIBLEY Rep #:[id number] : 1945 78 From: Hallie Whiting MD PCP: [facility],[place] Status:ADM CANDIDO Location: [place] [address] Subjective Subjective Patient seen and examined. He had no active complaints. He was admitted with acomplaint of dizziness and presyncopal episodes. CC to home from overnight. Review of systems otherwise negative. He has remained hemodynamically stable. Objective Data Objective Data Vital Signs: Vital Signs Temp Pulse Resp BP Pulse Ox O2 Del Method 98.4 F 55 L 16 132/77 H 100 Room Air 12/08/23 07:56 12/08/23 07:56 12/08/23 07:56 12/08/23 07:56 12/08/23 07:56 12/08/23 07:56 Oxygen Delivery Method Room Air Weight: 192 lb 10.944 oz Body Mass Index (BMI) 23.4 Intake & Output: Intake and Output for Last 24 Hours 12/06/23 12/07/23 12/08/23 23:59 23:59 23:59 Intake Total 400 / 400 400 / 400 Balance 400 / 400 400 / 400 Lab / Micro Data 12/08/23 06:00 12/08/23 06:00 Labs: Laboratory Results - last 24 hr 12/07/23 13:42: WBC 6.1, RBC 4.71, Hgb 13.9, Hct 43.4, MCV 92.1, MCH 29.5, MCHC 32.0, RDW Std Deviation 46.3 H, RDW Coeff of Katelin 13.6, Plt Count 182, MPV 11.1, Immature Gran % (Auto) 0.200, Neut % (Auto) 52.4, Lymph % (Auto) 31.1, Warrick % (Auto) 10.6 H, Eos % (Auto) 4.5, Baso % (Auto) 1.2 H, Absolute Neuts (auto) 3.2,Absolute Lymphs (auto) 1.88, Nucleated RBC % 0, PT 14.5, INR 1.1, APTT 27.7, Sodium 141, Potassium 4.1, Chloride 109 H, Carbon Dioxide 28.0, Anion Gap 4 L, BUN 21 H, Creatinine 1.08, Estim Creat Clear Calc 66.98, Est GFR (MDRD) Af Amer 85, Est GFR (MDRD) Non-Af 70, BUN/Creatinine Ratio 19.4, Glucose 100, [id number] 5.9 H, Calcium 9.4, Troponin I High Sens 12/07/23 16:10: Troponin I High Sens 12/07/23 21:07: Troponin I High Sens 12/08/23 06:00: WBC 5.3, RBC 4.69, Hgb 13.7, Hct 42.9, MCV 91.5, MCH 29.2, MCHC 31.9 L, RDW Std Deviation 45.9 H, RDW Coeff of Katelin 13.6, Plt Count 178, MPV 11.8, Sodium 138, Potassium 4.1, Chloride 109 H, Carbon Dioxide 26.0, Anion Gap 3 L, BUN 21 H, Creatinine 0.94, Estim Creat Clear Calc 76.95, Est GFR (MDRD) Af Amer 100, Est GFR (MDRD) Non-Af 83, BUN/Creatinine Ratio 22.5 H, Glucose 97, Calcium 8.7 Radiography Diagnostic Testing: Radiology Impression Chest X-Ray 12/07/23 13:50 IMPRESSION: Hyperinflation. Mild increased markings at the lung bases slightly worse on the left side suggestive of scarring. Electronically Signed: Dick Yepez MD at 14:23 EST , Brain CT 12/08/23 11:34 IMPRESSION: Chronic involutional changes of the brain. Findings suggestive of a 1.4 cm x 0.7 cm x 1.6 cm partially enhancing calcified mass along the anterior aspect of the cerebral falx on the left side. This is suggestive of a meningioma. Electronically Signed: Dick Yepez MD at 12:45 EST , Rhythm Strip Rhythm Strip: Sinus Rhythm Rate: 55 Physical Exam Const alert, oriented x3 and no apparent distress General Appearance: cooperative HEENT normocephalic, head/scalp atraumatic, moist oral mucous membranes and oropharynxnormal Eyes PERRL and EOMs intact bilaterally Neck no lymphadenopathy, supple and no JVD Lymph Lymphatic: no lymphadenopathy noted and no lymphedema noted Resp normal respiratory effort, normal air movement and clear to auscultation bilaterally Cardio regular rate, regular rhythm, S1 normal heart sound, S2 normal heart sound and no murmurs GI normal to inspection, nondistended, normoactive bowel sounds, soft to palpation,non-tender and non-distended Extremity normal capillary refill, no clubbing, cyanosis or edema and no calf tenderness General Extremity: no tenderness to palpation of joints or extremities Skin General Skin Exam: no breakdown Neuro CN's II-XII intact bilaterally, no focal motor deficits, no sensory deficits noted and deep tendon reflexes 2+ bilaterally Motor Exam: strength 5/5 throughout and general weakness Psych thought process normal, cooperative and affect normal Appearance: appropriate Assessment & Plan Assessment/Plan (1) Episodic lightheadedness: PLAN: Plan #Near syncope * Patient feels better. Was admitted with a complaint of episode of lightheadedness with shortness of breath. * Had a recent outpatient stress test on 11/23/2023 which showed anterior to be slight defect which was partially reversible suggestive of mild ischemia. * Cardiology reviewed him and does not think that his symptoms are related to this. He also has mild bradycardia but cardiology witnessed one of the presyncopal episodes and it did not seem to be related to any bradycardia as he was not bradycardic at that time. * Patient states he has a history of a brain lesion which was diagnosed by brain imaging about 6 to 7 years ago. He states he followed up with a neurologist at [facility]. * CT of the brain ordered today showed a 1.4 cm x 0.7 cm x 1.6 cm possible enhancing calcified mass along the anterior aspect of the cerebral falx on the left side suggestive of meningioma. * Will consult neurology * Request patient's previous records namely brain imaging and neurology reports * 2D echo showed normal left ventricular size and systolic function with EF of 60% and no regional wall motion abnormalities noted. He did have stage I diastolic dysfunction. * #Bradycardia: Bradycardia is mild. Heart rate in the 50s. Per cardiology not related to his symptoms. Monitor. #Abnormal stress test: * Recently had an abnormal stress test which showed mild reversible ischemia as above. * Cardiology does not think this is related to his current symptoms. Per cardiology no cardiac cath during this admission. * Follow-up with cardiology on outpatient basis. * #Hyperlipidemia: On statin #BPH: On Flomax DVT prophylaxis: Lovenox Charges/Coding Visit Charges Inpatient E&M: 44230 Subs Hosp [facility] 12/08/23 2524 <Electronically signed by Hallie Whiting MD> Hallie Whiting MD Cosigner Signature (if applicable): CC: ~ Signed [facility] Work Phone: 1(272) 301-196501-25-2024 Progress note Author Thelma Morales [facility] December 08, 2023 8:17am Note Date/Time December 08, 2023 8 [facility] [address] [place] [address] Progress Note - Cardiology 12/08/23811 MR#: [id number] Acct: [id number] Name: ARIANA SIBLEY Rep #:[id number] : 1945 78 From: Thelma Morales MD [facility] Status:ADM CANDIDO Location: [place] [address] Subjective Subjective The patient reports he an episode of his woozy/dizzy spell this morning. Duringthat spell while he was still having the symptoms his blood pressure was documented at 132/77 his heart rate was 55 and observed to be sinus bradycardia on the hardware supplies sales representative. The patient's cardiac enzymes are negative x 3 sets. His heart rate did drop down in the 40 beats per per minute range overnight. The echocardiogram is pending. The patient denies any chest pain shortness of breath or dyspnea. The symptoms continue to occur at rest. Objective Data Vital Signs: Vital Signs Temp Pulse Resp BP Pulse Ox O2 Del Method 98.4 F 55 L 16 132/77 H 100 Room Air 12/08/23 07:56 12/08/23 07:56 12/08/23 07:56 12/08/23 07:56 12/08/23 07:56 12/08/23 07:56 Oxygen Delivery Method Room Air Weight: 192 lb 10.944 oz Body Mass Index (BMI) 23.4 Intake & Output: Intake and Output for Last 24 Hours 12/06/23 12/07/23 12/08/23 23:59 23:59 23:59 Intake Total 400 / 400 Balance 400 / 400 Lab / Micro Data Attestation: I reviewed the patient's lab results. 12/08/23 06:00 12/08/23 06:00 Labs: Laboratory Results - last 24 hr 12/07/23 13:42: WBC 6.1, RBC 4.71, Hgb 13.9, Hct 43.4, MCV 92.1, MCH 29.5, MCHC 32.0, RDW Std Deviation 46.3 H, RDW Coeff of Katelin 13.6, Plt Count 182, MPV 11.1, Immature Gran % (Auto) 0.200, Neut % (Auto) 52.4, Lymph % (Auto) 31.1, Warrick % (Auto) 10.6 H, Eos % (Auto) 4.5, Baso % (Auto) 1.2 H, Absolute Neuts (auto) 3.2,Absolute Lymphs (auto) 1.88, Nucleated RBC % 0, PT 14.5, INR 1.1, APTT 27.7, Sodium 141, Potassium 4.1, Chloride 109 H, Carbon Dioxide 28.0, Anion Gap 4 L, BUN 21 H, Creatinine 1.08, Estim Creat Clear Calc 66.98, Est GFR (MDRD) Af Amer 85, Est GFR (MDRD) Non-Af 70, BUN/Creatinine Ratio 19.4, Glucose 100, GvufhmbrirK9t 5.9 H, Calcium 9.4, Troponin I High Sens 12 12/07/23 16:10: Troponin I High Sens 12/07/23 21:07: Troponin I High Sens 12 12/08/23 06:00: WBC 5.3, RBC 4.69, Hgb 13.7, Hct 42.9, MCV 91.5, MCH 29.2, MCHC 31.9 L, RDW Std Deviation 45.9 H, RDW Coeff of Katelin 13.6, Plt Count 178, MPV 11.8, Sodium 138, Potassium 4.1, Chloride 109 H, Carbon Dioxide 26.0, Anion Gap 3 L, BUN 21 H, Creatinine 0.94, Estim Creat Clear Calc 76.95, Est GFR (MDRD) Af Amer 100, Est GFR (MDRD) Non-Af 83, BUN/Creatinine Ratio 22.5 H, Glucose 97, Calcium 8.7 Rhythm Strip Rhythm Strip: Sinus Rhythm Rate: 55 Cardiology Labs/Tests 12/07/23 13:42: WBC 6.1, RBC 4.71, Hgb 13.9, Hct 43.4, MCV 92.1, MCH 29.5, MCHC 32.0, Plt Count 182, MPV 11.1, Immature Gran % (Auto) 0.200, Neut % (Auto) 52.4,Lymph % (Auto) 31.1, Warrick % (Auto) 10.6 H, Eos % (Auto) 4.5, Baso % (Auto) 1.2 H, Absolute Neuts (auto) 3.2, Nucleated RBC % 0, PT 14.5, INR 1.1, APTT 27.7, Sodium 141, Potassium 4.1, Chloride 109 H, Carbon Dioxide 28.0, Anion Gap 4 L, BUN 21 H, Creatinine 1.08, Est GFR (MDRD) Af Amer 85, Est GFR (MDRD) Non-Af 70, BUN/Creatinine Ratio 19.4, Glucose 100, Hemoglobin A1c 5.9 H, Calcium 9.4 12/08/23 06:00: WBC 5.3, RBC 4.69, Hgb 13.7, Hct 42.9, MCV 91.5, MCH 29.2, MCHC 31.9 L, Plt Count 178, MPV 11.8, Sodium 138, Potassium 4.1, Chloride 109 H, Carbon Dioxide 26.0, Anion Gap 3 L, BUN 21 H, Creatinine 0.94, Est GFR (MDRD) AfAmer 100, Est GFR (MDRD) Non-Af 83, BUN/Creatinine Ratio 22.5 H, Glucose 97, Calcium 8.7 Rhythm: EKG: ECHO: Stress Test: Cardiac Cath: PCI: CT Surgery: Holter monitor: EPS: PPM: CXR: Chest CT Scan: Radiography Diagnostic Testing: Radiology Impression Chest X-Ray 12/07/23 13:50 IMPRESSION: Hyperinflation. Mild increased markings at the lung bases slightly worse on the left side suggestive of scarring. Electronically Signed: Dick Yepez MD at 14:23 EST Reading Location ID and State: [address] [place] [address] , Service support , Physical Exam Const oriented x3 HEENT normocephalic Neck no JVD Chest inspection of chest normal Resp normal respiratory effort Cardio regular rhythm, S1 normal heart sound, S2 normal heart sound, no murmurs, no ruband no gallops Rate: bradycardia GI soft to palpation Extremity normal to inspection Skin no rashes or lesions noted Psych mental status grossly normal Assessment & Plan Assessment/Plan (1) Episodic lightheadedness: PLAN: The patient had an episode this morning and was documented during the episode to have blood pressure 132/77 his heart rate was 55 and sinus bradycardia on telemetry. I do not feel this is the etiology of his episodic lightheadedness associated with the dyspnea. The patient does have an echocardiogram pending to definitively rule out any significant valvular heart disease or LV dysfunction. The patient describes an neurologic MRI that he had at some point in time in [facility] he believes. He says he reportedly had some type ofgrowth or tumor diagnosed at that time but he was not certain about what this was. I do feel that the symptoms sound neurologic in etiology and should be further evaluated as indicated. (2) Abnormal cardiovascular stress test: PLAN: The echocardiogram is pending to evaluate the defect noted in the small area in the anterior basilar segment of his LV. His high-sensitivity troponins are negative x 3 sets and I do not feel that any further invasive evaluation is indicated for coronary artery disease. Charges/Coding Visit Charges Inpatient E&M: 99430 Subs Hosp L3 12/08/23 0817 <Electronically signed by Thelma Morales MD> Cosigner Signature (if applicable): CC: ~ Signed [facility] Work Phone: 1([phone]) 211-985301-25-2024 History and physical note Author Luis Granados [facility] December 07, 2023 10:24pm Note Date/Time December 07, 2023 2 :22pm [facility] Medical Records Department [address] [place] [address] H&P Exam - Hospitalist 12/07/23 1421 MR#: [id number] Acct: [id number] Name: ARIANA SIBLEY Rep #:[id number] : 1945 78 From: Luis osman DO PCP: [facility] Status:ADM CANDIDO Location: [place] [address] HPI - General General Date of Admission: 12/07/23 Date of Service: 12/07/23 Chief Complaint: Episodic lightheadedness with dyspnea HPI Narrative ARIANA SIBLEY, is a 78 M who presented to [facility] ED on 12/07/2023 for with episodic lightheadedness with dyspnea. Patient seen at bedside in the ED, present. Patient was sitting up comfortably in bed, conversing normally, no acute distress. Patient states that beginning about 6 weeks ago, he has had intermittent episodes of episodic lightheadedness with dyspnea at rest. Notes that the symptoms do not seem to correlate with activity. Symptoms seem to start at rest and resolve on their own. Previous episodes seem to resolve within minutes, but today's episode seemed to last for a few hours. [facility] done on 11/23/2023 at [facility] that showed an anterior basilar defect at rest and withstress that partially reversed with rest that was suggestive of mild ischemia. Had not had outpatient follow-up after the stress test to this point. Patient currently denies any chest pain, shortness of breath. Denies any fevers or chills. Denies any other pain or discomfort. No other acute concerns this time. COUNTS INCLUDE 234 BEDS AT THE [facility] Medical History Benign tumor BPH (benign prostatic hyperplasia) CPAP (continuous positive airway pressure) dependence GERD (gastroesophageal reflux disease) Hyperlipemia Migraines Non-smoker Sleep apnea Home Medications aspirin 81 mg chewable tablet 81 mg PO DAILY 12/07/23 [History Last Taken Unknown] glucosamine-chondroitin 250 mg-200 mg tablet (Osteo Bi-Flex) 2 tab PO DAILY 12/07/23 [History Last Taken Unknown] pantoprazole 40 mg tablet,delayed release 40 mg PO DAILY 12/07/23 [History Last Taken Unknown] rosuvastatin 20 mg tablet 20 mg PO DAILY 12/07/23 [History Last Taken Unknown] tamsulosin 0.4 mg capsule 0.4 mg PO DAILY 12/07/23 [History Last Taken Unknown] Allergy/AdvReac Type Severity Reaction Status Date / Time No Known Allergies Allergy Verified 12/07/23 11:59 Family History no significant family his Surgical History H/O hernia repair History of mandibular surgery Social History household members: spouse housing: house Smoking Status: Never smoker ROS Constitutional Constitutional: Denies chills, fatigue, fever(s) or weakness Eyes Eyes: Denies change in vision Cardiovascular Cardiovascular: Reports lightheadedness; Denies chest pain, dyspnea on exertion,edema or rapid heart rate Respiratory/Chest Respiratory/Chest: Reports shortness of breath at rest; Denies cough, productivecough, shortness of breath with exertion or wheezing Gastrointestinal Gastrointestinal: Denies abdominal pain Genitourinary Genitourinary: Denies dysuria Musculoskeletal Musculoskeletal: Denies arthralgias or back pain Neurologic Neurologic: Denies dizziness, focal weakness or headache(s) Vital Signs Vital Signs Vital Signs: 12/07/23 11:58 12/07/23 13:16 12/07/23 13:23 Temperature 97.6 F L Temperature Source Temporal Pulse Rate 76 54 L Respiratory Rate 14 10 L Respiratory Effort Short of Breath Respiratory Pattern Normal Blood Pressure 117/88 H Blood Pressure Mean 97 Pulse Ox 99 98 Oxygen Delivery Method Room Air Room Air Room Air 12/07/23 14:01 Temperature Temperature Source Pulse Rate 50 L Respiratory Rate 10 L Respiratory Effort Respiratory Pattern Blood Pressure Blood Pressure Mean Pulse Ox 98 Oxygen Delivery Method Weight Weight: 90.917 kg Body Mass Index (BMI) 24.4 Physical Exam Const alert, oriented x3, no apparent distress, average body habitus, healthy appearing and well nourished Constitutional Narrative: Pleasant elderly male, sitting up comfortably in bed, conversing normally, no acute distress. General Appearance: cooperative, comfortable, well kempt and well developed HEENT normocephalic, head/scalp atraumatic, hearing grossly normal bilaterally, nasal mucous membranes and turbinates normal and moist oral mucous membranes Eyes PERRL, EOMs intact bilaterally and conjunctivae normal Neck full ROM, no lymphadenopathy and supple Lymph Lymphatic: no lymphadenopathy noted Chest inspection of chest normal Resp normal respiratory effort, normal air movement, no use of accessory muscles and clear to auscultation bilaterally Cardio regular rate, regular rhythm, no murmurs and peripheral pulses 2+ throughout GI normal to inspection, nondistended, normoactive bowel sounds, soft to palpation,non-tender and non-distended Back/Spine normal ROM Extremity normal to inspection, full ROM and no pedal edema Skin no rashes or lesions noted Neuro moves all extremities and no focal motor deficits Speech: speech normal Psych mental status grossly normal Results Lab / Micro Data 12/07/23 13:42 12/07/23 13:42 Labs: Laboratory Results - last 24 hr 12/07/23 13:42: WBC 6.1, RBC 4.71, Hgb 13.9, Hct 43.4, MCV 92.1, MCH 29.5, MCHC 32.0, RDW Std Deviation 46.3 H, RDW Coeff of Katelin 13.6, Plt Count 182, MPV 11.1, Immature Gran % (Auto) 0.200, Neut % (Auto) 52.4, Lymph % (Auto) 31.1, Warrick % (Auto) 10.6 H, Eos % (Auto) 4.5, Baso % (Auto) 1.2 H, Absolute Neuts (auto) 3.2,Absolute Lymphs (auto) 1.88, Nucleated RBC % 0, PT 14.5, INR 1.1, APTT 27.7, Sodium 141, Potassium 4.1, Chloride 109 H, Carbon Dioxide 28.0, Anion Gap 4 L, BUN 21 H, Creatinine 1.08, Estim Creat Clear Calc 66.98, Est GFR (MDRD) Af Amer 85, Est GFR (MDRD) Non-Af 70, BUN/Creatinine Ratio 19.4, Glucose 100, Calcium 9.4, Troponin I High Sens 12 Assessment & Plan Assessment/Plan (1) Acute dyspnea: (2) Abnormal cardiovascular stress test: (3) Episodic lightheadedness: (4) Hyperlipemia: PLAN: Plan Patient is an 78-year-old male who presented to [facility] ED on11/14/2023 with episodic lightheadedness and dyspnea. 1. Episodic lightheadedness with dyspnea, abnormal cardiovascular stress test Unclear etiology at this time. Does not have definitive anginal type symptoms. Chest x-ray on admit showed mild increased markings at lung bases suggestive of scarring, no other acute abnormalities. Most recent stress test with findings as noted in HPI. Troponin x 3 normal. EKG on admit showed sinus bradycardia, no ST changes, no evidence of block. Lab workup otherwise fairly benign. ? Admit under observation status to PCU. Cardiology consulted. Echocardiogram ordered. Will keep patient on telemetry to evaluate for arrhythmias. Follow- upa.m. labs. Chronic medical conditions: ? BPH with LUTS: Continue home Flomax. ? Hyperlipidemia: Continue home statin. ? GERD: Continue home PPI. DVT prophylaxis: Lovenox CODE STATUS: Full code, verified Expected disposition: Home, 1 to 2 days Total clinical time spent by myself addressing the patient's medical issues, reviewing all the data, and collaborating with patient's care team: 55 minutes. Charges/Coding Visit Charges Inpatient E&M: 11666 Init Hosp L2 12/07/236 <Electronically signed by Luis Granados DO> Cosigner Signature (if applicable): CC: Dr. Luis Granados DO; [place] [facility]~ Signed [facility] Work Phone: [phone]) 230-908801-24-2024 Discharge summary Author Cleveland Canas [facility] December 07, 2023 4:59pm Note Date/Time December 07, 2023 2 :17pm [facility] Medical Records Department [address] [place] [address] Emergency Department Summary 12/07/23 MR#: [id number] Acct: [id number] Name: ARIANA SIBLEY Rep #:[id number] : 1945 78 From: Cleveland Alaniz PCP: [facility] Status:ADM CANDIDO Location: [address] History of Present Illness Chief Complaint: Shortness of Breath Informant: patient and spouse/S.O. Narrative Narrative: 78-year-old male presenting to the emergency department the chief complaint of lightheadedness and dyspnea. Patient states that he typically sees the [place] and [place]. He was there recently mentions some episodes of wooziness/lightheadedness accompanied by some shortness of breath. He states that he had a stress test 23 November here at the hospital. He states that he was told that if he had symptoms to call 911. This morning he developed the symptoms while at rest and notes that they lasted about 30 minutes. He did not have any diaphoresis. No particular chest pain. Patient and his drove to the hospital. Review of his stress test shows an area of potential ischemia. [facility] Medical History Benign tumor BPH (benign prostatic hyperplasia) GERD (gastroesophageal reflux disease) Hyperlipemia Home Medications aspirin 81 mg chewable tablet 81 mg PO DAILY 12/07/23 [History Last Taken Unknown] glucosamine-chondroitin 250 mg-200 mg tablet (Osteo Bi-Flex) 2 tab PO DAILY 12/07/23 [History Last Taken Unknown] pantoprazole 40 mg tablet,delayed release 40 mg PO DAILY 12/07/23 [History Last Taken Unknown] rosuvastatin 20 mg tablet 20 mg PO DAILY 12/07/23 [History Last Taken Unknown] tamsulosin 0.4 mg capsule 0.4 mg PO DAILY 12/07/23 [History Last Taken Unknown] Allergy/AdvReac Type Severity Reaction Status Date / Time No Known Allergies Allergy Verified 12/07/23 11:59 Family History no significant family his Surgical History H/O hernia repair History of mandibular surgery Social History household members: spouse housing: house Smoking Status: Never smoker ROS ROS ED Constitutional Constitutional ED: Denies chills, fever(s) or weight loss Eyes Eyes: Denies change in vision or diplopia ENT ENT ED: Denies ear pain, rhinorrhea or sore throat Cardiovascular Cardiovascular: Reports other Details: Lightheadedness ; Denies chest pain, orthopnea, palpitations or racing heartbeat Respiratory/Chest Respiratory/Chest: Reports dyspnea; Denies cough or orthopnea Gastrointestinal Gastrointestinal: Denies abdominal pain, diarrhea, nausea or vomiting Genitourinary Genitourinary ED: Denies dysuria, hematuria or urinary frequency Musculoskeletal Musculoskeletal: Denies arthralgias or myalgias Integumentary Denies abscess or rash Neurologic Neurologic: Denies headache(s) or weakness Psychiatric Psychiatric: Denies anxiety, depression, suicidal ideation or suicidal thoughts Endocrine Endocrinology: Denies polydipsia, polyphagia or polyuria Allergic/Immunologic Allergic/Immunologic ED: Denies mouth swelling, tongue swelling or urticaria EXAM Physical Exam Const Vital Signs: 12/07/23 11:58 12/07/23 13:16 12/07/23 13:23 Temperature 97.6 F L Temperature Source Temporal Pulse Rate 76 54 L Respiratory Rate 14 10 L Respiratory Effort Short of Breath Respiratory Pattern Normal Blood Pressure 117/88 H Blood Pressure Mean 97 Pulse Ox 99 98 Oxygen Delivery Method Room Air Room Air Room Air 12/07/23 14:01 Temperature Temperature Source Pulse Rate 50 L Respiratory Rate 10 L Respiratory Effort Respiratory Pattern Blood Pressure Blood Pressure Mean Pulse Ox 98 Oxygen Delivery Method Positive well nourished and well developed General Appearance ED: well developed HEENT Reports normocephalic, head/scalp atraumatic and moist mucous membranes Eyes PERRL and EOMs intact bilaterally Neck no lymphadenopathy, supple and no JVD Resp normal respiratory effort and clear to auscultation bilaterally Cardio regular rate and no murmurs Rate: bradycardia GI normal to inspection, nondistended, normoactive bowel sounds and non-tender Palpation: soft Back/Spine no CVA tenderness and normal ROM Extremity normal to inspection General Extremety ED: Negative for edema General Extremity: Negative for edema Neuro oriented x3 and CN's II-XII intact bilaterally Sensorium / Orientation: alert Motor Exam: strength 5/5 throughout Psych mental status grossly normal Mood & Affect: Negative for depressed or tearful Skin no rashes or lesions noted and no wounds MDM MDM MDM Narrative Medical decision making narrative: Basic blood work showed a hemoglobin 13.9. Troponin is 12 creatinine 1.08. He has been in a bradycardic rhythm on the monitor which raises concern for potential bradycardic rhythm that causes his intermittent symptoms. My independent rotation of his chest x-ray is no acute process. I spoke with Dr. Morales from cardiology. Plan will be to admit the patient on telemetry for monitoring of rhythm. He will assess the patient we will continue to cycle enzymes out of concern for possible ACS. History & Record Review Discussion w/independent historian: Patient and Family Additional record(s) reviewed:: Prior outpatient record Lab Data Attestation: I reviewed the patient's lab results. Labs: Laboratory Results - last 24 hr 12/07/23 13:42 WBC 6.1 RBC 4.71 Hgb 13.9 Hct 43.4 MCV 92.1 MCH 29.5 MCHC 32.0 RDW Std Deviation 46.3 H RDW Coeff of Katelin 13.6 Plt Count 182 MPV 11.1 Immature Gran % (Auto) 0.200 Neut % (Auto) 52.4 Lymph % (Auto) 31.1 Warrick % (Auto) 10.6 H Eos % (Auto) 4.5 Baso % (Auto) 1.2 H Absolute Neuts (auto) 3.2 Absolute Lymphs (auto) 1.88 Nucleated RBC % 0 PT 14.5 INR 1.1 APTT 27.7 Sodium 141 Potassium 4.1 Chloride 109 H Carbon Dioxide 28.0 Anion Gap 4 L BUN 21 H Creatinine 1.08 Estim Creat Clear Calc 66.98 Est GFR (MDRD) Af Amer 85 Est GFR (MDRD) Non-Af 70 BUN/Creatinine Ratio 19.4 Glucose 100 Calcium 9.4 Troponin I High Sens 12 Radiography Diagnostic Testing: Clinical Impression(s) from Imaging Studies Chest X-Ray 12/07/23 13:50 IMPRESSION: Hyperinflation. Mild increased markings at the lung bases slightly worse on the left side suggestive of scarring. Electronically Signed: Dick Yepez MD at 14:23 EST Reading Location ID and State: [facility] / [place] , Service support , EKG Initial EKG: Attestation: I personally reviewed and interpreted this EKG as follows: Comments: Sinus bradycardia with ventricular rate of 55 bpm Management Discussion w/another healthcare provider: Hospitalist and Inspector Circuitry Negative (Dr. Morales(cardiology)) Discharge Plan Dx/Rx/DC Orders Clinical Impression: Episodic lightheadedness, Acute dyspnea Disposition Disposition: [facility] Discharge Date/Time: 12/07/23 15:31 What to do if you have Problems For any increased pain, shortness of breath, bleeding, nausea or vomiting, chestpain, or any unexpected problems, contact your Primary Care Provider. Call [facility] ([phone]) or report to the closest Emergency Room. Call 911 if necessary. 12/07/23 165 <Electronically signed by Cleveland Canas DO> Cosigner Signature (if applicable): CC: [facility] ~ Signed [facility] Work Phone: [phone]) 189-466201-24-2024 Consult note Author Thelma Morales [facility] December 07, 2023 4:44pm Note Date/Time December 07, 2023 4 :28pm [facility] Medical Records Department [address] [place] [id number] Consultation - Cardiology 12/07/23 1626 MR#: [id number] Acct: [id number] Name: ARIANA SIBLEY Rep #:[id number] : 1945 78 From: Thelma Morales MD PCP: [facility],[place] Status:ADM CANDIDO Location: [place] [address] Assessment & Plan Assessment/Plan (1) Acute dyspnea: PLAN: The patient reports that he has had these episodes of dyspnea for some time. He was evaluated by his [place] physician recently and subsequently was referred for pharmacologic nuclear stress test. The patient does not have a history of coronary disease or congestive heart failure. He is a non-smoker. There was some scarring noted on his left lung field in the chest x-ray but his lungs sound clear to auscultation. Will evaluate this further with an echocardiogram. (2) Abnormal cardiovascular stress test: PLAN: Stress test done November 23, 2023 showed an anterior basilar defect at rest and at stress that partially reversed with rest. This was suggestive of mild ischemia. The patient does not have any definitive anginal type symptoms. The dyspnea and wooziness that he describes occurs at rest and not with exertion. (3) Episodic lightheadedness: PLAN: The patient describes this as a dizziness/wooziness. It occurs at rest and the worst episode occurred earlier today when he was playing solitaire sitting on the couch. We will evaluate him with a 2D echocardiogram to evaluatehis LV function given the abnormality on the stress test and keep him on telemetry to rule out any type of significant arrhythmias the etiology of the symptoms. The patient was instructed to notify the nurse should he develop any of the symptoms so that we can correlate that with his rhythm. (4) Hyperlipemia: QUALIFIERS: Hyperlipidemia type: mixed hyperlipidemia Qualified Code(s): E78.2 - Mixed hyperlipidemia PLAN: The patient can be continued on his rosuvastatin and followed up through his primary service. PLAN: Plan 1. Repeat a second troponin high-sensitivity. If positive would consider invasive evaluation with left heart catheterization. 2. Obtain a 2D echocardiogram to evaluate his LV function and potential valvular heart disease as an explanation of this dyspnea and dizziness. 3. Monitor telemetry for any arrhythmias that may explain the symptoms. 4. Keep the patient n.p.o. after a light breakfast. 5. If the patient's troponin remains negative his EKG telemetry does not show any arrhythmia to explain his symptoms and the echo was consistent with normal LV function and no significant valvular heart disease, we will have to evaluate alternative etiologies of the symptoms. HPI Consult Data Date of Consult: 12/07/23 HPI Narrative Reason for Consultation: Abnormal stress test with MONTERO and light headiness HPI Narrative: ARIANA SIBLEY, is a 78 M who presents with a history of dizziness, he describesa woozy feeling that occurs suddenly is associated from some slight difficulty in breathing. He denies any chest tightness or squeezing denies any chelo syncope. He has noted an occasional issue with his balance. He was seen in [facility] and a pharmacologic nuclear stress test was ordered. As stress testwas completed November 23, 2023. This showed an inferior basilar defect on the stress images which is partially reversed consistent with mild ischemia on the rest images. The patient did not have any symptoms with the stress test. The patient is fairly active in his home environment and is just noted these woozy dizzy spells occur episodically. He denies any facial droop denies any loss of bowel or bladder control he denies any nausea and vomiting. He denies any speech impediment or change in visual acuity. The patient also specificallydenies denies any chest tightness or squeezing or pain. There is no family history of early coronary disease and the patient is 78 yearsold. His mother did in her early 70s of a presumed cardiac event. There isno other family history of coronary artery disease. The patient denies any symptoms of claudication. His EKG shows a sinus bradycardia with a nonspecific minor T wave change. I do not have an old EKG for comparison. The patient reports he is borderline diabetic but really has no other cardiac risk factors. COUNTS INCLUDE 234 BEDS AT THE [facility] Medical History Benign tumor BPH (benign prostatic hyperplasia) CPAP (continuous positive airway pressure) dependence GERD (gastroesophageal reflux disease) Hyperlipemia Migraines Non-smoker Sleep apnea Home Medications aspirin 81 mg chewable tablet 81 mg PO DAILY 12/07/23 [History Last Taken Unknown] glucosamine-chondroitin 250 mg-200 mg tablet (Osteo Bi-Flex) 2 tab PO DAILY 12/07/23 [History Last Taken Unknown] pantoprazole 40 mg tablet,delayed release 40 mg PO DAILY 12/07/23 [History Last Taken Unknown] rosuvastatin 20 mg tablet 20 mg PO DAILY 12/07/23 [History Last Taken Unknown] tamsulosin 0.4 mg capsule 0.4 mg PO DAILY 12/07/23 [History Last Taken Unknown] Allergy/AdvReac Type Severity Reaction Status Date / Time No Known Allergies Allergy Verified 12/07/23 11:59 Family History no significant family his other (Father of cancer. Mother in her early 70s of a presumed cardiac event. There is no history of coronary disease in his immediate siblings.) Surgical History H/O hernia repair History of mandibular surgery Social History household members: spouse housing: house Smoking Status: Never smoker ROS Constitutional Constitutional: Reports as per HPI Eyes Eyes: Reports systems reviewed and no addt'l complaints, except as documented ENT HEENT: Reports systems reviewed and no addt'l complaints, except as documented Cardiovascular Cardiovascular: Reports systems reviewed and no addt'l complaints, except as documented and as per HPI Respiratory/Chest Respiratory/Chest: Reports systems reviewed and no addt'l complaints, except as documented and as per HPI Gastrointestinal Gastrointestinal: Reports systems reviewed and no addt'l complaints, except as documented Genitourinary Genitourinary: Reports systems reviewed and no addt'l complaints, except as documented Musculoskeletal Musculoskeletal: Reports systems reviewed and no addt'l complaints, except as documented Integumentary Integumentary: Reports systems reviewed and no addt'l complaints, except as documented Neurologic Neurologic: Reports systems reviewed and no addt'l complaints, except as documented and as per HPI Psychiatric Psychiatric: Reports systems reviewed and no addt'l complaints, except as documented Endocrine Endocrinology: Reports systems reviewed and no addt'l complaints, except as documented and as per HPI Allergic/Immunologic Allergic/Immunologic: Reports systems reviewed and no addt'l complaints, except as documented Physical Exam Const oriented x3 HEENT normocephalic Eyes EOMs intact bilaterally Neck no JVD and no carotid bruits Chest inspection of chest normal Resp normal respiratory effort Auscultation: Negative for crackles, rales, rhonchi or wheezes Cardio regular rhythm, S1 normal heart sound, S2 normal heart sound, no murmurs, no ruband no gallops Rate: bradycardia Bruits: Negative for carotid bruit or femoral bruit Peripheral Pulses: pulses 2+ throughout GI soft to palpation and non-tender Extremity normal to inspection and no pedal edema Skin no rashes or lesions noted Psych mental status grossly normal Risk Stratification Risk Stratification Applicable: Yes Age >/= 65: Yes >/= 3 CAD Risk Factors (HTN, HLD, DM, family hx of CAD, or current smoker): No Aspirin Use in the Past 7 Days: Yes Severe Angina (>/= episodes in 24 hours): No EKG ST Changes >/= 0.5mm: No Positive Cardiac Marker: No JAM Risk Stratification Score: 2 JAM % Risk: 8% Risk Charges/Coding Visit Charges Inpatient E&M: 15970 Init Hosp L3 Objective Data Vital Signs: Vital Signs Temp Pulse Resp BP Pulse Ox O2 Del Method 97.6 F L 51 L 10 L 130/76 H 97 Room Air 12/07/23 11:58 12/07/23 15:31 12/07/23 15:31 12/07/23 15:31 12/07/23 15:31 12/07/23 13:23 Oxygen Delivery Method Room Air Weight: 192 lb 10.944 oz Body Mass Index (BMI) 23.4 Lab / Micro Data Attestation: I reviewed the patient's lab results. 12/07/23 13:42 12/07/23 13:42 Labs: Laboratory Results - last 24 hr 12/07/23 13:42: WBC 6.1, RBC 4.71, Hgb 13.9, Hct 43.4, MCV 92.1, MCH 29.5, MCHC 32.0, RDW Std Deviation 46.3 H, RDW Coeff of Katelin 13.6, Plt Count 182, MPV 11.1, Immature Gran % (Auto) 0.200, Neut % (Auto) 52.4, Lymph % (Auto) 31.1, Warrick % (Auto) 10.6 H, Eos % (Auto) 4.5, Baso % (Auto) 1.2 H, Absolute Neuts (auto) 3.2,Absolute Lymphs (auto) 1.88, Nucleated RBC % 0, PT 14.5, INR 1.1, APTT 27.7, Sodium 141, Potassium 4.1, Chloride 109 H, Carbon Dioxide 28.0, Anion Gap 4 L, BUN 21 H, Creatinine 1.08, Estim Creat Clear Calc 66.98, Est GFR (MDRD) Af Amer 85, Est GFR (MDRD) Non-Af 70, BUN/Creatinine Ratio 19.4, Glucose 100, Calcium 9.4, Troponin I High Sens 12 Rhythm Strip Rhythm Strip: Sinus Rhythm Rate: 55 Cardiology Labs/Tests 12/07/23 13:42: WBC 6.1, RBC 4.71, Hgb 13.9, Hct 43.4, MCV 92.1, MCH 29.5, MCHC 32.0, Plt Count 182, MPV 11.1, Immature Gran % (Auto) 0.200, Neut % (Auto) 52.4,Lymph % (Auto) 31.1, Warrick % (Auto) 10.6 H, Eos % (Auto) 4.5, Baso % (Auto) 1.2 H, Absolute Neuts (auto) 3.2, Nucleated RBC % 0, PT 14.5, INR 1.1, APTT 27.7, Sodium 141, Potassium 4.1, Chloride 109 H, Carbon Dioxide 28.0, Anion Gap 4 L, BUN 21 H, Creatinine 1.08, Est GFR (MDRD) Af Amer 85, Est GFR (MDRD) Non-Af 70, BUN/Creatinine Ratio 19.4, Glucose 100, Calcium 9.4 Rhythm: EKG: See HPI ECHO: Stress Test: Cardiac Cath: PCI: CT Surgery: Holter monitor: EPS: PPM: CXR: Chest CT Scan: Radiography Diagnostic Testing: Radiology Impression Chest X-Ray 12/07/23 13:50 IMPRESSION: Hyperinflation. Mild increased markings at the lung bases slightly worse on the left side suggestive of scarring. Electronically Signed: Dick Yepez MD at 14:23 EST , EKG See HPI: Attestation: I personally reviewed and interpreted this EKG as follows: 12/07/23 1644 <Electronically signed by Thelma Morales MD> Cosigner Signature (if applicable): CC: Dr. Thelma Morales MD; [facility]~ Signed [facility] Work Phone: [phone] 765-515508-17-2023 Instructions* Patient Instructions* Tracy Lyn MA - 06/30/2023 9:54 AM [...] has been no change [facility] History of Present illness Narrative* Ada Valerio MD - 06/30/2023 9:29 AM EDT Referring Provider: Karlo Wall CNP Date: June 30, 2023 Chief Complaint: Headaches and history of menangioma HISTORY OF PRESENT ILLNESS: Ariana Sibley is a 77 year old male who presents for Headaches. He is a right handed, man. Patient resides at home with just his . 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 He is independent in his personal care. [...] hour. I, Tracy Lyn MA, transcribing for Ada Valerio MD. ALLERGIES Allergen Reactions Cialis [Tadalafil] Unknown [...] Employer And Job Title: No employer specified ([employer]) Years Of Education Completed: Not specified Marital [...] and self-injury. Vitals: Ht 193 cm (6' 4) Wt 88 kg (194 lb) BMI 23.61 [...] reactive. External ocular movements are full and thereis no nystagmus. V - Facial sensation to [...] we will pursue the recommended treatment. I, Ada Valerio, have reviewed and agree with the information in the medical record transcribed by Tracy Lyn MA. Ada Valerio MD [facility]* Diagnosis Chronic daily headache- Primary Headache History of meningioma of the brain documented in this encounter [facility] noteNo assessment information availableWFlower Hospital Work Phone: Evaluation note* Diagnosis Onset Date Resolution Status Acute dyspnea acute Episodic lightheadedness acu te [facility] Work Phone: Evaluation note* Diagnosis Onset Date Resolution Status Abnormal cardiovascular stress test acute Acute dyspnea acute Episodic lightheadedness acu te Hyperlipemia acute [facility] Work Phone: Hospital Discharge instructions Additional Instructions Your CT scan looks similar to previous. Since your migraines are worsening [facility] and may need to see a neurologist and get a repeat MRI scan.[facility] Work Phone: Reason for referral (narrative)No reason for referral information availableWFlower Hospital Work Phone: Summary Purpose Family History No Family History Records Found Father Status:Active Comments: d. budget examiner, Black Lung Hypertension Status:Active Comments:Mother. Lung Cancer Status:Active Comments:Father. Mother Status:Active Comments: d. Relationship Condition Age at Onset Recorded Date/T adriel father Malignant neoplasm Unknown mother Cardiac disease Unknown brother Malignant neoplasm Unknown Advance Directives No Advanced Directives Records Found Advance Directive Response Recorded Date/ Time Name of Medical Power of Die Repairer Trimmer Dies December 07, 2023 1:23pm Living Will Yes December 07 1:23pm Power of Die Repairer Trimmer Dies Yes December 07, 2023 1:23pm Advance Directive Response Recorded Date/ Time Name of Medical Power of Die Repairer Trimmer Dies December 07, 2023 3:45pm Living Will Yes December 07 3:45pm Power of Die Repairer Trimmer Dies Yes December 07, 2023 3:45pm Advance Directive Response Recorded Date/ Time Do you have a Healthcare Power of Die Repairer Trimmer Dies? No March 29, 2025 2:26pm Advance Directive Response Recorded Date/ Time Do you have a Healthcare Power of Die Repairer Trimmer Dies? No March 29, 2025 2:26pm Do you have a Healthcare Power of Die Repairer Trimmer Dies? No April 03, 2025 2:35pm Chief Complaint and Reason for Visit Chief Complaint SOB Shortness of breath Chief Complaint SOB Shortness of breath PRESYNCOPAL EPISODES WITH SHORTNESS OF BREATH Reason for Visit Acute dyspnea Episodic lightheadedness Chief Complaint SOB Shortness of breath PRESYNCOPAL EPISODES WITH SHORTNESS OF BREATH PRESYNCOPAL EPISODES WITH SHORTNESS OF BREATH PRESYNCOPAL EPISODES WITH SHORTNESS OF BREATH PRESYNCOPAL EPISODES WITH SHORTNESS OF BREATH PRESYNCOPAL EPISODES WITH SHORTNESS OF BREATH PRESYNCOPAL EPISODES WITH SHORTNESS OF BREATH Reason for Visit Abnormal cardiovascu lar stress test Acute dyspnea Episodic lightheadedness Hyperlipemia Chief Complaint Admit Date NEED ORDER January 15, 2025 11:3 8am Chief Complaint Admit Date NEED ORDER January 15, 2025 11:3 8am headache March 28, 2025 1:11p m Chief Complaint Admit Date NEED ORDER January 15, 2025 11:3 8am headache March 28, 2025 1:11p m calderon March 29, 2025 1:20p m Chief Complaint Admit Date NEED ORDER January 15, 2025 11:3 8am headache March 28, 2025 1:11p m calderon March 29, 2025 1:20p m PREOP April 01, 2025 7:36a m There was a stricture April 03, 2025 1:3 4pm URINE April 22, 2025 1:33p m Reason for Visit Admit Date 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, 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 m Additional Source Comments (unrecognized sect ion and content) No Status Records FoundNo Status Records FoundNo Status Records FoundNo Status Records FoundNo Status Records Found INFORMATION SOURCE (unrecogn ized section and content) DATE CREATED AUTHOR 06/05/2019 [facility] DATE CREATED AUTHOR AUTHOR'S ORGANIZ ATION 09/19/2020 [facility] DATE CREATED AUTHOR AUTHOR'S ORGANIZ ATION 01/17/2025 [facility] DATE CREATED AUTHOR AUTHOR'S ORGANIZ ATION 01/19/2025 [facility] DATE CREATED AUTHOR AUTHOR'S ORGANIZ ATION 06/16/2025 [facility] Source Comments (unrecognize d section and content) In the event this informatio n is protected by the Federal Confidentiality of Alcohol and Drug Abuse Patient Records regulations: The Federal rules restrict any use of the information to criminally investigate or prosecute any alcohol or drug abuse patient.[facility] Reason for Visit (unrecogniz ed section and content) Reason Comments New Patient Headaches Patient is in to [facility] Care Teams (unrecognized sec tion and content) Team Status: Active Member Role Status Dates [facility] Primary Care Provider Active Team Status: Inactive Member Role Status Dates MAE DIETRICH Attending Provider Active Start: January 15, 2025 End: January 15, 2025 [facility] Primary Care Provider Active Start: January 15, 2025 End: January 15, 2025 Loan Review Officer Relationship Specialty Start Date End Date Karlo Wall [address] [place] [address] PCP - General Internal Medicine 06/30/23 Team Status: Active Member Role Status Dates MAE DIETRICH Referring Provider, Other Provider Act alonzo [facility] Primary Care Provider Active Dr. Emigdio Vitale MD Attending Provider Active Team Status: Inactive Member Role Status Dates MAE DIETRICH Attending Provider, Referring Provider Active [facility] Primary Care Provider Active Team Status: Active Member Role Status Dates [facility] Primary Care Provider Active Dr. Cleveland Canas DO Emergency Provider Active Dr. Luis Granados , DO Admit Provider, Attending Provider Active Team Status: Active Member Role Status Dates [facility] Primary Care Provider Active Dr. Cleveland Canas DO Emergency Provider Active Dr. Luis Granados , DO Admit Provider, Other Pro vider Active Dr. Thelma Morales MD Attending Provider, Other Prov ider Active Team Status: Active Member Role Status Dates [facility] Primary Care Provider Active Dr. Cleveland Canas DO Emergency Provider Active Dr. Luis Granados DO Admit Provider, Other Pro vider Active Dr. Thelma Morales MD Attending Provider, Other Prov ider Active Dr. Hallie Whiting MD Other Provider Active Team Status: Active Member Role Status [facility] Primary Care Provider Active Dr. Emigdio Vitale MD Attending Provider Active Team Status: Active Member Role Status [facility] Primary Care Provider Active Dr. Cleveland Canas , DO Emergency Provider Active Dr. Luis Granados , DO Admit Provider, Other Pro vider Active Dr. Thelma Morales MD Other Provider Active Dr. Hallie Whiting MD Attending Provider, Other Prov ider Active Tyson Gaviria MD Other Provider Active Dr. Manohar Quiros MD Other Provider Active Allison Schmidt MD Other Provider Active Dr. Candice Griggs , Other Provider Active Dr. Iva Mitchell MD Other Provider Active Dr. Nicholas Henderson MD Other Provider Active Dr. Leonora Almeida MD Other Provider Active Dr. Jonah Woodward MD Other Provider Active Dr. Kelvin Chao MD Other Provider Active Leatha Mayberry MD Other Provider Active Dr. Marciano De La Cruz MD Other Provider Active Dr. Jen Neely MD Other Provider Active Dr. Christoph Faith MD Other Provider Active Dr. Blade Gray MD Other Provider Active Dr. Javad Zamarripa MD Other Provider Active Dr. Nicole Stevens MD Other Provider Active Dr. Nam Keller MD Other Provider Active Dr. Julieta Gay MD Other Provider Active Blanche Chandler MD Other Provider Active Team Status: Inactive Member Role Status [facility] Primary Care Provider Active Dr. Cleveland Canas , DO Emergency Provider Active Dr. Luis Granados , DO Admit Provider, Other Pro vider Active Dr. Thelma Morales MD Other Provider Active Dr. Hallie Whiting MD Attending Provider Active Tyson Gaviria MD Other Provider Active Dr. Manohar Quiros MD Other Provider Active Allison Schmidt MD Other Provider Active Dr. Candice Griggs , Other Provider Active Dr. Iva Mitchell MD Other Provider Active Dr. Nicholas Henderson MD Other Provider Active Dr. Leonora Almeida MD Other Provider Active Dr. Jonah Woodward MD Other Provider Active Dr. Kelvin Chao MD Other Provider Active Leatha Mayberry MD Other Provider Active Dr. Marciano De La Cruz MD Other Provider Active Dr. Jen Neely MD Other Provider Active Dr. Christoph Faith MD Other Provider Active Dr. Blade Gray MD Other Provider Active Dr. Javad Zamarripa MD Other Provider Active Dr. Nicole Stevens MD Other Provider Active Dr. Nam Keller MD Other Provider Active Dr. Julieta Gay MD Other Provider Active Blanche Chandler MD Other Provider Active Team Status: Inactive Member Role Status Dates [facility] Primary Care Provider Active Start: March 28, 2025 End: March 28, 2025 Ed Physician Provider Emergency Provider Active Start: March 28, 2025 End: March 28, 2025 Team Status: Inactive Member Role Status Dates [facility] Primary Care Provider Active Start: March 29, 2025 End: March 29, 2025 Dr. Armando Lang MD Emergency Provider Active Start: March 29, 2025 End: March 29, 2025 Team Status: Inactive Member Role Status Dates [facility] Primary Care Provider Active Start: March 28, 2025 End: March 28, 2025 Ed Physician Provider Attending Provider Active Start: March 28, 2025 End: March 28, 2025 Ed Physician Provider Emergency Provider Active Start: March 28, 2025 End: March 28, 2025 Team Status: Inactive Member Role Status Dates [facility] Primary Care Provider Active Start: March 29, 2025 End: March 29, 2025 Dr. Armando Lang MD Attending Provider Active Start: March 29, 2025 End: March 29, 2025 Dr. Armando Lang MD Emergency Provider Active Start: March 29, 2025 End: March 29, 2025 Team Status: Active Member Role Status Dates [facility] Primary Care Provider Active Start: April 01, 2025 End: April 01, 2025 Dr. Emigdio Vitale MD Attending Provider Active S tart: April 01, 2025 End: April 01, 2025 Dr. Marlon Pittman MD Referring Provider Active Start: April 01, 2025 End: April 01, 2025 Team Status: Inactive Member Role Status Dates [facility] Primary Care Provider Active Start: April 03, 2025 End: April 05, 2025 Dr. Marlon Pittman MD Admit Provider Active Start: April 03, 2025 End: April 05, 2025 Dr. Marlon Pittman MD Attending Provider Active Start: April 03, 2025 End: April 05, 2025 Dr. Marlon Pittman MD Referring Provider Active Start: April 03, 2025 End: April 05, 2025 BENJAMIN Nolen Other Provider Active Start: April 03, 2025 End: April 05, 2025 Team Status: Inactive Member Role Status Dates [facility] Primary Care Provider Active Start: April 22, 2025 End: April 22, 2025 Dr. Marlon Pittman MD Attending Provider Active Start: April 22, 2025 End: April 22, 2025 Dr. Marlon Pittman MD Referring Provider Active Start: April 22, 2025 End: April 22, 2025 Goals (unrecognized section and content) Goals may be documented in a n alternate sectionGoals may be documented in an alternate sectionGoals may be documented in an alternate sectionGoals may be documented in an alternate sectionGoals may be documented in an alternate section FOR RECORDS PERTAINING TO PATIENTS WHO ARE [...] BE BASED ON THE PRIMARY CLINICAL RECORDS. [employer] provides no warranty or guarantee of the accuracy or completeness of information in this document.
== END | disposition home or self-care (01) ==
LOC: MRI 10:39
DX: G43.909 Migraine, unspecified, not intractable, without status migrainosus (principal)
CPT/HCPCS: 70551